=== PATIENT | male | born 1980 | race Two or more races ===

== ENCOUNTER → 2021-03-07 12:41 | Outpatient (BNVA) | payer MEDICAID, SELFPAY | PROVIDERS: PCP Internal Medicine; Referring Provider Internal Medicine; Visit Provider Nurse Practitioner Family | DX: I48.91 Unspecified atrial fibrillation (principal); E78.5 Hyperlipidemia, unspecified; R07.9 Chest pain, unspecified | CPT/HCPCS: 93005; 99212 ==

== ENCOUNTER → 2021-03-22 09:28 | Outpatient (REF) | payer MEDICAID, SELFPAY ==
--- NOTE | ~2021-03-22 | NM_ITS ---
Exercise Myocardial perfusion study Indication: Chest pain to evaluate for myocardial ischemia Technique: The patient was brought in for an exercise perfusion study on 03/22/2021. Patient performed exercise as per Raffy protocol and was injected 40 mCi of sestamibi was given intravenously one target HR was achieved. Images were obtained using the SPECT gamma camera interlaced with the gating device. Images were obtained in supine position. Resting perfusion study was performed on 03/23/2021. Patient was administered 40 mCi of sestamibi intravenously at rest. Images were then obtained in supine position. Images obtained with and without CT attenuation. Total DLP 148 mGy-cm. Images were processed with the software and compared side to side in short axis, horizontal long axis and vertical long axis views. Findings: The stress perfusion study showed non attenuated images show mildly reduced uptake in the basal inferior wall of the LV myocardium. Remainder of the LV myocardium normally is. Attenuated corrected images show mildly reduced uptake in the distal septum and the apex of the LV myocardium.. The gated study shows normal LV systolic function with calculated LVEF of 60%. LV cavity is normal in size. The gated study shows normal systolic wall thickening and contraction of all segments. There is no transient ischemic dilation. Resting study shows no change in perfusion pattern compared to stress perfusion study. Gating at rest reveals normal systolic wall motion with ejection fraction at 58%. The findings are consistent with no reversible defect suggestive of ischemia. Minimal to mild intensity fixed defect with normal wall motion normal myocardial perfusion. NM/NM cardiolite stress test Impression: 1. Normal myocardial perfusion 2. Gated LVEF is 60% 3. Transient ischemic dilatation not present Stress EKG is equivocal for ischemia
--- NOTE | 2021-03-22 09:30 | CA_ITS ---
Acquisition Time: 2021-03-22 09:42:23 Total Exercise Time: 00:07:32 Test Indications: CP Medications: SEE CHART Protocol: FEMI Max HR: 142 BPM 79% of Pred: 179 BPM Max BP: 136/070 mmHG Max Work Load: 9.3 METS Exercise stress test using Femi protocol, total of 7 min 32 sec. METS 9.30 and TAPHR up to 79 %. Pt c/o SOB no CP, EKG with no arrhythmias, No ischemic changes seen during exercise or in recovery. Nuclear images to follow. Normotensive response to exercise. Test reviewed with Dr. Darden. Referred By: Vira Jackson Overread By: Marilyn Rodarte NP
== END ==
LOC: HO.SL 09:28
PROVIDERS: PCP Internal Medicine; Visit Provider Nurse Practitioner Family
DX: R07.9 Chest pain, unspecified (principal); G47.33 Obstructive sleep apnea (adult) (pediatric); I48.0 Paroxysmal atrial fibrillation
CPT/HCPCS: 78452; 93016; 93017; 93018; 93225; 93226; 95806; A9500

== ENCOUNTER → 2021-03-26 10:10 | Outpatient (REF) | payer MEDICAID, SELFPAY ==
--- NOTE | 2021-03-26 10:15 | ECG_ITS ---
Hook-up date: 2021-03-26 10:19:00 Duration: 24:02:00 Test Indications: PAF Medications: [id number] QRS complexes 8 Ventricular ectopics which represent <1 % of total QRS comp. 76 Supraventricular ectopics which represent <1 % of total QRS comp. * Paced QRS complexs which represent % of total QRS comp. VENTRICULAR ECTOPY 8 Isolated 0 Bigeminal Cycles 0 Couplets 0 Runs 0 Beats in Runs * Beats LONGEST at * BPM at :: -- * Beats FASTEST at * BPM at :: -- SUPRAVENTRICULAR ECTOPY 73 Isolated 1 Couplets 1 Runs 3 Beats in Runs 3 Beats LONGEST at 104 BPM at 01:36:01 2021-03-27 3 Beats FASTEST at 104 BPM at 01:36:01 2021-03-27 HEART RATES 40 MIN at 04:48:25 2021-03-27 80 AVG 134 MAX at 07:34:50 2021-03-27 LONGEST RR 1.6320 secs at 04:48:22 2021-03-27 S-T LEVELS Channel 1 - 128 mm at 10:19:00 2021-03-26 - 128 mm at 10:19:00 2021-03-26 Channel 2 - 128 mm at 10:19:00 2021-03-26 - 128 mm at 10:19:00 2021-03-26 Channel 3 - 128 mm at 02:93:81 -- - 128 mm at 02:93:81 Underlying rhythm is sinus; Average rate 80/min; range 40-134/min; Most rates are 60-100/min; Rare PACs/PVCs; One strip with possible flutter but well controlled ventricular rate; No sustained arrhythmias; Patient did not report any symptoms in the diary Referred By: Vira Jackson Overread By: JANE HALL
== END ==
LOC: HO.CARD 10:10
PROVIDERS: Visit Provider Nurse Practitioner Family
DX: I48.0 Paroxysmal atrial fibrillation (principal)
CPT/HCPCS: 93225; 93226

== ENCOUNTER → 2021-04-05 09:14 | Outpatient (BNVA) | payer MEDICAID, SELFPAY | PROVIDERS: PCP Internal Medicine; Referring Provider Internal Medicine; Visit Provider Internal Medicine | DX: I48.0 Paroxysmal atrial fibrillation (principal); I49.3 Ventricular premature depolarization; G47.33 Obstructive sleep apnea (adult) (pediatric) | CPT/HCPCS: 99212 ==

== ENCOUNTER → 2021-04-10 19:23 | Outpatient (REF) | payer MEDICAID, SELFPAY | LOC: HO.SL 19:23 | PROVIDERS: Visit Provider Nurse Practitioner Family | DX: G47.33 Obstructive sleep apnea (adult) (pediatric) (principal) | CPT/HCPCS: 95811 ==

== ENCOUNTER → 2021-06-18 14:37 | Outpatient (BNVA) | payer MEDICAID, SELFPAY | PROVIDERS: PCP Internal Medicine; Visit Provider Surgery | DX: K64.8 Other hemorrhoids (principal); E66.01 Morbid (severe) obesity due to excess calories | CPT/HCPCS: 99202 ==

== ENCOUNTER 2021-06-29 07:58 | Day surgery (SDC) | payer MEDICAID, SELFPAY ==
[2021-06-22 09:24] VITALS: BMI 36.5
--- NOTE | 2021-06-28 09:49 | HO.ANESPROP2 ---
Documented by User: Monse Stephens NP 06/28/21 09:52 HPI - Anesthesia Eval Consult details Narrative: 41yo M for EUA & Hemorrhoidectomy, Poss Sphincterotomy Afib, no anticoag per cardiol Severe PANTERA - ? CPAP PMFSH Active Problems Active Problems: All Active Problems (Updated 06/22/21 @ 09:28 by Caprice Marshall, RN) Hypersomnia (Acute) History of colon resection (Acute) Obstructive sleep apnea (Acute) PAF (paroxysmal atrial fibrillation) (Acute) PVC (premature ventricular contraction) (Acute) Hemorrhoids with complication (Acute) Morbid obesity (Acute) HLD (hyperlipidemia) (Acute) Afib (Acute) Chest pain (Acute) Past Medical History Medical History (Updated 06/22/21 @ 09:28 by Caprice Marshall RN) Afib Chest pain COVID-19 COVID-19 vaccination not done Hemorrhoids with complication HLD (hyperlipidemia) Morbid obesity Family History Family History Brother No problems noted. Surgical History Surgical History (Updated 06/22/21 @ 09:22 by Caprice Marshall, LENO) History of back surgery History of bowel resection Social History Social History (Updated 06/22/21 @ 09:22 by Caprice Marshall RN) Patient Tobacco Use Status: Current everyday Tobacco user Tobacco use type: Cigarette Cigarettes Per Day: 10 Smoked in Last 30 Days: Yes Use of substances other than those prescribed or required for medical reasons: No Are you DNR?: No Advance Directives: No Advance Directives Information Provided: No Advance Directives on File: No Meds Allergies Allergy/AdvReac Type Severity Reaction Status Date / Time ampicillin [AMPICILLIN] Allergy Severe SWELLING/HI Verified 06/18/21 15:00 VES Cephalosporins Allergy Severe SWELLING/HI Verified 06/18/21 15:00 [CEPHALOSPORINS] VES Penicillins [PENICILLINS] Allergy Severe SWELLING/HI Verified 06/18/21 15:00 VES Home Medications Medication Instructions Recorded Confirmed Last Taken Type pantoprazole 40 mg tablet,delayed 40 mg PO DAILY 03/07/21 06/22/21 Unknown History release Exam Exam Date and Time: June 28, 2021 0949 Height,Weight and Vital Signs: Height 5 ft 11 in Weight 118.841 kg Narrative Narrative: echocardiogram at [facility] 02/2021 LVEF of 50-55% and mild LVH and mild diastolic dysfunction. EKG 03/2021 SR, no acute ST/ T wave abn, rate 88 Holter 03/2021 Underlying rhythm is sinus; Average rate 80/min; range 40-134/min; Most rates are 60-100/min; Rare PACs/PVCs; One strip with possible flutter? but well controlled ventricular rate; No sustained arrhythmias; Patient did not report any symptoms in the diary NM cardiolite stress test 03/2021 Impression: ? 1.? Normal myocardial perfusion 2.? Gated LVEF is 60% 3. Transient ischemic dilatation not present ? Stress EKG is equivocal for ischemia Assessment and Plan Assessment Anesthesia Assessment: Chart Reviewed Documented by User: Bruce Alas MD 06/29/21 10:02 [facility] Past Medical History Medical History (Updated 06/22/21 @ 09:28 by Caprice Marshall, LENO) Afib Chest pain COVID-19 COVID-19 vaccination not done Hemorrhoids with complication HLD (hyperlipidemia) Morbid obesity Family History Family History Brother No problems noted. Family history of problems with anesthesia: No Surgical History Surgical History (Updated 06/22/21 @ 09:22 by Caprice Marshall, RN) History of back surgery History of bowel resection History of Problems with Anesthesia: No Social History Social History (Updated 06/22/21 @ 09:22 by Caprice Marshall, LENO) Patient Tobacco Use Status: Current everyday Tobacco user Tobacco use type: Cigarette Cigarettes Per Day: 10 Smoked in Last 30 Days: Yes Use of substances other than those prescribed or required for medical reasons: No Are you DNR?: No Advance Directives: No Advance Directives Information Provided: No Advance Directives on File: No Meds Allergies Allergy/AdvReac Type Severity Reaction Status Date / Time ampicillin [AMPICILLIN] Allergy Severe SWELLING/HI Verified 06/18/21 15:00 VES Cephalosporins Allergy Severe SWELLING/HI Verified 06/18/21 15:00 [CEPHALOSPORINS] VES Penicillins [PENICILLINS] Allergy Severe SWELLING/HI Verified 06/18/21 15:00 VES Home Medications Medication Instructions Recorded Confirmed Last Taken Type pantoprazole 40 mg tablet,delayed 40 mg PO DAILY 03/07/21 06/22/21 Unknown History release Exam Airway Mallampati Class: I TM Dist: >3cm Neck ROM: Full Heart: ok Lungs: ok Assessment and Plan Assessment Anesthesia Assessment: Anesthesia Plan Discussed and Chart Reviewed Final Anesthetic Review Family History of Problems with Anesthesia: No History of Problems with Anesthesia: No NPO: Yes ASA Class: III Final Preanesthetic Review: No Changes in Pt Med Stat, Meds/Allgs Chart Reviewed, Consent Obtained/Reviewed and Anes Risks/Benef Reviewed Patient Risk: Intermediate Procedure Risk: Intermediate Anesthetic Plan Anesthetic Plan: GA and Agree w/ Assess. and Plan Disposition: Standard PACU
[2021-06-29 08:35] VITALS: BP 107/61; PULSE 72; RESP 16; TEMP 36.6; O2SAT 95
--- NOTE | 2021-06-29 08:41 | MHC.SHP ---
Pre-Procedural Eval Section A Date of Service: 06/29/21 Section B Chief Complaint: Hemorrhoids with complication Allergies: Allergies Allergy/AdvReac Type Severity Reaction Status Date / Time ampicillin [AMPICILLIN] Allergy Severe SWELLING/HI Verified 06/18/21 15:00 VES Cephalosporins Allergy Severe SWELLING/HI Verified 06/18/21 15:00 [CEPHALOSPORINS] VES Penicillins [PENICILLINS] Allergy Severe SWELLING/HI Verified 06/18/21 15:00 VES Plan I have reviewed the history and physical and performed a pertinent physical examination on my patient. No changes have occurred unless specified.
[2021-06-29] MEDS: Lactated Ringers 1,000 ML 100 ML IVCONT (08:46)
--- NOTE | 2021-06-29 10:54 | W.PM.OPN ---
Operative Note Operative Note Date of Service: 06/29/21 Narrative: Preop diagnosis: Internal and external hemorrhoids, with pain and bleeding Postop diagnosis: The same Procedure: Exam under anesthesia, hemorrhoidectomy x2 columns Surgeon: Jemal Araya MD Pit Slagman:BRENDA Perez student The patient is a 41-year-old male who has had chronic problems with pain and bleeding with hemorrhoids. He was seen in the office and was noted to have a bulky mixed internal and external hemorrhoidal column on the right side. He also had a smaller hemorrhoidal column the left. In view of symptoms, he wanted to proceed with hemorrhoidectomy. He understood the technique of the procedure as well as the risks, benefits, and alternatives. He was brought to the operating room and placed in prone luis manuel-knife position under general anesthesia via laryngeal mask airway. The buttocks were retracted with wide tape laterally. The perianal area was prepped and draped in the usual fashion. A surgical time-out was done. The patient received Cefotan 2 g IV preoperatively I infiltrated the perianal area with lidocaine 1%. Examination of the anal orifice revealed a bulky hemorrhoidal column on the right side and a smaller hemorrhoidal column on the left. I inserted abuse Garrett retractor and examined the anal canal circumferentially. Again this large hemorrhoidal column on the right was noted with a mix of internal external with note of what seems to be an internal component that bled easily. There was note of a smaller external hemorrhoidal column on the left. There were no other lesions seen. There is no anal fissure. There was no induration on examination I applied a Rashid grasper at the large hemorrhoidal column on the right side. I placed a aqplyk-tq-zlugr stitch at the pedicle proximal to the dentate line using chromic 3-0. I made an incision around this hemorrhoidal column to the perianal skin using blade 15. I then excised this hemorrhoidal column above the plane of sphincters using scissors. I closed this incision with a running chromic 3-0 stitch, with additional giqpfb-si-wqdso sutures being placed for hemostasis I duplicatedthe same procedure with the external hemorrhoid column on the left. I made the incision around this hemorrhoidal column with a blade 15. I excised this hemorrhoidal column above the plane of the sphincters using scissors. I closed this incision with a running chromic 3-0 stitch with additional hemostatic fswaau-nq-nbsks sutures being placed. I observed from a stasis. Once hemostasis was confirmed I proceeded to then position a rolled Gelfoam packing into the anal canal. I infiltrated the perianal area with Marcaine 0.5% for postop analgesia The procedure was then completed The patient tolerated the procedure well. There were no complication noted. Initial and final counts of sponges and instruments were correct. Estimated blood loss was about 50 cc. The patient was extubated without difficulty and transferred to recovery room with stable vital signs.
--- NOTE | 2021-06-29 10:59 | P.BOP_ITS ---
Brief Operative Note Date of Service: 06/29/21 Pre-op diagnosis: Internal and external hemorrhoids with pain and bleeding Post-op diagnosis: same Procedure: Examination under anesthesia, hemorrhoidectomy x2 Surgeon: Jemal Araya MD Anesthesia: GLMA Was an Financial Report Service Sales Agent used for this Procedure?: No Estimated blood loss (mL): 50 Pathology: other (Hemorrhoids) Condition: stable Disposition: PACU
[2021-06-29 11:05] VITALS: BP 142/79; PULSE 85; RESP 16; TEMP 36.5; O2SAT 94
[2021-06-29] MEDS: ondansetron HCL 4 MG/2 ML VIAL IVPUSH (11:09)
[2021-06-29] MEDS: oxyCODONE HCl Immed Release 5 MG TABLET 10 MG PO (11:09)
[2021-06-29] MEDS: Acetaminophen 325 MG TABLET 650 MG PO (11:09)
[2021-06-29 11:10] VITALS: BP 145/83; PULSE 77; RESP 16; O2SAT 94
[2021-06-29 11:15] VITALS: BP 139/79; PULSE 78; RESP 18; O2SAT 98
[2021-06-29 11:20] VITALS: BP 136/70; PULSE 69; RESP 18; O2SAT 99
== END 2021-06-29 12:05 | disposition home or self-care (01) ==
PROVIDERS: PCP Internal Medicine; Visit Provider Surgery
PROC: (CPT 46260; principal; 2021-06-29 09:40)
DX: K64.8 Other hemorrhoids (principal); K64.4 Residual hemorrhoidal skin tags; E66.01 Morbid (severe) obesity due to excess calories; Z68.36 Body mass index [BMI] 36.0-36.9, adult
CPT/HCPCS: 46260; 88304; J2405; J3010

== ENCOUNTER → 2021-07-12 11:25 | Outpatient (BNVA) | payer MEDICAID, SELFPAY | PROVIDERS: PCP Internal Medicine; Visit Provider Surgery | DX: K64.8 Other hemorrhoids (principal) | CPT/HCPCS: 99212 ==

== ENCOUNTER → 2021-10-03 08:43 | Outpatient (BNVA) | payer MEDICAID, SELFPAY | PROVIDERS: PCP Internal Medicine; Visit Provider Hospitalist | DX: G47.33 Obstructive sleep apnea (adult) (pediatric) (principal); G47.10 Hypersomnia, unspecified | CPT/HCPCS: 99202 ==

== ENCOUNTER 2021-10-25 07:48 | Outpatient (REF) | payer MEDICAID, SELFPAY ==
--- NOTE | 2021-10-25 07:51 | EMG_ITS ---
Bilateral median and ulnar motor and sensory studies were performed. Bilateral radial sensory studies were performed and paraspinal muscles were tested with a needle. IMPRESSION: This is an unremarkable study with no evidence of any significant abnormality to suggest entrapment neuropathy or radiculopathy. MD ANDRIY Morse/REID / [id number]
== END 2021-10-25 07:49 | disposition home or self-care (01) ==
LOC: HO.NEURO 07:48
PROVIDERS: Visit Provider Internal Medicine
DX: G56.03 Carpal tunnel syndrome, bilateral upper limbs (principal)
CPT/HCPCS: 95886; 95911

== ENCOUNTER → 2022-01-03 08:55 | Outpatient (BNVA) | payer MEDICAID, SELFPAY | PROVIDERS: PCP Internal Medicine; Visit Provider Hospitalist | DX: G47.33 Obstructive sleep apnea (adult) (pediatric) (principal); G47.10 Hypersomnia, unspecified; I48.0 Paroxysmal atrial fibrillation | CPT/HCPCS: 99212 ==

== ENCOUNTER → 2022-04-02 08:32 | Outpatient (BNVA) | payer MEDICAID, SELFPAY | PROVIDERS: PCP Internal Medicine; Visit Provider Hospitalist | DX: G47.33 Obstructive sleep apnea (adult) (pediatric) (principal); G47.10 Hypersomnia, unspecified; I48.0 Paroxysmal atrial fibrillation | CPT/HCPCS: 99212 ==

== ENCOUNTER → 2022-06-18 13:19 | Outpatient (REF) | payer MEDICAID, SELFPAY | LOC: HO.CARD 13:19 | PROVIDERS: Visit Provider Internal Medicine | DX: I48.0 Paroxysmal atrial fibrillation (principal); I49.3 Ventricular premature depolarization; G47.33 Obstructive sleep apnea (adult) (pediatric); E66.01 Morbid (severe) obesity due to excess calories; F17.210 Nicotine dependence, cigarettes, uncomplicated; Z79.899 Other long term (current) drug therapy | CPT/HCPCS: 93005; 99212 ==

== ENCOUNTER → 2022-08-20 09:08 | Outpatient (REF) | payer MEDICARE, MEDICAID, SELFPAY ==
--- NOTE | 2022-08-20 09:12 | CA_ITS ---
Transthoracic Echocardiogram Patient (Last, First, Middle): Gennaro Quinn, Gender: Male Date of : 1980 Age: 42 Procedure Date: 08/20/2022 Procedure Type: Transthoracic Echocardiogram Location: OP Height: 180.34 cm Weight: 122.47 kg BSA: 2.40 m2 Heart Rate: 74 bpm BP: 122 / 82 mmHg Track Man: SB Referring MD: Ant Macedo MD Symptoms: I48.0 - Paroxysmal atrial fibrillation Study Quality: Adequate w contrast ECG Rhythm: Sinus Conclusions: - The left ventricular systolic function is low normal. The visually estimated ejection fraction is between 50-55%. - No obvious valvular pathology seen on this study. Findings Procedure Information Contrast agent, definity, is being given per protocol without apparent complications. Left Ventricle Normal left ventricular cavity size. There is normal left ventricular wall thickness. The left ventricular systolic function is low normal. The visually estimated ejection fraction is between 50-55%. There is no evidence of regional wall motion abnormalities. Diastolic function is normal for age. Right Ventricle Normal right ventricular cavity size and systolic function. Atria Both atria are normal in size. Aortic Valve There is a normal trileaflet aortic valve. There is no aortic valve stenosis. There is no aortic valve regurgitation. Mitral Valve The mitral valve appears normal. There is no mitral valve regurgitation. There is no mitral valve stenosis. Pulmonic Valve The pulmonic valve is likely normal. Tricuspid Valve Normal tricuspid valve structure. There is trace tricuspid valve regurgitation. There is no evidence of pulmonary hypertension. Great Vessels The aortic annulus, sinuses of valsalva, and asc aorta are normal in size. Venous The inferior vena cava is normal in size and collapses greater than 50% with inspiration. Pericardium/Pleural There is no evidence of pericardial effusion. Prior Study Comparison Changes noted compared to prior study dated: 05/12/2019. LVEF slightly lower. Recommendations, Care & Conclusions No obvious valvular pathology seen on this study. Measurements 2D Linear Measurements IVSd: 0.80 0.6-0.9/0.6-1.0 cm LVIDd: 5.28 3.9-5.3/4.2-5.9 cm LVIDd Index: 2.20 2.4-3.2/2.2-3.1 cm/m2 LVIDs: 3.92 2.0-3.6 cm LVPWd: 0.76 0.7-1.1 cm LA Diam: 3.70 2.7-3.8/3.0-4.0 cm LAIDs Index: 1.54 1.5-2.3 cm/m2 LV Mass: 179.87 67-162/88-224 g LV Mass Index: 74.95 43-95/49-115 g/m2 LVOT Diam: 2.50 3.0+(-)1.3 cm 2D Systolic Function EF 4C: 50.30 >55% EF 2C: 64.90 >55% EF BiP: 57.70 >55% Mitral Valve MV Pk E: 0.72 MV PK A: 0.66 MV Decel Time: 147.00 E/A: 1.10 E'Lateral: 9.90 E'Medial: 5.77 E/E' Med: 12.50 E/E' Lat: 7.30 PHT: 43.00 MVA PHT: 5.12 Decel [place]: 4.89 Aortic Valve AoV Pk Gallo: 1.12 AoV Pk Grad: 5.00 SONA: 4.18 LVOT LVOT Pk Gallo: 0.95 LVOT Mn Gallo: 0.70 LVOT VTI: 0.19 LVOT Pk Grad: 4.00 LVOT Mn Grad: 2.00 LVOT Diam: 2.50 LVOT Area: 4.91 Diastolic Function MV Pk E: 0.72 MV Pk A: 0.66 E/A: 1.10 E'Medial: 5.77 E/E' Med: 12.50 E' Laterial: 9.90 E/E' Lat: 7.30 Right Ventricle TAPSE (mm): 20.30 TVS' Gallo: 12.10 Tricuspid Valve TR Pk Gallo: 2.07 TR Pk Grad: 17.00 RA Press: 3.00 RVSP: 20.00 Great Vessels Aorta Sinus of Valsalva: 3.10 2.0-3.5 cm Ao Asc: 3.20 2.1-3.4 cm Pulmonary Veins Pulm Vein S/D 0.80 Pulmonary Valve PV Pk Gallo: 1.18 Peak PV Grad: 6.00 Updated in Other Vendor System with Status of Final Ant Macedo MD electronically signed on 08/20/2022 4:00:02 PM with status of Final
== END ==
LOC: HO.CARD 09:08
PROVIDERS: Visit Provider Internal Medicine
DX: I48.0 Paroxysmal atrial fibrillation (principal)
CPT/HCPCS: 93306; Q9957

== ENCOUNTER → 2022-11-29 12:35 | Outpatient (REF) | payer MEDICARE, MEDICAID, SELFPAY ==
--- NOTE | 2022-11-29 12:32 | HM_ITS ---
* Total monitoring time approximately 2 days. * Underlying rhythm is sinus. * Average ventricular rate 92/Min. Range 38 to 163/Min. * About 18% of the time, rate > 100/Min. * Very rare PVCs/PACs. Minimal burden. * No significant pauses or AV blocks. * No patient marker or diary events. MTDD
== END ==
LOC: HO.CARD 12:35
PROVIDERS: PCP Internal Medicine; Visit Provider Internal Medicine
DX: I48.0 Paroxysmal atrial fibrillation (principal)
CPT/HCPCS: 93225

== ENCOUNTER → 2023-02-06 12:14 | Outpatient (BNVA) | payer MEDICARE, MEDICAID, SELFPAY | PROVIDERS: PCP Internal Medicine; Referring Provider Internal Medicine; Visit Provider Internal Medicine | DX: I48.0 Paroxysmal atrial fibrillation (principal); I49.3 Ventricular premature depolarization; G47.33 Obstructive sleep apnea (adult) (pediatric); E66.01 Morbid (severe) obesity due to excess calories; Z68.38 Body mass index [BMI] 38.0-38.9, adult | CPT/HCPCS: 93005; 99212 ==

== ENCOUNTER 2023-06-24 11:26 | Outpatient (REF) | payer MEDICARE, MEDICAID, SELFPAY ==
[2023-06-24 15:10] LABS: Alanine Aminotransferase 26 U/L (0-40); Albumin Level 4.1 g/dL (3.5-5.0); Alkaline Phosphatase 79 U/L (39-117); Anion Gap 14 (12-20); Aspartate Amino Transferase 17 U/L (5-37); Bilirubin Total 0.6 mg/dL (0.0-1.0); Blood Urea Nitrogen 11 mg/dL (9-16); Calcium 9.7 mg/dL (8.4-10.2); Carbon Dioxide 24 mmol/L (22-29); Chloride 104 mmol/L (96-108); Cholesterol 246 mg/dL (<200); Estimated Glomerular Filt Rate > 60; Glucose Random 85 mg/dL (60-115); HDL Cholesterol 42 mg/dL (>40); Sodium 138 mmol/L (135-145)
[2023-06-24 15:41] LABS: LDL Cholesterol Calculated 175 mg/dL (<100); Triglycerides 148 mg/dL (<150)
== END 2023-06-24 11:27 | disposition home or self-care (01) ==
LOC: HO.CHCLDS 11:26
PROVIDERS: Visit Provider Internal Medicine
DX: E78.2 Mixed hyperlipidemia (principal)
CPT/HCPCS: 36415; 80053; 80061

== ENCOUNTER 2023-10-15 10:42 | Outpatient (REF) | payer MEDICARE, MEDICAID, SELFPAY ==
[2023-10-15 14:35] LABS: Alanine Aminotransferase 27 U/L (0-40); Alkaline Phosphatase 85 U/L (39-117); Anion Gap 13 (12-20); Aspartate Amino Transferase 27 U/L (5-37); Bilirubin Total 0.6 mg/dL (0.0-1.0); Blood Urea Nitrogen 7 mg/dL (9-16); Calcium 9.5 mg/dL (8.4-10.2); Carbon Dioxide 26 mmol/L (22-29); Chloride 103 mmol/L (96-108); Cholesterol 185 mg/dL (<200); Estimated Glomerular Filt Rate > 60; Glucose Random 88 mg/dL (60-115); HDL Cholesterol 42 mg/dL (>40); LDL Cholesterol Calculated 118 mg/dL (<100); Potassium 3.9 mmol/L (3.3-5.1); Sodium 138 mmol/L (135-145); Total Protein 7.8 g/dL (6.5-8.0); Triglycerides 128 mg/dL (<150)
== END 2023-10-15 10:43 | disposition home or self-care (01) ==
LOC: HO.CHCLDS 10:42
PROVIDERS: Visit Provider Internal Medicine
DX: E78.2 Mixed hyperlipidemia (principal)
CPT/HCPCS: 36415; 80053; 80061

== ENCOUNTER 2024-03-23 10:30 | Outpatient (AMB) | payer MEDICARE, MEDICAID, SELFPAY ==
[2024-03-23 10:42] VITALS: BP 120/68; PULSE 87; BMI 39.5
--- NOTE | 2024-03-23 10:42 | MHC.OFFVIS ---
Vital Signs 03/23/24 10:42 Height 5 ft 11 in Weight 283 lb 1.176 oz BMI 39.5 BP 120/68 Blood Pressure Location Lt brachial Position Sitting Pulse 87 Intake Visit Reasons: 1 yr f/up Outbound Telemarketer Required: No Accompanied by: Self / Same As Patient Allergies ampicillin [AMPICILLIN] Allergy (Severe, Verified 02/06/23 12:33) SWELLING/HIVES Cephalosporins [CEPHALOSPORINS] Allergy (Severe, Verified 02/06/23 12:33) SWELLING/HIVES Penicillins [PENICILLINS] Allergy (Severe, Verified 02/06/23 12:33) SWELLING/HIVES Medication List - Last Reconciled 03/23/24 by Ant Macedo MD atorvastatin 40 mg PO DAILY cholecalciferol (vitamin D3) 25 mcg PO DAILY diltiazem HCl ER (Tiadylt ER) 120 mg PO DAILY pantoprazole 40 mg PO DAILY HPI Comments Details: Gennaro returns for follow-up. In 2018, he was having palpitations and thought to have PVCs. Then hospitalized in [facility] in 2020 for atrial fibrillation. Resolved with IV diltiazem. He has been on oral diltiazem since that time. Has obesity, obstructive sleep apnea but not on CPAP. Overall, feels just about the same as before. No cardiac symptoms whatsoever. [facility] Medical History COVID-19 vaccination not done Hemorrhoids with complication Morbid obesity COVID-19 HLD (hyperlipidemia) Afib Chest pain Surgical History History of carpal tunnel surgery of right wrist History of bowel resection History of back surgery Family History Brother No problems noted. Social History Alcohol intake: never Patient Tobacco Use Status: Current everyday Tobacco user Tobacco use type: Cigarette Cigarettes Per Day: 10 Years Smoked: 30 +/- Review of Systems Const Denies chills, Denies fatigue, Denies fever(s), Denies frequent falls, Denies weakness, Denies weight gain and Denies weight loss ENT Denies dizziness Card Denies chest pain, Denies leg edema, Denies lightheadedness, Denies palpitations, Denies dyspnea and Denies dyspnea on exertion Resp Denies cough, Denies dyspnea and Denies dyspnea on exertion GI Denies hematochezia Musc Denies abnormal gait, Denies muscle weakness, Denies numbness, Denies radiating pain into limb and Denies tingling Neuro Denies abnormal gait, Denies dizziness, Denies frequent falls, Denies numbness, Denies tingling and Denies weakness Endo Denies fatigue and Denies palpitations Physical Exam Vital Signs: Last Vital Signs Pulse 87 03/23/24 10:42 BP 120/68 03/23/24 10:42 BMI result Body Mass Index 39.5 Const General: comfortable and no acute distress Orientation/consciousness: patient oriented x3 HEENT Other: Unremarkable Head: Yes normal to inspection Neck Neck: Yes normal visual inspection Chest Chest palpation & inspection: normal inspection of the chest Resp Auscultation: clear to auscultation bilaterally Cardio Palpation: normal PMI Heart sounds: S1 normal heart sound present, S2 normal heart sound present, no gallops, no murmurs and no rubs GI Palpation (GI): Soft to palpation Back/Spine/Pelvis Other: unremarkable Skin General skin exam: no rashes or lesions noted Neuro General: patient oriented x3 Extrem General: Yes normal to inspection Psych Mental Status: mental status grossly normal Office Procedures EKG Details: EKG with sinus rhythm at 87/Min; rightward axis; no significant ST-T changes and otherwise unremarkable[place] [id number], Complete Assessment & Plan Assessment & Plan (1) PAF (paroxysmal atrial fibrillation): Code(s): I48.0 - Paroxysmal atrial fibrillation Category: Medical Plan: Continue diltiazem. Due to low thromboembolic risk not on anticoagulation. Holter shows underlying sinus rhythm but no evidence of atrial fibrillation. A prior echocardiogram from [facility]-LVEF 50-55%; mild LVH; mild diastolic dysfunction. Repeat study also shows LVEF of 50-55%. (2) PVC (premature ventricular contraction): Code(s): I49.3 - Ventricular premature depolarization Category: Medical Plan: In the Holter from 2019, he had a significant PVC burden of almost 12%. In the last Holter, nothing significant. (3) Obstructive sleep apnea: Comment: severe on sleep study 03/22/21 Code(s): G47.33 - Obstructive sleep apnea (adult) (pediatric) Category: Medical Plan: He has not using CPAP. Discussed about this issue and cardiac arrhythmias and in general effects on held. Advised him to contact Pulmonary. (4) Morbid obesity: Code(s): E66.01 - Morbid (severe) obesity due to excess calories Category: Medical Plan: He is morbidly obese and his weight is actually going up. Again discussed about weight loss and importance. Coding Level of Care Code Est Pt Level 4 (96752) Diagnoses PAF (paroxysmal atrial fibrillation) I48.0 PVC (premature ventricular contraction) I49.3 Obstructive sleep apnea G47.33 Morbid obesity E66.01 CPT Codes EKG - CPT: 70212-[id number], Complete ([id number])
== END 2024-03-23 10:56 | disposition home or self-care (01) ==
PROVIDERS: PCP Internal Medicine; Visit Provider Internal Medicine
DX: I48.0 Paroxysmal atrial fibrillation (principal); I49.3 Ventricular premature depolarization; G47.33 Obstructive sleep apnea (adult) (pediatric); E66.01 Morbid (severe) obesity due to excess calories
CPT/HCPCS: 93010; 99214

== ENCOUNTER → 2024-03-23 10:30 | Outpatient (BNVA) | payer MEDICARE, MEDICAID, SELFPAY | PROVIDERS: PCP Internal Medicine; Visit Provider Internal Medicine | DX: I48.0 Paroxysmal atrial fibrillation (principal); I49.3 Ventricular premature depolarization; G47.33 Obstructive sleep apnea (adult) (pediatric); E66.01 Morbid (severe) obesity due to excess calories; Z68.39 Body mass index [BMI] 39.0-39.9, adult | CPT/HCPCS: 93005; 99212 ==

== ENCOUNTER 2024-07-07 10:19 | Outpatient (AMB) | payer MEDICARE, MEDICAID, SELFPAY ==
[2024-07-07 10:27] VITALS: BP 128/70; PULSE 80; O2SAT 99; BMI 39.4
--- NOTE | 2024-07-07 10:27 | A.OFFVIS_ITS ---
Vital Signs 07/07/24 10:27 Height 5 ft 11 in Weight 282 lb 10.122 oz BMI 39.4 BP 128/70 Blood Pressure Location Lt brachial Position Sitting Pulse 80 Pulse Source Pulse Oximeter Pulse Oximetry (%) 99 Oxygen Delivery Method Room Air Intake Visit Reasons: oralia Weight Reducing Technician Required: No Allergies ampicillin [AMPICILLIN] Allergy (Severe, Verified 07/07/24 10:31) SWELLING/HIVES Cephalosporins [CEPHALOSPORINS] Allergy (Severe, Verified 07/07/24 10:31) SWELLING/HIVES Penicillins [PENICILLINS] Allergy (Severe, Verified 07/07/24 10:31) SWELLING/HIVES HPI Comments Details: The patient is a 44-year-old gentleman with a known history of atrial fibrillation who apparently has been complaining of worsening daytime drowsiness. His [place] score is elevated at over 24. the patient did undergo a home sleep study back in the summer of 2020. I personally reviewed demonstrating severe sleep apnea with an AHI of 36 events an hour. The patient also demonstrated significant hypoxia. Therefore, the patient was referred to a titration study. He did undergo sufficient study. He was placed on CPAP with a nasal mask but does not helpful. He was then switched to a fullface mask which she did better. It appeared that his obstructive sleep apnea was best controlled when his CPAP pressure was up to 15 cm. Therefore will start him on APAP in order for him to get used to a lower pressure and then titrated up as tolerated. Patient is otherwise without any other respiratory complaints. Due to his severe sleep apnea will request an urgent set up. 01/03/2022 the patient is here for a pulmonary follow-up visit. Overall the patient is been doing well though he still complaining of significant back pain apparently in the end of the month he will be undergoing surgery for his back. Unfortunately, he has not received his CPAP machine as of yet. I am concerned because he will need general anesthesia. He already has severe sleep apnea. I did call the [employer] company to see if they can facilitate a CPAP for him TANESHA. I did get in touch with them and they will let me know what they can do for him. In the meantime he denies any significant palpitations or tachycardia. He does have a history to fibrillation. 04/02/2022 the patient is here for a pulmonary follow-up visit. He did finally get his CPAP. He has been using it well. The therapy has been affecting beneficial. Initially tried a nasal mask but he could not do well with that because he would open his mouth. Therefore he was switched over to a fullface mask, F20. Then he try it in half 20 foam mask but broke. He is back to using a medium F20. I do believe that based on his size he will do better with a large F20. I will make sure to provide him 1. in addition to that I did provide with a chinstrap so he can try the nasal mask with a chinstrap if he does decide. Upon downloaded the data he is using more than 4 hours a night. His average pressure is 13 cm in his current machine is set up APAP 8-16. Therefore will leave it like that we will not Changes settings at this time. If the patient has any issues he is to call the office otherwise will follow-up with him in a year's time. 07/07/2024 the patient is here for a pulmonary follow-up visit. The patient has been struggling with his CPAP. He can not tolerate the high pressure. He has also tried multiple masks without any significant benefit. The patient did follow-up with cardiology. He has ongoing cardiac issues and therefore he needs to be able to tolerate his PAP therapy. I do believe that is difficult for him to tolerate the CPAP because of the 15 cm of pressure is very high for him. I believe that his failed CPAP because of the high pressure settings and will benefit from a BiPAP. Therefore, I will request for his machine to be switched over from CPAP to BiPAP at this time. In the meantime the patient needs fullface mask. I did have an F30 I medium mask available and did provide him the mask for him to try. was a good fit he did feel comfortable with it. He will try the CPAP for now. Her respiratory status he continues to do well. [facility] Medical History COVID-19 vaccination not done Hemorrhoids with complication Morbid obesity COVID-19 HLD (hyperlipidemia) Afib Chest pain Surgical History History of carpal tunnel surgery of right wrist History of bowel resection History of back surgery Family History Brother No problems noted. Social History Alcohol intake: never Patient Tobacco Use Status: Current everyday Tobacco user Tobacco use type: Cigarette Cigarettes Per Day: 10 Years Smoked: 30 +/- Review of Systems Const Reports daytime sleepiness and Denies snoring Eyes Denies change in vision ENT Reports dry mouth Card Reports palpitations Resp Denies snoring GI Reports no additional complaints Musc Reports back pain Endo Reports palpitations Physical Exam Vital Signs: Last Vital Signs Pulse 80 07/07/24 10:27 BP 128/70 07/07/24 10:27 Pulse Ox 99 07/07/24 10:27 Oxygen Delivery Method Room Air 07/07/24 10:27 BMI result Body Mass Index 39.4 Const General: alert Neck Neck: Yes normal visual inspection, Yes full ROM and Yes no lymphadenopathy Chest Chest palpation & inspection: normal inspection of the chest Resp Auscultation: clear to auscultation bilaterally Cardio Rate: regular rate Rhythm: regular rhythm Heart sounds: S1 normal heart sound present and S2 normal heart sound present GI Palpation (GI): Soft to palpation and nontender Auscultation: normal bowel sounds Skin General skin exam: rashes and/or lesions noted Assessment & Plan Assessment & Plan (1) Obstructive sleep apnea: Comment: severe on sleep study 03/22/21 Code(s): G47.33 - Obstructive sleep apnea (adult) (pediatric) Category: Medical (2) Hypersomnia: Code(s): G47.10 - Hypersomnia, unspecified Category: Medical (3) PAF (paroxysmal atrial fibrillation): Code(s): I48.0 - Paroxysmal atrial fibrillation Category: Medical Plan failed APAP 8-16, requesting BIPAP mask change: F30i medium rate control F/U 3-4 months Coding Level of Care Code Est Pt Level 4 (37683) Diagnoses Obstructive sleep apnea G47.33 Hypersomnia G47.10 PAF (paroxysmal atrial fibrillation) I48.0 Time Spent (min) 16
== END 2024-07-07 10:55 | disposition home or self-care (01) ==
PROVIDERS: PCP Internal Medicine; Visit Provider Hospitalist
DX: G47.33 Obstructive sleep apnea (adult) (pediatric) (principal); G47.10 Hypersomnia, unspecified; I48.0 Paroxysmal atrial fibrillation
CPT/HCPCS: 99214

== ENCOUNTER → 2024-07-07 10:19 | Outpatient (BNVA) | payer MEDICARE, MEDICAID, SELFPAY | PROVIDERS: PCP Internal Medicine; Visit Provider Hospitalist | DX: G47.33 Obstructive sleep apnea (adult) (pediatric) (principal); G47.10 Hypersomnia, unspecified; I48.0 Paroxysmal atrial fibrillation; Z99.89 Dependence on other enabling machines and devices | CPT/HCPCS: 99212 ==

== ENCOUNTER 2024-11-25 09:43 | Outpatient (AMB) | payer MEDICARE, MEDICAID, SELFPAY ==
[2024-11-25 09:49] VITALS: BP 120/74; PULSE 87; O2SAT 97; BMI 39.4
--- NOTE | 2024-11-25 09:49 | MHC.OFFVIS ---
Vital Signs 11/25/24 09:49 Height 5 ft 11 in Weight 282 lb 3.067 oz BMI 39.4 BP 120/74 Blood Pressure Location Rt brachial Position Sitting Pulse 87 Pulse Source Pulse Oximeter Pulse Oximetry (%) 97 Oxygen Delivery Method Room Air Intake Visit Reasons: Obstructive sleep apnea Allergies ampicillin [AMPICILLIN] Allergy (Severe, Verified 11/25/24 09:53) SWELLING/HIVES Cephalosporins [CEPHALOSPORINS] Allergy (Severe, Verified 11/25/24 09:53) SWELLING/HIVES Penicillins [PENICILLINS] Allergy (Severe, Verified 11/25/24 09:53) SWELLING/HIVES HPI Comments Details: The patient is a 44-year-old gentleman with a known history of atrial fibrillation who apparently has been complaining of worsening daytime drowsiness. His [place] score is elevated at over 24. the patient did undergo a home sleep study back in the summer of 2020. I personally reviewed demonstrating severe sleep apnea with an AHI of 36 events an hour. The patient also demonstrated significant hypoxia. Therefore, the patient was referred to a titration study. He did undergo sufficient study. He was placed on CPAP with a nasal mask but does not helpful. He was then switched to a fullface mask which she did better. It appeared that his obstructive sleep apnea was best controlled when his CPAP pressure was up to 15 cm. Therefore will start him on APAP in order for him to get used to a lower pressure and then titrated up as tolerated. Patient is otherwise without any other respiratory complaints. Due to his severe sleep apnea will request an urgent set up. 01/03/2022 the patient is here for a pulmonary follow-up visit. Overall the patient is been doing well though he still complaining of significant back pain apparently in the end of the month he will be undergoing surgery for his back. Unfortunately, he has not received his CPAP machine as of yet. I am concerned because he will need general anesthesia. He already has severe sleep apnea. I did call the [employer] company to see if they can facilitate a CPAP for him TANESHA. I did get in touch with them and they will let me know what they can do for him. In the meantime he denies any significant palpitations or tachycardia. He does have a history to fibrillation. 04/02/2022 the patient is here for a pulmonary follow-up visit. He did finally get his CPAP. He has been using it well. The therapy has been affecting beneficial. Initially tried a nasal mask but he could not do well with that because he would open his mouth. Therefore he was switched over to a fullface mask, F20. Then he try it in half 20 foam mask but broke. He is back to using a medium F20. I do believe that based on his size he will do better with a large F20. I will make sure to provide him 1. in addition to that I did provide with a chinstrap so he can try the nasal mask with a chinstrap if he does decide. Upon downloaded the data he is using more than 4 hours a night. His average pressure is 13 cm in his current machine is set up APAP 8-16. Therefore will leave it like that we will not Changes settings at this time. If the patient has any issues he is to call the office otherwise will follow-up with him in a year's time. 07/07/2024 the patient is here for a pulmonary follow-up visit. The patient has been struggling with his CPAP. He can not tolerate the high pressure. He has also tried multiple masks without any significant benefit. The patient did follow-up with cardiology. He has ongoing cardiac issues and therefore he needs to be able to tolerate his PAP therapy. I do believe that is difficult for him to tolerate the CPAP because of the 15 cm of pressure is very high for him. I believe that his failed CPAP because of the high pressure settings and will benefit from a BiPAP. Therefore, I will request for his machine to be switched over from CPAP to BiPAP at this time. In the meantime the patient needs fullface mask. I did have an F30 I medium mask available and did provide him the mask for him to try. was a good fit he did feel comfortable with it. He will try the CPAP for now. Her respiratory status he continues to do well. 11/25/2024 the patient is here for a pulmonary follow-up visit. Overall he is doing very well on the BiPAP. The BiPAP therapy has been affecting beneficial. He is AHI is down to 2. He does have issues with his mask. He feels like he gets too tight around his nasal bridge and is irritating him. I did have an F 40 medium mask for him to try. He felt that it was comfortable. He is going to try. The other option is an AirTouch foam fullface mask. If this is a F 40 does not work can always call and I can request that 1. He also has issues with water on the chamber. I did ask him to use the climate tubing and adjusted temperature in the humidity. From a rate control status the patient is doing good from the atrial fibrillation standpoint. He is going to continue the current therapy will follow-up in a year's time. She has any issues prior to this he will call for an earlier appointment. [facility] Medical History COVID-19 vaccination not done Hemorrhoids with complication Morbid obesity COVID-19 HLD (hyperlipidemia) Afib Chest pain Surgical History History of carpal tunnel surgery of right wrist History of bowel resection History of back surgery Family History Brother No problems noted. Social History Alcohol intake: never Patient Tobacco Use Status: Current everyday Tobacco user Tobacco use type: Cigarette Cigarettes Per Day: 10 Years Smoked: 30 +/- Review of Systems Const Denies daytime sleepiness and Denies snoring Eyes Denies change in vision ENT Reports dry mouth Card Reports palpitations Resp Denies snoring GI Reports no additional complaints Musc Reports back pain Endo Reports palpitations Physical Exam Vital Signs: Last Vital Signs Pulse 87 11/25/24 09:49 BP 120/74 11/25/24 09:49 Pulse Ox 97 11/25/24 09:49 Oxygen Delivery Method Room Air 11/25/24 09:49 BMI result Body Mass Index 39.4 Const General: alert Neck Neck: Yes normal visual inspection, Yes full ROM and Yes no lymphadenopathy Chest Chest palpation & inspection: normal inspection of the chest Resp Auscultation: clear to auscultation bilaterally Cardio Rate: regular rate Rhythm: regular rhythm Heart sounds: S1 normal heart sound present and S2 normal heart sound present GI Palpation (GI): Soft to palpation and nontender Auscultation: normal bowel sounds Skin General skin exam: rashes and/or lesions noted Assessment & Plan Assessment & Plan (1) Obstructive sleep apnea: Comment: severe on sleep study 03/22/21 Code(s): G47.33 - Obstructive sleep apnea (adult) (pediatric) Category: Medical (2) Hypersomnia: Code(s): G47.10 - Hypersomnia, unspecified Category: Medical (3) PAF (paroxysmal atrial fibrillation): Code(s): I48.0 - Paroxysmal atrial fibrillation Category: Medical Plan continue BIPAP mask change: F30i medium rate control F/U 10-12 months Coding Level of Care Code Est Pt Level 4 (06975) Diagnoses Obstructive sleep apnea G47.33 Hypersomnia G47.10 PAF (paroxysmal atrial fibrillation) I48.0 Time Spent (min) 16
== END 2024-11-25 10:16 | disposition home or self-care (01) ==
PROVIDERS: PCP Internal Medicine; Visit Provider Hospitalist
DX: G47.33 Obstructive sleep apnea (adult) (pediatric) (principal); G47.10 Hypersomnia, unspecified; I48.0 Paroxysmal atrial fibrillation
CPT/HCPCS: 99214

== ENCOUNTER → 2024-11-25 09:43 | Outpatient (BNVA) | payer MEDICARE, MEDICAID, SELFPAY | PROVIDERS: PCP Internal Medicine; Visit Provider Hospitalist | DX: I48.0 Paroxysmal atrial fibrillation (principal); G47.33 Obstructive sleep apnea (adult) (pediatric); G47.10 Hypersomnia, unspecified; Z99.89 Dependence on other enabling machines and devices | CPT/HCPCS: 99212 ==

== ENCOUNTER 2025-04-11 10:33 | Outpatient (REF) | payer MEDICARE, MEDICAID, SELFPAY ==
--- OUTSIDE RECORDS SUMMARY | 2025-04-11 11:50 | XMS_ITS | Clinical Summary ---
Author Organization [employer] Address [address] [place] [address] 7 [place] [address] Care Team Providers Care Medical Records Analyst Name Role Phone Daniel Zhang MD Primary Care Provider Allergies Active Allergy Reactions Criticality Noted Date Comments Ampicillin Rash Low 04/22/2012 Cephalosporins Rash Low 04/22/2012 Penicillin G Rash Low 04/08/2012 Medications acetaminophen-cod eine (Tylenol w/ Codeine #3) 300-30 MG tablet TAKE 1 TABLET BY MOUTH 3 TIMES A DAY NEEDED FOR PAIN (DO NOT DRIVE WHILE TAKING) 022 Active losartan (Cozaar) 50 MG tabletIndications :Primary hypertension Take 1 tablet (50 mg) by mouth Once per day. 90 tablet 3 024 2024 Active dilTIAZem ER (Tiazac) 120 MG 24 hr capsuleIndication s:Primary hypertension Take 1 capsule (120 mg) by mouth Once per day. 90 capsule 3 024 Active pantoprazole (ProtoNix) 40 MG EC tabletIndications :Gastroesophageal reflux disease without esophagitis Take 1 tablet (40 mg) by mouth before breakfast. 90 tablet 3 024 2024 Active varenicline (Chantix) 1 MG tabletIndications :Smoker TAKE 1 TABLET BY MOUTH 2 TIMES DAILY. TAKE WITH FULL GLASS OF WATER. 168 tablet 1 024 Active cholecalciferol (Vitamin D3) 25 MCG (1000 UT) tabletIndications :Vitamin D deficiency TAKE ONE TABLET (25 MCG) BY MOUTH ONCE DAILY AT 9 AM 90 tablet 1 02/05/2 025 Active atorvastatin (Lipitor) 40 MG tabletIndications :Mixed hyperlipidemia TAKE ONE TABLET (40 MG) BY MOUTH DAILY AT 9 AM IN THE MORNING 90 tablet 1 Active meloxicam (Mobic) 15 MG tabletIndications :Acute pain of right knee Take 1 tablet (15 mg) by mouth Once per day. 30 tablet 11 025 2025 Active tadalafil (Cialis) 5 MG tabletIndications :Other male erectile dysfunction Take 1 tablet (5 mg) by mouth Once per day. 10 tablet 025 2024 Active atorvastatin (Lipitor) 40 MG tabletIndications :Mixed hyperlipidemia Take 1 tablet (40 mg) by mouth in the morning. 90 tablet 1 024 2024 Discontinued naproxen (Naprosyn) 500 MG tabletIndications :Chronic bilateral low back pain with left-sided sciatica Take 1 tablet (500 mg) by mouth with breakfast and with evening meal. 60 tablet 11 2024 Discontinued(T herapy completed) trimethoprim-poly myxin b (Polytrim) ophthalmic solution Administer 1 drop into the left eye every 4 (four) hours for 10 days. 10 mL 2024 sulfamethoxazole- trimethoprim (Bactrim DS) 800-160 MG tablet Take 1 tablet by mouth 2 times daily for 10 days. 20 tablet 2024 valACYclovir (Valtrex) 1 g tablet Take 1 tablet (1,000 mg) by mouth 3 times daily for 7 days. 21 tablet 2024 Active Problems Problem Noted Date Diagnosed Date Herpes zoster without complication 03/08/2025 Obesity, morbid 03/01/2024 Primary hypertension 12/05/2023 Assessment & Plan (03/01/2024 10:29 AM EDT): Patient not monitoring his blood pressure, told to keep a bp log for next visit, keep low sodium diet and exercise as tolerated Assessment & Plan (12/16/2023 10:57 PM EST): Patient not monitoring his blood pressure, told to keep a bp log and will follow up in 1-2 months, reinforced low sodium diet and exercise as toleraed, new labs will be ordered Assessment & Plan (12/05/2023 1:57 PM EST): Patient has been having more than 20% of his reading above target 140/90, will start on losartan, folllow up in 1 month. Mixed hyperlipidemia 12/01/2022 Assessment & Plan (12/05/2023 1:56 PM EST): Improved, continue diet and exercise as recommended, Assessment & Plan (05/29/2023 12:06 PM EDT): Patient refers takign medication daily, reinforced diet and exercise, will order new labs for guidance of therapy Assessment & Plan (02/25/2023 12:01 PM EDT): Patient on atorvastatin 40mg, will order new labs for guidance of therapy, no reported side effects Assessment & Plan (12/01/2022 7:56 PM EST): Ascvd score 6.1%, will start atorvastatin 40mg daily, reinforced smoking cessation, will follow up in 3 months Back pain 10/29/2022 Assessment & Plan (03/01/2024 10:30 AM EDT): Chronic low back pain, followed by ortho, continue with daily stretching, applying ice/heat pads, and tylenol/nsaid as needed. Assessment & Plan (02/06/2023 8:03 PM EDT): Patient followed by ortho, not improved after surgery, no new neurologic deficit, no perianal numbness/loss of spinchter, refers gabapentin has not been effective, will change and start on pregabalin, told to follow up with specialist Diverticulitis 10/29/2022 Class 1 obesity 10/29/2022 Permanent atrial fibrillation 10/10/2022 Assessment & Plan (03/01/2024 10:28 AM EDT): Chadvasc score 1 point, on asa followed by cardiology Assessment & Plan (12/16/2023 10:56 PM EST): Followed by cardiology, no recent er visit Assessment & Plan (05/29/2023 12:08 PM EDT): Followed by cardiology, low chadvasc score risk, on diltiazem Assessment & Plan (10/10/2022 10:52 AM EST): On diltiazem and asa, he is followed by cardiology, next appointment in 1 month. Blood pressure for today was elevated, he refers he just took it after going to the second floor in his house, which could explain the number, previous days as he refer has maintained <140/90, told to continue monitoring daily and in case bp being >140/90 call back for evaluation Chronic pain 10/08/2022 Gastroesophageal reflux disease without esophagi tis 10/08/2022 Assessment & Plan (10/10/2022 10:52 AM EST): On omeprazole, no changes will be made Smoker 10/08/2022 Assessment & Plan (10/10/2022 10:53 AM EST): Patient wants to stop smoking, he has tried nicotine patches without any changes, will start on chantix Vitamin D deficiency 10/08/2022 Assessment & Plan (10/10/2022 10:52 AM EST): Will order new labs for guidance of therapy Open wound of lower limb 01/25/2019 S/P left hemicolectomy 01/25/2019 Encounters Date Type Department Care Team Description 04/11/2025 9:30 AM EDT Office Visit [facility] [address] [place] [address] Daniel Zhang MD Mixed hyperlipidemia (Primary Dx); Primary hypertension; Dietary counseling; Exercise counseling; Class 2 severe obesity due to excess calories with serious comorbidity and body mass index (BMI) of 36.0 to 36.9 in adult (CMS/HCC); Acute pain of right knee; Other male erectile dysfunction; Other depression; Acanthosis nigricans 04/11/2025 Travel 04/11/2025 Refill [facility] [address] [place] [address] Daniel Zhang MD Smoker 04/10/2025 Travel 04/04/2025 Refill [facility] [address] [place] [address] Daniel Zhang MD Mixed hyperlipidemia 03/10/2025 Refill [facility] [address] [place] [address] Daniel Zhang MD Mixed hyperlipidemia 03/08/2025 10:40 AM EDT Office Visit [facility] [address] [place] [address] Sophie Pulido MD Primary hypertension (Primary Dx); Chronic bilateral low back pain with left-sided sciatica; Herpes zoster without complication; Acute bacterial conjunctivitis of left eye 03/08/2025 Travel from Last 3 Months Immunizations Immunization Administration Dates Next Due Hep B, adult 01/26/2016,04/27/2015,02/21/2015 Influenza injectable quadriv alent IIV4 with preservative 09/26/2015 Influenza injectable quadriv alent preservative free 07/27/2021,09/06/2020 Influenza, IIV3, injectable 07/17/2016, 4 Influenza, Split (incl. amee fied surface antigen) 11/18/2012 TD (adult), 2 Lf tetanus tox oid, preservative free, adsorbed 03/09/2019 Tdap 04/25/2008 Family History Medical History Relation Name Comments Diabetes Brother Coronary artery disease Father Hypertension Father Diabetes Maternal Grandmother Coronary artery disease Mother Diabetes Mother Hypertension Mother Breast cancer Mother's Sister Relation Name Status Comments Brother Father Maternal Grandmother Mother Mother's Sister Social History Tobacco Use Types Packs/Day Years Used Date Smoking Tobacco: Every Day Cigarettes 0.5 20 Passive Smoke Exposure: Current Smokeless Tobacco: Never Tobacco Cessation:Ready to Q uit: No; Counseling Given: Yes Comments:Smokes 10 cig a day Alcohol Use Standard Drinks/Week Comments Never 0 (1 standard drink = 0.6 oz pur e alcohol) Alcohol Answer Date Recorded How often do you have a drink containing alcohol ? 1 04/11/2025 How many drinks containing a lcohol do you have on a typical day when you are drinking? 1 04/11/2025 How often do you have six or more drinks on one occasion? 0 04/11/2025 Depression Answer Date Recorded Patient Health Questionnaire-9 Score 12 04/11/2025 Patient Health Questionnaire-9 Score 12 04/11/2025 Last PHQ-9: Questionnaire Data Not on file 0 04/11/2025 Housing Stability Answer Date Recorded What is your housing situation today? I have regan crews 04/11/[address] you li ve. Do you have problems with any of the following? None of the above 04/11/2025 Food Insecurity Answer Date Recorded Within the past 12 months, y ou worried that your food would run out before you got money to buy more: Sometimes True 2024 Within the past 12 months,th e food you bought just didn't last and you didn't have enough money to get more: Sometimes True 12/30/2024 Transportation Answer Date Recorded In the past 12 months, has l ack of transportation kept you from medical appts, meetings, work or from getting things needed for daily living? No 05/12/2024 Utilities Answer Date Recorded In the past 12 months, has t he electric, gas, oil or water company threatened to shut off services in your home? No 05/12/2024 Depression Answer Date Recorded Patient Health Questionnaire-2 Score 2 04/11/2025 Internet Access Answer Date Recorded Internet Access Q1 Yes 07/05/2024 Internet Access Q2 Not on file 07/05/2024 Sex and Gender Information Value Date Recorded Sex Assigned at Male 09/02/2022 10:17 AM EDT Legal Sex Male 10:17 AM EDT Gender Identity Male 09/02/2022 10:17 AM EDT Sexual Orientation Straight 09/02/2022 10 :17 AM EDT Last Filed Vital Signs Vital Sign Reading Time Taken Comments Blood Pressure 122/73 04/11/2025 9:22 AM EDT Pulse 80 04/11/2025 9:22 AM EDT Temperature 36.6 ??C (97.9 ??F) 04/11/2025 9:22 AM ED T Respiratory Rate 20 04/11/2025 9:22 AM EDT Oxygen Saturation 97% 04/11/2025 9:22 AM EDT Inhaled Oxygen Concentration - - Weight 121 kg (266 lb) 04/11/2025 9:22 AM EDT Height 182.9 cm (6') 04/11/2025 9:22 AM EDT Body Mass Index 36.08 04/11/2025 9:22 AM EDT Plan of Treatment Health Maintenance Due Date Last Done Comments CT Colonography 1980 Colonoscopy 1980 Colorectal Cancer Screening 1980 FIT DNA/Cologuard 1980 FIT 1980 FOBT 1980 Sigmoidoscopy 1980 Family Planning (PISQ) 01/15/1995 Pneumococcal Vaccine: Pediatrics (0 to 5 Years) and At-Risk Patients (6 to 49) Years) (1 of 2 - PCV) 01/15/1999 COVID-19 Vaccine ( season) 2024 10/11/2022, 03/08/2022, 02/08/2022 Influenza Vaccine (Season Ended) 2025 07/27/2021, 09/06/2020, 07/17/2016, Additional history exists Depression Monitoring 10/11/2025 04/11/2025, 025 Disability Screening 04/10/2026 04/10/2025 Alcohol/Substance Use Screening 04/11/2026 04/11/2025 SDOH Screening 04/11/2026 04/11/2025 Tobacco Screening 04/11/2026 04/11/2025 Lipid Panel 10/15/2028 10/15/2023, 06/04, 03/14/2023, Additional history exists DTaP/Tdap/Td Vaccines (3 - Td or Tdap) 03/09/2029 03/09/2019, 04/25/2008 Zoster Vaccines (1 of 2) 01/15/2030 RSV Patients and Patients Aged 60 years or older (1 - 1-dose 75+ series) 01/15/2055 Hepatitis B Vaccines Completed 01/26/2016, 04/27/2015, 02/21/2015 HIV Screening Completed 04/17/2023 Hepatitis C Screening Completed 04/17/2023 HIB Vaccines Aged Out No longer eligi ble based on patient's age to complete this topic HPV Vaccines Aged Out No longer eligi ble based on patient's age to complete this topic Hepatitis A Vaccines Aged Out No long er eligible based on patient's age to complete this topic IPV Vaccines Aged Out No longer eligi ble based on patient's age to complete this topic Meningococcal B Vaccine Aged Out No l onger eligible based on patient's age to complete this topic Meningococcal Vaccine Aged Out No aislinn jerman eligible based on patient's age to complete this topic RSV under 20 months Aged Out No longe r eligible based on patient's age to complete this topic Rotavirus Vaccines Aged Out No longer eligible based on patient's age to complete this topic Procedures Procedure Name Priority Date/Time Associated Diagnosis Comments LIPID PANEL, STANDARD Routine 10/15/2023 10:43 AM EST Mixed hyperlipidemia HEPATITIS PANEL, GENERAL Routine 04/17/2023 10:04 AM EDT Skin lesion HIV 1 RNA, QN PCR W/RFL NICK (RTI,PI,INTEGRASE) Routine 04/17/2023 10:04 AM EDT Skin lesion from Last 3 Months or Most Recently Relevant to Health Maintenance Results * (ABNORMAL) Lipid Panel, Standard (10/15/2023 10:43 AM EST) Triglycerides 128 <150 mg/dL [facility] Comment:Desirable Triglyceri de: less than 150 mg/dLBorderline High Triglyceride 150-199 mg/dLHigh Triglyceride: 200-499 mg/dLVery High Triglyceride: greater than or equal to 5OO mg/dL Cholesterol 185 <200 mg/dL [facility] Comment:Desirable Cholestero l: less than 200 mg/dLBorderline High Cholesterol: 200-239 mg/dLHigh Cholesterol: greater than 239 mg/dL LDL Cholesterol Calculated 118(H) <100 mg/dL [facility] Comment:Desirable LDL: less than 100 mg/dLNear Optimal/Above Optimal LDL: 110- 129 mg/dLBorderline High LDL: 130-159 mg/dLHigh LDL: 160-189 mg/dLVery High LDL: greater than or equal to 190 mg/dL HDL Cholesterol 42 >40 mg/dL [facility] Comment:Desirable HDL: great er than 40 mg/dL Note: This HDL assay may give artificially low results in patients with liver disease. Blood Venous blood specimen / Unknown 10/15/2023 10:43 AM EST 10/15/2023 2:17 PM EST us Raudel Moreno MD LAB BLOOD ORDERABL ES Final Result [facility] [address] [place] [address] [phone] * HIV-1 RNA, Quantitative, Real-Time PCR with Reflex to Genotype (RTI, PI, Integrase) (04/17/2023 10:04 AM EDT) Pathologist [facility] HIV 1 RNA, QN PCR NOT DETECTED copies/mL [employer], HIV 1 RNA, QN PCR NOT DETECTED Log copies/mL [facility], Comment: REFERENCE RANGE: NOT DETECTED copies/mL ?NOT DETECTED ??Log copies/mL This test was performed using Real-Time Polymerase Chain Reaction. Reportable range is 20 to 10,000,000 copies/mL (1.30-7.00 Log copies/mL). 04/17/2023 10:0 4 AM EDT 04/17/2023 10:05 AM EDT us Sophie Pulido MD LAB BLOOD ORDERABLES Final Re sult [facility] [address] [facility], [place] [address] [employer], [address] [place] [address] * (ABNORMAL) Hepatitis Panel, General (04/17/2023 10:04 AM EDT) Pathologist [facility] Hepatitis A Antibody Total NON-REACT SHYLA NON-REACT SHYLA [employer] [facility] Comment: For additional information, please refer to http://Enpocket.Limecraft/faq/OKR139 (This link is being provided for informational/ educational purposes only.) Hepatitis B Surface Antibody QL REACTIVE( A) NON-REACT SHYLA [facility] [facility] Hepatitis B Surface Ag NON-REACT SHYLA NON-REACT SHYLA [employer] [facility] Hepatitis B Core Antibody Total NON-REACT SHYLA NON-REACT SHYLA [facility] C Antibody NON-REACT SHYLA NON-REACT SHYLA [facility] Index 0.08 <1.00 [facility] Comment: HCV antibody was non-reactive. There is no laboratory evidence of HCV infection. In most cases, no further action is required. However, if recent HCV exposure is suspected, a test for HCV RNA (test code 61104) is suggested. For additional information please refer to http://[employer]/faq/THG17u8 (This link is being provided for informational/ educational purposes only.) 04/17/2023 10:0 4 AM EDT 04/17/2023 10:05 AM EDT Sophie Pulido MD LAB BLOOD ORDERABLES Final Re sult [facility] [address], [place] [address] [employer] [facility] [address] [place] [address] from Last 3 Months or Most Recently Relevant to Health Maintenance Insurance STANDARD [employer] MEDICARE REPLACEMENT Care Teams Medical Records Analyst Relationship Specialty Start Date End Date Daniel Zhang MD [address] [place] [phone] PCP - General Internal Medicine 05/18/24
[2025-04-11 14:44] LABS: Estimated Average Glucose 120 mg/dL; Hemoglobin A1c % 5.8 % (<6.0)
[2025-04-11 15:10] LABS: Alanine Aminotransferase 27 U/L (0-40); Albumin Level 4.2 g/dL (3.5-5.0); Alkaline Phosphatase 77 U/L (39-117); Anion Gap 10 (12-20); Aspartate Amino Transferase 29 U/L (5-37); Bilirubin Total 0.5 mg/dL (0.0-1.0); Blood Urea Nitrogen 6 mg/dL (9-16); Calcium 9.1 mg/dL (8.4-10.2); Carbon Dioxide 29 mmol/L (22-29); Chloride 104 mmol/L (96-108); Cholesterol 230 mg/dL (<200); Estimated Glomerular Filt Rate > 60; Glucose Random 97 mg/dL (60-115); HDL Cholesterol 40 mg/dL (>40); LDL Cholesterol Calculated 154 mg/dL (<100); Potassium 3.9 mmol/L (3.3-5.1); Sodium 139 mmol/L (135-145); TSH reflex Free T4 2.62 uIU/mL (0.32-4.0); Total Protein 7.5 g/dL (6.5-8.0); Triglycerides 180 mg/dL (<150)
[2025-04-12 08:13] LABS: HIV AB/AG Nonreactive (Nonreactive); HIV Num 1 0.06 S/CO (0.00-0.99); ~HepC Num1 0.16 S/CO (0.00-0.79); ~Hepatitis C Antibody Nonreactive (Nonreactive)
[2025-04-15 19:53] LABS: Testosterone, Free 47.4 pg/mL (35.0-155.0); Testosterone, Total 341 ng/dL (250-1100)
== END 2025-04-11 10:34 | disposition home or self-care (01) ==
LOC: HO.CHCLDS 10:33
PROVIDERS: Visit Provider Internal Medicine
DX: E78.2 Mixed hyperlipidemia (principal); N52.8 Other male erectile dysfunction; I10 Essential (primary) hypertension; L83 Acanthosis nigricans
CPT/HCPCS: 36415; 80053; 80061; 83036; 84402; 84403; 84443; 86803; 87389

== ENCOUNTER 2025-05-16 13:24 | Outpatient (AMB) | payer MEDICARE, MEDICAID, SELFPAY ==
--- NOTE | 2025-05-16 13:58 | A.OFFVIS_ITS ---
Vital Signs 05/16/25 14:00 Height 5 ft 11 in Weight 264 lb 8.875 oz BMI 36.9 BP 128/70 Blood Pressure Location Lt brachial Position Sitting Pulse 79 Pulse Source Monitor Intake Visit Reasons: r/s 03/22/25 1 yr followup with ekg Allergies ampicillin (AMPICILLIN) Allergy (Severe, Verified 11/25/24 09:53) SWELLING/HIVES Cephalosporins (CEPHALOSPORINS) Allergy (Severe, Verified 11/25/24 09:53) SWELLING/HIVES Penicillins (PENICILLINS) Allergy (Severe, Verified 11/25/24 09:53) SWELLING/HIVES Medication List - Last Reconciled 05/16/25 by Ant Macedo MD atorvastatin 40 mg PO DAILY cholecalciferol (vitamin D3) 25 mcg PO DAILY diltiazem HCl CD 120 mg PO DAILY losartan 50 mg PO QAM PRN pantoprazole 40 mg PO DAILY HPI Comments Details: Gennaro returns for follow-up. In 2018, he was having palpitations and thought to have PVCs. Then hospitalized in [facility] in 2020 for atrial fibrillation. Resolved with IV diltiazem. He has been on oral diltiazem since that time. Has obesity, obstructive sleep apnea but not on CPAP. He states that he feels fine. No cardiac symptoms whatsoever. No exertional angina or in fact anything along those lines. [facility] Medical History COVID-19 vaccination not done Hemorrhoids with complication Morbid obesity COVID-19 HLD (hyperlipidemia) Afib Chest pain Surgical History History of carpal tunnel surgery of right wrist History of bowel resection History of back surgery Family History Brother No problems noted. Social History Alcohol intake: never Patient Tobacco Use Status: Current everyday Tobacco user Tobacco use type: Cigarette Cigarettes Per Day: 10 Years Smoked: 30 +/- Review of Systems Const Denies weakness ENT Denies dizziness Card Denies chest pain, Denies chest pain with activity, Denies syncope, Denies rapid heart rate, Denies pedal edema, Denies edema, Denies leg edema, Denies lightheadedness, Denies palpitations, Denies dyspnea, Denies dyspnea on exertion and Denies orthopnea Resp Denies cough, Denies dyspnea and Denies dyspnea on exertion GI Denies hematochezia and Denies change in stool character Musc Denies abnormal gait, Denies muscle cramps, Denies muscle weakness, Denies numbness, Denies radiating pain into limb and Denies tingling Neuro Denies abnormal gait, Denies dizziness, Denies syncope, Denies numbness, Denies tingling and Denies weakness Endo Denies palpitations Physical Exam Vital Signs: Last Vital Signs Pulse 79 05/16/25 14:00 BP 128/70 05/16/25 14:00 BMI result Body Mass Index 36.9 Const General: comfortable and no acute distress Orientation/consciousness: patient oriented x3 HEENT Other: Unremarkable Head: Yes normal to inspection Neck Neck: Yes normal visual inspection Chest Chest palpation & inspection: normal inspection of the chest Resp Auscultation: clear to auscultation bilaterally Cardio Palpation: normal PMI Heart sounds: S1 normal heart sound present, S2 normal heart sound present, no gallops, no murmurs and no rubs GI Palpation (GI): Soft to palpation Back/Spine/Pelvis Other: unremarkable Skin General skin exam: no rashes or lesions noted Neuro General: patient oriented x3 Extrem General: Yes normal to inspection Psych Mental Status: mental status grossly normal Office Procedures EKG Details: EKG with underlying sinus rhythm at 79/Min; rightward axis; no ischemic changes; [place] [id number], Complete Assessment & Plan Assessment & Plan (1) PAF (paroxysmal atrial fibrillation): Code(s): I48.0 - Paroxysmal atrial fibrillation Category: Medical Plan: No recent issues. Continue diltiazem. Due to low thromboembolic risk not on anticoagulation. Holter shows underlying sinus rhythm but no evidence of atrial fibrillation. A prior echocardiogram from [facility]-LVEF 50-55%; mild LVH; mild diastolic dysfunction. Repeat study also shows LVEF of 50-55%. (2) PVC (premature ventricular contraction): Code(s): I49.3 - Ventricular premature depolarization Category: Medical Plan: In the Holter from 2019, he had a significant PVC burden of almost 12%. In the last Holter, nothing significant. (3) Obstructive sleep apnea: Comment: severe on sleep study 03/22/21 Code(s): G47.33 - Obstructive sleep apnea (adult) (pediatric) Category: Medical Plan: He follows up with pulmonary/sleep medicine but continues to have difficulty using CPAP. Advised to follow up with them on that. (4) Morbid obesity: Code(s): E66.01 - Morbid (severe) obesity due to excess calories Category: Medical Plan: A lot of his issues are related to weight and we discussed about this today. Ideally, should lose substantial amount of weight. That will address sleep apnea and cardiac arrhythmias. Plan Discussion Notes I discussed with the patient the importance of continuing CPAP therapy for sleep apnea despite the discomfort, emphasizing its role in managing his condition. We talked about weight loss as a potential solution to alleviate sleep apnea and improve cardiac health. I reassured the patient that no immediate intervention is needed for his cardiac rhythm issues, given the absence of acute symptoms. We reviewed his current medications for hypertension and hyperlipidemia, confirming the need to continue them. I encouraged the patient to persist in his efforts to quit smoking, highlighting the cardiovascular benefits. Patient was informed and verbally consented to the use of an ambient scribe for clinic note documentation during this visit. Patient Instructions: - Continue using the CPAP mask for sleep apnea management. - Aim for weight loss to help with sleep apnea and cardiac health. - Keep taking your blood pressure and cholesterol medications as prescribed. - Continue trying to quit smoking for better heart health. Coding Level of Care Code Est Pt Level 4 (44521) Complex EM visit Add On G2211 Diagnoses PAF (paroxysmal atrial fibrillation) I48.0 PVC (premature ventricular contraction) I49.3 Obstructive sleep apnea G47.33 Morbid obesity E66.01 CPT Codes EKG - CPT: 79462-[id number], Complete ([id number])
[2025-05-16 14:00] VITALS: BP 128/70; PULSE 79; BMI 36.9
--- OUTSIDE RECORDS SUMMARY | 2025-05-16 14:30 | XMS_ITS | Clinical Summary ---
Author Organization [employer] Address [address] [place] [address] [address] [place] [address] Care Team Providers Care Admissions Specialist Name Role Phone Daniel Zhang MD Primary [...] breakfast. 90 tablet 3 024 2024 Active cholecalciferol (Vitamin D3) 25 MCG (1000 UT) tabletIndications :Vitamin D deficiency TAKE ONE TABLET (25 MCG) BY MOUTH ONCE DAILY AT 9 AM 90 tablet 1 025 Active atorvastatin (Lipitor) 40 MG tabletIndications :Mixed hyperlipidemia TAKE ONE TABLET (40 MG) BY MOUTH DAILY AT 9 AM IN THE MORNING 90 tablet 1 025 Active varenicline (Chantix) 1 MG tabletIndications :Smoker TAKE ONE TABLET BY MOUTH TWICE DAILY @ 9AM & 5PM TAKE WITH FULL GLASS OF WATER 168 tablet 1 Active meloxicam (Mobic) 15 MG tabletIndications :Acute pain of right knee Take 1 tablet (15 mg) by mouth Once per day. 30 tablet 11 025 2025 Active tadalafil (Cialis) 5 MG tabletIndications :Other male erectile dysfunction Take 1 tablet (5 mg) by mouth Once per day. 10 tablet 025 2024 Active tadalafil (Cialis) 5 MG tabletIndications :Other male erectile dysfunction Take 1 tablet (5 mg) by mouth Once per day. 30 tablet 3 025 2024 Active tadalafil (Cialis) 5 MG tabletIndications :Other male erectile dysfunction Take 1 tablet (5 mg) by mouth Once per day. 10 tablet 025 2024 Discontinued(R eorder (will not trigger notification to Pharmacy)) neomycin-polymyxi n-hydrocortisone (Cortisporin) 3.5-20936-2 otic suspensionIndicat ions:Other infective acute otitis externa of right ear Administer 3-4 drops into affected ear(s) 4 times daily for 10 days. 10 mL 025 2024 mupirocin (Bactroban) 2 % ointmentIndicatio ns:Insect bite of other part of head, initial encounter Apply topically 3 times daily for 10 days. 22 g 2024 Active Problems Problem Noted Date Diagnosed [...] Encounters Date Type Department Care Team Description 05/16/2025 Telephone [facility] [address] [place] [address] Daniel Zhang MD Medication Question 05/12/2025 Travel 05/05/2025 Telephone [facility] [address] [place] [address] Daniel Zhang MD Prior Authorization 05/03/2025 1:45 PM EDT Office Visit [facility] [address] [place] [phone] Daniel Zhang MD Other infective acute otitis externa of right ear (Primary Dx); Other male erectile dysfunction; Insect bite of other part of head, initial encounter; Primary hypertension; Mixed hyperlipidemia 05/03/2025 Travel 04/22/2025 Telephone [facility] [address] [place] [phone] Daniel Zhang MD Call Back Request 04/12/2025 Results Follow-Up [facility] [address] [place] [phone] Monica Mo RN Comprehensive Metabolic Panel, HIV-1/2 Antigen and Antibodies, Fourth Generation, with Reflexes, Hepatitis C Antibody with Reflex to HCV, RNA, Quantitative, Real-Time PCR, Additional followed-up results: 4 04/12/2025 Orders Only [facility] [address] [place] [phone] Daniel Zhang MD Mixed hyperlipidemia (Primary Dx) 04/11/2025 9:30 AM EDT Office Visit [facility] [address] [place] [phone] Daniel Zhang MD Mixed hyperlipidemia (Primary Dx); Primary hypertension; Dietary counseling; Exercise counseling; Class 2 severe obesity due to excess calories with serious comorbidity and body mass index (BMI) of 36.0 to 36.9 in adult ([facility]/HCC); Acute pain of right knee; Other male erectile dysfunction; Other depression; Acanthosis nigricans 04/11/2025 Travel 04/11/2025 Refill [facility] [address] [place] [address] Daniel Zhang MD Smoker 04/10/2025 Travel 04/04/2025 Refill [facility] [address] [place] [address] Daniel Zhang MD Mixed hyperlipidemia 03/10/2025 Refill [facility] [address] [place] [address] Daniel Zhang MD Mixed hyperlipidemia 03/08/2025 10:40 AM EDT Office Visit [facility] [address] [place] [address] Sophie Pulido MD Primary hypertension (Primary Dx); [...] Sign Reading Time Taken Comments Blood Pressure 124/81 05/03/2025 1:39 PM EDT Pulse 91 05/03/2025 1:39 PM EDT Temperature 36.9 C (98.4 F) 05/03/2025 1:39 PM EDT Respiratory Rate 20 05/03/2025 1:39 PM EDT Oxygen Saturation 95% 05/03/2025 1:39 PM EDT Inhaled Oxygen Concentration - - Weight 118 kg (261 lb) 05/03/2025 1:39 PM EDT Height 182.9 cm (6') 05/03/2025 1:39 PM EDT Body Mass Index 35.4 05/03/2025 1:39 PM EDT Plan of Treatment Upcoming Encounters Date Type Department Care Team (Late st Contact Info) Description 06/24/2025 2:45 PM EDT Office Visit [facility] [address] [place] [address] Daniel Zhang MD [address] [place] [phone] Health Maintenance Due Date Last Done Comments CT Colonography 1980 Colonoscopy 1980 FIT 1980 FOBT 1980 Sigmoidoscopy 1980 Family Planning (PISQ) 01/15/1995 HPV Vaccines (1 - Male 3-dose series) 01/15/1995 Pneumococcal Vaccine: Pediatrics (0 to 5 Years) and At-Risk Patients (6 to 49) Years (1 of 2 - PCV) 01/15/1999 COVID-19 Vaccine ( season) 2024 10/11/2022, 03/08/2022, 02/08/2022 Influenza Vaccine (#1) 2025 , 09/06/2020, 07/17/2016, Additional history exists Depression Monitoring 10/11/2025 04/11/2025, 025 Disability Screening 04/10/2026 04/10/2025 Alcohol/Substance Use Screening 04/11/2026 04/11/2025 Diabetes: Hemoglobin A1C 04/11/2026 025, 10/16/2022, 09/19/2021 SDOH Screening 04/11/2026 04/11/2025 Tobacco Screening 05/03/2026 05/03/2025 Colorectal Cancer Screening 05/03/2028 FIT DNA/Cologuard 05/03/2028 05/03/2025 DTaP/Tdap/Td Vaccines (3 - Td or Tdap) 03/09/2029 03/09/2019, 04/25/2008 Zoster Vaccines (1 of 2) 01/15/2030 Lipid Panel 04/11/2030 04/11/2025, 10/03, 06/24/2023, Additional history exists RSV Patients and Patients Aged 60 years or older (1 - 1-dose 75+ series) 01/15/2055 Hepatitis B Vaccines Completed 01/26/2016, 04/27/2015, 02/21/2015 HIV Screening Completed 04/11/2025, 04/17/2023 Hepatitis C Screening Completed 04/11/2025, 023 HIB Vaccines Aged Out No longer eligi [...] Procedure Name Priority Date/Time Associated Diagnosis Comments LAB COLOGUARD COLON CANCER SCREEN Routine 05/03/2025 6:50 AM EDT Other depression HEMOGLOBIN A1C Routine 04/11/2025 10:40 AM EDT Primary hypertension Acanthosis nigricans TESTOSTERONE, FREE (DIALYSIS) AND TOTAL,MS Routine 04/11/2025 10:40 AM EDT Other male erectile dysfunction TSH W/REFLEX TO FT4 Routine 04/11/2025 1 0:40 AM EDT Mixed hyperlipidemia LIPID PANEL, STANDARD Routine 04/11/2025 10:40 AM EDT Mixed hyperlipidemia HEPATITIS C AB W/REFL TO HCV RNA, QN, PCR Routine 04/11/2025 10:40 AM EDT Mixed hyperlipidemia HIV 1/2 ANTIGEN/ANTIBODY, FOURTH GENERATION W/RFL Routine 04/11/2025 10:40 AM EDT Mixed hyperlipidemia COMPREHENSIVE METABOLIC PANEL Routine 04/11/2025 10:40 AM EDT Mixed hyperlipidemia XR KNEE 3 VIEWS RIGHT Routine 04/11/2025 Acute pain of right knee from Last 3 Months Results * Cologuard?? colon cancer screening (05/03/2025 6:50 AM EDT) Cologuard Result Negative Negative 05/09/20 5:49 AM EDT [facility] (CLIA #:[id number]) Comment: The Cologuard (TM) test was performed on this specimen. NEGATIVE TEST RESULT. A negative Cologuard result indicates a low likelihood that a colorectal cancer (CRC) or advanced adenoma (adenomatous polyps with more advanced pre-malignant features) is present. The chance that a person with a negative Cologuard test has a colorectal cancer is less than 1 in 1500 (negative predictive value >99.9%) or has an advanced adenoma is less than 5.3% (negative predictive value 94.7%). These data are based on a prospective cross-sectional study of 10,000 individuals at average risk for colorectal cancer who were screened with both Cologuard and colonoscopy. (Fahad Rivera al, N Engl J Med 2014;370(14):1286- 1297) The normal value (reference range) for this assay is negative. COLOGUARD RE-SCREENING RECOMMENDATION: Periodic colorectal cancer screening is an important part of preventive healthcare for asymptomatic individuals at average risk for colorectal cancer. Following a negative Cologuard result, the [place] [employer] and U.S. Multi-Society Task Force screening guidelines recommend a Cologuard re-screening interval of 3 years. References: [place] [employer] Guideline for Colorectal Cancer Screening: https://www.cancer.org/cancer/sevnm-lhqfyh-okxmaz/uducerzjq-yfgepkbmf-ueoyfww/ac s-rec ommendations.html.; Gene DK, Gordo CR, Catrachita FelicianoK, Colorectal Cancer Screening: Recommendations for Physicians and Patients from the U.S. Multi-Society Task Force on Colorectal Cancer Screening , Am J Gastroenterology 2017; 112:5200-8855. TEST DESCRIPTION: Composite algorithmic analysis of stool DNA-biomarkers with hemoglobin immunoassay. Quantitative values of individual biomarkers are not reportable and are not associated with individual biomarker result reference ranges. Cologuard is intended for colorectal cancer screening of adults of either sex, 45 years or older, who are at average-risk for colorectal cancer (CRC). Cologuard has been approved for use by the U.S. FDA. The performance of Cologuard was established in a cross sectional study of average-risk adults aged 50-84. Cologuard performance in patients ages 45 to 49 years was estimated by sub-group analysis of near-age groups. Colonoscopies performed for a positive result may find as the most clinically significant lesion: colorectal cancer [4.0%], advanced adenoma (including sessile serrated polyps greater than or equal to 1cm diameter) [20%] or non- advanced adenoma [31%]; or no colorectal neoplasia [45%]. These estimates are derived from a prospective cross-sectional screening study of 10,000 individuals at average risk for colorectal cancer who were screened with both Cologuard and colonoscopy. (Fahad Lutz et al, N Engl J Med 2014;370(14):8824-2552.) Cologuard may produce a false negative or false positive result (no colorectal cancer or precancerous polyp present at colonoscopy follow up). A negative Cologuard test result does not guarantee the absence of CRC or advanced adenoma (pre-cancer). The current Cologuard screening interval is every 3 years. ([place] [employer] and U.S. Multi-Society Task Force). Cologuard performance data in a 10,000 patient pivotal study using colonoscopy as the reference method can be accessed at the following location: www.[employer].Top Rops/results. Additional description of the Cologuard test process, warnings and precautions can be found at www.[employer].Top Rops. Stool specimen (specimen) 05/03/2025 6:50 AM EDT 05/04/2025 1:43 PM EDT Daniel Zhang MD LAB MOLECULAR DIAGNOSTICS O RDERABLES Final Result [facility] (CLIA #:[id number]) [address] [place] [address], * TSH W/Reflex to FT4 (04/11/2025 10:40 AM EDT) TSH reflex Free T4 2.62 0.32 - 4.0 uIU/mL [facility] Blood Venous blood specimen / Unknown 04/11/2025 10:40 AM EDT 04/11/2025 2:17 PM EDT Daniel Zhang MD LAB BLOOD ORDERABLES Final Result Performing Organization Address [facility] Co de Phone Number [facility] [address] [place] [phone] * Hepatitis C Antibody with Reflex to HCV, RNA, Quantitative, Real-Time PCR (04/11/2025 10:40 AM EDT) Pathologist [facility] Hepatitis C Antibody Nonreactive Nonreactive [facility] Comment:Antibodies to HCV no t detected; does not exclude early acuteHCV infection. Blood Venous blood specimen / Unknown 04/11/2025 10:40 AM EDT 04/11/2025 2:17 PM EDT Daniel Zhang MD LAB BLOOD ORDERABLES Final Result Performing Organization Address [facility] de Phone Number [facility] [address] [place] [phone] * HIV-1/2 Antigen and Antibodies, Fourth Generation, with Reflexes (04/11/2025 10:40 AM EDT) [facility] HIV AB/AG Nonreactive Nonreactive [facility] Comment:HIV-1 p24 Ag and/or HIV-1/HIV-2 Ab not detected.A test result that is nonreactive does not exclude thepossibility of exposure to or infection with HIV-1 and/orHIV-2. Nonreactive results in this assay for individualswith prior exposure to HIV-1 and/or HIV-2 may be due toantigen and antibody levels that are below the limit ofdetection of this assay.The [employer] HIV Ag/Ab Combo assay result andsupplemental assay results should be interpreted inconjunction with the patient's clinical presentation,history and other laboratory results. If the results areinconsistent with clinical evidence, additional testing issuggested to confirm the result. Blood Venous blood specimen / Unknown 04/11/2025 10:40 AM EDT 04/11/2025 2:17 PM EDT us Daniel Zhang MD LAB BLOOD ORDERABLES Final Result [facility] [address] [place] [phone] * Testosterone, Free (Dialysis) And Total, MS (04/11/2025 10:40 AM EDT) Testosterone, Total 341 250 - 1100 ng/dL [facility] Comment:For additional infor matseveriano, please refer tohttp://education.[employer]/faq/PfcwbVuhabsnmolnjQLTKYHBWM630(This link is being provided for informational/educational purposes only.)This test was developed and its analytical performancecharacteristics have been determined by [employer] [place], [place]. It hasnot been cleared or approved by the U.S. Food and DrugAdministration. This assay has been validated pursuantto the CLIA regulations and is used for clinicalpurposes. Testosterone, Free 47.4 35.0 - 155.0 pg/mL [facility] Comment:This test was develo ped and its analytical performancecharacteristics have been determined by [employer] [place], [place]. It hasnot been cleared or approved by the U.S. Food and DrugAdministration. This assay has been validated pursuantto the CLIA regulations and is used for clinicalpurposes.THIS TEST WAS PERFORMED AT:[place]/[id number] [place] [id number] WOLFF MD,PHD Blood Venous blood specimen / Unknown 04/11/2025 10:40 AM EDT 04/11/2025 2:17 PM EDT us Daniel Zhang MD LAB BLOOD ORDERABLES Final Result Performing Organization Address City/[facility]/ZIP Co de Phone Number [facility] [address] [place] [phone] * Hemoglobin A1c (04/11/2025 10:40 AM EDT) Hemoglobin A1c 5.8 <6.0 % [facility] Comment:Hemoglobin A1C Refer ence Range Adults: 4.8 - 6.0 % Non diabetic: < 6.0 % Goal: < 7.0 %Additional Action Suggested: > 8.0 %Note: Hemoglobin A1c results are invalid for patients with abnormal amounts of HbF. Blood transfusions may impact the HbA1c concentration in the patient sample. Estimated Average Glucose 120 mg/dL [facility] Comment:eAG = Estimated ave rage glucose which is %A1C expressed asaverage glucose, using the formula of the I6N-WcsgpgwJxhpuuo Glucose study (ADAG), Diabetes Care, Vol.31,#8,Jun. 2007 Blood Venous blood specimen / Unknown 04/11/2025 10:40 AM EDT 04/11/2025 2:17 PM EDT us Daniel Zhang MD LAB BLOOD ORDERABLES Final Result [facility] [address] [place] [phone] * (ABNORMAL) Lipid Panel, Standard (04/11/2025 10:40 AM EDT) Triglycerides 180(H) <150 mg/dL [facility] Comment:Slight Lipemia.Apolinar able Triglyceride: less than 150 mg/dLBorderline High Triglyceride 150-199 mg/dLHigh Triglyceride: 200-499 mg/dLVery High Triglyceride: greater than or equal to 5OO mg/dL Cholesterol 230(H) <200 mg/dL [facility] Comment:Desirable Cholestero l: less than 200 mg/dLBorderline High Cholesterol: 200-239 mg/dLHigh Cholesterol: greater than 239 mg/dL LDL Cholesterol Calculated 154(H) <100 mg/dL [facility] Comment:Desirable LDL: less than 100 mg/dLNear Optimal/Above Optimal LDL: 110- 129 mg/dLBorderline High LDL: 130-159 mg/dLHigh LDL: 160-189 mg/dLVery High LDL: greater than or equal to 190 mg/dL HDL Cholesterol 40(L) >40 mg/dL [facility] Comment:Desirable HDL: great er than 40 mg/dL Note: This HDL assay may give artificially low results in patients with liver disease. Blood Venous blood specimen / Unknown 04/11/2025 10:40 AM EDT 04/11/2025 2:17 PM EDT us Daniel Zhang MD LAB BLOOD ORDERABLES Final Result [facility] [address] [place] [phone] * (ABNORMAL) Comprehensive Metabolic Panel (04/11/2025 10:40 AM EDT) Sodium 139 135 - 145 mmol/L [facility] Potassium 3.9 3.3 - 5.1 mmol/L [facility] Comment:Slight Hemolysis.Int erpret result with caution. Chloride 104 96 - 108 mmol/L [facility] Carbon Dioxide 29 22 - 29 mmol/L [facility] Anion Gap 10(L) 12 - 20 [facility] Urea Nitrogen (BUN) 6(L) 9 - 16 mg/dL [facility] Creatinine, Serum 0.75 0.5 - 1.4 mg/dL [facility] Estimated Glomerular Filt Rate >60 [facility] Comment:Chronic Kidney Disea se: Estimated GFR < 60 mL/min/1.21p2Gucsbr Kidney Disease: Estimated GFR < 15 mL/min/1.73m2 Glucose 97 60 - 115 mg/dL [facility] Calcium 9.1 8.4 - 10.2 mg/dL [facility] Bilirubin, Total 0.5 0.0 - 1.0 mg/dL [facility] Aspartate Amino Transferase 29 5 - 37 U/L [facility] Comment:Slight Hemolysis.Int erpret result with caution. Alanine Aminotransferase 27 0 - 40 U/L [facility] Total Protein 7.5 6.5 - 8.0 g/dL [facility] Albumin Level 4.2 3.5 - 5.0 g/dL [facility] Alkaline Phosphatase 77 39 - 117 U/L [facility] Blood Venous blood specimen / Unknown 04/11/2025 10:40 AM EDT 04/11/2025 2:17 PM EDT us Daniel Zhang MD LAB BLOOD ORDERABLES Final Result [facility] [address] [place] [phone] * XR Knee 3 Views Right (04/11/2025) Anatomical Region Laterality Modality Lower Extremities, Knee Right Radiogra phic Imaging us Daniel Zhang MD IMG XR PROCEDURES Final Res ult from Last [address] [place] [address] [place] [address] STANDARD [employer] MED[employer]ARE REPLACEMENT Care Teams Admissions Specialist Relationship Specialty Start Date End Date Daniel Zhang MD [address] [place] [phone] PCP - General Internal Medicine 05/18/24
== END 2025-05-16 15:20 | disposition home or self-care (01) ==
LOC: HO.HCS 13:25
PROVIDERS: PCP Internal Medicine; Visit Provider Internal Medicine
DX: I48.0 Paroxysmal atrial fibrillation (principal); I49.3 Ventricular premature depolarization; G47.33 Obstructive sleep apnea (adult) (pediatric); E66.01 Morbid (severe) obesity due to excess calories
CPT/HCPCS: 93010; 99214; G2211

== ENCOUNTER → 2025-05-16 13:24 | Outpatient (BNVA) | payer MEDICARE, MEDICAID, SELFPAY | PROVIDERS: PCP Internal Medicine; Visit Provider Internal Medicine | DX: I48.0 Paroxysmal atrial fibrillation (principal); I49.3 Ventricular premature depolarization; G47.33 Obstructive sleep apnea (adult) (pediatric); E66.01 Morbid (severe) obesity due to excess calories | CPT/HCPCS: 93005; 99212 ==

== ENCOUNTER 2025-07-20 10:29 | Outpatient (REF) | payer MEDICARE, MEDICAID, SELFPAY ==
--- OUTSIDE RECORDS SUMMARY | 2025-07-20 09:15 | XMS_ITS | Encounter Summary ---
Author Organization [employer] Address [address] [place] [address] Care Team Providers Care Blueprint Cutter Name Role Phone Daniel Zhang MD Primary Care Provider [phone] Reason for Referral * Consultation (Routine) - Pending Review Specialty Diagnoses / Procedures Referred By Chapo barrios Referred To Contact Gastroenterology Diagnoses Partial small bowel obstruction (CMS/HCC) Daniel Zhang MD [address] [place] [address] Phone: tel: fax: Referral ID Status Reason Start Date Expiration Date Visits Requested Visits Authorized [id number] Pending Review Specialty Services Required 07/20/2025 07/20/2026 1 1 Reason for Visit * Reason Comments Hospital discharge follow-up Encounter Details Date Type Department Care Team ([facility] st Contact Info) Description 07/20/2025 9:15 AM EDT Office Visit [facility] CHC MED & PEDS [address] [place] [address] Daniel Zhang MD [address] [place] [address] Partial small bowel obstruction (CMS/HCC) (Primary Dx) Social History Tobacco Use Types Packs/Day Years Used Date Smoking Tobacco: Every Day Cigarettes 0.5 20 Passive Smoke Exposure: Current Smokeless Tobacco: Never Comments:Smokes 10 cig a day Alcohol Use [...] Orientation Straight 09/02/2022 10 :17 AM EDT documented as of this encounter Last Filed Vital Signs Vital Sign Reading Time Taken Comments Blood Pressure 132/70 07/20/2025 9:14 AM EDT Pulse 78 07/20/2025 9:14 AM EDT Temperature 37.1 C (98.7 F) 07/20/2025 9:14 AM EDT Respiratory Rate 20 07/20/2025 9:14 AM EDT Oxygen Saturation 98% 07/20/2025 9:14 AM EDT Inhaled Oxygen Concentration - - Weight 118 kg (260 lb 6.4 oz) 07/20/2025 9:14 AM EDT Height 179 cm (5' 10.47 ) 07/20/2025 9:14 AM EDT Body Mass Index 36.86 07/20/2025 9:14 AM EDT documented in this encounter Progress Notes * Daniel Zhang MD - 07/20/2025 9:15 AM EDT POP Quinn is a 45 y.o. male who presents for Hospital discharge follow-up. HPI History of paroxysmal atrial fibrillation not on anticoagulation, hypertension, hyperlipidemia, gastroesophageal reflux disease, diverticulitis with partial colectomy, presented himself to the emergency department with 1 week of cough congestion and diarrhea of 1 day duration associated with nauseaand vomiting. He reports that the pain started suddenly after a meal and he drove himself to the emergency department. His workup was significant for an abdominal CT which demonstrated mildly dilatedloops of small bowel in the left abdomen which is concerning for partial small bowel obstruction. No evidence of diverticulitis. Started on IV fluids, an NG tube was placed, IV antiemetic and IV morphine was given. The surgical team was consulted and conservative management was recommended. Patient improved after 24 hours, NG tube was stopped and diet advanced. He tolerated clear diet and nausea and vomiting resolved. Patient was passing flatus and stools. Discharged home. Since discharge he has been doing well. Denies anyabdominal pain/nausea/vomiting. Problem List[1] Allergies[2] Medications Ordered Prior to Encounter[3] Review of Systems Constitutional: Negative for activity change, appetite change, chills and diaphoresis. HENT: Negative for dental problem, drooling and ear discharge. Eyes: Negative for pain and itching. Respiratory: Negative for cough, choking and chest tightness. Cardiovascular: Negative for palpitations and leg swelling. Gastrointestinal: Negative for abdominal pain, anal bleeding and blood in stool. Endocrine: Negative for cold intolerance and heat intolerance. Genitourinary: Negative for flank pain, frequency and genital sores. Musculoskeletal: Negative for back pain. Neurological: Negative for light-headedness, numbness and headaches. Psychiatric/Behavioral: Negative for agitation, confusion and decreased concentration. OBJECTIVE Vitals: 07/20/25 0914 BP: 132/70 Pulse: 78 Resp: 20 Temp: 98.7 ??F (37.1 ??C) TempSrc: Oral SpO2: 98% Weight: 260 lb 6.4 oz (118 kg) Height: 5' 10.47 (1.79 m) Physical Exam Constitutional: General: He is not in acute distress. Appearance: Normal appearance. He is obese. He is not ill-appearing, toxic- appearing or diaphoretic. Cardiovascular: Rate and Rhythm: Normal rate. Heart sounds: No murmur heard. No friction rub. Pulmonary: Effort: Pulmonary effort is normal. Neurological: General: No focal deficit present. Mental Status: He is alert. Assessment/Plan Assessment/Plan Diagnoses and all orders for this visit: Partial small bowel obstruction (CMS/HCC) - Referral to Gastroenterology; Future - CBC auto differential; Future - Basic Metabolic Panel; Future Patient will be contacted with the results of the blood work He is instructed to contact the office in case of recurrence of his symptoms. [1] Patient Active Problem List Diagnosis Chronic pain Gastroesophageal reflux disease without esophagitis Open wound of lower limb S/P left hemicolectomy Smoker Vitamin D deficiency Permanent atrial fibrillation (CMS/HCC) Back pain Diverticulitis Class 1 obesity Mixed hyperlipidemia Primary hypertension Obesity, morbid (CMS/HCC) Herpes zoster without complication Moderate major depression (CMS/HCC) KATHY (generalized anxiety disorder) [2] Allergies Allergen Reactions Ampicillin Rash Cephalosporins Rash Penicillin G Rash [3] Current Outpatient Medications on File Prior to Visit Medication Sig Dispense Refill atorvastatin (Lipitor) 40 MG tablet TAKE ONE TABLET (40 MG) BY MOUTH DAILY AT 9 AM IN THE MORNING 90 tablet 1 cholecalciferol (Vitamin D3) 25 MCG (1000 UT) tablet TAKE ONE TABLET (25 MCG) BY MOUTH DAILY AT 9 AM 90 tablet 1 dilTIAZem CD (Cardizem CD) 120 MG 24 hr capsule Take 1 capsule by mouth Once per day. At 9 am ibuprofen 800 MG tablet Take 1 tablet (800 mg) by mouth 3 times daily. 90 tablet 0 losartan (Cozaar) 50 MG tablet TAKE ONE TABLET (50 MG) BY MOUTH ONCE DAILY AT 9 AM 90 tablet 3 pantoprazole (ProtoNix) 40 MG EC tablet TAKE ONE TABLET (40 MG) BY MOUTH DAILY AT 9 AM BEFORE BREAKFAST 90 tablet 3 tadalafil (Cialis) 10 MG tablet Take 1 tablet (10 mg) by mouth if needed each day for erectile dysfunction. 20 tablet 2 tiZANidine (Zanaflex) 2 MG tablet Take 1 tablet (2 mg) by mouth every 6 (six) hours if needed for muscle spasms for up to 10 days. 30 tablet 2 varenicline (Chantix) 1 MG tablet TAKE ONE TABLET BY MOUTH TWICE DAILY @ 9AM & 5PM TAKE WITH FULL GLASS OF WATER (Patient not taking: Reported on 07/19/2025) 168 tablet 1 [DISCONTINUED] acetaminophen-codeine (Tylenol w/ Codeine #3) 300-30 MG tablet TAKE 1 TABLET BY MOUTH 3 TIMES A DAY NEEDED FOR PAIN (DO NOT DRIVE WHILE TAKING) [DISCONTINUED] dilTIAZem ER (Tiazac) 120 MG 24 hr capsule Take 1 capsule (120 mg) by mouth Once perday. 90 capsule 3 [DISCONTINUED] tadalafil (Cialis) 5 MG tablet Take 1 tablet (5 mg) by mouth Once per day. 30 tablet3 [DISCONTINUED] tadalafil (Cialis) 5 MG tablet Take 1 tablet (5 mg) by mouth Once per day. 10 tablet0 No current facility-administered medications on file prior to visit. documented in this encounter Plan of Treatment Upcoming Encounters Date Type Department Care Team (Late st Contact Info) Description 07/21/2025 9:30 AM EDT Medication Management [facility] MED & PEDS [address] [place] [address] Alvina Chacko, PharmD [address] [place] [address] 09/20/2025 9:00 AM EST Office Visit [facility] MED & PEDS [address] [place] [address] Daniel Zhang MD [address] [place] [address] Scheduled Orders Name Type Priority Associated Diagnoses Orde r Schedule CBC auto differential Lab Routine Partial small bowel obstruction (CMS/HCC) Expected: 07/20/2025 (Approximate), Expires: 07/20/2026 Basic Metabolic Panel Lab Routine Partial small bowel obstruction (CMS/HCC) Expected: 07/20/2025 (Approximate), Expires: 07/20/2026 Scheduled Referrals Name Type Priority Associated Diagnoses Order Schedule Referral to Gastroenterology Outpatient Referral Routine Partial small bowel obstruction (CMS/HCC) Expected: 07/20/2025 (Approximate), Expires: 07/20/2026 documented as of this encounter Visit Diagnoses Diagnosis Partial small bowel obstruction (CMS/HCC)- Primary Unspecified intestinal obstruction documented in this encounter Additional Health Concerns Assessment Noted Time PHQ-9 Depression Total Score: 12 025 9:40 AM EDT documented as of this encounter Care Teams Blueprint Cutter Relationship Specialty Start Date End Date Daniel Zhang MD [address] [place] [address] PCP - General Internal Medicine 05/18/24 documented as of this encounter
--- OUTSIDE RECORDS SUMMARY | 2025-07-20 12:53 | XMS_ITS | Encounter Summary ---
Author Organization [employer] Address [address] [place] [address] Care Team Providers Care Terrazzo Polisher Name Role Phone Daniel Zhang MD Primary Care Provider [phone] Encounter Details Date Type Department Care Team ([facility] st Contact Info) Description 06/20/2024 Orders Only [facility] CHC MED & PEDS [address] [place], [place] [id number] YeagerRaudel Garcia MD [address] [place] [address] Social History Tobacco Use Types Packs/Day Years Used Date Smoking Tobacco: Every Day Cigarettes 0.5 20 Passive Smoke Exposure: Current Smokeless Tobacco: Never Alcohol Use Standard Drinks/Week Comments Never 0 (1 standard drink = 0.6 oz pur e alcohol) Depression Answer Date Recorded Patient Health Questionnaire-9 Score 0 01/28/2023 Housing Stability Answer Date Recorded What is your housing situation today? I have regan crews 05/12/[address] you li ve. Do you have problems with any of the following? None of the above 05/12/2024 Food Insecurity Answer Date Recorded Within the past 12 months, y ou worried that your food would run out before you got money to buy more: Never True 05/12/2024 Within the past 12 months,th e food you bought just didn't last and you didn't have enough money to get more: Never True 08/2024 Transportation Answer Date Recorded In the past [...] Answer Date Recorded Patient Health Questionnaire-2 Score 0 01/28/2023 Sex and Gender Information Value Date Recorded Sex Assigned at Male 09/02/2022 10:17 AM EDT Legal Sex Male 10:17 AM EDT Gender Identity Male 09/02/2022 10:17 AM EDT Sexual Orientation Straight 09/02/2022 10 :17 AM EDT documented as of this encounter Plan of Treatment Upcoming Encounters Date Type Department Care Team (Late st Contact Info) Description 07/21/2025 9:30 AM EDT Medication Management [facility] MED & PEDS [address] [place] [address] Alvina Chacko, PharmD [address] [place], [place] [id number] 09/20/2025 9:00 AM EST Office Visit [facility] MED & PEDS [address] [place] [address] Daniel Zhang MD [address] [place] [address] documented as of this encounter Visit Diagnoses Not on filedocumented in this encounter Additional Health Concerns Assessment Noted Time PHQ-9 Depression Total Score: 0 01/29/20 23 8:49 AM EDT documented as of this encounter Care Teams Terrazzo Polisher Relationship Specialty Start Date End Date Daniel Zhang MD [address] [place] [address] PCP - General Internal Medicine 05/18/24 documented as of this encounter
--- OUTSIDE RECORDS SUMMARY | 2025-07-20 12:53 | XMS_ITS | Encounter Summary ---
Author Organization [employer] Address [address] [place] [address] Care Team Providers Care Blade Changer Name Role Phone Raudel Armstrong MD Primary Care Prov ider Daniel Zhang MD Primary Care Provider [phone] Encounter Details Date Type Department Care Team (Late st Contact Info) Description 04/15/2023 Telephone [facility] MEDICINE [address] [place] [address] Raudel Armstrong MD [address] [place] [address] Social History Tobacco Use Types Packs/Day Years Used Date Smoking Tobacco: Every Day Cigarettes 0.5 20 Smokeless Tobacco: Never Alcohol Use Standard Drinks/Week Comments Never 0 (1 standard drink = 0.6 oz pur e alcohol) Depression Answer Date Recorded Patient Health Questionnaire-9 Score 0 01/28/2023 Depression Answer Date Recorded Patient Health Questionnaire-2 Score 0 01/28/2023 Sex and Gender Information Value Date Recorded Sex Assigned at Male 09/02/2022 10:17 AM EDT Legal Sex Male 10:17 AM EDT Gender Identity Male 09/02/2022 10:17 AM EDT Sexual Orientation Straight 09/02/2022 10 :17 AM EDT COVID-19 Exposure Response Date Recorded In the last 10 days, have yo u been in contact with someone who was confirmed or suspected to have Coronavirus/COVID-19? No / Unsure 04/16/2023 3:18 PM EDT documented as of this encounter Plan of Treatment Upcoming Encounters Date Type Department Care Team (Late st Contact Info) Description 07/21/2025 9:30 AM EDT Medication Management [facility] MED & PEDS [address] [place] [address] Alvina Chacko, PharmD [address] [place] [address] 09/20/2025 9:00 AM EST Office Visit [facility] MED & PEDS [address] [place] [address] Daniel Zhang MD [address] [place] [address] documented as of this encounter Visit Diagnoses Not on filedocumented in this encounter Additional Health Concerns Assessment Noted Time PHQ-9 Depression Total Score: 0 01/29/20 23 8:49 AM EDT documented as of this encounter Care Teams Blade Changer Relationship Specialty Start Date End Date Raudel Armstrong MD [address] [place] [address] PCP - General Internal Medicine 03/08/20 05/17/24 Daniel Zhang MD [address] [place] [address] PCP - General Internal Medicine 05/18/24 documented as of this encounter
--- OUTSIDE RECORDS SUMMARY | 2025-07-20 12:53 | XMS_ITS | Encounter Summary ---
Author Organization [employer] Address [address] [place] [address] Care Team Providers Care Patternmaker Pressure Cast Name Role Phone Raudel Armstrong MD Primary Care Prov ider Daniel Zhang MD Primary Care Provider Encounter Details Date Type Department Care Team ([facility] st Contact Info) Description 02/19/2023 Orders Only [facility] CHC MED & PEDS [address] [place] [address] Raudel Armstrong MD [address] [place] [address] Social History Tobacco Use Types Packs/Day Years [...] suspected to have Coronavirus/COVID-19? No / Unsure 01/28/2023 7:10 AM EDT documented as of this encounter Plan of Treatment Upcoming Encounters Date Type Department Care Team (Late st Contact Info) Description 07/21/2025 9:30 AM EDT Medication Management [facility] MED & PEDS [address] [place] [address] Alvina Chacko, PharmD [address] [place] [address] 09/20/2025 9:00 AM EST Office Visit [facility] MED & PEDS [address] [place] [address] Daniel Zhang MD [address] [place] [address] documented as of this encounter Visit Diagnoses Not on filedocumented in this encounter Additional Health Concerns Assessment Noted Time PHQ-9 Depression Total Score: 0 01/29/20 23 8:49 AM EDT documented as of this encounter Care Teams Patternmaker Pressure Cast Relationship Specialty Start Date End Date YeagerRaudel Garcia MD [address] [place] [address] PCP - General Internal Medicine 03/08/20 05/17/24 Daniel Zhang MD [address] [place] [address] PCP - General Internal Medicine 05/18/24 documented as of this encounter
--- OUTSIDE RECORDS SUMMARY | 2025-07-20 12:53 | XMS_ITS | Encounter Summary ---
Author Organization [employer] Address [address] [place] [address] 7 [place] [address] Care Team Providers Care Lieutenant Firefighter Name Role Phone Daniel Zhang MD Primary Care Provider [phone] Encounter Details Date Type Department Care Team (Latest Contact Info) Description 07/20/2025 Travel Social History Tobacco Use Types Packs/Day Years [...] Description 07/21/2025 9:30 AM EDT Medication Management [facility] MED & PEDS [address] [place] [address] Alvina Chacko, PharmD [address] [place] [address] 09/20/2025 9:00 AM EST Office Visit [facility] MED & PEDS [address] [place] [address] Daniel Zhang MD [address] [place] [address] documented as of this encounter Visit Diagnoses Not on filedocumented in this encounter Additional Health Concerns Assessment Noted Time PHQ-9 Depression Total Score: 12 025 9:40 AM EDT documented as of this encounter Care Teams Lieutenant Firefighter Relationship Specialty Start Date End Date Daniel Zhang MD [address] [place] [address] PCP - General Internal Medicine 05/18/24 documented as of this encounter
--- OUTSIDE RECORDS SUMMARY | 2025-07-20 12:53 | XMS_ITS | Encounter Summary ---
Author Organization [employer] Address [address] [place] [address] Care Team Providers Care Contact Lens Technician Name Role Phone Raudel Armstrong MD Primary Care Prov ider Daniel Zhang MD Primary Care Provider [phone] Reason for Visit * Reason Onset Date Comments Med Refill 11/16/2023 Encounter Details Date Type Department Care Team ([facility] st Contact Info) Description 11/16/2023 Refill [facility] MED & PEDS [address] [place] [address] Raudel Armstrong MD [address] [place] [address] Social History Tobacco Use Types Packs/Day Years Used Date Smoking Tobacco: Every Day Cigarettes 0.5 20 Passive Smoke Exposure: Current Smokeless Tobacco: Never Alcohol Use Standard Drinks/Week Comments Never 0 (1 standard drink = 0.6 oz pur e alcohol) Depression Answer Date Recorded Patient Health Questionnaire-9 Score 0 01/28/2023 Housing Stability Answer Date Recorded What is your housing situation today? I have reganjennifer crews 09/05/[address] you li ve. Do you have problems with any of the following? None of the above 09/05/2023 Food Insecurity Answer Date Recorded Within the past 12 months, y ou worried that your food would run out before you got money to buy more: Never True 09/05/2023 Within the past 12 months,th e food you bought just didn't last and you didn't have enough money to get more: Never True 01/2023 Transportation Answer Date Recorded In the past 12 months, has l ack of transportation kept you from medical appts, meetings, work or from getting things needed for daily living? No 09/05/2023 Utilities Answer Date Recorded In the past 12 months, has t he electric, gas, oil or water company threatened to shut off services in your home? No 09/05/2023 Depression Answer Date Recorded Patient Health Questionnaire-2 [...] Description 07/21/2025 9:30 AM EDT Medication Management [facility] MED & PEDS [address] [place] [address] Alvina Chacko, PharmD [address] [place] [address] 09/20/2025 9:00 AM EST Office Visit [facility] MED & PEDS [address] [place] [address] Daniel Zhang MD [address] [place] [address] documented as of this encounter Visit Diagnoses Not on filedocumented in this encounter Additional Health Concerns Assessment Noted Time PHQ-9 Depression Total Score: 0 01/29/20 23 8:49 AM EDT documented as of this encounter Care Teams Contact Lens Technician Relationship Specialty Start Date End Date Raudel Armstrong MD [address] [place] [address] PCP - General Internal Medicine 03/08/20 05/17/24 Daniel Zhnag MD [address] [place] [address] PCP - General Internal Medicine 05/18/24 documented as of this encounter
--- OUTSIDE RECORDS SUMMARY | 2025-07-20 12:53 | XMS_ITS | Encounter Summary ---
Author Organization [employer] Address [address] [place] [address] Care Team Providers Care Associate Theatre Professor Name Role Phone Daniel Zhang MD Primary Care Provider [phone] Encounter Details Date Type Department Care Team ([facility] st Contact Info) Description 06/28/2024 Orders Only [facility] CHC MED & PEDS [address] [place], [place] [phone] Daniel Zhang MD [address] [place] [address] Vitamin D deficiency (Primary Dx); Mixed hyperlipidemia; Smoker; Primary hypertension; Chronic bilateral low back pain with left-sided sciatica; Gastroesophageal reflux disease without esophagitis Social History Tobacco Use Types Packs/Day Years Used Date Smoking Tobacco: Every Day Cigarettes 0.5 20 Passive Smoke Exposure: Current Smokeless Tobacco: Never Alcohol Use Standard Drinks/Week Comments Never 0 (1 standard drink = 0.6 oz pur e alcohol) Depression Answer Date Recorded Patient Health Questionnaire-9 Score 0 01/28/2023 Housing Stability Answer Date Recorded What is your housing situation today? I have regan sing 05/12/[address] you li [...] Description 07/21/2025 9:30 AM EDT Medication Management [facility] MED & PEDS [address] [place] [address] Alvina Chacko, PharmD [address] [place] [address] 09/20/2025 9:00 AM EST Office Visit [facility] MED & PEDS [address] [place] [address] Daniel Zhang MD [address] [place] [address] documented as of this encounter Visit Diagnoses Diagnosis Vitamin D deficiency- Primary Mixed hyperlipidemia Smoker Tobacco use disorder Primary hypertension Unspecified essential hypertension Chronic bilateral low back pain with left-sided sciatica Gastroesophageal reflux disease without esophagitis Esophageal reflux documented in this encounter Additional Health Concerns Assessment Noted Time PHQ-9 Depression Total Score: 0 01/29/20 23 8:49 AM EDT documented as of this encounter Care Teams Associate Theatre Professor Relationship Specialty Start Date End Date Daniel Zhang MD [address] [place] [address] PCP - General Internal Medicine 05/18/24 documented as of this encounter
--- OUTSIDE RECORDS SUMMARY | 2025-07-20 12:53 | XMS_ITS | Encounter Summary ---
Author Organization [employer] Address [address] [facility] 7 [place] [address] Care Team Providers Care Bleach Mixer Name Role Phone Raudel Armstrong MD Primary Care Prov ider Daniel Zhang MD Primary Care Provider [phone] Reason for Visit * Reason Onset Date Comments Medication Question 05/10/2024 Encounter Details Date Type Department Care Team (Late st Contact Info) Description 05/10/2024 Telephone [facility] MEDICINE [address] [place] [address] Raudel Armstrong MD [address] [place] [address] Medication Question Social History Tobacco Use Types Packs/Day Years [...] housing situation today? I have reganjennifer crews 05/12/[address] you [...] AM EDT documented as of this encounter Miscellaneous Notes * Telephone Encounter - Olivia Patel RN - 05/10/2024 12:08 PM EDT Tc from pt requesting a Script to Nicotine Gum to stop smoking. Please contact pt @ [phone] Medication qued to PCP * Telephone Encounter - Mando Upton - 05/10/2024 8:56 AM EDT Tc from pt requesting a Script to Nicotine Gum to stop smoking. Please contact pt @ [phone] documented in this encounter Plan of Treatment Upcoming Encounters Date Type Department Care Team (Late st Contact Info) Description 07/21/2025 9:30 AM EDT Medication Management [facility] MED & PEDS [address] [place] [address] Alvina Chacko, Trina [address] [place] [address] 09/20/2025 9:00 AM EST Office Visit [facility] MED & PEDS [address] [place] [address] Daniel Zhang MD [address] [place] [address] documented as of this encounter Visit Diagnoses Not on filedocumented in this encounter Additional Health Concerns Assessment Noted Time PHQ-9 Depression Total Score: 0 01/29/20 23 8:49 AM EDT documented as of this encounter Care Teams Bleach Mixer Relationship Specialty Start Date End Date Raudel Armstrong MD [address] [place] [address] PCP - General Internal Medicine 03/08/20 05/17/24 Daniel Zhang MD [address] [place] [address] PCP - General Internal Medicine 05/18/24 documented as of this encounter
--- OUTSIDE RECORDS SUMMARY | 2025-07-20 12:53 | XMS_ITS | Encounter Summary ---
Author Organization [employer] Address [address] [place] [address] Care Team Providers Care Forest Law And Policy Professor Name Role Phone Daniel Zhang MD Primary Care Provider [phone] Encounter Details Date Type Department Care Team ([facility] st Contact Info) Description 06/09/2025 Orders Only [facility] [address] [place], [place] [phone] Daniel Zhang MD [address] [place] [address] Other male erectile dysfunction (Primary Dx) Social History Tobacco Use Types [...] Description 07/21/2025 9:30 AM EDT Medication Management [facility] [address] [place] [address] Alvina Chacko, PharmD [address] [place] [address] 09/20/2025 9:00 AM EST Office Visit [facility] [address] [place] [address] Daniel Zhang MD [address] [place] [address] documented as of this encounter Visit Diagnoses Diagnosis Other male erectile dysfunction- Primary documented in this encounter Additional Health Concerns Assessment Noted Time PHQ-9 Depression Total Score: 12 025 9:40 AM EDT documented as of this encounter Care Teams Forest Law And Policy Professor Relationship Specialty Start Date End Date Daniel Zhang MD [address] [place] [address] PCP - General Internal Medicine 05/18/24 documented as of this encounter
--- OUTSIDE RECORDS SUMMARY | 2025-07-20 12:53 | XMS_ITS | Encounter Summary ---
Author Organization [employer] Address [address] [place] [address] Care Team Providers Care Sales Rep Name Role Phone Daniel Zhang MD Primary Care Provider [phone] Reason for Visit * Reason Onset Date Comments Med Refill 06/07/2025 Encounter Details Date Type Department Care Team ([facility] st Contact Info) Description 06/07/2025 Refill [facility] PEDS [address] [place] [address] Daniel Zhang MD [address] [place] [address] Other male erectile dysfunction Social History Tobacco Use Types Packs/Day Years [...] Description 07/21/2025 9:30 AM EDT Medication Management [facility] MED & PED[facility] [address] [place] [address] Alvina Chacko, PharmD [address] [place] [address] 09/20/2025 9:00 AM EST Office Visit [facility] [address] [place] [address] Daniel Zhang MD [address] [place] [address] documented as of this encounter Visit Diagnoses Diagnosis Other male erectile dysfunction documented in this encounter Additional Health Concerns Assessment Noted Time PHQ-9 Depression Total Score: 12 025 9:40 AM EDT documented as of this encounter Care Teams Sales Rep Relationship Specialty Start Date End Date Daniel Zhang MD [address] [place] [address] PCP - General Internal Medicine 05/18/24 documented as of this encounter
--- OUTSIDE RECORDS SUMMARY | 2025-07-20 12:53 | XMS_ITS | Encounter Summary ---
Author Organization [employer] Address [address] [place] [address] Care Team Providers Care Marine Tower Operator Name Role Phone Raudel Armstrong MD Primary Care Prov ider Daniel Zhang MD Primary Care Provider Encounter Details Date Type Department Care Team (Latest Contact Info) Description 10/31/2021 Abstract [facility] CONVERSIONS Dental, Provider, DDS Social History Tobacco Use Types Packs/Day Years Used Date Smoking Tobacco: Never Assessed Sex and Gender Information Value Date Recorded [...] 9:30 AM EDT Medication Management [facility] & PEDS [address] [place] [address] Alvina Chacko, PharmD [address] [place] [address] 09/20/2025 9:00 AM EST Office Visit [facility] MED & PEDS [address] [place] [address] Daniel Zhang MD [address] [place] [address] documented as of this encounter Visit Diagnoses Not on filedocumented in this encounter Care Teams Marine Tower Operator Relationship Specialty Start Date End Date Raudel Armstrong MD [address] [place] [address] PCP - General Internal Medicine 03/08/20 05/17/24 Daniel Zahng MD [address] [place] [address] PCP - General Internal Medicine 05/18/24 documented as of this encounter
--- OUTSIDE RECORDS SUMMARY | 2025-07-20 12:53 | XMS_ITS | Encounter Summary ---
Author Organization [employer] Address [address] [place] [address] Care Team Providers Care Bread Icer Name Role Phone Daniel Zhang MD Primary Care Provider [phone] Encounter Details Date Type Department Care Team ([facility] st Contact Info) Description 04/12/2025 Orders Only [facility] MED & PEDS [address] [place], [place] [phone] Daniel Zhang MD [address] [place] [address] Mixed hyperlipidemia (Primary Dx) Social History Tobacco Use Types [...] 07/21/2025 9:30 AM EDT Medication Management [facility] [address] [place] [address] Alvina Chacko, PharmD [address] [place] [address] 09/20/2025 9:00 AM EST Office Visit [facility] [address] [place] [address] Daniel Zhang MD [address] [place] [address] Scheduled Orders Name Type Priority Associated Diagnoses Orde r Schedule Lipid Panel, Standard Lab Routine Mixed hyperlipidemia Expected: 04/18/2025 (Approximate), Expires: 04/18/2026 documented as of this encounter Visit Diagnoses Diagnosis Mixed hyperlipidemia- Primary documented in this encounter Additional Health Concerns Assessment Noted Time PHQ-9 Depression Total Score: 12 025 9:40 AM EDT documented as of this encounter Care Teams Bread Icer Relationship Specialty Start Date End Date Daniel Zhang MD [address] [place] [address] PCP - General Internal Medicine 05/18/24 documented as of this encounter
--- OUTSIDE RECORDS SUMMARY | 2025-07-20 12:53 | XMS_ITS | Encounter Summary ---
Author Organization [employer] Address [address] [place] [address] Care Team Providers Care Linoleum Tile Floor Layer Name Role Phone Raudel Armstrong MD Primary Care Prov ider Daniel Zhang MD Primary Care Provider [phone] Encounter Details Date Type Department Care Team (Late Contact Info) Description 05/20/2023 Telephone [facility] MED [facility] PEDS [address] [place] [address] Raudel Armstrong MD [address] [place] [address] Social History Tobacco Use Types Packs/Day Years [...] Upcoming Encounters Date Type Department Care Team ([facility] Contact Info) Description 07/21/2025 9:30 AM EDT Medication Management [facility] P[facility] [address] [place] [address] Alvina Chacko, PharmD [address] [place], [place] [phone] 09/20/2025 9:00 AM EST Office Visit [facility] MED & PEDS [address] [place] [address] Daniel Zhang MD [address] [place] [address] documented as of this encounter Visit Diagnoses Not on filedocumented in this encounter Additional Health Concerns Assessment Noted Time PHQ-9 Depression Total Score: 0 01/29/20 23 8:49 AM EDT documented as of this encounter Care Teams Linoleum Tile Floor Layer Relationship Specialty Start Date End Date Raudel Armstrong MD [address] [place] [address] PCP - General Internal Medicine 03/08/20 05/17/24 Daniel Zhang MD [address] [place] [address] PCP - General Internal Medicine 05/18/24 documented as of this encounter
--- OUTSIDE RECORDS SUMMARY | 2025-07-20 12:53 | XMS_ITS | Encounter Summary ---
Author Organization [employer] Address [address] [place] [address] Care Team Providers Care Combat Systems Engineer Name Role Phone Daniel Zhang MD Primary Care Provider [phone] Reason for Visit * Reason Comments Med Refill Encounter Details Date Type Department Care Team ([facility] Contact Info) Description 03/10/2025 Refill [facility] MED & PEDS [address] [place], [place] [phone] Daniel Zhang MD [address] [place] [address] Mixed hyperlipidemia Social History Tobacco Use Types Packs/Day Years Used Date Smoking Tobacco: Every Day Cigarettes 0.5 20 Passive Smoke Exposure: Current Smokeless Tobacco: Never Alcohol Use Standard Drinks/Week Comments Never 0 (1 standard drink = 0.6 oz pur e alcohol) Depression Answer Date Recorded Patient Health Questionnaire-9 Score 0 01/28/2023 Housing Stability Answer Date Recorded What is your housing situation today? I do not have housing (Staying with others, in a hotel, in a fdc, living outside on the street, on a beach, in a car, or in a park 12/30/[address] you li ve. Do you have problems with any of the following? None of the above 12/30/2024 Food Insecurity Answer Date Recorded Within the [...] Recorded Patient Health Questionnaire-2 Score 0 01/28/2023 Internet Access Answer Date Recorded Internet Access [...] 9:30 AM EDT Medication Management [facility] P[facility] [address] [place] [address] Alvina Chacko, PharmD [address] [place] [address] 09/20/2025 9:00 AM EST Office Visit [facility] [address] [place] [address] Daniel Zhang MD [address] [place] [address] documented as of this encounter Visit Diagnoses Diagnosis Mixed hyperlipidemia documented in this encounter Additional Health Concerns Assessment Noted Time PHQ-9 Depression Total Score: 0 01/29/20 23 8:49 AM EDT documented as of this encounter Care Teams Combat Systems Engineer Relationship Specialty Start Date End Date Daniel Zhang MD [address] [place] [address] PCP - General Internal Medicine 05/18/24 documented as of this encounter
--- OUTSIDE RECORDS SUMMARY | 2025-07-20 12:53 | XMS_ITS | Clinical Summary ---
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 5 Active cholecalciferol (VITAMIN D-3) 25 mcg (1,000 unit) tablet Take 1 tablet (1,000 Units total) by mouth 1 (one) time each day. 5 Active dilTIAZem CD (CARDIZEM CD) 120 mg 24 hr capsule Take 1 capsule (120 mg total) by mouth 1 (one) time each day. 5 Active losartan (COZAAR) 50 mg tablet Take 1 tablet (50 mg total) by mouth 1 (one) time each day. 5 Active pantoprazole (PROTONIX) 40 mg EC tablet Take 1 tablet (40 mg total) by mouth 1 (one) time each day before breakfast. 5 Active tadalafiL (CIALIS) 10 mg tablet Take 1 tablet (10 mg total) by mouth 1 (one) time each day if needed. Active varenicline tartrate (CHANTIX) 1 mg tablet Take 1 tablet (1 mg total) by mouth 2 (two) times daily after breakfast and dinner. 5 Active tiZANidine (ZANAFLEX) 2 mg capsule Take 1 capsule (2 mg total) by mouth every 6 (six) hours if needed for muscle spasms. Active ibuprofen (ADVIL,MOTRIN) 800 mg tablet Take 1 tablet (800 mg total) by mouth every 8 (eight) hours. Active nicotine (NICODERM CQ) 21 mg/[address] 1 patch on the skin 1 (one) time each day. 30 each 5 08/07/20 25 Active meloxicam (MOBIC) 15 mg tablet Take 1 tablet (15 mg total) by mouth 1 (one) time each day. 5 07/07/20 25 Discontinu ed(Entered in Error) naproxen (NAPROSYN) 500 mg tablet Take 1 tablet (500 mg total) by mouth 2 (two) times a day with meals. 5 07/07/20 25 Discontinu ed(Entered in Error) Active Problems Problem Noted Date Diagnosed Date Primary hypertension 07/07/2025 GERD (gastroesophageal reflux disease) Hyperlipidemia 07/07/2025 Chronic lower back pain 07/07/2025 Resolved Problems Problem Noted Date Diagnosed Date Resolved Date Partial small bowel obstruct ion (CMS/HCC V24, CMS/HCC V28) 07/07/2025 07/07/2025 Encounters Date Type Department Care Team Description 07/06/2025 8:58 PM EDT - 07/07/2025 5:50 PM EDT Hospital Encounter [facility] [address] [place] [id number] Ariadna Malcolm MD Jones, Christopher, MD Japaridze, Anna, MD Partial small bowel obstruction (CMS/HCC V24, CMS/HCC V28) (Primary Dx); LLQ pain Discharge Disposition: Home or Self Care from Last 3 Months Surgical History Surgery Date Site/Laterality Comments CARPAL TUNNEL RELEASE 04/11/2022 Right PROCEDURE: [place] NEUROPLASTY &/TRANSPOS MEDIAN NRV CARPAL TUNNE; COMMENT: w/ganglion excision, Dr Walker BACK SURGERY PROCEDURE: HISTORICAL BACK SURGERY; COMMENT: Lumbar x2 OTHER SURGICAL HISTORY PROCEDURE: [place] COLECTOMY PARTIAL W/ANASTOMOSIS Medical History Medical History Date Comments Anxiety state DX:Anxiety state Esophageal reflux DX:Esophageal reflux Diverticulitis Paroxysmal atrial fibrillation ([facility] V24, [facility] V28) Hypercholesteremia Hypertension Family History Medical History Relation Name Comments Coronary artery disease Father Heart attack Father of heart a ttack at young age Other: Other Father Diabetes Maternal Grandmother Other: Other Maternal Grandmother Hypertension Mother Other: Heart Disease Mother Relation Name Status Comments Father Maternal Grandmother Mother Social History Tobacco Use Types Packs/Day Years Used Date Smoking Tobacco: Heavy Smoker Smokeless Tobacco: Never Alcohol Use Standard Drinks/Week Comments No 0 (1 standard drink = 0.6 oz pur e alcohol) Housing Instability Answer Date Recorde d Are you worried that in the next 2 months you may not have stable housing? No 07/07/2025 Food Access & Nutrition Answer Date Rec orded Do you have access to a vari ety of food including fruits and vegetables? Yes 07/07/2025 Access to Healthcare Answer Date Record ed Within the last 3 months, ho w many times did you visit the emergency department for your medical care? 0 07/07/2025 Health Literacy Answer Date Recorded How often do you need to hav e someone help you when you read instructions, pamphlets, or other written material from your doctor or pharmacy? Rarely 07/07/2025 Caregiver: How often do you need to have someone help you when you read instructions, pamphlets, or other written material from your doctor or pharmacy? Not on file 07/07/2025 Financial Risk Answer Date Recorded How hard is it for you to pa y for the very basics like food, housing, medical care, and air conditioning / heating? Not very hard 07/07/2025 Transportation Answer Date Recorded Has the lack of transportati on kept you from meetings, work, or from getting things needed for daily living? No Has the lack of transportati on kept you from medical appointments or from getting medications? No 07/07/2025 Social Isolation Answer Date Recorded How often do you feel lonely or isolated from th ose around you? Rarely 07/07/2025 Food Risk Answer Date Recorded Within the past 12 months we worried whether our food would run out before we got money to buy more. Never true 07/07/2025 Within the past 12 months th e food we bought just didn't last and we didn't have money to get more. Never true 07/07/2025 Dependent Care Answer Date Recorded Do you need help finding or paying for care for your loved ones. For example, vocational childcare teacher or elderly care for an older adult? Patient declined 07/07/2025 Education Answer Date Recorded Do you think completing more education or training, like finishing a GED, going to college, or learning a trade, would be helpful for you? No 07/07/2025 Employment and Income Answer Date Recor ded During the last four weeks, have you been actively looking for work? Patient declined 07/07/2025 Living Situation Answer Date Recorded What is your living situation? 0 07/07/2025 Interpersonal Safety Answer Date Record ed Physical Abuse 07/07/2025 Verbal Abuse 07/07/2025 Sex and Gender Information Value Date Recorded Sex Assigned at Not on file Legal Sex Male 9:25 AM EST Gender Identity Not on file Sexual Orientation Not on file Obstetrics History Last Filed Vital Signs Vital Sign Reading Time Taken Comments Blood Pressure 113/67 07/07/2025 3:37 PM EDT Pulse 84 07/07/2025 3:37 PM EDT Temperature 36.8 C (98.2 F) 07/07/2025 3:37 PM EDT Respiratory Rate 15 07/07/2025 3:37 PM EDT Oxygen Saturation 94% 07/07/2025 3:37 PM EDT Inhaled Oxygen Concentration - - Weight 119 kg (262 lb 6.4 oz) 07/07/2025 3:54 AM EDT Height 182.9 cm (6') 07/06/2025 7:42 PM EDT Body Mass Index 35.59 07/06/2025 7:42 PM EDT Plan of Treatment Health Maintenance Due Date Last Done Comments Pneumococcal Vaccine: Pediatrics (0 to 5 Years) and At-Risk Patients (6 to 49 Years) (1 of 2 - PCV) 01/15/1999 Medicare Annual Wellness Visit 10/12/2022 Depression Screening 11/03/2024 COVID-19 Vaccine ( season) 2025 10/11/2022, 03/08/2022, 02/08/2022 Influenza Vaccine (#1) 2025 , 09/06/2020, 07/17/2016, Additional history exists Hypertension/CHF/CAD Annual BMP Blood Test 07/07/2026 07/07/2025, 07/06/2025, 04/11/2025 Social Influencers of Health Screening 07/07/2026 07/07/2025 Colorectal Cancer Screening: FIT-DNA (Cologuard) 05/03/2028 05/03/2025 DTaP,Tdap,and Td Vaccines (3 - Td or Tdap) 03/09/2029 03/09/2019, 04/25/2008 Cholesterol Screening (Lipid Panel) 04/11/2030 04/11/2025 Hepatitis B Vaccines Completed 01/26/2016, 04/27/2015, 02/21/2015 HIV Screening Completed 04/11/2025 Hepatitis C Screening Completed 04/11/2025 HIB Vaccines Aged Out No longer eligi [...] on patient's age to complete this topic MMR Vaccines Aged Out No longer eligi ble based on patient's age to complete this topic Meningococcal ACWY Vaccine Aged Out N o longer eligible based on patient's age to complete this topic Meningococcal B Vaccine Aged Out No l onger eligible based on patient's age to complete this topic RSV Immunization Patients Under 20 months Aged Out No longer eligible based on patient's age to complete this topic Varicella Vaccines Aged Out No longer eligible based on patient's age to complete this topic Procedures Procedure Name Priority Date/Time Associated Diagnosis Comments GASTROINTESTINAL PATHOGENS BY PCR STAT 07/07/2025 9:23 AM EDT CBC WITH AUTO DIFFERENTIAL Routine 07/07/2025 6:13 AM EDT CBC AND DIFFERENTIAL Routine 07/07/2025 6:13 AM EDT BASIC METABOLIC PANEL Routine 07/07/2025 6:13 AM EDT [id number], RSV, FLU A AND B QUALITATIVE RT-PCR, INTERNAL LAB STAT 07/07/2025 4:24 AM EDT XR ABDOMEN 1 VIEW Routine 07/07/2025 2:[address] ABDOMEN PELVIS W CONTRAST STAT 07/06/2025 10:56 PM EDT MANUEL URINE CULTURE TUBE STAT 07/06/20 9:51 PM EDT URINALYSIS WITH REFLEX MICROSCOPIC AND CULTURE STAT 07/06/2025 9:51 PM EDT URINALYSIS WITH REFLEX MICROSCOPIC AND CULTURE STAT 07/06/2025 9:51 PM EDT CBC WITH AUTO DIFFERENTIAL STAT 07/06/2025 8:26 PM EDT LIPASE STAT 07/06/2025 8:26 PM EDT COMPREHENSIVE METABOLIC PANEL STAT 07/06/2025 8:26 PM EDT CBC AND DIFFERENTIAL STAT 07/06/2025 8:26 PM EDT from Last 3 Months Results * Gastrointestinal pathogens molecular study (07/07/2025 9:23 AM EDT) Campylobacter Detection by PCR Not Detected Not Detected LAB MICROBIOLOGY METHOD 5 11:14 AM EDT [facility] Plesiomonas shigelloides Detection by PCR Not Detected Not Detected LAB MICROBIOLOGY METHOD 5 11:14 AM EDT [facility] Salmonella Detection by PCR Not Detected Not Detected LAB MICROBIOLOGY METHOD 5 11:14 AM EDT [facility] Vibrio Detection by PCR Not Detected Not Detected LAB MICROBIOLOGY METHOD 5 11:14 AM EDT [facility] Vibrio cholerae Detection by PCR Not Detected Not Detected LAB MICROBIOLOGY METHOD 5 11:14 AM EDT [facility] Yersinia enterocolitica Detection by PCR Not Detected Not Detected LAB MICROBIOLOGY METHOD 5 11:14 AM EDT [facility] Enteroaggregative E coli EAEC Detection by PCR Not Detected Not Detected [facility] 11[facility] Enteropathogenic E coli EPEC Detection Not Detected Not Detected LAB MICROBIOLOGY METHOD 5 11:14 AM EDT [facility] Enterotoxigenic E coli ETEC LTST Detection Not Detected Not Detected LAB [facility]BIOLOGY [facility] 5 11:[facility] Shiga-like toxin producing E coli STEC STX1 STX2 Det Not Detected Not Detected LAB MICROBIOLOGY METHOD 5 11:14 AM [facility] Shigella Enteroinvasive E coli EIEC Detection Not Detected Not Detected LAB MICROBIOLOGY METHOD 5 11:14 AM [facility] Cryptosporidium Detection by PCR Not Detected Not Detected LAB MICROBIOLOGY METHOD 5 11:14 AM [facility] Cyclospora cayetanensis Detection by PCR Not Detected Not Detected LAB MICROBIOLOGY METHOD 5 11:14 AM [facility] Entamoeba histolytica Detection by PCR Not Detected Not Detected LAB MICROBIOLOGY METHOD 5 11:14 AM [facility] Giardia lamblia Detection by PCR Not Detected Not Detected LAB MICROBIOLOGY METHOD 5 11:14 AM [facility] Adenovirus F 40 41 Detection by PCR Not Detected Not Detected LAB MICROBIOLOGY METHOD 5 11:14 AM [facility] Astrovirus Detection by PCR Not Detected Not Detected LAB MICROBIOLOGY METHOD 5 11:14 AM [facility] Norovirus GI GII Detection by PCR Not Detected LAB [facility]CROBIOLOGY [facility] 5 11:[facility] Sapovirus Detection by PCR Not Detected Not Detected LAB MICROBIOLOGY METHOD 11:14 AM EDT [facility] Rotavirus A Detection by PCR Not Detected Not Detected LAB MICROBIOLOGY METHOD 11:14 AM EDT [facility] Stool Rectum structure / Unknown Non-blood Collection / Unknown 07/07/2025 9:23 AM EDT 07/07/2025 9:44 AM EDT [facility] - 07/07/2025 11:14 AM EDT PCR testing is much more sensitive than traditional techniques and allows for the detection of low numbers of stool pathogens. The clinical correlation of PCR results with the need for treatment and clinical outcomes has not been established. Therefore the results of PCR testing for stool pathogens must be taken into clinical context when making treatment decisions. This is a diagnostic test only, repeat testing for cure is not advised. You may consider infectious disease consult for additional guidance. Testing Performed by [employer] us Ariadna Malcolm MD LAB MICROBIOLOGY - GENERAL ORD ERABLES Final Result [facility] [address] [place] [address], * (ABNORMAL) CBC auto differential (07/07/2025 6:13 AM EDT) Only the most recent of2 resultswithin the time period is included. WBC 9.1 4.8 - 10.8 K/mcL LAB HEMETOLOGY METHOD 07/07/2025 6:55 AM EDT [facility] RBC 5.40 4.50 - 5.50 M/mcL LAB HEMETOLOGY METHOD 07/07/2025 6:55 AM EDT [facility] Hemoglobin 15.0 13.5 - 17.5 g/dL LAB HEMETOLOGY METHOD 07/07/2025 6:55 AM EDT [facility] Hematocrit 47.4 42.0 - 54.0 % LAB HEMETOLOGY METHOD 07/07/2025 6:[facility] MCV 88.4 79.0 - 98.0 FL LAB HEMETOLOGY METHOD 07/07/2025 6:55 AM [facility] MCH 28.0 27.0 - 32.0 pcg LAB HEMETOLOGY METHOD 07/07/2025 6:55 AM [facility] MCHC 31.6(L) 32.0 - 37.0 g/dL LAB HEMETOLOGY METHOD 07/07/2025 6:55 AM [facility] RDW 14.1 11.0 - 15.0 % LAB HEMETOLOGY METHOD 07/07/2025 6:55 AM [facility] Platelets 246 130 - 400 K/mcL LAB HEMETOLOGY METHOD 07/07/2025 6:55 AM [facility] MPV 10.9 7.0 - 11.0 FL LAB HEMETOLOGY METHOD 07/07/2025 6:55 AM [facility] NRBC 0.0 <1.0 % LAB HEMETOLOGY METHOD 07/07/2025 6:55 AM [facility] NRBC Absolute 0.00 <0.10 K/mcL LAB HEMETOLOGY METHOD 07/07/2025 6:55 AM [facility] Neutrophils Relative 84.2 % LAB HEMETOLOGY METHOD 07/07/2025 6:55 AM [facility] Lymphocytes Relative 10.8 % LAB HEMETOLOGY METHOD 07/07/2025 6:55 AM [facility] Monocytes Relative 4.2 % LAB HEMETOLOGY METHOD 07/07/2025 6:55 AM [facility] Eosinophils Relative 0.2 % LAB HEMETOLOGY METHOD 07/07/2025 6:55 AM [facility] Basophils Relative 0.4 % LAB HEMETOLOGY METHOD 07/07/2025 6:55 AM EDT [facility] Immature Granulocytes Relative 0.2 % LAB HEMETOLOGY METHOD 07/07/2025 6:55 AM EDT [facility] Neutrophils Absolute 7.66(H) 1.50 - 7.00 K/mcL LAB HEMETOLOGY METHOD 07/07/2025 6:55 AM EDT [facility] Lymphocytes Absolute 0.98(L) 1.00 - 5.00 K/mcL LAB HEMETOLOGY METHOD 07/07/2025 6:55 AM EDT [facility] Monocytes Absolute 0.38 0.20 - 1.00 K/mcL LAB HEMETOLOGY METHOD 07/07/2025 6:55 AM EDT [facility] Eosinophils Absolute 0.02 0.00 - 0.50 K/mcL LAB HEMETOLOGY METHOD 07/07/2025 6:[facility] Basophils Absolute 0.04 0.00 - 0.20 K/mcL LAB HEMETOLOGY METHOD 07/07/2025 6:55 AM EDT [facility] Immature Granulocytes Absolute 0.02 0.00 - 0.03 K/mcL LAB HEMETOLOGY METHOD 07/07/2025 6:55 AM [facility] Blood Venous blood specimen / Unknown Venipuncture / Unknown 07/07/2025 6:13 AM EDT 07/07/2025 6:47 AM EDT us Amarjit German MD LAB BLOOD ORDERABLES Final Result [facility] [address] [place] [address], * (ABNORMAL) Basic metabolic panel (07/07/2025 6:13 AM EDT) Sodium 137 133 - 145 mmol/L LAB CHEMISTRY METHOD 07/07/2025 7:45 AM [facility] Potassium 4.7 3.5 - 5.5 mmol/L LAB CHEMISTRY METHOD 07/07/2025 7:45 AM [facility] Comment:Hemolysis present Chloride 105 96 - 110 mmol/L LAB CHEMISTRY METHOD 07/07/2025 7:45 AM [facility] CO2 26 21 - 32 mmol/L LAB CHEMISTRY METHOD 07/07/2025 7:45 AM [facility] Anion Gap 6 3 - 11 LAB CHEMISTRY METHOD 07/07/2025 7:45 AM [facility] Glucose 114(H) 70 - 100 mg/dL LAB CHEMISTRY METHOD 07/07/2025 7:45 AM [facility] BUN 8 5 - 25 mg/dL LAB CHEMISTRY METHOD 07/07/2025 7:45 AM [facility] Creatinine 0.68(L) 0.70 - 1.30 mg/dL LAB CHEMISTRY METHOD 07/07/2025 7:45 AM [facility] eGFR 117 >=60 mL/min/1. 73m2 LAB CHEMISTRY METHOD 07/07/2025 7:45 AM [facility] Comment:Calculation based on the Chronic Kidney Disease Epidemiology Collaboration (CKD-EPI) equation refit without adjustment for race. BUN/Creatinine Ratio 11.8 LAB CHEMISTRY METHOD 07/07/2025 7:45 AM [facility] Calcium 9.2 8.5 - 10.5 mg/dL LAB CHEMISTRY METHOD 07/07/2025 7:45 AM [facility] Blood Venous blood specimen / Unknown Venipuncture / Unknown 07/07/2025 6:13 AM EDT 07/07/2025 6:47 AM EDT us Amarjit German MD LAB BLOOD ORDERABLES Final Result [facility] [address] [place] [address], * [id number], RSV, Influenza A and B qualitative RT-PCR (07/07/2025 4:24 AM EDT) Influenza A PCR Not Detected Not Detected LAB MICROBIOLOGY METHOD 07/07/2025 5:30 AM EDT [facility] Influenza B PCR Not Detected Not Detected LAB MICROBIOLOGY METHOD 07/07/2025 5:30 AM EDT [facility] RSV PCR Not Detected Not Detected LAB MICROBIOLOGY METHOD 07/07/2025 5:30 AM EDT [facility] SARS COV-2 Not Detected Not Detected LAB MICROBIOLOGY METHOD 07/07/2025 5:30 AM EDT [facility] Swab Nasopharyngeal structure / Unknown Non-blood Collection / Unknown 07/07/2025 4:24 AM EDT 07/07/2025 4:50 AM EDT [facility] - 07/07/2025 5:30 AM EDT Disclaimer: Testing was performed using the [employer] GeneXpert Xpress SARS-CoV-2 _Flu_RSV PLUS PCR assay. The manner in which this information is used to guide patient care is the responsibility of the healthcare provider. Results should be correlated with the clinical history, epidemiological data, and other data available to the clinician evaluating the patient. Negative results do not preclude infection. This test has been authorized by the FDA under an Emergency Use Authorization (EUA). This test is only authorized for the duration of time the declaration that circumstances exist justifying the authorization of the emergency use of in vitro diagnostic tests for detection of SARS-CoV-2 virus and/or diagnosis of COVID-19 infection under section 564 (b) (1) of the Act, 21 U.S.C 360bbb-3 (b) (1), unless the authorization is terminated or revoked sooner. Reference Range: Not Detected Fact sheet for Healthcare providers can be found at https://www.fda.gov/media/127264/download. Fact sheet for Healthcare patients can be found at https://www.[employer].gov/media/950054/download. us Amarjit German MD LAB MICROBIOLOGY - GENERAL ORDERABLES Final Result [facility] [address] [place] [address], [place] [phone] * XR Abdomen 1 View (07/07/2025 2:43 AM EDT) Anatomical Region Laterality Modality Body Radiographic Alesha ging 07/07/2025 9:05 AM EDT Impressions 07/07/2025 9:07 AM EDT A nasogastric tube is present with the lower portion in the abdominal left upper quadrant. However, the tip position cannot be assessed as it is below the lower level of this radiograph. Code 22389 -------- FINAL REPORT -------- Dictated By: Romulo Fagan Dictated Date: 07/07/2025 09:05 ET Assigned Physician: Romulo Fagan Reviewed and Electronically Signed By: Romulo Fagan Signed Date: 07/07/2025 09:07 ET Workstation ID: [id number] Transcribed By: Self Edit Transcribed Date: 07/07/2025 09:05 ET Narrative 07/07/2025 9:07 AM EDT HISTORY: The patient is a 45-year-old male who was undergone placement of a nasogastric tube. FINDINGS: Supine radiograph of the upper abdomen is performed. The study is limited due to the patient's body habitus. A nasogastric tube is present with the lower portion in the abdominal left upper quadrant; however, the tip is below the level of this radiograph. This study is inadequate for assessing the bowel gas pattern. The included portions of the lungs appear grossly clear. Procedure Note Romulo Fagan MD - 07/07/2025 HISTORY: The patient is a 45-year-old male who was undergone placement ofa nasogastric tube. FINDINGS: Supine radiograph of the upper abdomen is performed. The studyis limited due to the patient's body habitus. A nasogastric tube ispresent with the lower portion in the abdominal left upper quadrant;however, the tip is below the level of this radiograph. This study isinadequate for assessing the bowel gas pattern. The included portions ofthe lungs appear grossly clear. IMPRESSION: A nasogastric tube is present with the lower portion in the abdominal leftupper quadrant. However, the tip position cannot be assessed as it isbelow the lower level of this radiograph. Code 41646 -------- FINAL REPORT -------- Dictated By: Romulo Fagan Dictated Date: 07/07/2025 09:05 ET Assigned Physician: Romulo Fagan Reviewed and Electronically Signed By: Romulo Fagan Signed Date: 07/07/2025 09:07 ET Workstation ID: [id number] Transcribed By: Self Edit Transcribed Date: 07/07/2025 09:05 ET us Yola GUTIERREZ IMG XR PROCEDURES Final Result * CT Abdomen Pelvis w Contrast (07/06/2025 10:56 PM EDT) Anatomical Region Laterality Modality Body Computed Tomogra phy 07/06/2025 11:3 3 PM EDT Addenda Addendum by Jeff Hubbard MD on 07/06/2025 11:38 PM EDT ADDENDUM: This report was discussed with ARIADNA MALCOLM on Jul 06, 2025 23:37:00 EDT. This document has been electronically signed by: Anamaria Pace on 07/06/2025 23:38:33 Impressions 07/06/2025 11:33 PM EDT Mildly dilated loops of small bowel in the left abdomen with gradual change in caliber in the left lower abdomen, concerning for partial obstruction. No evidence of diverticulitis. This document has been electronically signed by: Jeff Hubbard MD on 07/06/2025 23:33:41 Narrative 07/06/2025 11:33 PM EDT INDICATION: Diverticulitis suspected CT abdomen and pelvis with contrast Comparison: None provided Findings: Mild dependent atelectasis. Contracted gallbladder. No biliary duct dilatation. Mild pancreatic atrophy. Liver, spleen, and adrenal glands are within normal limits. No hydronephrosis. Symmetric contrast enhancement of the kidneys. Mildly dilated loops of small bowel in the left abdomen with gradual change in caliber in the left lower abdomen (coronal image 36/112). No pneumatosis or pneumoperitoneum. Prior distal colonic resection. No evidence of diverticulitis. Normal appendix. Calcifications in the prostate gland. Urinary bladder is within normal limits. Posterior fusion at L5-S1. Grade 1 anterolisthesis of L5 on S1. No acute fracture. Procedure Note Jeff Hubbard MD - 07/06/2025 INDICATION: Diverticulitis suspected CT abdomen and pelvis with contrast Comparison: None provided Findings: Mild dependent atelectasis. Contracted gallbladder. No biliary duct dilatation. Mild pancreatic atrophy. Liver, spleen, and adrenal glands are within normal limits. No hydronephrosis. Symmetric contrast enhancement of the kidneys. Mildly dilated loops of small bowel in the left abdomen with gradual change in caliber in the left lower abdomen (coronal image 36/112). No pneumatosis or pneumoperitoneum. Prior distal colonic resection. No evidence of diverticulitis. Normal appendix. Calcifications in the prostate gland. Urinary bladder is within normal limits. Posterior fusion at L5-S1. Grade 1 anterolisthesis of L5 on S1. No acute fracture. IMPRESSION: Mildly dilated loops of small bowel in the left abdomen with gradual change in caliber in the left lower abdomen, concerning for partial obstruction. No evidence of diverticulitis. This document has been electronically signed by: Jeff Hubbard MD on 07/06/2025 23:33:41 Ariadna Malcolm MD [facility] [place] PROCEDURES Edited Resul t - Final * Urinalysis with reflex microscopic and culture (07/06/2025 9:51 PM EDT) Specific [place] Urine 1.014 1.003 - 1.030 LAB URINALYSIS - AUTOMATED METHOD 07/06/2025 10:04 PM EDT [facility] pH, Urine 6.0 5.0 - 8.0 pH LAB URINALYSIS - AUTOMATED METHOD 07/06/2025 10:04 PM [facility] Leukocytes, Urine Negative Negative LAB URINALYSIS - AUTOMATED METHOD 07/06/2025 10:04 PM EDT [facility] [facility] Nitrite, Urine Negative Negative LAB URINALYSIS - AUTOMATED METHOD 07/06/2025 10:04 PM EDT [facility] Protein, Urine Negative <=Trace mg/dL LAB URINALYSIS - AUTOMATED METHOD 07/06/2025 10:04 PM EDT [facility] Glucose, Urine Negative Negative mg/dL LAB URINALYSIS - AUTOMATED METHOD 07/06/2025 10:04 PM EDT [facility] Ketones, Urine Negative Negative mg/dL LAB URINALYSIS - AUTOMATED METHOD 07/06/2025 10:04 PM EDT [facility] Urobilinogen, Urine 1.0 0.2 - 1.0 mg/dL LAB URINALYSIS - AUTOMATED METHOD 07/06/2025 10:04 PM EDT [facility] Bilirubin, Urine Negative Negative LAB URINALYSIS - AUTOMATED METHOD 07/06/2025 10:04 PM EDT [facility] Blood, Urine Negative Negative LAB URINALYSIS - AUTOMATED METHOD 07/06/2025 10:04 PM EDT [facility] Urine Urine specimen obtained by clean catch procedure / Unknown Non-blood Collection / Unknown 07/06/2025 9:51 PM EDT 07/06/2025 9:55 PM EDT us Ariadna Malcolm MD LAB URINE ORDERABLES Final Res ult [facility] [address] [place] [address], * Manuel urine culture tube (07/06/2025 9:51 PM EDT) Extra Tube Hold for add-ons. 07/06/2025 11:01 PM EDT [facility] Comment:Auto resulted. Urine Urine specimen obtained by clean catch procedure / Unknown Non-blood Collection / Unknown 07/06/2025 9:51 PM EDT 07/06/2025 9:55 PM EDT Ariadna Malcolm MD LAB URINE ORDERABLES Final Res ult Performing Organization Address City/[facility]/ZIP Co de Phone Number [facility] [address] [place] [address], [place] [phone] * Lipase (07/06/2025 8:26 PM EDT) Pathologist [facility] Lipase 22 13 - 75 unit/L LAB CHEMISTRY METHOD 07/06/2025 9:06 PM EDT [facility] Blood Venous blood specimen / Unknown Venipuncture / Unknown 07/06/2025 8:26 PM EDT 07/06/2025 8:39 PM EDT Gal Ruiz MD LAB BLOOD ORDERABLES Final Result Performing Organization Address [facility]/ZIP Co de Phone Number [facility] [address] [place] [address], [place] [phone] * (ABNORMAL) Comprehensive metabolic panel (07/06/2025 8:26 PM EDT) [facility] Sodium 138 133 - 145 mmol/L LAB CHEMISTRY METHOD 07/06/2025 9:06 PM EDT [facility] Potassium 3.5 3.5 - 5.5 mmol/L LAB CHEMISTRY METHOD 07/06/2025 9:06 PM EDT [facility] Chloride 105 96 - 110 mmol/L LAB CHEMISTRY METHOD 07/06/2025 9:06 PM EDT [facility] CO2 26 21 - 32 mmol/L LAB CHEMISTRY METHOD 07/06/2025 9:06 PM EDT [facility] Anion Gap 7 3 - 11 LAB CHEMISTRY METHOD [facility] Glucose 109(H) 70 - 100 mg/dL LAB CHEMISTRY METHOD 07/06/2025 9:06 PM EDT [facility] BUN 8 5 - 25 mg/dL LAB CHEMISTRY METHOD 07/06/2025 9:06 PM [facility] Creatinine 0.77 0.70 - 1.30 mg/dL LAB CHEMISTRY METHOD 07/06/2025 9:06 PM [facility] eGFR 113 >=60 mL/min/1. 73m2 LAB CHEMISTRY METHOD 07/06/2025 9:06 PM [facility] Comment:Calculation based on the Chronic Kidney Disease Epidemiology Collaboration (CKD-EPI) equation refit without adjustment for race. BUN/Creatinine Ratio 10.4 LAB CHEMISTRY METHOD 07/06/2025 9:06 PM [facility] Calcium 9.2 8.5 - 10.5 mg/dL LAB CHEMISTRY METHOD 07/06/2025 9:06 PM [facility] AST (SGOT) 18 10 - 42 unit/L LAB CHEMISTRY METHOD 07/06/2025 9:06 PM [facility] ALT (SGPT) 26 10 - 60 unit/L LAB CHEMISTRY METHOD 07/06/2025 9:06 PM [facility] Alkaline Phosphatase 84 42 - 121 unit/L LAB CHEMISTRY METHOD 07/06/2025 9:06 PM [facility] Total Protein 7.1 6.0 - 8.0 g/dL LAB CHEMISTRY METHOD 07/06/2025 9:06 PM [facility] Albumin 3.9 3.2 - 5.0 g/dL LAB CHEMISTRY METHOD 07/06/2025 9:06 PM [facility] Total Bilirubin 0.4 0.0 - 1.4 mg/dL LAB CHEMISTRY METHOD 07/06/2025 9:06 PM [facility] Blood Venous blood specimen / Unknown Venipuncture / Unknown 07/06/2025 8:26 PM EDT 07/06/2025 8:39 PM EDT us Gal Ruiz MD LAB BLOOD ORDERABLES Final Result 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 Health Care Decision (hx) 05/25/2017 AD CORRALES DIRECTIVE Health Care Decision (hx) 05/25/2017 AD CORRALES DIRECTIVE Health Care Decision (hx) 05/25/2017 AD CORRALES DIRECTIVE Health Care Decision (hx) 05/25/2017 AD CORRALES DIRECTIVE Health Care Decision (hx) 05/25/2017 AD CORRALES DIRECTIVE Health Care Decision (hx) 05/25/2017 AD CORRALES DIRECTIVE Health Care Decision (hx) 05/25/2017 AD CORRALES DIRECTIVE Health Care Decision (hx) 05/25/2017 AD CORRLAES DIRECTIVE Health Care Decision (hx) 05/25/2017 GOYO CORRALES DIRECTIVE * Full Code - Default (Latest Code Status on File) Date Activated Date Inactivated Comments 07/07/2025 4:07 AM 07/07/2025 8:39 PM This is order is used when code status has not been discussed with the patient, or code status is otherwise unknown/unconfirmed To update the patient's code status, place a code status order. Do not modify or discontinue any currently active code status orders. Care Teams Strip Deburrer Relationship Specialty Start Date End Date Raudel Armstrong NPEdilia: [phone] [address] [place] [address] PCP - General Internal Medicine 11/16/21
--- OUTSIDE RECORDS SUMMARY | 2025-07-20 12:53 | XMS_ITS | Clinical Summary ---
Author Organization [employer] Address [address] [place] [address] 7 [place] [address] Care Team Providers Care Mine Supervisor Name Role Phone Daniel Zhang MD Primary Care Provider Allergies Active Allergy Reactions Criticality Noted Date Comments Ampicillin Rash Low 04/22/2012 Cephalosporins Rash Low 04/22/2012 Penicillin G Rash Low 04/08/2012 Medications * This document contains information received from the source organization and may not represent a complete record from that organization. atorvastatin (Lipitor) 40 MG tabletIndications :Mixed hyperlipidemia TAKE ONE TABLET (40 MG) BY MOUTH DAILY AT 9 AM IN THE MORNING 90 tablet 1 025 Active varenicline (Chantix) 1 MG tabletIndications :Smoker TAKE ONE TABLET BY MOUTH TWICE DAILY @ 9AM & 5PM TAKE WITH FULL GLASS OF WATER 168 tablet 1 025 Active Additional Information Patient not taking.Reason: Not effective, Reported on 07/19/2025 cholecalciferol (Vitamin D3) 25 MCG (1000 UT) tabletIndications :Vitamin D deficiency TAKE ONE TABLET (25 MCG) BY MOUTH DAILY AT 9 AM 90 tablet 1 025 Active tadalafil (Cialis) 10 MG tabletIndications :Other male erectile dysfunction Take 1 tablet (10 mg) by mouth if needed each day for erectile dysfunction. 20 tablet 2 025 Active ibuprofen 800 MG tabletIndications :Chronic pain of right knee,Chronic left shoulder pain Take 1 tablet (800 mg) by mouth 3 times daily. 90 tablet 025 2024 Active tiZANidine (Zanaflex) 2 MG tabletIndications :Chronic left shoulder pain Take 1 tablet (2 mg) by mouth every 6 (six) hours if needed for muscle spasms for up to 10 days. 30 tablet 2 Active losartan (Cozaar) 50 MG tabletIndications :Primary hypertension TAKE ONE TABLET (50 MG) BY MOUTH ONCE DAILY AT 9 AM 90 tablet 3 Active pantoprazole (ProtoNix) 40 MG EC tabletIndications :Gastroesophageal reflux disease without esophagitis TAKE ONE TABLET (40 MG) BY MOUTH DAILY AT 9 AM BEFORE BREAKFAST 90 tablet 3 Active dilTIAZem CD (Cardizem CD) 120 MG 24 hr capsule Take 1 capsule by mouth Once per day. At 9 am Active acetaminophen-cod eine (Tylenol w/ Codeine #3) 300-30 MG tablet TAKE 1 TABLET BY MOUTH 3 TIMES A DAY NEEDED FOR PAIN (DO NOT DRIVE WHILE TAKING) 022 2024 Discontinued(M ed list cleanup (will not trigger notification to Pharmacy)) losartan (Cozaar) 50 MG tabletIndications :Primary hypertension Take 1 tablet (50 mg) by mouth Once per day. 90 tablet 3 024 2024 Discontinued dilTIAZem ER (Tiazac) 120 MG 24 hr capsuleIndication s:Primary hypertension Take 1 capsule (120 mg) by mouth Once per day. 90 capsule 3 024 2024 Discontinued(M ed list cleanup (will not trigger notification to Pharmacy)) pantoprazole (ProtoNix) 40 MG EC tabletIndications :Gastroesophageal reflux disease without esophagitis Take 1 tablet (40 mg) by mouth before breakfast. 90 tablet 3 024 2024 Discontinued meloxicam (Mobic) 15 MG tabletIndications :Acute pain of right knee Take 1 tablet (15 mg) by mouth Once per day. 30 tablet 11 025 2024 Discontinued(I neffective) tadalafil (Cialis) 5 MG tabletIndications :Other male erectile dysfunction Take 1 tablet (5 mg) by mouth Once per day. 30 tablet 3 025 2024 Discontinued(M ed list cleanup (will not trigger notification to Pharmacy)) tadalafil (Cialis) 5 MG tabletIndications :Other male erectile dysfunction Take 1 tablet (5 mg) by mouth Once per day. 10 tablet 025 2024 Discontinued(M ed list cleanup (will not trigger notification to Pharmacy)) Active Problems Problem Noted Date Diagnosed Date Moderate major depression 05/20/2025 KATHY (generalized anxiety disorder) 05/20/2025 Herpes zoster without complication 03/08/2025 Obesity, morbid [...] limb 01/25/2019 S/P left hemicolectomy 01/25/2019 Encounters * This document contains information received from the source organization and may not represent a complete record from that organization. Date Type Department Care Team Description 07/20/2025 9:15 AM EDT Office Visit [facility] [address] [place] [address] Daniel Zhang MD Partial small bowel obstruction (CMS/HCC) (Primary Dx) 07/20/2025 Travel 07/14/2025 Travel 07/13/[address] [facility] [address] [place] [address] Daniel Zhang MD Medication Question 07/12/[address] [facility] [address] [place] [address] Daniel Zhang MD Hospital Follow-up 07/07/2025 Orders [address] [facility] [address] [place] [address] Kimberly Guerrier MD 06/29/[address] [facility] [address] [place] [address] Daniel Zhang MD Primary hypertension; Gastroesophageal reflux disease without esophagitis 06/24/2025 2:45 PM EDT Office Visit [facility] [address] [place] [address] Daniel Zhang MD Chronic pain of right knee (Primary Dx); Chronic left shoulder pain; Primary hypertension; Smoking 1/2 pack a day or less 06/24/2025 Travel 06/23/[address] [facility] [address] [place] [address] Daniel Zhang MD Chart Prep 06/17/2025 Travel 06/09/2025 Orders Only [facility] [address] [place] [address] Daniel Zhang MD Other male erectile dysfunction (Primary Dx) 06/09/2025 Telephone [facility] [address] [place] [address] Daniel Zhang MD Medication Question 06/07/[address] [facility] [address] [place] [address] Daniel Zhang MD Other male erectile dysfunction 06/07/[address] [facility] [address] [place] [address] Lucy Leung MD Other male erectile dysfunction 06/06/[address] [facility] [address] [place] [address] Daniel Zhang MD Vitamin D deficiency 05/16/[address] [facility] [address] [place] [address] Daniel Zhang MD Other male erectile dysfunction 05/16/[address] [facility] [address] [place] [address] Daniel Zhang MD Medication Question 05/12/2025 Travel 05/05/[address] [facility] [address] [place] [address] Daniel Zhang MD Prior Authorization; Change PCP 05/03/2025 1:45 PM EDT Office Visit [facility] [address] [place] [address] Daniel Zhang MD Other infective acute otitis externa of right ear (Primary Dx); Other male erectile dysfunction; Insect bite of other part of head, initial encounter; Primary hypertension; Mixed hyperlipidemia 05/03/2025 Travel 04/22/[address] [facility] [address] [place] [address] Daniel Zhang MD Call Back Request from Last 3 Months Immunizations Immunization Administration [...] Mass Index 36.86 07/20/2025 9:14 AM EDT Plan of Treatment Upcoming Encounters Date Type Department Care Team (Late st Contact Info) Description 07/21/2025 9:30 AM EDT Medication Management [facility] [address] [place] [address] Alvina Chacko, PharmD [address] [place] [address] 09/20/2025 9:00 AM EST Office Visit [facility] [address] [place] [address] Daniel Zhang MD [address] [place] [address] Health Maintenance Due Date Last Done Comments CT Colonography 1980 Colonoscopy 1980 FIT 1980 Sigmoidoscopy 1980 Family Planning (PISQ) 01/15/1995 HPV Vaccines (1 - Male 3-dose series) 01/15/1995 Pneumococcal Vaccine: Pediatrics (0 to 5 Years) and At-Risk Patients (6 to 49) Years (1 of 2 - PCV) 01/15/1999 COVID-19 Vaccine (4 - season) 2025 10/11/2022, 03/08/2022, 02/08/2022 Influenza Vaccine (#1) 2025 , 09/06/2020, 07/17/2016, Additional history exists Depression Monitoring 10/11/2025 04/11/2025, 025 Disability Screening 04/10/2026 04/10/2025 Alcohol/Substance Use Screening 04/11/2026 04/11/2025 Diabetes: Hemoglobin A1C 04/11/2026 025, 10/16/2022, 09/19/2021 SDOH Screening 04/11/2026 04/11/2025 FOBT 05/03/2026 05/03/2025 Tobacco Screening 06/24/2026 06/24/2025 Colorectal Cancer Screening 05/03/2028 FIT DNA/Cologuard 05/03/2028 [...] Procedure Name Priority Date/Time Associated Diagnosis Comments CT ABDOMEN PELVIS W CONTRAST Routine 07/06/2025 9:[address] ABDOMEN PELVIS W CONTRAST Routine 07/06/2025 9:44 AM EDT LAB COLOGUARD COLON CANCER SCREEN Routine 05/03/2025 6:50 AM EDT Other depression HEPATITIS C AB W/REFL TO HCV RNA, QN, PCR Routine 04/11/2025 10:40 AM EDT Mixed hyperlipidemia HIV 1/2 ANTIGEN/ANTIBODY, FOURTH GENERATION W/RFL Routine 04/11/2025 10:40 AM EDT Mixed hyperlipidemia HEMOGLOBIN A1C Routine 04/11/2025 10:40 AM EDT Primary hypertension Acanthosis nigricans LIPID PANEL, STANDARD Routine 04/11/2025 10:40 AM EDT Mixed hyperlipidemia from Last 3 Months or Most Recently Relevant to Health Maintenance Results * CT Abdomen Pelvis w/ Contrast (07/06/2025 9:48 AM EDT) Only the most recent of2 resultswithin the time period is included. Anatomical Region Laterality Modality Body, Pelvis, Abdomen Computed T omography us Historical Provider MD FOLEY CT PROCEDURES Final R esult * Cologuard?? colon cancer screening (05/03/2025 6:50 AM EDT) Cologuard Result Negative Negative 05/09/20 25 5:49 AM EDT [facility] (CLIA #:[id number]) Comment: The Cologuard (TM) test was performed [...] Lutz et al, N Engl J Med 2014;370(14):1286- 1297) The normal value (reference range) for this assay is negative. COLOGUARD RE-SCREENING RECOMMENDATION: Periodic colorectal cancer screening is an important part of preventive healthcare for asymptomatic individuals at average risk for colorectal cancer. Following a negative Cologuard result, the [place] [employer] Society and U.S. Multi-Society Task Force screening guidelines recommend a Cologuard re-screening interval of 3 years. References: [place] [employer] Guideline for Colorectal Cancer Screening: https://www.cancer.org/cancer/nvrgi-ilygxk-vpnztz/cuydzvbyy-aicnakcji-ogbkaik/ac s-rec ommendations.html.; Gene DK, Gordo CR, Catrachita FelicianoK, Colorectal Cancer Screening: Recommendations for Physicians and Patients from the U.S. Multi-Society Task Force on Colorectal Cancer Screening , Am J Gastroenterology 2017; 112:6878-7620. TEST DESCRIPTION: Composite algorithmic analysis of stool [...] (Fahad Rivera al, N Engl J Med 2014;370(14):0676-5645.) Cologuard may produce a false negative or false positive result (no colorectal cancer or precancerous polyp present at colonoscopy follow up). A negative Cologuard test result does not guarantee the absence of CRC or advanced adenoma (pre-cancer). The current Cologuard screening interval is every 3 years. ([place] [employer] Society and U.S. Multi-Society Task Force). Cologuard performance data in a 10,000 patient pivotal study using colonoscopy as the reference method can be accessed at the following location: www.Furnésh/results. Additional description of the Cologuard test process, warnings and precautions can be found at www.[employer].Jingshi Wanwei. Stool specimen (specimen) 05/03/2025 6:50 AM EDT 05/04/2025 1:43 PM EDT Daniel Zhang MD LAB MOLECULAR DIAGNOSTICS O RDERABLES Final Result [facility] (CLIA #:[id number]) [address] [place] [address], * Hepatitis C Antibody with Reflex to HCV, RNA, Quantitative, Real-Time PCR (04/11/2025 10:40 AM EDT) Hepatitis C Antibody Nonreactive Nonreactive [facility] Comment:Antibodies to HCV no t detected; does not exclude early acuteHCV infection. Blood Venous blood specimen / Unknown 04/11/2025 10:40 AM EDT 04/11/2025 2:17 PM EDT us Daniel Zhang MD LAB BLOOD ORDERABLES Final Result Performing Organization Address City/[facility] Co de Phone Number [facility] [address] [place] [phone] [phone] * HIV-1/2 Antigen and Antibodies, Fourth Generation, with Reflexes (04/11/2025 10:40 AM EDT) HIV AB/AG Nonreactive Nonreactive [facility] Comment:HIV-1 p24 Ag and/or HIV-1/HIV-2 Ab not detected.A test result that is nonreactive does not exclude thepossibility of exposure to or infection with HIV-1 and/orHIV-2. Nonreactive results in this assay for individualswith prior exposure to HIV-1 and/or HIV-2 may be due toantigen and antibody levels that are below the limit ofdetection of this assay.The IQ [employer] HIV Ag/Ab Combo assay result andsupplemental assay results should be interpreted inconjunction with the patient's clinical presentation,history and other laboratory results. If the results areinconsistent with clinical evidence, additional testing issuggested to confirm the result. Blood Venous blood specimen / Unknown 04/11/2025 10:40 AM EDT 04/11/2025 2:17 PM EDT us Daniel Zhang MD LAB BLOOD ORDERABLES Final Result Performing Organization Address City/[facility]/ZIP Co de Phone Number [facility] [address] [place] [phone] [phone] * Hemoglobin A1c (04/11/2025 10:40 AM EDT) Hemoglobin A1c 5.8 <6.0 % [facility] Comment:Hemoglobin A1C Refer ence Range Adults: 4.8 - 6.0 % Non diabetic: < 6.0 % Goal: < 7.0 %Additional Action Suggested: > 8.0 %Note: Hemoglobin A1c results are invalid for patients with abnormal amounts of HbF. Blood transfusions may impact the HbA1c concentration in the patient sample. Estimated Average Glucose 120 mg/dL [facility] Comment:eAG = Estimated ave rage glucose which is %A1C expressed asaverage glucose, using the formula of the P6D-SzdqmeqYforfag Glucose study (ADAG), Diabetes Care, Vol.31,#8,Jun. 2007 Blood Venous blood specimen / Unknown 04/11/2025 10:40 AM EDT 04/11/2025 2:17 PM EDT us Daniel Zhang MD LAB BLOOD ORDERABLES Final Result [facility] [address] [place] [phone] * (ABNORMAL) Lipid Panel, Standard (04/11/2025 10:40 AM EDT) Triglycerides 180(H) <150 mg/dL [facility] Comment:Slight Lipemia.Apolinar able Triglyceride: less than 150 mg/dLBorderline High Triglyceride 150-199 mg/dLHigh Triglyceride: 200-499 mg/dLVery High Triglyceride: greater than or equal to 5OO mg/dL Cholesterol 230(H) <200 mg/dL [facility] Comment:Desirable Cholestero l: less than 200 mg/dLBorderline High Cholesterol: 200-239 mg/dLHigh Cholesterol: greater than 239 mg/dL LDL Cholesterol Calculated 154(H) <100 mg/dL [facility] Comment:Desirable LDL: less than 100 mg/dLNear Optimal/Above Optimal LDL: 110- 129 mg/dLBorderline High LDL: 130-159 mg/dLHigh LDL: 160-189 mg/dLVery High LDL: greater than or equal to 190 mg/dL HDL Cholesterol 40(L) >40 mg/dL [facility] Comment:Desirable HDL: great er than 40 mg/dL Note: This HDL assay may give artificially low results in patients with liver disease. Blood Venous blood specimen / Unknown 04/11/2025 10:40 AM EDT 04/11/2025 2:17 PM EDT Daniel Zhang MD LAB BLOOD ORDERABLES Final Result [facility] [address] [place] [phone] [phone] from Last 3 Months or Most Recently Relevant to Health Maintenance [place] [address] [address] STANDARD AET MEDICARE REPLACEMENT Care Teams Mine Supervisor Relationship Specialty Start Date End Date Daniel Zhang MD [address] [place] [phone] PCP - General Internal Medicine 05/18/24
--- OUTSIDE RECORDS SUMMARY | 2025-07-20 12:53 | XMS_ITS | Encounter Summary ---
Author Organization [employer] Address [address] [facility] [address] [place] [address] Care Team Providers Care Locomotive Inspector Name Role Phone Daniel Zhang MD Primary Care Provider [phone] Encounter Details Date Type Department Care Team (Late st Contact Info) Description 07/07/2025 Orders Only [facility] [address] [place], [place] [phone] ProviderKimberly MD Social History Tobacco Use Types Packs/Day Years [...] [facility] [address] [place] [address] Alvina Chacko, PharmD [address] [place] [address] 09/20/2025 9:00 AM EST Office Visit [facility] [address] [place] [address] Daniel Zhang MD [address] [place] [address] documented as of this encounter Procedures Procedure Name Priority Date/Time Associated Diagnosis Comments CT ABDOMEN PELVIS W CONTRAST Routine 07/06/2025 9:[address] ABDOMEN PELVIS W CONTRAST Routine 07/06/2025 9:44 AM EDT documented in this encounter Results * CT Abdomen Pelvis w/ Contrast (07/06/2025 9:48 AM EDT) Anatomical Region Laterality Modality Body, Pelvis, Abdomen Computed T omography us Historical Provider MD FOLEY CT PROCEDURES Final R esult * CT Abdomen Pelvis w/ Contrast (07/06/2025 9:44 AM EDT) Anatomical Region Laterality Modality Body, Pelvis, Abdomen Computed T omography Historical Provider MD FOLEY CT PROCEDURES Final R esult documented in this encounter Visit Diagnoses Not on filedocumented in this encounter Additional Health Concerns Assessment Noted Time PHQ-9 Depression Total Score: 12 025 9:40 AM EDT documented as of this encounter Care Teams Locomotive Inspector Relationship Specialty Start Date End Date Daniel Zhang MD [address] [place] [phone] PCP - General Internal Medicine 05/18/24 documented as of this encounter
[2025-07-20 14:18] LABS: MANUAL DIFF FLAG NO
[2025-07-20 14:32] LABS: Hematocrit 47.7 % (42.0-52.0); Hemoglobin 15.5 g/dl (14.0-18.0); Imm Gran Abs Auto 0.02 X10*3/uL (0.00-0.03); Imm Gran Pct Auto 0.3 % (0.0-0.4); Lymphocytes Absolute Auto 2.8 X10*3/uL (1.2-4.9); Mean Corpuscular HGB Conc 32.5 g/dl (31.0-36.0); Mean Corpuscular Hemoglobin 28.8 pg (27.0-33.0); Mean Corpuscular Volume 88.7 fL (80.0-98.0); NRBC Abs Auto 0.000 X10*3/uL (0.0-0.012); NRBC Pct Auto 0.0 /100WBC (0.0-0.2); Platelet Count 276 X10*3/uL (160-400); Red Blood Count 5.38 X10*6/uL (4.60-5.80); White Blood Count 7.6 X10*3/uL (4.8-10.8)
[2025-07-20 14:51] LABS: Anion Gap 11 (12-20); Blood Urea Nitrogen 8 mg/dL (9-16); Calcium 9.0 mg/dL (8.4-10.2); Carbon Dioxide 27 mmol/L (22-29); Chloride 106 mmol/L (96-108); Cholesterol 229 mg/dL (<200); Estimated Glomerular Filt Rate > 60; HDL Cholesterol 42 mg/dL (>40); Potassium 4.1 mmol/L (3.3-5.1); Sodium 140 mmol/L (135-145); Triglycerides 177 mg/dL (<150)
== END 2025-07-20 10:30 | disposition home or self-care (01) ==
LOC: HO.CHCLDS 10:29
PROVIDERS: Visit Provider Internal Medicine
DX: K56.600 Partial intestinal obstruction, unspecified as to cause (principal); E78.2 Mixed hyperlipidemia
CPT/HCPCS: 36415; 80048; 80061; 85025

== ENCOUNTER 2025-08-25 08:13 | Outpatient (REF) | payer MEDICARE, MEDICAID, SELFPAY ==
--- NOTE | ~2025-08-25 | XR_ITS ---
EXAMINATION: XR SHOULDER, LEFT CLINICAL INFORMATION: M25.512 - Pain in left shoulder COMPARISON: None available. TECHNIQUE: Two views of the left shoulder. FINDINGS: No evidence of acute fracture, dislocation or suspicious bony lesion. Acromioclavicular alignment is anatomic with normal joint space. Normal articulation of the glenohumeral joint, limiting evaluation of the joint space on the provided views. No abnormal soft tissue calcifications. XR/XR shoulder LT min 2V IMPRESSION: No acute osseous findings. Electronically signed by: Toney Holbrook MD 08/25/2025 09:10 AM EDT
--- OUTSIDE RECORDS SUMMARY | 2025-08-26 08:29 | XMS_ITS | Clinical Summary ---
Author Organization [employer] Address [address] [place] [address] 7 [place] [address] Care Team Providers Care Foundry Molder Name Role Phone Daniel Zhang MD Primary Care Provider Alvina Chacko PharmD Unavailable [phone] Allergies Active Allergy Reactions Criticality Noted Date [...] Encounters Date Type Department Care Team Description 08/26/2025 Refill [facility] [address] [place] [address] Daniel Zhang MD Chronic pain of right knee; Chronic left shoulder pain 08/16/2025 Telephone [facility] [address] [place] [address] Alvina Chacko PharmD 08/03/2025 9:00 AM EDT Telemedicine [facility] [address] [place] [address] Alvina Chacko, PharmD Smoking 1/2 pack a day or less (Primary Dx) 08/03/2025 Travel 07/28/2025 Refill [facility] [address] [place] [address] Daniel Zhang MD Other male erectile dysfunction 07/22/2025 Refill [facility] [address] [place] [address] Daniel Zhang MD Other male erectile dysfunction 07/21/2025 Telephone [facility] [address] [place] [address] Daniel Zhang MD Patient Education 07/21/2025 Results Follow-Up [facility] [address] [place] [address] Hilda Hung RN Lipid Panel, Standard 07/21/2025 Refill [facility] [address] [place] [address] Daniel Zhang MD Chronic pain of right knee; Chronic left shoulder pain 07/20/2025 9:15 AM EDT Office Visit [facility] [address] [place] [address] Daniel Zhang MD Partial small bowel obstruction (CMS/HCC) (Primary Dx) 07/20/2025 Orders Only [facility] [address] [place] [address] Daniel Zhang MD 07/20/2025 Results Follow-Up [facility] [address] [place] [address] Daniel Zhang MD CBC auto differential, Basic Metabolic Panel 07/20/2025 Travel 07/14/2025 Travel 07/13/2025 Telephone [facility] [address] [place] [address] Daniel Zhang MD Medication Question 07/12/2025 Telephone [facility] [address] [place] [address] Daniel Zhang MD Hospital Follow-up 07/07/2025 Orders Only [facility] [address] [place] [address] Kimberly Guerrier MD 06/29/2025 Refill [facility] [address] [place] [address] Daniel Zhang MD Primary hypertension; Gastroesophageal reflux disease without esophagitis 06/24/2025 2:45 PM EDT Office Visit [facility] [address] [place] [address] Daniel Zhang MD Chronic pain of right knee (Primary Dx); Chronic left shoulder pain; Primary hypertension; Smoking 1/2 pack a day or less 06/24/2025 Travel 06/23/2025 Telephone [facility] [address] [place] [address] Daniel Zhang MD Chart Prep 06/17/2025 Travel 06/09/2025 Orders Only [facility] [address] [place] [address] Daniel Zhang MD Other male erectile dysfunction (Primary Dx) 06/09/2025 Telephone [facility] [address] [place] [address] Daniel Zhang MD Medication Question 06/07/2025 Refill [facility] [address] [place] [address] Daniel Zhang MD Other male erectile dysfunction 06/07/2025 Refill [facility] [address] [place] [address] Lucy Leung MD Other male erectile dysfunction 06/06/2025 Refill [facility] [address] [place] [address] Daniel Zhang MD Vitamin D deficiency from [...] Info) Description 08/31/2025 9:00 AM EDT Telemedicine [facility] [address] [place] [address] Alvina Chacko, PharmD [address] [place] [address] 09/20/2025 9:00 AM EST Office Visit [facility] [address] [place] [address] Daniel Zhang MD [address] [place] [address] Health Maintenance Due Date Last Done Comments [...] Blood Count 7.6 4.8 - 10.8 X10*3/uL [facility] Red Blood Count 5.38 4.60 - 5.80 X10*6/uL [facility] Hemoglobin 15.5 14.0 - 18.0 g/dl [facility] Hematocrit 47.7 42.0 - 52.0 % [facility] Mean Corpuscular Volume 88.7 80.0 - 98.0 fL [facility] Mean Corpuscular Hemoglobin 28.8 27.0 - 33.0 pg [facility] Mean Corpuscular HGB Conc 32.5 31.0 - 36.0 g/dl [facility] Red Cell Distribution Width 13.9 11.0 - 16.0 % [facility] Platelet Count 276 160 - 400 X10*3/uL [facility] Mean Platelet Volume 11.1 9.4 - 12.4 fL [facility] Neutrophils Percent Auto 54.5 45 - 73 % [facility] Imm Gran Pct Auto 0.3 0.0 - 0.4 % [facility] Lymphocytes Percent Auto 37.1 20 - 40 % [facility] Monocytes Percent Auto 6.1 2 - 11 % [facility] Eosinophils Percent Auto 1.2 0 - 4 % [facility] Basophils Percent Auto 0.8 0 - 2 % [facility] NRBC Pct Auto 0.0 0.0 - 0.2 /100WBC [facility] Neutrophils Absolute Auto 4.1 2.0 - 8.3 x10*3/uL [facility] Imm Gran Abs Auto 0.02 0.00 - 0.03 X10*3/uL [facility] Lymphocytes Absolute Auto 2.8 1.2 - 4.9 X10*3/uL [facility] Monocytes Absolute Auto 0.5 0.1 - 1.2 X10*3/uL [facility] Eosinophils Absolute Auto 0.1 0.0 - 0.4 X10*3/uL [facility] Basophils Absolute Auto 0.1 0.0 - 0.2 X10*3/uL [facility] NRBC Abs Auto 0.000 0.0 - 0.012 X10*3/uL [facility] Blood Venous blood specimen / Unknown 07/20/2025 10:30 AM EDT 07/20/2025 2:00 PM EDT us Daniel Zhang MD LAB BLOOD ORDERABLES Final Result Performing Organization Address [facility]/ZIP Co de Phone Number [facility] [address] [place] [address] [phone] * (ABNORMAL) Lipid Panel, Standard (07/20/2025 10:30 AM EDT) Triglycerides 177(H) <150 mg/dL [facility] Comment:Desirable Triglyceri de: less than 150 mg/dLBorderline High Triglyceride 150-199 mg/dLHigh Triglyceride: 200-499 mg/dLVery High Triglyceride: greater than or equal to 5OO mg/dL Cholesterol 229(H) <200 mg/dL [facility] Comment:Desirable Cholestero l: less than 200 mg/dLBorderline High Cholesterol: 200-239 mg/dLHigh Cholesterol: greater than 239 mg/dL LDL Cholesterol Calculated 152(H) <100 mg/dL [facility] Comment:Desirable LDL: less than 100 mg/dLNear Optimal/Above Optimal LDL: 110- 129 mg/dLBorderline High LDL: 130-159 mg/dLHigh LDL: 160-189 mg/dLVery High LDL: greater than or equal to 190 mg/dL HDL Cholesterol 42 >40 mg/dL [facility] Comment:Desirable HDL: great er than 40 mg/dL Note: This HDL assay may give artificially low results in patients with liver disease. Blood Venous blood specimen / Unknown 07/20/2025 10:30 AM EDT 07/20/2025 2:20 PM EDT us Daniel Zhang MD LAB BLOOD ORDERABLES Final Result Performing Organization Address City/[facility]/ZIP Co de Phone Number [facility] [address] [place] [address] [phone] * (ABNORMAL) Basic Metabolic Panel (07/20/2025 10:30 AM EDT) Sodium 140 135 - 145 mmol/L [facility] Potassium 4.1 3.3 - 5.1 mmol/L [facility] Chloride 106 96 - 108 mmol/L [facility] Carbon Dioxide 27 22 - 29 mmol/L [facility] Anion Gap 11(L) 12 - 20 [facility] Urea Nitrogen (BUN) 8(L) 9 - 16 mg/dL [facility] Creatinine, Serum 0.66 0.5 - 1.4 mg/dL [facility] Estimated Glomerular Filt Rate >60 [facility] Comment:Chronic Kidney Disea se: Estimated GFR < 60 mL/min/1.84i1Ydondw Kidney Disease: Estimated GFR < 15 mL/min/1.73m2 Glucose 79 60 - 115 mg/dL [facility] Calcium 9.0 8.4 - 10.2 mg/dL [facility] Blood Venous blood specimen / Unknown 07/20/2025 10:30 AM EDT 07/20/2025 2:20 PM EDT Daniel Zhang MD LAB BLOOD ORDERABLES Final Result [facility] [address] [place] [phone] * CT Abdomen Pelvis w/ Contrast (07/06/2025 9:48 AM EDT) Only the most recent of2 resultswithin the time period is included. Anatomical Region Laterality Modality Body, Pelvis, Abdomen Computed T omography Historical Provider IMG CT PROCEDURES Final R esult * Cologuard?? colon cancer screening (05/03/2025 6:50 AM EDT) Cologuard Result Negative Negative 05/09/20 5:49 AM EDT [facility] (CLIA #:[id number]) Comment: The Cologuard (TM) test was performed [...] cancer. Following a negative Cologuard result, the [place] [employer] Society and U.S. Multi-Society Task Force screening guidelines recommend a Cologuard re-screening interval of 3 years. References: [place] [employer] Guideline for Colorectal Cancer Screening: https://www.cancer.org/cancer/ufbdb-zwfexh-zydoqd/iufrilfjj-wgsnjjzxd-bkfazah/ac s-rec ommendations.html.; Gene DK, Gordo SAENZ, Catrachita FelicianoK, Colorectal Cancer Screening: Recommendations for Physicians and Patients from the U.S. Multi-Society Task Force on Colorectal Cancer Screening , Am J Gastroenterology 2017; 112:1416-5193. TEST DESCRIPTION: Composite algorithmic analysis of stool [...] (Fahad Rivera al, N Engl J Med 2014;370(14):1574-4024.) Cologuard may produce a false negative or false positive result (no colorectal cancer or precancerous polyp present at colonoscopy follow up). A negative Cologuard test result does not guarantee the absence of CRC or advanced adenoma (pre-cancer). The current Cologuard screening interval is every 3 years. ([place] [employer] Society and U.S. Multi-Society Task Force). Cologuard performance data in a 10,000 patient pivotal study using colonoscopy as the reference method can be accessed at the following location: www.[employer]/results. Additional description of the Cologuard test process, warnings and precautions can be found at www.[employer]kar[employer]. Stool specimen (specimen) 05/03/2025 6:50 AM EDT 05/04/2025 1:43 PM EDT Daniel Zhang MD LAB MOLECULAR DIAGNOSTICS O RDERABLES Final Result Performing Organization Address City/[facility] Co de Phone Number [facility] (CLIA #:[id number]) [address] [place] [address], * Hepatitis C Antibody with Reflex to HCV, RNA, Quantitative, Real-Time PCR (04/11/2025 10:40 AM EDT) Hepatitis C Antibody Nonreactive Nonreactive [facility] Comment:Antibodies to HCV no t detected; does not exclude early acuteHCV infection. Blood Venous blood specimen / Unknown 04/11/2025 10:40 AM EDT 04/11/2025 2:17 PM EDT Daniel Zhang MD LAB BLOOD ORDERABLES Final Result Performing Organization Address [facility]/ZIP Co de Phone Number [facility] [address] [place] [phone] * HIV-1/2 Antigen and Antibodies, Fourth Generation, with Reflexes (04/11/2025 10:40 AM EDT) HIV AB/AG Nonreactive Nonreactive [facility] Comment:HIV-1 p24 Ag and/or HIV-1/HIV-2 Ab not detected.A test result that is nonreactive does not exclude thepossibility of exposure to or infection with HIV-1 and/orHIV-2. Nonreactive results in this assay for individualswith prior exposure to HIV-1 and/or HIV-2 may be due toantigen and antibody levels that are below the limit ofdetection of this assay.The [employer] HIV Ag/Ab Combo assay result andsupplemental assay results should be interpreted inconjunction with the patient's clinical presentation,history and other laboratory results. If the results areinconsistent with clinical evidence, additional testing issuggested to confirm the result. Blood Venous blood specimen / Unknown 04/11/2025 10:40 AM EDT 04/11/2025 2:17 PM EDT us Daniel Zhang MD LAB BLOOD ORDERABLES Final Result Performing Organization Address [facility] Co de Phone Number [facility] [address] [place] [phone] [phone] * Hemoglobin A1c (04/11/2025 10:40 AM EDT) Hemoglobin A1c 5.8 <6.0 % [facility] Comment:Hemoglobin A1C Refer ence Range Adults: 4.8 - 6.0 % Non diabetic: < 6.0 % Goal: < 7.0 %Additional Action Suggested: > 8.0 %Note: Hemoglobin A1c results are invalid for patients with abnormal amounts of HbF. Blood transfusions may impact the HbA1c concentration in the patient sample. Estimated Average Glucose 120 mg/dL [facility] Comment:eAG = Estimated ave rage glucose which is %A1C expressed asaverage glucose, using the formula of the Z5C-NzwariaHpdsexr Glucose study (ADAG), Diabetes Care, Vol.31,#8,2007 Blood Venous blood specimen / Unknown 04/11/2025 10:40 AM EDT 04/11/2025 2:17 PM EDT us Daniel Zhang MD LAB BLOOD ORDERABLES Final Result [facility] [address] [place] [phone] from Last 3 Months or Most Recently Relevant to Health Maintenance Insurance [address] [address] STANDARD [employer] MEDICARE REPLACEMENT Care Teams Foundry Molder Relationship Specialty Start Date End Date Daniel Zhang MD [address] [place] [phone] PCP - General Internal Medicine 05/18/24 Alvina Chacko PharmD [address] [place] [address] Pharmacist Pharmacy 08/03/25
--- OUTSIDE RECORDS SUMMARY | 2025-08-26 08:29 | XMS_ITS | Encounter Summary ---
Author Organization [employer] Address [address] [place] [address] Care Team Providers Care Young Adult Librarian Name Role Phone Raudel Armstrong MD Primary Care Prov ider Daniel Zhang MD Primary Care Provider Alvina Chacko PharmD Unavailable [phone] Reason for Visit * Reason Onset Date Comments Med Refill 11/16/2023 Encounter Details Date Type Department Care Team (Late st Contact Info) Description 11/16/2023 Refill [facility] [address] [place], [place] [phone] Raudel Armstrong MD [address] [place], [place] [phone] Social History Tobacco Use Types Packs/Day Years [...] Info) Description 08/31/2025 9:00 AM EDT Telemedicine [facility] [address] [place] [address] Alvina Chacko PharmD [address] [place] [address] 09/20/2025 9:00 AM EST Office Visit [facility] [address] [place] [address] Daniel Zhang MD [address] [place] [address] documented as of this encounter Visit Diagnoses Not on filedocumented in this encounter Additional Health Concerns Assessment Noted Time PHQ-9 Depression Total Score: 0 01/29/20 23 8:49 AM EDT documented as of this encounter Care Teams Young Adult Librarian Relationship Specialty Start Date End Date Raudel Armstrong MD [address] [place] [address] PCP - General Internal Medicine 03/08/20 05/17/24 Daniel Zhang MD [address] [place] [phone] PCP - General Internal Medicine 05/18/24 Alvina Chacko, ChetnaD [address] [place] [phone] Pharmacist Pharmacy 08/03/25 documented as of this encounter
--- OUTSIDE RECORDS SUMMARY | 2025-08-26 08:30 | XMS_ITS | Encounter Summary ---
Author Organization [employer] Address [address] [place] [address] Care Team Providers Care Brake Drum Lathe Operator Name Role Phone Daniel Zhang MD Primary Care Provider Alvina Chacko PharmD Unavailable [phone] Encounter Details Date Type Department Care Team ([facility] st Contact Info) Description 06/28/2024 Orders Only [facility] [address] [place] [address] Daniel Zhang MD [address] [place] [address] Vitamin D deficiency (Primary Dx); Mixed hyperlipidemia; [...] Description 08/31/2025 9:00 AM EDT Telemedicine [facility] [address] [place] [address] Alvina Chacko, PharmD [address] [place] [address] 09/20/2025 9:00 AM EST Office Visit [facility] [address] [place] [address] Daniel Zhang MD [address] [place] [address] documented as of this encounter Visit Diagnoses [...] as of this encounter Care Teams Brake Drum Lathe Operator Relationship Specialty Start Date End Date Daniel Zhang MD [address] [place] [address] PCP - General Internal Medicine 05/18/24 Alvina Chacko, PharmD [address] [place] [address] Pharmacist Pharmacy 08/03/25 documented as of this encounter
--- OUTSIDE RECORDS SUMMARY | 2025-08-26 08:30 | XMS_ITS | Clinical Summary ---
Author Organization [facility] Address [address] [place] [address] Phone Care Team Providers Care Bed Bug Exterminator Name Role Phone Raudel Armstrong Primary Care [...] - 07/07/2025 5:50 PM EDT Hospital Encounter [facility] [address] [place] [phone] Loi Malcolm MD Jones, Christopher, MD Japaridze, Anna, MD Partial small bowel obstruction (CMS/HCC V24, CMS/[facility] V28) (Primary Dx); LLQ pain Discharge Disposition: [...] care for your loved ones. For example, child daycare worker or elderly care for an older adult? [...] METABOLIC PANEL Routine 07/07/2025 6:13 AM EDT [id number], RSV, FLU A AND B QUALITATIVE RT-PCR, [...] LAB MICROBIOLOGY METHOD 5 11:14 AM EDT [facility] Plesiomonas shigelloides Detection by PCR Not Detected Not Detected LAB MICROBIOLOGY METHOD 5 11:14 AM EDT [facility] Salmonella Detection by PCR Not Detected Not Detected LAB MICROBIOLOGY METHOD 5 11:14 AM EDT [facility] Vibrio Detection by PCR Not Detected Not Detected LAB MICROBIOLOGY METHOD 5 11:14 AM EDT [facility] Vibrio cholerae Detection by PCR Not Detected Not Detected LAB MICROBIOLOGY METHOD 5 11:14 AM EDT [facility] Yersinia enterocolitica Detection by PCR Not Detected Not Detected LAB MICROBIOLOGY METHOD 5 11:14 AM EDT [facility] Enteroaggregative E coli EAEC Detection by PCR Not Detected Not Detected LAB MICROBIOLOGY METHOD 5 11:14 AM EDT [facility] Enteropathogenic E coli EPEC Detection Not Detected Not Detected LAB MICROBIOLOGY METHOD 5 11:14 AM [facility] Enterotoxigenic E coli ETEC LTST Detection Not Detected Not Detected LAB MICROBIOLOGY METHOD 5 11:14 AM [facility] Shiga-like toxin producing E coli STEC STX1 STX2 Det Not Detected Not Detected LAB MICROBIOLOGY METHOD 5 11:14 AM [facility] Shigella Enteroinvasive E coli EIEC Detection Not Detected Not Detected LAB MICROBIOLOGY METHOD 5 11:14 AM [facility] Cryptosporidium Detection by PCR Not Detected Not Detected LAB MICROBIOLOGY METHOD 5 11:14 AM [facility] Cyclospora cayetanensis Detection by PCR Not Detected Not Detected LAB MICROBIOLOGY METHOD 5 11:14 AM [facility] Entamoeba histolytica Detection by PCR Not Detected Not Detected LAB MICROBIOLOGY METHOD 5 11:14 AM [facility] Giardia lamblia Detection by PCR Not Detected Not Detected LAB MICROBIOLOGY METHOD 5 11:14 AM [facility] Adenovirus F 40 41 Detection by PCR Not Detected Not Detected LAB MICROBIOLOGY METHOD 5 11:14 AM [facility] Astrovirus Detection by PCR Not Detected Not Detected LAB MICROBIOLOGY METHOD 5 11:14 AM [facility] Norovirus GI GII Detection by PCR Not Detected LAB MICROBIOLOGY METHOD 5 11:14 AM [facility] Sapovirus Detection by PCR Not Detected Not Detected LAB MICROBIOLOGY METHOD 5 11:14 AM [facility] Rotavirus A Detection by PCR Not Detected Not Detected LAB MICROBIOLOGY METHOD 5 11:14 AM [facility] Stool Rectum structure / Unknown Non-blood Collection / Unknown 07/07/2025 9:23 AM EDT 07/07/2025 9:44 AM EDT Narrative [facility] - 07/07/2025 11:14 AM EDT PCR [...] MICROBIOLOGY - GENERAL ORD ERABLES Final Result [facility] [address] [place] [address], [place] [phone] * (ABNORMAL) CBC auto differential (07/07/2025 6:13 AM EDT) Only the most recent of2 resultswithin the time period is included. WBC 9.1 4.8 - 10.8 K/mcL LAB HEMETOLOGY METHOD 07/07/2025 6:55 AM EDT [facility] RBC 5.40 4.50 - 5.50 M/mcL LAB HEMETOLOGY METHOD 07/07/2025 6:55 AM EDT [facility] Hemoglobin 15.0 13.5 - 17.5 g/dL LAB HEMETOLOGY METHOD 07/07/2025 6:55 AM EDT [facility] Hematocrit 47.4 42.0 - 54.0 % LAB HEMETOLOGY METHOD 07/07/2025 6:55 AM EDT [facility] MCV 88.4 79.0 - 98.0 FL LAB HEMETOLOGY METHOD 07/07/2025 6:55 AM EDT [facility] MCH 28.0 27.0 - 32.0 pcg LAB HEMETOLOGY METHOD 07/07/2025 6:55 AM [facility] MCHC 31.6(L) 32.0 - 37.0 g/dL LAB HEMETOLOGY METHOD 07/07/2025 6:55 AM [facility] RDW 14.1 11.0 - 15.0 % LAB HEMETOLOGY METHOD 07/07/2025 6:55 AM [facility] Platelets 246 130 - 400 K/mcL LAB HEMETOLOGY METHOD 07/07/2025 6:55 AM [facility] MPV 10.9 7.0 - 11.0 FL LAB HEMETOLOGY METHOD 07/07/2025 6:55 AM [facility] NRBC 0.0 <1.0 % LAB HEMETOLOGY METHOD 07/07/2025 6:55 AM [facility] NRBC Absolute 0.00 <0.10 K/mcL LAB HEMETOLOGY METHOD 07/07/2025 6:55 AM [facility] Neutrophils Relative 84.2 % LAB HEMETOLOGY METHOD 07/07/2025 6:55 AM [facility] Lymphocytes Relative 10.8 % LAB HEMETOLOGY METHOD 07/07/2025 6:55 AM [facility] Monocytes Relative 4.2 % LAB HEMETOLOGY METHOD 07/07/2025 6:55 AM [facility] Eosinophils Relative 0.2 % LAB HEMETOLOGY METHOD 07/07/2025 6:55 AM [facility] Basophils Relative 0.4 % LAB HEMETOLOGY METHOD 07/07/2025 6:55 AM [facility] Immature Granulocytes Relative 0.2 % LAB HEMETOLOGY METHOD 07/07/2025 6:55 AM [facility] Neutrophils Absolute 7.66(H) 1.50 - 7.00 K/mcL LAB HEMETOLOGY METHOD 07/07/2025 6:55 AM EDT [facility] Lymphocytes Absolute 0.98(L) 1.00 - 5.00 K/[facility] LAB HEMETOLOGY METHOD 07/07/2025 6:55 AM EDT [facility] Monocytes Absolute 0.38 0.20 - 1.00 K/[facility] LAB HEMETOLOGY METHOD 07/07/2025 6:55 AM EDT [facility] Eosinophils Absolute 0.02 0.00 - 0.50 K/[facility] LAB HEMETOLOGY METHOD 07/07/2025 6:55 AM EDT [facility] Basophils Absolute 0.04 0.00 - 0.20 K/[facility] LAB HEMETOLOGY [facility] Immature Granulocytes Absolute 0.02 0.00 - 0.03 K/[facility] LAB HEMETOLOGY METHOD 07/07/2025 6:55 AM T [facility] Blood Venous blood specimen / Unknown Venipuncture / Unknown 07/07/2025 6:13 AM EDT 07/07/2025 6:47 AM EDT us Amarjit German MD LAB BLOOD ORDERABLES Final Result [facility] [address] [place] [address], * (ABNORMAL) Basic metabolic panel (07/07/2025 6:13 AM EDT) Sodium 137 133 - 145 mmol/L LAB CHEMISTRY METHOD 07/07/2025 7:45 AM EDT [facility] Potassium 4.7 3.5 - 5.5 mmol/L LAB CHEMISTRY METHOD 07/07/2025 7:45 AM EDT [facility] Comment:Hemolysis present Chloride 105 96 - 110 mmol/L LAB CHEMISTRY METHOD 07/07/2025 7:45 AM EDT [facility] CO2 26 21 - 32 mmol/L LAB CHEMISTRY METHOD 07/07/2025 7:45 AM [facility] Anion Gap 6 3 - 11 LAB CHEMISTRY METHOD 07/07/2025 7:45 AM [facility] Glucose 114(H) 70 - 100 mg/dL LAB CHEMISTRY METHOD 07/07/2025 7:45 AM [facility] BUN 8 5 - 25 mg/dL LAB CHEMISTRY METHOD 07/07/2025 7:45 AM [facility] Creatinine 0.68(L) 0.70 - 1.30 mg/dL LAB CHEMISTRY METHOD 07/07/2025 7:45 AM [facility] eGFR 117 >=60 mL/min/1. 73m2 LAB CHEMISTRY METHOD 07/07/2025 7:45 AM [facility] Comment:Calculation based on the Chronic Kidney Disease Epidemiology Collaboration (CKD-EPI) equation refit without adjustment for race. BUN/Creatinine Ratio 11.8 LAB CHEMISTRY METHOD 07/07/2025 7:45 AM [facility] Calcium 9.2 8.5 - 10.5 mg/dL LAB CHEMISTRY METHOD 07/07/2025 7:45 AM [facility] Blood Venous blood specimen / Unknown Venipuncture / Unknown 07/07/2025 6:13 AM EDT 07/07/2025 6:47 AM EDT us Amarjit German MD LAB BLOOD ORDERABLES Final Result [facility] [address] [place] [address], * [id number], RSV, Influenza A and B qualitative RT-PCR (07/07/2025 4:24 AM EDT) Influenza A PCR Not Detected Not Detected LAB MICROBIOLOGY METHOD 07/07/2025 5:30 AM EDT [facility] Influenza B PCR Not Detected Not Detected LAB MICROBIOLOGY METHOD 07/07/2025 5:30 AM EDT [facility] RSV PCR Not Detected Not Detected LAB MICROBIOLOGY METHOD 07/07/2025 5:30 AM EDT [facility] SARS COV-2 Not Detected Not Detected LAB MICROBIOLOGY METHOD 07/07/2025 5:30 AM EDT [facility] Swab Nasopharyngeal structure / Unknown Non-blood Collection / Unknown 07/07/2025 4:24 AM EDT 07/07/2025 4:50 AM EDT Narrative [facility] - 07/07/2025 5:30 AM EDT Disclaimer: Testing was performed using the [employer] GeneXpert Xpress SARS-CoV-2 _Flu_RSV PLUS PCR assay. [...] for Healthcare providers can be found at https://www.fda.gov/media/266829/download. Fact sheet for Healthcare patients can be found at https://www.fda.gov/media/836419/download. us Amarjit German MD LAB MICROBIOLOGY - GENERAL ORDERABLES Final Result [facility] [address] [place] [address], [place] [phone] * XR Abdomen 1 View (07/07/2025 2:43 AM EDT) Anatomical Region Laterality Modality Body Radiographic Alesha ging 07/07/2025 9:05 AM EDT Impressions 07/07/2025 9:07 AM EDT A nasogastric tube is present with the lower portion in the abdominal left upper quadrant. However, the tip position cannot be assessed as it is below the lower level of this radiograph. Code 14072 -------- FINAL REPORT -------- Dictated By: Romulo Fagan Dictated Date: 07/07/2025 09:05 ET Assigned Physician: Romulo Fagan Reviewed and Electronically Signed By: Romulo Fagan Signed Date: 07/07/2025 09:07 ET Workstation ID: [id number] Transcribed By: Self Edit Transcribed Date: 07/07/2025 [...] the lower level of this radiograph. Code 31717 -------- FINAL REPORT -------- Dictated By: Romulo Fagan Dictated Date: 07/07/2025 09:05 ET Assigned Physician: Romulo Fagan Reviewed and Electronically Signed By: Romulo Fagan Signed Date: 07/07/2025 09:07 ET Workstation ID: [id number] Transcribed By: Self Edit Transcribed Date: 07/07/2025 [...] and culture (07/06/2025 9:51 PM EDT) Specific [place] Urine 1.014 1.003 - 1.030 LAB URINALYSIS - AUTOMATED METHOD 07/06/2025 10:04 PM [facility] pH, Urine 6.0 5.0 - 8.0 pH LAB URINALYSIS - AUTOMATED METHOD 07/06/2025 10:04 PM [facility] Leukocytes, Urine Negative Negative LAB URINALYSIS - AUTOMATED METHOD 07/06/2025 10:04 PM [facility] Nitrite, Urine Negative Negative LAB URINALYSIS - AUTOMATED METHOD 07/06/2025 10:04 PM [facility] Protein, Urine Negative <=Trace mg/dL LAB URINALYSIS - AUTOMATED METHOD 07/06/2025 10:04 PM [facility] Glucose, Urine Negative Negative mg/dL LAB URINALYSIS - AUTOMATED METHOD 07/06/2025 10:04 PM EDT [facility] Ketones, Urine Negative Negative mg/dL LAB URINALYSIS - AUTOMATED METHOD 07/06/2025 10:04 PM EDT [facility] Urobilinogen, Urine 1.0 0.2 - 1.0 mg/dL LAB URINALYSIS - AUTOMATED METHOD 07/06/2025 10:04 PM EDT [facility] Bilirubin, Urine Negative Negative LAB URINALYSIS - AUTOMATED METHOD 07/06/2025 10:04 PM EDT [facility] Blood, Urine Negative Negative LAB URINALYSIS - AUTOMATED METHOD 07/06/2025 10:04 PM EDT [facility] Urine Urine specimen obtained by clean catch procedure / Unknown Non-blood Collection / Unknown 07/06/2025 9:51 PM EDT 07/06/2025 9:55 PM EDT us Loi Malcolm MD LAB URINE ORDERABLES Final Res ult Performing Organization Address City/[facility]/ZIP Co de Phone Number [facility] [address] [place] [address], [place] [phone] * Manuel urine culture tube (07/06/2025 9:51 PM EDT) Extra Tube Hold for add-ons. 07/06/2025 11:01 PM EDT [facility] Comment:Auto resulted. Urine Urine specimen obtained by clean catch procedure / Unknown Non-blood Collection / Unknown 07/06/2025 9:51 PM EDT 07/06/2025 9:55 PM EDT us Loi Malcolm MD LAB URINE ORDERABLES Final Res ult Performing Organization Address [facility]/State/ZIP Co de Phone Number [facility] [address] [place] [address], [place] [phone] * Lipase (07/06/2025 8:26 PM EDT) Lipase 22 13 - 75 unit/L LAB CHEMISTRY METHOD 07/06/2025 9:06 PM [facility] Blood Venous blood specimen / Unknown Venipuncture / Unknown 07/06/2025 8:26 PM EDT 07/06/2025 8:39 PM EDT us Gal Ruiz MD LAB BLOOD ORDERABLES Final Result [facility] [address] [place] [address], * (ABNORMAL) Comprehensive metabolic panel (07/06/2025 8:26 PM EDT) Pathologist [facility] Sodium 138 133 - 145 mmol/L LAB CHEMISTRY METHOD 07/06/2025 9:06 PM [facility] Potassium 3.5 3.5 - 5.5 mmol/L LAB CHEMISTRY METHOD 07/06/2025 9:06 PM [facility] Chloride 105 96 - 110 mmol/L LAB CHEMISTRY METHOD 07/06/2025 9:06 PM [facility] CO2 26 21 - 32 mmol/L LAB CHEMISTRY METHOD 07/06/2025 9:06 PM [facility] Anion Gap 7 3 - 11 LAB CHEMISTRY METHOD 07/06/2025 9:06 PM [facility] Glucose 109(H) 70 - 100 mg/dL LAB CHEMISTRY METHOD 07/06/2025 9:06 PM [facility] BUN 8 5 - 25 mg/dL LAB CHEMISTRY METHOD 07/06/2025 9:06 PM [facility] Creatinine 0.77 0.70 - 1.30 mg/dL LAB CHEMISTRY METHOD 07/06/2025 9:06 PM [facility] eGFR 113 >=60 mL/min/1. 73m2 LAB CHEMISTRY METHOD 07/06/2025 9:06 PM [facility] Comment:Calculation based on the Chronic Kidney Disease Epidemiology Collaboration (CKD-EPI) equation refit without adjustment for race. BUN/Creatinine Ratio 10.4 LAB CHEMISTRY METHOD 07/06/2025 9:06 PM [facility] Calcium 9.2 8.5 - 10.5 mg/dL LAB CHEMISTRY METHOD 07/06/2025 9:06 PM [facility] AST (SGOT) 18 10 - 42 unit/L LAB CHEMISTRY METHOD 07/06/2025 9:06 PM [facility] ALT (SGPT) 26 10 - 60 unit/L LAB CHEMISTRY METHOD 07/06/2025 9:06 PM [facility] Alkaline Phosphatase 84 42 - 121 unit/L LAB CHEMISTRY METHOD 07/06/2025 9:06 PM [facility] Total Protein 7.1 6.0 - 8.0 g/dL LAB CHEMISTRY METHOD 07/06/2025 9:06 PM [facility] Albumin 3.9 3.2 - 5.0 g/dL LAB CHEMISTRY METHOD 07/06/2025 9:06 PM [facility] Total Bilirubin 0.4 0.0 - 1.4 mg/dL LAB CHEMISTRY METHOD 07/06/2025 9:06 PM [facility] Blood Venous blood specimen / Unknown Venipuncture / Unknown 07/06/2025 8:26 PM EDT 07/06/2025 8:39 PM EDT us Gal Ruiz MD LAB BLOOD ORDERABLES Final Result [facility] [address] [place] [address], [place] [phone] from Last 3 Months Insurance MEDICAID - [place] [employer] MEDICARE ADVANTAGE Advance Directives Documents on File Type Date Recorded Patient Pumper Helper Expl 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 Care Teams Bed Bug Exterminator Relationship Specialty Start Date End Date Raudel Armstrong [address] [place] [address] PCP - General Internal Medicine 11/16/21
--- OUTSIDE RECORDS SUMMARY | 2025-08-26 08:30 | XMS_ITS | Encounter Summary ---
Author Organization [employer] Address [address] [place] [address] Care Team Providers Care Timber Poisoner Name Role Phone Daniel Zhang MD Primary Care Provider Alvina Chacko PharmD Unavailable [phone] Reason for Visit * Reason Onset Date Comments Med Refill 06/07/2025 Encounter Details Date Type Department Care Team ([facility] st Contact Info) Description 06/07/2025 Refill [facility] [address] [place] [address] Daniel Zhang MD [address] [place] [address] Other male erectile dysfunction Social History Tobacco [...] Upcoming Encounters Date Type Department Care Team ([facility] st Contact Info) Description 08/31/2025 9:00 AM EDT Telemedicine [facility] [address] [place] [address] Alvina Chacko, PharmD [address] [place] [address] 09/20/2025 9:00 AM EST Office Visit [facility] [address] [place], [place] [phone] Daniel Zhang MD [address] [place] [address] documented as of this encounter Visit Diagnoses Diagnosis Other male erectile dysfunction documented in this encounter Additional Health Concerns Assessment Noted Time PHQ-9 Depression Total Score: 12 025 9:40 AM EDT documented as of this encounter Care Teams Timber Poisoner Relationship Specialty Start Date End Date Daniel Zhang MD [address] [place] [address] PCP - General Internal Medicine 05/18/24 Alvina Chacko, ChetnaD [address] [place] [phone] Pharmacist Pharmacy 08/03/25 documented as of this encounter
--- OUTSIDE RECORDS SUMMARY | 2025-08-26 08:30 | XMS_ITS | Encounter Summary ---
Author Organization [employer] Address [address] [facility] 7 [place] [address] Care Team Providers Care Rn Visiting Name Role Phone Daniel Zhang MD Primary Care Provider [phone] Alvina Chacko PharmD Unavailable [phone] Encounter Details Date Type Department Care Team ([facility] st Contact Info) Description 07/07/2025 Orders Only [facility] [address] [place] [address] ProviderKimberly MD Social History Tobacco Use Types [...] the past 12 months, has t he [employer], gas, oil or water [employer] threatened to shut off services in your [...] Info) Description 08/31/2025 9:00 AM EDT Telemedicine [facility] MED [facility] PED[facility] [address] [place] [address] Alvina Chacko, PharmD [address] [place] [address] 09/20/2025 9:00 AM EST Office Visit [facility] [address] [place] [address] Daniel Zhang MD [address] [place] [address] documented as of this encounter Procedures Procedure [...] documented as of this encounter Care Teams Rn Visiting Relationship Specialty Start Date End Date Daniel Zhang MD [address] [place] [address] PCP - General Internal Medicine 05/18/24 Alvina Chacko, ChetnaD [address] [place] [address] Pharmacist Pharmacy 08/03/25 documented as of this encounter
--- OUTSIDE RECORDS SUMMARY | 2025-08-26 08:30 | XMS_ITS | Encounter Summary ---
Author Organization [employer] Address [address] [place] [address] Care Team Providers Care Legal Director Name Role Phone Daniel Zhang MD Primary Care Provider [phone] Alvina Chacko PharmD Unavailable [phone] Reason for Visit * Reason Comments Med Refill Encounter Details Date Type Department Care Team ([facility] st Contact Info) Description 08/26/2025 Refill [facility] P[facility] [address] [place] [address] Daniel Zhang MD [address] [place] [address] Chronic pain of right knee; Chronic left shoulder pain Social History Tobacco Use Types Packs/Day Years Used Date Smoking Tobacco: Every Day Cigarettes 0.8 36 Passive Smoke Exposure: Current Smokeless Tobacco: Never Comments:Previously 1 ppd, d ecreased to 0.5 ppd, exact durations unknown Alcohol [...] [facility] [address] [place] [address] Alvina Chacko, PharmD [address] [place] [address] 09/20/2025 9:00 AM EST Office Visit [facility] [address] [place] [address] Daniel Zhang MD [address] [place] [address] documented as of this encounter Visit Diagnoses Diagnosis Chronic pain of right knee Chronic left shoulder pain Pain in joint, shoulder region documented in this encounter Additional Health Concerns Assessment Noted Time PHQ-9 Depression Total Score: 12 025 9:40 AM EDT documented as of this encounter Care Teams Legal Director Relationship Specialty Start Date End Date Daniel Zhang MD [address] [place] [address] PCP - General Internal Medicine 05/18/24 Alvina Chacko, Trina [address] [place] [address] Pharmacist Pharmacy 08/03/25 documented as of this encounter
--- OUTSIDE RECORDS SUMMARY | 2025-08-26 08:30 | XMS_ITS | Encounter Summary ---
Author Organization [employer] Address [address] [place] [address] Care Team Providers Care Blender Laborer Name Role Phone Daniel Zhang MD Primary Care Provider [phone] Alvina Chacko PharmD Unavailable [phone] Reason for Visit * Reason Comments Med Refill Encounter Details Date Type Department Care Team ([facility] st Contact Info) Description 03/10/2025 Refill [facility] PEDS [address] [place] [address] Daniel Zhang MD [address] [place] [address] Mixed hyperlipidemia Social History Tobacco Use Types [...] with others, in a hotel, in a skilled nursing, living outside on the street, on a [...] Info) Description 08/31/2025 9:00 AM EDT Telemedicine [facility] MED [facility] P[facility] [address] [place] [address] Alvina Chacko, PharmD [address] [place] [address] 09/20/2025 9:00 AM EST Office Visit [facility] [address] [place] [address] Daniel Zhang MD [address] [place] [address] documented as of this encounter Visit Diagnoses Diagnosis Mixed hyperlipidemia documented in this encounter Additional Health Concerns Assessment Noted Time PHQ-9 Depression Total Score: 0 01/29/20 23 8:49 AM EDT documented as of this encounter Care Teams Blender Laborer Relationship Specialty Start Date End Date Daniel Zhang MD [address] [place] [address] PCP - General Internal Medicine 05/18/24 Alvina Chacko, PharmD [address] [place] [address] Pharmacist Pharmacy 08/03/25 documented as of this encounter
--- OUTSIDE RECORDS SUMMARY | 2025-08-26 08:31 | XMS_ITS | Encounter Summary ---
Author Organization [employer] Address [address] [facility] 7t [place] [address] Care Team Providers Care Manager Of Application Development Name Role Phone Raudel Armstrong MD Primary Care Prov ider Daniel Zhang MD Primary Care Provider Alvina Chacko PharmD Unavailable [phone] Encounter Details Date Type Department Care Team (Late st Contact Info) Description 04/15/2023 Telephone [facility] [address] [place] [address] Raudel Armstrong MD [address] [place], [place] [phone] Social History Tobacco Use Types Packs/Day Years [...] Description 08/31/2025 9:00 AM EDT Telemedicine [facility] MED & PEDS [address] [place] [address] Alvina Chacko PharmD [address] [place], [place] [phone] 09/20/2025 9:00 AM EST Office Visit [facility] MED [facility] P[facility] [address] [place] [address] Daniel Zhang MD [address] [place] [address] documented as of this encounter Visit Diagnoses Not on filedocumented in this encounter Additional Health Concerns Assessment Noted Time PHQ-9 Depression Total Score: 0 01/29/20 23 8:49 AM EDT documented as of this encounter Care Teams Manager Of Application Development Relationship Specialty Start Date End Date Raudel Armstrong MD [address] [place] [address] PCP - General Internal Medicine 03/08/20 05/17/24 Daniel Zhang MD [address] [place] [address] PCP - General Internal Medicine 05/18/24 Alvina Chacko PharmD [address] [place] [address] Pharmacist Pharmacy 08/03/25 documented as of this encounter
--- OUTSIDE RECORDS SUMMARY | 2025-08-26 08:31 | XMS_ITS | Encounter Summary ---
Author Organization [employer] Address [address] [place] [address] [place] [address] Care Team Providers Care Provider Enrollment Specialist Name Role Phone Daniel Zhang MD Primary Care Provider Alvina Chacko PharmD Unavailable [phone] Encounter Details Date Type Department Care Team ([facility] st Contact Info) Description 06/20/2024 Orders Only [facility] CHC MED & PEDS [address] [place] [address] YeagerRaudel Garcia MD 505 [place] [address] Social History Tobacco Use Types Packs/Day Years [...] 08/31/2025 9:00 AM EDT Telemedicine [facility] MED & PEDS [address] [place] [address] Alvina Chacko PharmD 230 [place] [address] 09/20/2025 9:00 AM EST Office Visit [facility] [address] [place] [address] Daniel Zhang MD 505 [place] [address] documented as of this encounter Visit Diagnoses Not on filedocumented in this encounter Additional Health Concerns Assessment Noted Time PHQ-9 Depression Total Score: 0 01/29/20 23 8:49 AM EDT documented as of this encounter Care Teams Provider Enrollment Specialist Relationship Specialty Start Date End Date Daniel Zhang MD 505 [place] [address] PCP - General Internal Medicine 05/18/24 Alvina Chacko PharmD 230 [place] [address] Pharmacist Pharmacy 08/03/25 documented as of this encounter
--- OUTSIDE RECORDS SUMMARY | 2025-08-26 08:31 | XMS_ITS | Encounter Summary ---
Author Organization [employer] Address [address] [place] [address] Care Team Providers Care Family Program Specialist Name Role Phone Raudel Armstrong MD Primary Care Prov ider Daniel Zhang MD Primary Care Provider Alvina Chacko PharmD Unavailable [phone] Encounter Details Date Type Department Care Team ([facility] st Contact Info) Description 02/19/2023 Orders Only [facility] CHC MED & PEDS [address] [place], [place] [phone] Raudel Armstrong MD 505 [place] [address] Social History Tobacco Use Types Packs/Day Years [...] Description 08/31/2025 9:00 AM EDT Telemedicine [facility] MED & PEDS 505 [place] [address] Alvina Chacko PharmD 230 [place] [address] 09/20/2025 9:00 AM EST Office Visit [facility] MED & PEDS 505 [place] [address] Daniel Zhang MD 505 [place] [address] documented as of this encounter Visit Diagnoses Not on filedocumented in this encounter Additional Health Concerns Assessment Noted Time PHQ-9 Depression Total Score: 0 01/29/20 23 8:49 AM EDT documented as of this encounter Care Teams Family Program Specialist Relationship Specialty Start Date End Date Raudel Armstrong MD [address] [place] [address] PCP - General Internal Medicine 03/08/20 05/17/24 Daniel Zhang MD [address] [place] [address] PCP - General Internal Medicine 05/18/24 Alvina Chacko PharmD 230 [place] [address] Pharmacist Pharmacy 08/03/25 documented as of this encounter
--- OUTSIDE RECORDS SUMMARY | 2025-08-26 08:31 | XMS_ITS | Encounter Summary ---
Author Organization [employer] Address [address] [facility] [address], [place] [address] Care Team Providers Care Software Support Specialist Name Role Phone Raudel Armstrong MD Primary Care Prov ider Daniel Zhang MD Primary Care Provider Alvina Chacko PharmD Unavailable [phone] Reason for Visit * Reason Onset Date Comments Medication Question 05/10/2024 Encounter Details Date Type Department Care Team (Late st Contact Info) Description 05/10/2024 Telephone [facility] MEDICINE [address] [place] [address] Raudel Armstrong MD [address] [place], [place] [id number] Medication Question Social History Tobacco Use Types [...] to stop smoking. Please contact pt @ [phone] Medication qued to PCP * Telephone Encounter - Mando Upton - 05/10/2024 8:56 AM EDT Tc from pt requesting a Script to Nicotine Gum to stop smoking. Please contact pt @ [phone] documented in this encounter Plan of Treatment Upcoming Encounters Date Type Department Care Team (Late st Contact Info) Description 08/31/2025 9:00 AM EDT Telemedicine [facility] MED & PEDS 505 [place] [address] Alvina Chacko, PharmD 230 [place] [address] 09/20/2025 9:00 AM EST Office Visit [facility] MED & PEDS 505 [place] [address] Daniel Zhang MD 505 [place] [address] documented as of this encounter Visit Diagnoses Not on filedocumented in this encounter Additional Health Concerns Assessment Noted Time PHQ-9 Depression Total Score: 0 01/29/20 23 8:49 AM EDT documented as of this encounter Care Teams Software Support Specialist Relationship Specialty Start Date End Date Raudel Armstrong MD 505 [place] [address] PCP - General Internal Medicine 03/08/20 05/17/24 Daniel Zhang MD 505 [place] [address] PCP - General Internal Medicine 05/18/24 Alvina Chacko, ChetnaD [address] [place] [address] Pharmacist Pharmacy 08/03/25 documented as of this encounter
--- OUTSIDE RECORDS SUMMARY | 2025-08-26 08:31 | XMS_ITS | Encounter Summary ---
Author Organization [employer] Address [address] [place] [address] Care Team Providers Care Wood Mechanist Name Role Phone Daniel Zhang MD Primary Care Provider Alvina Chacko PharmD Unavailable [phone] Encounter Details Date Type Department Care Team ([facility] st Contact Info) Description 06/09/2025 Orders Only [facility] CHC MED & PEDS [address] [place] [address] Daniel Zhang MD [address] [place] [address] Other male erectile dysfunction (Primary Dx) Social [...] Info) Description 08/31/2025 9:00 AM EDT Telemedicine [facility] MED & PEDS [address] [place] [address] Alvina Chacko, PharmD 230 [place] [address] 09/20/2025 9:00 AM EST Office Visit [facility] MED & PEDS [address] [place], [place] [phone] Daniel Zhang MD 505 [place] [address] documented as of this encounter Visit Diagnoses Diagnosis Other male erectile dysfunction- Primary documented in this encounter Additional Health Concerns Assessment Noted Time PHQ-9 Depression Total Score: 12 025 9:40 AM EDT documented as of this encounter Care Teams Wood Mechanist Relationship Specialty Start Date End Date Daniel Zhang MD 505 [place] [address] PCP - General Internal Medicine 05/18/24 Alvina Chacko PharmD 230 [place] [address] Pharmacist Pharmacy 08/03/25 documented as of this encounter
--- OUTSIDE RECORDS SUMMARY | 2025-08-26 08:32 | XMS_ITS | Encounter Summary ---
Author Organization [employer] Address [address] [place] [address] Care Team Providers Care Bullion Weigher Name Role Phone Daniel Zhang MD Primary Care Provider Alvina Chacko PharmD Unavailable [phone] Reason for Visit * Reason Onset Date Comments Med Refill 07/22/2025 Encounter Details Date Type Department Care Team ([facility] st Contact Info) Description 07/22/2025 Refill [facility] CHC MED & PEDS [address] [place] [address] Daniel Zhang MD [address] [place] [address] Other male erectile dysfunction Social History Tobacco [...] Upcoming Encounters Date Type Department Care Team ([facility] st Contact Info) Description 08/31/2025 9:00 AM EDT Telemedicine [facility] MED & PEDS 505 [place] [address] Alvina Chacko, PharmD 230 [place] [address] 09/20/2025 9:00 AM EST Office Visit [facility] MED & PEDS [address] [place], [place] [phone] Daniel hZang MD 505 [place] [address] documented as of this encounter Visit Diagnoses Diagnosis Other male erectile dysfunction documented in this encounter Additional Health Concerns Assessment Noted Time PHQ-9 Depression Total Score: 12 025 9:40 AM EDT documented as of this encounter Care Teams Bullion Weigher Relationship Specialty Start Date End Date Daniel Zhang MD 505 [place] [address] PCP - General Internal Medicine 05/18/24 Alvina Chacko, ChetnaD [address] [place] [address] Pharmacist Pharmacy 08/03/25 documented as of this encounter
--- OUTSIDE RECORDS SUMMARY | 2025-08-26 08:32 | XMS_ITS | Encounter Summary ---
Author Organization [employer] Address [address] [facility] 7 [place] [address] Care Team Providers Care Retail Manager In Training Name Role Phone Daniel Zhang MD Primary Care Provider [phone] Alvina Chacko PharmD Unavailable [phone] Encounter Details Date Type Department Care Team ([facility] Contact Info) Description 07/21/2025 Results Follow-Up [facility] CHC MED & PEDS [address] [place] [address] Hilda Hung RN Lipid Panel, Standard Social [...] Info) Description 08/31/2025 9:00 AM EDT Telemedicine [facility] MED & PEDS [address] [place] [address] Alvina Chacko, PharmD 230 [place] [address] 09/20/2025 9:00 AM EST Office Visit [facility] MED & PEDS [address] [place] [address] Daniel Zhang MD 505 [place] [address] documented as of this encounter Visit Diagnoses Not on filedocumented in this encounter Additional Health Concerns Assessment Noted Time PHQ-9 Depression Total Score: 12 025 9:40 AM EDT documented as of this encounter Care Teams Retail Manager In Training Relationship Specialty Start Date End Date Daniel Zhang MD [address] [place] [address] PCP - General Internal Medicine 05/18/24 Alvina Chacko PharmD [address] [place] [address] Pharmacist Pharmacy 08/03/25 documented as of this encounter
--- OUTSIDE RECORDS SUMMARY | 2025-08-26 08:32 | XMS_ITS | Encounter Summary ---
Author Organization [employer] Address [address] [place] [address] Care Team Providers Care National Van Owner Operator Name Role Phone Daniel Zhang MD Primary Care Provider [phone] Alvina Chacko PharmD Unavailable [phone] Encounter Details Date Type Department Care Team ([facility] st Contact Info) Description 04/12/2025 Orders Only [facility] CHC MED & PEDS [address] [place] [address] Daniel Zhang MD [address] [place] [address] Mixed hyperlipidemia (Primary Dx) Social History Tobacco [...] 08/31/2025 9:00 AM EDT Telemedicine [facility] MED & PEDS [address] [place] [address] Alvina Chacko, PharmD [address] [place] [address] 09/20/2025 9:00 AM EST Office Visit [facility] MED & PEDS [address] [place] [address] Daniel Zhang MD [address] [place] [address] documented as of this encounter Procedures Procedure Name Priority Date/Time Associated Diagnosis Comments LIPID PANEL, STANDARD Routine 07/20/2025 10:30 AM EDT Mixed hyperlipidemia documented in this encounter Results * (ABNORMAL) Lipid Panel, Standard (07/20/2025 10:30 AM EDT) Triglycerides 177(H) <150 mg/dL [facility] Comment:Desirable Triglyceri de: less than 150 mg/dLBorderline High Triglyceride 150-199 mg/dLHigh Triglyceride: 200-499 mg/dLVery High Triglyceride: greater than or equal to 5OO mg/dL Cholesterol 229(H) <200 mg/dL [facility] Comment:Desirable Cholestero l: less than 200 mg/dLBorderline High Cholesterol: 200-239 mg/dLHigh Cholesterol: greater than 239 mg/dL LDL Cholesterol Calculated 152(H) <100 mg/dL [facility] Comment:Desirable LDL: less than 100 mg/dLNear Optimal/Above Optimal LDL: 110- 129 mg/dLBorderline High LDL: 130-159 mg/dLHigh LDL: 160-189 mg/dLVery High LDL: greater than or equal to 190 mg/dL HDL Cholesterol 42 >40 mg/dL [facility] Comment:Desirable HDL: great er than 40 mg/dL Note: This HDL assay may give artificially low results in patients with liver disease. Blood Venous blood specimen / Unknown 07/20/2025 10:30 AM EDT 07/20/2025 2:20 PM EDT Daniel Zhang MD LAB BLOOD ORDERABLES Final Result [facility] [address] [place] [address] [phone] documented in this encounter Visit Diagnoses Diagnosis Mixed hyperlipidemia- Primary documented in this encounter Additional Health Concerns Assessment Noted Time PHQ-9 Depression Total Score: 12 025 9:40 AM EDT documented as of this encounter Care Teams National Van Owner Operator Relationship Specialty Start Date End Date Daniel Zhang MD [address] [place] [address] PCP - General Internal Medicine 05/18/24 Alvina Chacko, PharmD [address] [place] [address] Pharmacist Pharmacy 08/03/25 documented as of this encounter
--- OUTSIDE RECORDS SUMMARY | 2025-08-26 08:32 | XMS_ITS | Encounter Summary ---
Author Organization [employer] Address [address] [place] [address] Care Team Providers Care Soap Press Feeder Name Role Phone Daniel Zhang MD Primary Care Provider [phone] Alvina Chacko PharmD Unavailable [phone] Encounter Details Date Type Department Care Team ([facility] st Contact Info) Description 07/20/2025 Orders Only [facility] CHC MED & PEDS [address] [place] [address] Daniel Zhang MD [address] [place] [address] Social History Tobacco Use Types Packs/Day Years [...] Upcoming Encounters Date Type Department Care Team ([facility] st Contact Info) Description 08/31/2025 9:00 AM EDT Telemedicine [facility] MED & PEDS [address] [place] [address] Alvina Chacko, PharmD 230 [place] [address] 09/20/2025 9:00 AM EST Office Visit [facility] MED & PEDS [address] [place] [address] Daniel Zhang MD 505 [place] [address] documented as of this encounter Visit Diagnoses Not on filedocumented in this encounter Additional Health Concerns Assessment Noted Time PHQ-9 Depression Total Score: 12 025 9:40 AM EDT documented as of this encounter Care Teams Soap Press Feeder Relationship Specialty Start Date End Date Daniel Zhang MD 505 [place] [address] PCP - General Internal Medicine 05/18/24 Alvina Chacko PharmD [address] [place] [address] Pharmacist Pharmacy 08/03/25 documented as of this encounter
--- OUTSIDE RECORDS SUMMARY | 2025-08-26 08:32 | XMS_ITS | Encounter Summary ---
Author Organization [employer] Address [address] [place] [address] [place] [address] Care Team Providers Care Travel Director Name Role Phone Daniel Zhang MD Primary Care Provider Alvina Chacko PharmD Unavailable [phone] Encounter Details Date Type Department Care Team ([facility] st Contact Info) Description 07/20/2025 Results Follow-Up [facility] CHC MED & PEDS [address] [place] [address] Daniel Zhang MD 505 [place] [address] CBC auto differential, Basic Metabolic Panel Social [...] [facility] MED & PEDS [address] [place] [address] Alvina Chacko PharmD [address] [place] [address] 09/20/2025 9:00 AM EST Office Visit [facility] MED & PEDS [address] [place] [address] Daniel Zhang MD 505 [place] [address] documented as of this encounter Visit Diagnoses Not on filedocumented in this encounter Additional Health Concerns Assessment Noted Time PHQ-9 Depression Total Score: 12 025 9:40 AM EDT documented as of this encounter Care Teams Travel Director Relationship Specialty Start Date End Date Daniel Zhang MD 505 [place] [address] PCP - General Internal Medicine 05/18/24 Alvina Chacko PharmD [address] [place] [address] Pharmacist Pharmacy 08/03/25 documented as of this encounter
--- OUTSIDE RECORDS SUMMARY | 2025-08-26 08:32 | XMS_ITS | Encounter Summary ---
Author Organization [employer] Address [address] [place] [address] Care Team Providers Care City Clerk Name Role Phone Raudel Armstrong MD Primary Care Prov ider Daniel Zhang MD Primary Care Provider Alvina Chacko PharmD Unavailable [phone] Encounter Details Date Type Department Care Team (Latest Contact Info) Description 10/31/2021 Abstract [facility] CONVERSIONS Dental, Provider, DDS Social [...] Description 08/31/2025 9:00 AM EDT Telemedicine [facility] MED & PEDS [address] [place] [address] Alvina Chacko, PharmD [address] [place] [address] 09/20/2025 9:00 AM EST Office Visit [facility] PED[facility] [address] [place] [address] Daniel Zhang MD 505 [place] [address] documented as of this encounter Visit Diagnoses Not on filedocumented in this encounter Care Teams City Clerk Relationship Specialty Start Date End Date Raudel Armstrong MD [address] [place] [address] PCP - General Internal Medicine 03/08/20 05/17/24 Daniel Zhang MD [address] [place] [address] PCP - General Internal Medicine 05/18/24 Alvina Chacko PharmD [address] [place] [address] Pharmacist Pharmacy 08/03/25 documented as of this encounter
--- OUTSIDE RECORDS SUMMARY | 2025-08-26 08:32 | XMS_ITS | Encounter Summary ---
Author Organization [employer] Address [address] [place] [address] Care Team Providers Care Obstetrics Gyn Physician Name Role Phone Raudel Armstrong MD Primary Care Prov ider Daniel Zhang MD Primary Care Provider [phone] Alvina Chacko PharmD Unavailable [phone] Encounter Details Date Type Department Care Team ([facility] Contact Info) Description 05/20/2023 Telephone [facility] MED & PEDS [address] [place], [place] [phone] Raudel Armstrong MD [address] [place] [address] Social History Tobacco Use Types Packs/Day Years [...] Upcoming Encounters Date Type Department Care Team ([facility] Contact Info) Description 08/31/2025 9:00 AM EDT Telemedicine [facility] MED & PEDS [address] [place] [address] Alvina Chacko PharmD 230 [place] [address] 09/20/2025 9:00 AM EST Office Visit [facility] MED & PEDS [address] [place] [address] Daniel Zhang MD [address] [place] [address] documented as of this encounter Visit Diagnoses Not on filedocumented in this encounter Additional Health Concerns Assessment Noted Time PHQ-9 Depression Total Score: 0 01/29/20 23 8:49 AM EDT documented as of this encounter Care Teams Obstetrics Gyn Physician Relationship Specialty Start Date End Date YeagerRaudel Garcia MD [address] [place] [address] PCP - General Internal Medicine 03/08/20 05/17/24 Daniel Zhang MD [address] [place] [address] PCP - General Internal Medicine 05/18/24 Alvina Chacko PharmD [address] [place] [address] Pharmacist Pharmacy 08/03/25 documented as of this encounter
== END 2025-08-25 08:14 | disposition home or self-care (01) ==
LOC: HO.HOSX 08:13
PROVIDERS: Visit Provider Orthopaedic Surgery
DX: M25.812 Other specified joint disorders, left shoulder (principal); Z79.899 Other long term (current) drug therapy
CPT/HCPCS: 73030; 99202

== ENCOUNTER 2025-08-25 08:52 | Outpatient (AMB) | payer MEDICARE, MEDICAID, SELFPAY ==
--- NOTE | 2025-08-25 08:58 | MHC.OFFVIS ---
Vital Signs 08/25/25 09:07 Height 5 ft 11 in Weight 250 lb BMI 34.9 Handedness Right Intake Visit Reasons: Left shoulder pain and weakness Intake Note: Gennaro is a 45 year old male who presents with complaints of progressively worsening left shoulder pain and weakness. The patient describes his pain as sharp and severe in nature. His pain and weakness have gotten worse over the last year in spite of continued non operative treatments. He has had cortisone injections in the past which gave him minimal relief. He has failed the last 6 weeks of conservative treatment which has included Tylenol, anti-inflammatory medicines, a home exercise program and physical therapy exercises. The patient reports difficulty lifting his left hand above shoulder height. Allergies ampicillin (AMPICILLIN) Allergy (Severe, Verified 08/25/25 09:07) SWELLING/HIVES Cephalosporins (CEPHALOSPORINS) Allergy (Severe, Verified 08/25/25 09:07) SWELLING/HIVES Penicillins (PENICILLINS) Allergy (Severe, Verified 08/25/25 09:07) SWELLING/HIVES Medication List - Last Reviewed 08/25/25 by FIFI Easley acetaminophen 1,000 mg PO Q6H PRN atorvastatin 40 mg PO DAILY cholecalciferol (vitamin D3) 25 mcg PO DAILY diltiazem HCl CD 120 mg PO DAILY ibuprofen 400 mg PO Q8H PRN losartan 50 mg PO QAM PRN pantoprazole 40 mg PO DAILY PFSH Medical History COVID-19 vaccination not done Hemorrhoids with complication Morbid obesity COVID-19 HLD (hyperlipidemia) Afib Chest pain Surgical History History of carpal tunnel surgery of right wrist History of bowel resection History of back surgery Family History Brother No problems noted. Social History Alcohol intake: never Patient Tobacco Use Status: Current everyday Tobacco user Tobacco use type: Cigarette Cigarettes Per Day: 10 Years Smoked: 30 +/- Current occupational status: unemployed Physical Exam Const Other: Well-nourished well-developed very friendly male awake alert and oriented x3 in no acute distress Extrem Other: Left shoulder examination shows decreased range of motion when compared to his right shoulder, 4+ out of 5 strength with supraspinatus testing, positive impingement signs, no instability Results Reviewed Results Reviewed: X-rays of the patient's left shoulder taken today show severe acromioclavicular joint narrowing, a type 2 acromion, no acute bony abnormalities Assessment & Plan Assessment & Plan (1) Rotator cuff insufficiency of left shoulder: Code(s): M25.312 - Other instability, left shoulder Category: Medical Plan Mr. Quinn presents with progressively worsening left shoulder pain and weakness due to impingement syndrome and possible rotator cuff tearing. Thus, I will send the patient for an MRI of his left shoulder for further evaluation. I will see him back once the MRI is completed to discuss the findings and treatment options. Feel free to call me at any time should questions regarding his orthopedic management arise. Thank you very much for asking me to see this very friendly gentleman. I spent 22 minutes in reviewing the patient's records and imaging studies, seeing the patient and documenting in the medical record. Orders: Orders XR shoulder LT min 2V Today M25.512 - Pain in left shoulder MR shoulder LT wo con 08/26/25 M25.312 - Other instability, left shoulder Coding Level of Care Code New Pt Level 3 (48196) Complex EM visit Add On G2211 Diagnoses Rotator cuff insufficiency of left shoulder M25.312
[2025-08-25 09:07] VITALS: BMI 34.9
--- OUTSIDE RECORDS SUMMARY | 2025-08-25 09:34 | XMS_ITS | Clinical Summary ---
Author Organization [employer] Address [address] [place] [address] 7 [place] [address] Care Team Providers Care President And Ceo Name Role Phone Danile Zhang MD Primary Care Provider Alvina Chacko PharmD Unavailable Allergies Active Allergy Reactions Criticality Noted Date [...] AM IN THE MORNING 90 tablet 1 04/05/20 25 Active cholecalciferol (Vitamin D3) 25 MCG (1000 UT) tabletIndications :Vitamin D deficiency TAKE ONE TABLET (25 MCG) BY MOUTH DAILY AT 9 AM 90 tablet 1 06/07/20 25 Active tiZANidine (Zanaflex) 2 MG tabletIndications :Chronic left shoulder pain Take 1 tablet (2 mg) by mouth every 6 (six) hours if needed for muscle spasms for up to 10 days. 30 tablet 2 06/24/20 25 Active losartan (Cozaar) 50 MG tabletIndications :Primary hypertension TAKE ONE TABLET (50 MG) BY MOUTH ONCE DAILY AT 9 AM 90 tablet 3 06/29/20 25 Active pantoprazole (ProtoNix) 40 MG EC tabletIndications :Gastroesophageal reflux disease without esophagitis TAKE ONE TABLET (40 MG) BY MOUTH DAILY AT 9 AM BEFORE BREAKFAST 90 tablet 3 06/29/20 25 Active dilTIAZem CD (Cardizem CD) 120 MG 24 hr capsule Take 1 capsule by mouth Once per day. At 9 am 07/01/20 Active ibuprofen 800 MG tabletIndications :Chronic pain of right knee,Chronic left shoulder pain TAKE 1 TABLET BY MOUTH 3 TIMES DAILY. 90 tablet 07/21/20 25 Active tadalafil (Cialis) 10 MG tabletIndications :Other male erectile dysfunction Take 1 tablet (10 mg) by mouth if needed each day for erectile dysfunction. 20 tablet 2 07/28/20 25 2024 Active nicotine (Nicoderm CQ) 21 MG/24HR patchIndications: Smoking 1/2 pack a day or less Place 1 patch on the skin 1 (one) time each day at the same time. 42 patch 1 08/03/20 25 Active nicotine polacrilex (Commit) 4 MG lozengeIndication s:Smoking 1/2 pack a day or less Dissolve 1 lozenge (4 mg) in the mouth every 2 (two) hours if needed for smoking cessation. Max 20 lozenges per day. 72 lozenge 11 08/03/20 25 Active varenicline (Chantix) 1 MG tabletIndications :Smoker TAKE ONE TABLET BY MOUTH TWICE DAILY @ 9AM & 5PM TAKE WITH FULL GLASS OF WATER 168 tablet 1 04/12/20 25 2024 Discontinued(I neffective) tadalafil (Cialis) 10 MG tabletIndications :Other male erectile dysfunction Take 1 tablet (10 mg) by mouth if needed each day for erectile dysfunction. 20 tablet 2 06/09/20 25 2024 Discontinued(R eorder (will not trigger notification to Pharmacy)) Active Problems Problem Noted Date Diagnosed Date Moderate major depression (CMS/HCC) 05/20/2025 KATHY (generalized anxiety disorder) 05/20/2025 Herpes [...] Class 1 obesity 10/29/2022 Permanent atrial fibrillation (CMS/HCC) 10/10/20 Assessment & Plan (03/01/2024 10:28 AM EDT): [...] Encounters Date Type Department Care Team Description 08/16/2025 Telephone [facility] [address] [place] [address] Alvina Chacko, ChetnaD 08/03/2025 9:00 AM EDT Telemedicine [facility] [address] [place] [address] Alvina Chacko, PharmD Smoking 1/2 pack a day or less (Primary Dx) 08/03/2025 Travel 07/28/2025 Refill [facility] [address] [place] [address] Daniel Zhang MD Other male erectile dysfunction 07/22/2025 Refill [facility] [address] [place] [address] Daniel Zhang MD Other male erectile dysfunction 07/21/2025 Telephone [facility] [address] [place] [address] Daniel Zhang MD Patient Education 07/21/2025 Results Follow-Up [facility] [address] [place] [address] Hilda Hung RN Lipid Panel, Standard 07/21/2025 Refill [facility] [address] [place] [address] Daniel Zhang MD Chronic pain of right knee; Chronic left shoulder pain 07/20/2025 9:15 AM EDT Office Visit [facility] [address] [place] [address] Daniel Zhang MD Partial small bowel obstruction (CMS/HCC) (Primary Dx) 07/20/2025 Orders Only [facility] [address] [place] [address] Daniel Zhang MD 07/20/2025 Results Follow-Up [facility] [address] [place] [address] Daniel Zhang MD CBC auto differential, Basic Metabolic Panel 07/20/2025 Travel 07/14/2025 Travel 07/13/2025 Telephone [facility] [address] [place] [address] Daniel Zhang MD Medication Question 07/12/2025 Telephone [facility] [address] [place] [address] Daniel Zhang MD Hospital Follow-up 07/07/2025 Orders Only [facility] [address] [place] [address] Kimberly Guerrier MD 06/29/2025 Refill [facility] [address] [place] [address] Daniel Zhang MD Primary hypertension; Gastroesophageal reflux disease without esophagitis 06/24/2025 2:45 PM EDT Office Visit [facility] [address] [place] [address] Daniel Zhang MD Chronic pain of right knee (Primary Dx); Chronic left shoulder pain; Primary hypertension; Smoking 1/2 pack a day or less 06/24/2025 Travel 06/23/2025 Telephone [facility] [address] [place] [address] Daniel Zhang MD Chart Prep 06/17/2025 Travel 06/09/2025 Orders Only [facility] [address] [place] [address] Daniel Zhang MD Other male erectile dysfunction (Primary Dx) 06/09/2025 Telephone [facility] [address] [place] [address] Daniel Zhang MD Medication Question 06/07/2025 Refill [facility] [address] [place] [address] Daniel Zhang MD Other male erectile dysfunction 06/07/2025 Refill [facility] [address] [place] [address] Lucy Leung MD Other male erectile dysfunction 06/06/2025 Refill [facility] [address] [place] [address] Daniel Zhang MD Vitamin D deficiency from Last 3 Months Immunizations Immunization Administration [...] Used Date Smoking Tobacco: Every Day Cigarettes 0.8 36 Passive Smoke Exposure: Current Smokeless Tobacco: Never Tobacco Cessation:Ready to Q uit: Yes; Counseling Given: Yes Comments:Previously 1 ppd, decreased to 0.5 ppd, exact durations unknown Alcohol Use Standard Drinks/Week Comments Never 0 [...] housing situation today? I have reganjennifer crews 04/11/[address] you [...] the past 12 months, has t he [facility], gas, oil or water company threatened to [...] Care Team (Late st Contact Info) Description 08/31/2025 9:00 AM EDT Telemedicine [facility] [address] [place] [address] Alvina Chacko, PharmD [address] [place] [address] 09/20/2025 9:00 AM EST Office Visit [facility] [address] [place] [address] Daniel Zhang MD [address] [place] [address] Health Maintenance Due Date Last Done Comments [...] 04/11/2026 04/11/2025 FOBT 05/03/2026 05/03/2025 Tobacco Screening 08/03/2026 08/03/2025 Colorectal Cancer Screening 05/03/2028 FIT DNA/Cologuard 05/03/2028 05/03/2025 DTaP/Tdap/Td Vaccines (3 - Td or Tdap) 03/09/2029 03/09/2019, 04/25/2008 Zoster Vaccines (1 of 2) 01/15/2030 Lipid Panel 07/20/2030 07/20/2025, 06/0 07/2025, 10/15/2023, Additional history exists RSV Patients and Patients [...] Procedure Name Priority Date/Time Associated Diagnosis Comments BASIC METABOLIC PANEL Routine 07/20/2025 10:30 AM EDT Partial small bowel obstruction (CMS/HCC) CBC WITH AUTO DIFFERENTIAL Routine 07/20/2025 10:30 AM EDT Partial small bowel obstruction (CMS/HCC) LIPID PANEL, STANDARD Routine 07/20/2025 10:30 AM EDT Mixed hyperlipidemia CT ABDOMEN PELVIS W CONTRAST Routine 07/06/2025 [...] 10:40 AM EDT Primary hypertension Acanthosis nigricans from Last 3 Months or Most Recently Relevant to Health Maintenance Results * CBC auto differential (07/20/2025 10:30 AM EDT) White Blood Count 7.6 4.8 - 10.8 X10*3/uL [facility] Red Blood Count 5.38 4.60 - 5.80 X10*6/uL [facility] Hemoglobin 15.5 14.0 - 18.0 g/dl [facility] Hematocrit 47.7 42.0 - 52.0 % [facility] Mean Corpuscular Volume 88.7 80.0 - 98.0 fL [facility] Mean Corpuscular Hemoglobin 28.8 27.0 - 33.0 pg [facility] Mean Corpuscular HGB Conc 32.5 31.0 - 36.0 g/dl [facility] Red Cell Distribution Width 13.9 11.0 - 16.0 % [facility] Platelet Count 276 160 - 400 X10*3/uL [facility] Mean Platelet Volume 11.1 9.4 - 12.4 fL [facility] Neutrophils Percent Auto 54.5 45 - 73 % [facility] Imm Gran Pct Auto 0.3 0.0 - 0.4 % [facility] Lymphocytes Percent Auto 37.1 20 - 40 % [facility] Monocytes Percent Auto 6.1 2 - 11 % [facility] Eosinophils Percent Auto 1.2 0 - 4 % [facility] Basophils Percent Auto 0.8 0 - 2 % [facility] NRBC Pct Auto 0.0 0.0 - 0.2 /100WBC [facility] Neutrophils Absolute Auto 4.1 2.0 - 8.3 x10*3/uL [facility] Imm Gran Abs Auto 0.02 0.00 - 0.03 X10*3/uL [facility] Lymphocytes Absolute Auto 2.8 1.2 - 4.9 X10*3/uL [facility] Monocytes Absolute Auto 0.5 0.1 - 1.2 X10*3/uL [facility] Eosinophils Absolute Auto 0.1 0.0 - 0.4 X10*3/uL [facility] Basophils Absolute Auto 0.1 0.0 - 0.2 X10*3/uL [facility] NRBC Abs Auto 0.000 0.0 - 0.012 X10*3/uL [facility] Blood Venous blood specimen / Unknown 07/20/2025 10:30 AM EDT 07/20/2025 2:00 PM EDT us Daniel Zhang MD LAB BLOOD ORDERABLES Final Result [facility] [address] [place] [phone] [phone] * (ABNORMAL) Lipid Panel, Standard (07/20/2025 10:30 AM EDT) Triglycerides 177(H) <150 mg/dL [facility] Comment:Desirable Triglyceri de: less than 150 mg/dLBorderline High Triglyceride 150-199 mg/dLHigh Triglyceride: 200-499 mg/dLVery High Triglyceride: greater than or equal to 5OO mg/dL Cholesterol 229(H) <200 mg/dL [facility] Comment:Desirable Cholestero l: less than 200 mg/dLBorderline High Cholesterol: 200-239 mg/dLHigh Cholesterol: greater than 239 mg/dL LDL Cholesterol Calculated 152(H) <100 mg/dL [facility] Comment:Desirable LDL: less than 100 mg/dLNear Optimal/Above Optimal LDL: 110- 129 mg/dLBorderline High LDL: 130-159 mg/dLHigh LDL: 160-189 mg/dLVery High LDL: greater than or equal to 190 mg/dL HDL Cholesterol 42 >40 mg/dL [facility] Comment:Desirable HDL: great er than 40 mg/dL Note: This HDL assay may give artificially low results in patients with liver disease. Blood Venous blood specimen / Unknown 07/20/2025 10:30 AM EDT 07/20/2025 2:20 PM EDT Daniel Zhang MD LAB BLOOD ORDERABLES Final Result [facility] [address] [place] [address] [phone] * (ABNORMAL) Basic Metabolic Panel (07/20/2025 10:30 AM EDT) Sodium 140 135 - 145 mmol/L [facility] Potassium 4.1 3.3 - 5.1 mmol/L [facility] Chloride 106 96 - 108 mmol/L [facility] Carbon Dioxide 27 22 - 29 mmol/L [facility] Anion Gap 11(L) 12 - 20 [facility] Urea Nitrogen (BUN) 8(L) 9 - 16 mg/dL [facility] Creatinine, Serum 0.66 0.5 - 1.4 mg/dL [facility] Estimated Glomerular Filt Rate >60 [facility] Comment:Chronic Kidney Disea se: Estimated GFR < 60 mL/min/[id number] Kidney Disease: Estimated GFR < 15 mL/min/1.73m2 Glucose 79 60 - 115 mg/dL [facility] Calcium 9.0 8.4 - 10.2 mg/dL [facility] Blood Venous blood specimen / Unknown 07/20/2025 10:30 AM EDT 07/20/2025 2:20 PM EDT Daniel Zhang MD LAB BLOOD ORDERABLES Final Result [facility] [address] [place] [phone] * CT Abdomen Pelvis w/ Contrast (07/06/2025 9:48 AM EDT) Only the most recent of2 resultswithin the time period is included. Anatomical Region Laterality Modality Body, Pelvis, Abdomen Computed T omography Historical Provider IMG CT PROCEDURES Final R esult * Cologuard?? colon cancer screening (05/03/2025 6:50 AM EDT) Cologuard Result Negative Negative 05/09/20 5:49 AM EDT [facility] (CLIA #:[id number]) Comment: The Cologuard (TM) test was performed [...] cancer. Following a negative Cologuard result, the [place] [employer] and U.S. Multi-Society Task Force screening guidelines recommend a Cologuard re-screening interval of 3 years. References: [place] [employer] Guideline for Colorectal Cancer Screening: https://www.cancer.org/cancer/atbzr-aufybc-srjccx/vpgjkesza-znsvnzdbm-hqhzbcv/ac s-rec ommendations.html.; Gene DK, Gordo SAENZ, Catrachita FelicianoK, Colorectal Cancer Screening: Recommendations for Physicians and Patients from the U.S. Multi-Society Task Force on Colorectal Cancer Screening , Am J Gastroenterology 2017; 112:3997-0900. TEST DESCRIPTION: Composite algorithmic analysis of stool [...] (Fahad Rivera al, N Engl J Med 2014;370(14):3053-8722.) Cologuard may produce a false negative or false positive result (no colorectal cancer or precancerous polyp present at colonoscopy follow up). A negative Cologuard test result does not guarantee the absence of CRC or advanced adenoma (pre-cancer). The current Cologuard screening interval is every 3 years. ([place] [employer] and U.S. Multi-Society Task Force). Cologuard performance data in a 10,000 patient pivotal study using colonoscopy as the reference method can be accessed at the following location: www.[employer].SCL/results. Additional description of the Cologuard test process, warnings and precautions can be found at www.cologuard.com. Stool specimen (specimen) 05/03/2025 6:50 AM EDT 05/04/2025 1:43 PM EDT Daniel Zhang MD LAB MOLECULAR DIAGNOSTICS O RDERABLES Final Result Performing Organization Address [facility] Co de Phone Number [facility] (CLIA #:[id number]) [address] [place] [address], * Hepatitis C Antibody with Reflex to HCV, RNA, Quantitative, Real-Time PCR (04/11/2025 10:40 AM EDT) Hepatitis C Antibody Nonreactive Nonreactive [facility] Comment:Antibodies to HCV no t detected; does not exclude early acuteHCV infection. Blood Venous blood specimen / Unknown 04/11/2025 10:40 AM EDT 04/11/2025 2:17 PM EDT Daniel Zhang MD LAB BLOOD ORDERABLES Final Result Performing Organization Address [facility] Co de Phone Number [facility] [address] [place] [phone] [phone] * HIV-1/2 Antigen and Antibodies, Fourth Generation, with Reflexes (04/11/2025 10:40 AM EDT) HIV AB/AG Nonreactive Nonreactive [facility] Comment:HIV-1 p24 Ag and/or HIV-1/HIV-2 Ab not detected.A test result that is nonreactive does not exclude thepossibility of exposure to or infection with HIV-1 and/orHIV-2. Nonreactive results in this assay for individualswith prior exposure to HIV-1 and/or HIV-2 may be due toantigen and antibody levels that are below the limit ofdetection of this assay.The [employer] HIV Ag/Ab Combo assay result andsupplemental assay results should be interpreted inconjunction with the patient's clinical presentation,history and other laboratory results. If the results areinconsistent with clinical evidence, additional testing issuggested to confirm the result. Blood Venous blood specimen / Unknown 04/11/2025 10:40 AM EDT 04/11/2025 2:17 PM EDT us Daniel Zhang MD LAB BLOOD ORDERABLES Final Result [facility] [address] [place] [address] [phone] * Hemoglobin A1c (04/11/2025 10:40 AM EDT) Hemoglobin A1c 5.8 <6.0 % [facility] Comment:Hemoglobin A1C Refer ence Range Adults: 4.8 - 6.0 % Non diabetic: < 6.0 % Goal: < 7.0 %Additional Action Suggested: > 8.0 %Note: Hemoglobin A1c results are invalid for patients with abnormal amounts of HbF. Blood transfusions may impact the HbA1c concentration in the patient sample. Estimated Average Glucose 120 mg/dL [facility] Comment:eAG = Estimated ave rage glucose which is %A1C expressed asaverage glucose, using the formula of the K0J-WdoxcwtUppnffp Glucose study (ADAG), Diabetes Care, Vol.31,#8,Jun. 2007 Blood Venous blood specimen / Unknown 04/11/2025 10:40 AM EDT 04/11/2025 2:17 PM EDT Daniel Zhang MD LAB BLOOD ORDERABLES Final Result [facility] [address] [place] [address] [phone] from Last 3 Months or Most Recently Relevant to Health Maintenance [place] [address] [place] [address] STANDARD [employer] MEDICARE REPLACEMENT Care Teams President And Ceo Relationship Specialty Start Date End Date Daniel Zhang MD [address] [place] [address] PCP - General Internal Medicine 05/18/24 Alvina Chacko, Trina [address] [place] [address] Pharmacist Pharmacy 08/03/25
--- OUTSIDE RECORDS SUMMARY | 2025-08-25 09:35 | XMS_ITS | Encounter Summary ---
Author Organization [employer] Address [address] [facility] 7 [place] [address] Care Team Providers Care Brand Attendant Name Role Phone Daniel Zhang MD Primary Care Provider [phone] Alvina Chacko PharmD Unavailable [phone] Encounter Details Date Type Department Care Team ([facility] st Contact Info) Description 07/07/2025 Orders Only [facility] [address] [place] [address] ProviderKimberly MD Social History Tobacco Use Types [...] the past 12 months, has t he [employer], gas, oil or water [employer] threatened to shut off services in your [...] Info) Description 08/31/2025 9:00 AM EDT Telemedicine [facility] [address] [place] [address] Alvina Chacko, PharmD [address] [place] [address] 09/20/2025 9:00 AM EST Office Visit [facility] [address] [place] [address] Daniel Zhang MD [address] [place] [address] documented as of this encounter Procedures Procedure [...] documented as of this encounter Care Teams Brand Attendant Relationship Specialty Start Date End Date Daniel Zhang MD [address] [place] [phone] PCP - General Internal Medicine 05/18/24 Alvina Chacko, ChetnaD [address] [place] [phone] Pharmacist Pharmacy 08/03/25 documented as of this encounter
--- OUTSIDE RECORDS SUMMARY | 2025-08-25 09:35 | XMS_ITS | Encounter Summary ---
Author Organization [employer] Address [address] [place] [id number] Care Team Providers Care Brake Linings Coater Name Role Phone Daniel Zhang MD Primary Care Provider Alvina Chacko PharmD Unavailable [phone] Encounter Details Date Type Department Care Team ([facility] st Contact Info) Description 04/12/2025 Orders Only [facility] [address] [place] [address] Daniel Zhang MD [address] [place] [address] Mixed hyperlipidemia (Primary Dx) Social History Tobacco [...] Info) Description 08/31/2025 9:00 AM EDT Telemedicine [facility] MED & PEDS [address] [place] [address] Alvina Chacko, PharmD [address] [place] [address] 09/20/2025 9:00 AM EST Office Visit [facility] P[facility] [address] [place] [address] Daniel Zhang MD [address] [place] [address] documented as of this encounter Procedures Procedure Name Priority Date/Time Associated Diagnosis Comments LIPID PANEL, STANDARD Routine 07/20/2025 10:30 AM EDT Mixed hyperlipidemia documented in this encounter Results * (ABNORMAL) Lipid Panel, Standard (07/20/2025 10:30 AM EDT) Triglycerides 177(H) <150 mg/dL [facility] Comment:Desirable Triglyceri de: less than 150 mg/dLBorderline High Triglyceride 150-199 mg/dLHigh Triglyceride: 200-499 mg/dLVery High Triglyceride: greater than or equal to 5OO mg/dL Cholesterol 229(H) <200 mg/dL [facility] Comment:Desirable Cholestero l: less than 200 mg/dLBorderline High Cholesterol: 200-239 mg/dLHigh Cholesterol: greater than 239 mg/dL LDL Cholesterol Calculated 152(H) <100 mg/dL [facility] Comment:Desirable LDL: less than 100 mg/dLNear Optimal/Above Optimal LDL: 110- 129 mg/dLBorderline High LDL: 130-159 mg/dLHigh LDL: 160-189 mg/dLVery High LDL: greater than or equal to 190 mg/dL HDL Cholesterol 42 >40 mg/dL [facility] Comment:Desirable HDL: great er than 40 mg/dL Note: This HDL assay may give artificially low results in patients with liver disease. Blood Venous blood specimen / Unknown 07/20/2025 10:30 AM EDT 07/20/2025 2:20 PM EDT Daniel Zhang MD LAB BLOOD ORDERABLES Final Result [facility] [address] [place] [address] [phone] documented in this encounter Visit Diagnoses Diagnosis Mixed hyperlipidemia- Primary documented in this encounter Additional Health Concerns Assessment Noted Time PHQ-9 Depression Total Score: 12 025 9:40 AM EDT documented as of this encounter Care Teams Brake Linings Coater Relationship Specialty Start Date End Date Daniel Zhang MD [address] [place] [address] PCP - General Internal Medicine 05/18/24 Alvina Chacko, PharmD [address] [place] [address] Pharmacist Pharmacy 08/03/25 documented as of this encounter
--- OUTSIDE RECORDS SUMMARY | 2025-08-25 09:35 | XMS_ITS | Encounter Summary ---
Author Organization [employer] Address [address] [place] [address] Care Team Providers Care Record Center Specialist Name Role Phone Daniel Zhang MD Primary Care Provider Alvina Chacko PharmD Unavailable [phone] Encounter Details Date Type Department Care Team ([facility] st Contact Info) Description 06/09/2025 Orders Only [facility]EDS [address] [place] [address] Daniel Zhang MD [address] [place] [address] Other male erectile dysfunction (Primary Dx) Social [...] Info) Description 08/31/2025 9:00 AM EDT Telemedicine [facility] MED & PEDS [address] [place] [address] Alvina Chacko, PharmD [address] [place] [address] 09/20/2025 9:00 AM EST Office Visit [facility] MED & PEDS [address] [place], [place] [phone] Daniel Zhang MD [address] [place] [address] documented as of this encounter Visit Diagnoses Diagnosis Other male erectile dysfunction- Primary documented in this encounter Additional Health Concerns Assessment Noted Time PHQ-9 Depression Total Score: 12 025 9:40 AM EDT documented as of this encounter Care Teams Record Center Specialist Relationship Specialty Start Date End Date Daniel Zhang MD [address] [place] [address] PCP - General Internal Medicine 05/18/24 Alvina Chacko PharmD [address] [place] [address] Pharmacist Pharmacy 08/03/25 documented as of this encounter
--- OUTSIDE RECORDS SUMMARY | 2025-08-25 09:35 | XMS_ITS | Encounter Summary ---
Author Organization [employer] Address [address] [place] [address] Care Team Providers Care Perioperative Nurse Name Role Phone Raudel Armstrong MD Primary Care Prov ider Daniel Zhang MD Primary Care Provider [phone] Alvina Chacko PharmD Unavailable [phone] Encounter Details Date Type Department Care Team ([facility] st Contact Info) Description 02/19/2023 Orders Only [facility] MED & PEDS [address] [place], [place] [phone] Raudel Armstrong MD [address] [place] [address] Social History Tobacco Use Types Packs/Day Years [...] 08/31/2025 9:00 AM EDT Telemedicine [facility] MED & PEDS [address] [place] [address] Alvina Chacko PharmD [address] [place] [address] 09/20/2025 9:00 AM EST Office Visit [facility] & PEDS [address] [place] [address] Daniel Zhang MD [address] [place] [address] documented as of this encounter Visit Diagnoses Not on filedocumented in this encounter Additional Health Concerns Assessment Noted Time PHQ-9 Depression Total Score: 0 01/29/20 23 8:49 AM EDT documented as of this encounter Care Teams Perioperative Nurse Relationship Specialty Start Date End Date Raudel Armstrong MD [address] [place] [address] PCP - General Internal Medicine 03/08/20 05/17/24 Daniel Zhang MD [address] [place] [address] PCP - General Internal Medicine 05/18/24 Alvina Chacko PharmD [address] [place] [address] Pharmacist Pharmacy 08/03/25 documented as of this encounter
--- OUTSIDE RECORDS SUMMARY | 2025-08-25 09:35 | XMS_ITS | Encounter Summary ---
Author Organization [employer] Address [address] [address] [place] [address] Care Team Providers Care Senior Support Engineer Name Role Phone Raudel Armstrong MD Primary Care Prov ider Daniel Zhang MD Primary Care Provider Alvina Chacko PharmD Unavailable [phone] Encounter Details Date Type Department Care Team (Late st Contact Info) Description 04/15/2023 Telephone [facility] [address] [place] [address] Raudel Armstrong MD [address] [place], [place] [phone] Social History Tobacco Use Types Packs/Day Years [...] Info) Description 08/31/2025 9:00 AM EDT Telemedicine [facility] MED & PEDS [address] [place] [address] Alvina Chacko PharmD [address] [place], [place] [phone] 09/20/2025 9:00 AM EST Office Visit [facility] MED [facility] PED[facility] [address] [place] [address] Daniel Zhang MD [address] [place] [address] documented as of this encounter Visit Diagnoses Not on filedocumented in this encounter Additional Health Concerns Assessment Noted Time PHQ-9 Depression Total Score: 0 01/29/20 23 8:49 AM EDT documented as of this encounter Care Teams Senior Support Engineer Relationship Specialty Start Date End Date Raudel Armstrong MD [address] [place] [address] PCP - General Internal Medicine 03/08/20 05/17/24 Daniel Zhang MD [address] [place] [address] PCP - General Internal Medicine 05/18/24 Alvina Chacko PharmD [address] [place] [address] Pharmacist Pharmacy 08/03/25 documented as of this encounter
--- OUTSIDE RECORDS SUMMARY | 2025-08-25 09:35 | XMS_ITS | Encounter Summary ---
Author Organization [employer] Address [address], [place] [address] Care Team Providers Care Hydrogenation Operator Name Role Phone Raudel Armstrong MD Primary Care Prov ider Daniel Zhang MD Primary Care Provider Alvina Chacko PharmD Unavailable [phone] Reason for Visit * Reason Onset Date Comments Medication Question 05/10/2024 Encounter Details Date Type Department Care Team (Late st Contact Info) Description 05/10/2024 Telephone [facility] [address] [place] [address] Raudel Armstrong MD [address] [place], [place] [phone] Medication Question Social History Tobacco Use Types [...] to stop smoking. Please contact pt @ [phone] Medication qued to PCP * Telephone Encounter - Mando Upton - 05/10/2024 8:56 AM EDT Tc from pt requesting a Script to Nicotine Gum to stop smoking. Please contact pt @ [phone] documented in this encounter Plan of Treatment Upcoming Encounters Date Type Department Care Team (Late st Contact Info) Description 08/31/2025 9:00 AM EDT Telemedicine [facility] MED & PEDS [address] [place] [address] Alvina Chacko, PharmD [address] [place] [address] 09/20/2025 9:00 AM EST Office Visit [facility] PED[facility] [address] [place] [address] Daniel Zhang MD [address] [place] [address] documented as of this encounter Visit Diagnoses Not on filedocumented in this encounter Additional Health Concerns Assessment Noted Time PHQ-9 Depression Total Score: 0 01/29/20 23 8:49 AM EDT documented as of this encounter Care Teams Hydrogenation Operator Relationship Specialty Start Date End Date Raudel Armstrong MD [address] [place] [address] PCP - General Internal Medicine 03/08/20 05/17/24 Daniel Zhang MD [address] [place] [address] PCP - General Internal Medicine 05/18/24 Alvina Chacko, ChetnaD [address] [place] [address] Pharmacist Pharmacy 08/03/25 documented as of this encounter
--- OUTSIDE RECORDS SUMMARY | 2025-08-25 09:35 | XMS_ITS | Clinical Summary ---
Author Organization [facility] Address [address] [place] [address] Phone Care Team Providers Care Service Developer Name Role Phone Raudel Armstrong Primary Care [...] (one) time each day. 30 each 5 Active Active Problems Problem Noted Date Diagnosed Date Primary hypertension 07/07/2025 GERD (gastroesophageal reflux disease) Hyperlipidemia 07/07/2025 Chronic lower back pain 07/07/2025 Resolved Problems Problem Noted Date Diagnosed Date Resolved Date Partial small bowel obstruct ion (CMS/HCC V24, CMS/HCC V28) 07/07/2025 07/07/2025 Encounters Date Type Department Care Team Description 07/06/2025 8:58 PM EDT - 07/07/2025 5:50 PM EDT Hospital Encounter [facility] Medical Surgical Unit [address] [place] [phone] Loi Malcolm MD Jones, Christopher, MD Japaridze, Anna, MD Partial small bowel obstruction (CMS/HCC V24, CMS/[facility] V28) (Primary Dx); LLQ pain Discharge Disposition: Home or Self Care from Last 3 Months Surgical History Surgery Date Site/Laterality Comments CARPAL TUNNEL RELEASE 04/11/2022 Right PROCEDURE: [place] NEUROPLASTY &/TRANSPOS MEDIAN NRV CARPAL TUNNE; COMMENT: w/ganglion excision, Dr Walker BACK SURGERY PROCEDURE: HISTORICAL BACK SURGERY; COMMENT: Lumbar x2 OTHER SURGICAL HISTORY PROCEDURE: [place] COLECTOMY PARTIAL W/ANASTOMOSIS Medical History Medical History Date Comments Anxiety state DX:Anxiety state Esophageal reflux DX:Esophageal reflux Diverticulitis Paroxysmal atrial fibrillation (CMS/HCC V24, CMS /HCC V28) Hypercholesteremia Hypertension Family History Medical History [...] care for your loved ones. For example, children's ministry director or elderly care for an older adult? [...] Date Recorded What is your living situation? Unrecognized valu e 07/07/2025 Interpersonal Safety Answer Date Record ed Physical Abuse Unrecognized value 07/07/2025 Verbal Abuse Unrecognized value 07/07/2025 Sex and Gender Information Value Date [...] Years) (1 of 2 - PCV) 01/15/1999 HPV Vaccines (1 - 3-dose SCDM series) 01/15/2007 Medicare Annual Wellness Visit 10/12/2022 Depression Screening [...] 04/25/2008 Cholesterol Screening (Lipid Panel) 04/11/2030 04/11/2025 RSV Immunization Adult Patients (1 - 1-dose 75+ series) 01/15/2055 Hepatitis [...] METABOLIC PANEL Routine 07/07/2025 6:13 AM EDT [id number], RSV, FLU A AND B QUALITATIVE RT-PCR, [...] LAB MICROBIOLOGY METHOD 5 11:14 AM EDT [facility] Plesiomonas shigelloides Detection by PCR Not Detected Not Detected LAB MICROBIOLOGY METHOD 5 11:14 AM EDT [facility] Salmonella Detection by PCR Not Detected Not Detected LAB MICROBIOLOGY METHOD 5 11:14 AM EDT [facility] Vibrio Detection by PCR Not Detected Not Detected LAB MICROBIOLOGY METHOD 5 11:14 AM EDT [facility] Vibrio cholerae Detection by PCR Not Detected Not Detected LAB MICROBIOLOGY METHOD 5 11:14 AM EDT [facility] Yersinia enterocolitica Detection by PCR Not Detected Not Detected LAB MICROBIOLOGY METHOD 5 11:14 AM EDT [facility] Enteroaggregative E coli EAEC Detection by PCR Not Detected Not Detected LAB MICROBIOLOGY METHOD 5 11:14 AM EDT [facility] Enteropathogenic E coli EPEC Detection Not Detected Not Detected LAB MICROBIOLOGY METHOD 5 11:14 AM [facility] Enterotoxigenic E coli ETEC LTST Detection Not Detected Not Detected LAB MICROBIOLOGY METHOD 5 11:14 AM [facility] Shiga-like toxin producing E coli STEC STX1 STX2 Det Not Detected Not Detected LAB MICROBIOLOGY METHOD 5 11:14 AM [facility] Shigella Enteroinvasive E coli EIEC Detection Not Detected Not Detected LAB MICROBIOLOGY METHOD 5 11:14 AM [facility] Cryptosporidium Detection by PCR Not Detected Not Detected LAB MICROBIOLOGY METHOD 5 11:14 AM [facility] Cyclospora cayetanensis Detection by PCR Not Detected Not Detected LAB MICROBIOLOGY METHOD 5 11:14 AM [facility] Entamoeba histolytica Detection by PCR Not Detected Not Detected LAB MICROBIOLOGY METHOD 5 11:14 AM [facility] Giardia lamblia Detection by PCR Not Detected Not Detected LAB MICROBIOLOGY METHOD 5 11:14 AM [facility] Adenovirus F 40 41 Detection by PCR Not Detected Not Detected LAB MICROBIOLOGY METHOD 5 11:14 AM [facility] Astrovirus Detection by PCR Not Detected Not Detected LAB MICROBIOLOGY METHOD 5 11:14 AM [facility] Norovirus GI GII Detection by PCR Not Detected LAB MICROBIOLOGY METHOD 5 11:14 AM [facility] Sapovirus Detection by PCR Not Detected Not Detected LAB MICROBIOLOGY METHOD 5 11:14 AM [facility] Rotavirus A Detection by PCR Not Detected Not Detected LAB MICROBIOLOGY METHOD 5 11:14 AM [facility] Stool Rectum structure / Unknown Non-blood Collection / Unknown 07/07/2025 9:23 AM EDT 07/07/2025 9:44 AM EDT Narrative [facility] - 07/07/2025 11:14 AM EDT PCR [...] guidance. Testing Performed by MULTIPLEXED PCR us Loi Malcolm MD LAB MICROBIOLOGY - GENERAL ORD ERABLES Final Result [facility] [address] [place] [address], [place] [phone] * (ABNORMAL) CBC auto differential (07/07/2025 6:13 AM EDT) Only the most recent of2 resultswithin the time period is included. WBC 9.1 4.8 - 10.8 K/mcL LAB HEMETOLOGY METHOD 07/07/2025 6:55 AM EDT [facility] RBC 5.40 4.50 - 5.50 M/mcL LAB HEMETOLOGY METHOD 07/07/2025 6:55 AM EDT [facility] Hemoglobin 15.0 13.5 - 17.5 g/dL LAB HEMETOLOGY METHOD 07/07/2025 6:55 AM EDT [facility] Hematocrit 47.4 42.0 - 54.0 % LAB HEMETOLOGY METHOD 07/07/2025 6:55 AM EDT [facility] MCV 88.4 79.0 - 98.0 FL LAB HEMETOLOGY METHOD 07/07/2025 6:55 AM EDT [facility] MCH 28.0 27.0 - 32.0 pcg LAB HEMETOLOGY METHOD 07/07/2025 6:55 AM [facility] MCHC 31.6(L) 32.0 - 37.0 g/dL LAB HEMETOLOGY METHOD 07/07/2025 6:55 AM [facility] RDW 14.1 11.0 - 15.0 % LAB HEMETOLOGY METHOD 07/07/2025 6:55 AM [facility] Platelets 246 130 - 400 K/mcL LAB HEMETOLOGY METHOD 07/07/2025 6:55 AM [facility] MPV 10.9 7.0 - 11.0 FL LAB HEMETOLOGY METHOD 07/07/2025 6:55 AM [facility] NRBC 0.0 <1.0 % LAB HEMETOLOGY METHOD 07/07/2025 6:55 AM [facility] NRBC Absolute 0.00 <0.10 K/mcL LAB HEMETOLOGY METHOD 07/07/2025 6:55 AM [facility] Neutrophils Relative 84.2 % LAB HEMETOLOGY METHOD 07/07/2025 6:55 AM [facility] Lymphocytes Relative 10.8 % LAB HEMETOLOGY METHOD 07/07/2025 6:55 AM [facility] Monocytes Relative 4.2 % LAB HEMETOLOGY METHOD 07/07/2025 6:55 AM [facility] Eosinophils Relative 0.2 % LAB HEMETOLOGY METHOD 07/07/2025 6:55 AM [facility] Basophils Relative 0.4 % LAB HEMETOLOGY METHOD 07/07/2025 6:55 AM [facility] Immature Granulocytes Relative 0.2 % LAB HEMETOLOGY METHOD 07/07/2025 6:55 AM [facility] Neutrophils Absolute 7.66(H) 1.50 - 7.00 K/mcL LAB HEMETOLOGY METHOD 07/07/2025 6:55 AM EDT [facility] Lymphocytes Absolute 0.98(L) 1.00 - 5.00 K/[facility] LAB HEMETOLOGY METHOD 07/07/2025 6:55 AM EDT [facility] Monocytes Absolute 0.38 0.20 - 1.00 K/[facility] LAB HEMETOLOGY METHOD 07/07/2025 6:55 AM EDT [facility] Eosinophils Absolute 0.02 0.00 - 0.50 K/[facility] HEMETOLOGY METHOD 07/07/2025 6:55 AM EDT [facility] Basophils Absolute 0.04 0.00 - 0.20 K/[facility] HEMETOLOGY METHOD 07/07[facility]25 [facility] Immature Granulocytes Absolute 0.02 0.00 - 0.03 K/[facility] HEMETOLOGY METHOD 07/07/2025 6:55 AM T [facility] Blood Venous blood specimen / Unknown Venipuncture / Unknown 07/07/2025 6:13 AM EDT 07/07/2025 6:47 AM EDT us Amarjit German MD LAB BLOOD ORDERABLES Final Result [facility] [address] [place] [address], * (ABNORMAL) Basic metabolic panel (07/07/2025 6:13 AM EDT) Sodium 137 133 - 145 mmol/L LAB CHEMISTRY METHOD 07/07/2025 7:45 AM EDT [facility] Potassium 4.7 3.5 - 5.5 mmol/L LAB CHEMISTRY METHOD 07/07/2025 7:45 AM EDT [facility] Comment:Hemolysis present Chloride 105 96 - 110 mmol/L LAB CHEMISTRY METHOD 07/07/2025 7:45 AM EDT [facility] CO2 26 21 - 32 mmol/L LAB CHEMISTRY METHOD 07/07/2025 7:45 AM [facility] Anion Gap 6 3 - 11 LAB CHEMISTRY METHOD 07/07/2025 7:45 AM [facility] Glucose 114(H) 70 - 100 mg/dL LAB CHEMISTRY METHOD 07/07/2025 7:45 AM [facility] BUN 8 5 - 25 mg/dL LAB CHEMISTRY METHOD 07/07/2025 7:45 AM [facility] Creatinine 0.68(L) 0.70 - 1.30 mg/dL LAB CHEMISTRY METHOD 07/07/2025 7:45 AM [facility] eGFR 117 >=60 mL/min/1. 73m2 LAB CHEMISTRY METHOD 07/07/2025 7:45 AM [facility] Comment:Calculation based on the Chronic Kidney Disease Epidemiology Collaboration (CKD-EPI) equation refit without adjustment for race. BUN/Creatinine Ratio 11.8 LAB CHEMISTRY METHOD 07/07/2025 7:45 AM [facility] Calcium 9.2 8.5 - 10.5 mg/dL LAB CHEMISTRY METHOD 07/07/2025 7:45 AM [facility] Blood Venous blood specimen / Unknown Venipuncture / Unknown 07/07/2025 6:13 AM EDT 07/07/2025 6:47 AM EDT us Amarjit German MD LAB BLOOD ORDERABLES Final Result [facility] [address] [place] [address], * [id number], RSV, Influenza A and B qualitative RT-PCR (07/07/2025 4:24 AM EDT) Influenza A PCR Not Detected Not Detected LAB MICROBIOLOGY METHOD 07/07/2025 5:30 AM EDT [facility] Influenza B PCR Not Detected Not Detected LAB MICROBIOLOGY METHOD 07/07/2025 5:30 AM EDT [facility] RSV PCR Not Detected Not Detected LAB MICROBIOLOGY METHOD 07/07/2025 5:30 AM EDT [facility] SARS COV-2 Not Detected Not Detected LAB MICROBIOLOGY METHOD 07/07/2025 5:30 AM EDT [facility] Swab Nasopharyngeal structure / Unknown Non-blood Collection / Unknown 07/07/2025 4:24 AM EDT 07/07/2025 4:50 AM EDT Narrative [facility] - 07/07/2025 5:30 AM EDT Disclaimer: Testing was performed using the [employer] GeneXpert Xpress SARS-CoV-2 _Flu_RSV PLUS PCR assay. [...] for Healthcare providers can be found at https://www.fda.gov/media/561965/download. Fact sheet for Healthcare patients can be found at https://www.fda.gov/media/280123/download. us Amarjit German MD LAB MICROBIOLOGY - GENERAL ORDERABLES Final Result [facility] [address] [place] [address], [place] [phone] * XR Abdomen 1 View (07/07/2025 2:43 AM EDT) Anatomical Region Laterality Modality Body Radiographic Alesha ging 07/07/2025 9:05 AM EDT Impressions 07/07/2025 9:07 AM EDT A nasogastric tube is present with the lower portion in the abdominal left upper quadrant. However, the tip position cannot be assessed as it is below the lower level of this radiograph. Code 74214 -------- FINAL REPORT -------- Dictated By: Romulo Fagan Dictated Date: 07/07/2025 09:05 ET Assigned Physician: Romulo Fagan Reviewed and Electronically Signed By: Romulo Fagan Signed Date: 07/07/2025 09:07 ET Workstation ID: [id number] Transcribed By: Self Edit Transcribed Date: 07/07/2025 [...] the lower level of this radiograph. Code 35667 -------- FINAL REPORT -------- Dictated By: Romulo Fagan Dictated Date: 07/07/2025 09:05 ET Assigned Physician: Romulo Fagan Reviewed and Electronically Signed By: Romulo Fagan Signed Date: 07/07/2025 09:07 ET Workstation ID: [id number] Transcribed By: Self Edit Transcribed Date: 07/07/2025 09:05 ET Yola GUTIERREZ IMG XR PROCEDURES Final Result * CT Abdomen Pelvis w Contrast (07/06/2025 10:56 PM EDT) Anatomical Region Laterality Modality Body Computed Tomogra phy 07/06/2025 11:3 3 PM EDT Addenda Addendum by Jeff Hubbard MD on 07/06/2025 11:38 PM EDT ADDENDUM: This report was discussed with LOI MALCOLM on Jul 06, 2025 23:37:00 EDT. [...] by: Jeff Hubbard MD on 07/06/2025 23:33:41 Loi Malcolm MD IM CT PROCEDURES Edited Resul t - Final * Urinalysis with reflex microscopic and culture (07/06/2025 9:51 PM EDT) Specific [place] Urine 1.014 1.003 - 1.030 LAB URINALYSIS - AUTOMATED METHOD 07/06/2025 10:04 PM [facility] pH, Urine 6.0 5.0 - 8.0 pH LAB URINALYSIS - AUTOMATED METHOD 07/06/2025 10:04 PM [facility] Leukocytes, Urine Negative Negative LAB URINALYSIS - AUTOMATED METHOD 07/06/2025 10:04 PM [facility] Nitrite, Urine Negative Negative LAB URINALYSIS - AUTOMATED METHOD 07/06/2025 10:04 PM [facility] Protein, Urine Negative <=Trace mg/dL LAB URINALYSIS - AUTOMATED METHOD 07/06/2025 10:04 PM [facility] Glucose, Urine Negative Negative mg/dL LAB URINALYSIS - AUTOMATED METHOD 07/06/2025 10:04 PM EDT [facility] Ketones, Urine Negative Negative mg/dL LAB URINALYSIS - AUTOMATED METHOD 07/06/2025 10:04 PM EDT [facility] Urobilinogen, Urine 1.0 0.2 - 1.0 mg/dL LAB URINALYSIS - AUTOMATED METHOD 07/06/2025 10:04 PM EDT [facility] Bilirubin, Urine Negative Negative LAB URINALYSIS - AUTOMATED METHOD 07/06/2025 10:04 PM EDT [facility] Blood, Urine Negative Negative LAB URINALYSIS - AUTOMATED METHOD 07/06/2025 10:04 PM EDT [facility] Urine Urine specimen obtained by clean catch procedure / Unknown Non-blood Collection / Unknown 07/06/2025 9:51 PM EDT 07/06/2025 9:55 PM EDT us Loi Malcolm MD LAB URINE ORDERABLES Final Res ult Performing Organization Address City/[facility]/ZIP Co de Phone Number [facility] [address] [place] [address], [place] [phone] * Manuel urine culture tube (07/06/2025 9:51 PM EDT) Extra Tube Hold for add-ons. 07/06/2025 11:01 PM EDT [facility] Comment:Auto resulted. Urine Urine specimen obtained by clean catch procedure / Unknown Non-blood Collection / Unknown 07/06/2025 9:51 PM EDT 07/06/2025 9:55 PM EDT us Loi Malcolm MD LAB URINE ORDERABLES Final Res ult Performing Organization Address [facility]/State/ZIP Co de Phone Number [facility] [address] [place] [address], [place] [phone] * Lipase (07/06/2025 8:26 PM EDT) Lipase 22 13 - 75 unit/L LAB CHEMISTRY METHOD 07/06/2025 9:06 PM [facility] Blood Venous blood specimen / Unknown Venipuncture / Unknown 07/06/2025 8:26 PM EDT 07/06/2025 8:39 PM EDT us Gal Ruiz MD LAB BLOOD ORDERABLES Final Result [facility] [address] [place] [address], * (ABNORMAL) Comprehensive metabolic panel (07/06/2025 8:26 PM EDT) Pathologist [facility] Sodium 138 133 - 145 mmol/L LAB CHEMISTRY METHOD 07/06/2025 9:06 PM [facility] Potassium 3.5 3.5 - 5.5 mmol/L LAB CHEMISTRY METHOD 07/06/2025 9:06 PM [facility] Chloride 105 96 - 110 mmol/L LAB CHEMISTRY METHOD 07/06/2025 9:06 PM [facility] CO2 26 21 - 32 mmol/L LAB CHEMISTRY METHOD 07/06/2025 9:06 PM [facility] Anion Gap 7 3 - 11 LAB CHEMISTRY METHOD 07/06/2025 9:06 PM [facility] Glucose 109(H) 70 - 100 mg/dL LAB CHEMISTRY METHOD 07/06/2025 9:06 PM [facility] BUN 8 5 - 25 mg/dL LAB CHEMISTRY METHOD 07/06/2025 9:06 PM [facility] Creatinine 0.77 0.70 - 1.30 mg/dL LAB CHEMISTRY METHOD 07/06/2025 9:06 PM [facility] eGFR 113 >=60 mL/min/1. 73m2 LAB CHEMISTRY METHOD 07/06/2025 9:06 PM [facility] Comment:Calculation based on the Chronic Kidney Disease Epidemiology Collaboration (CKD-EPI) equation refit without adjustment for race. BUN/Creatinine Ratio 10.4 LAB CHEMISTRY METHOD 07/06/2025 9:06 PM [facility] Calcium 9.2 8.5 - 10.5 mg/dL LAB CHEMISTRY METHOD 07/06/2025 9:06 PM [facility] AST (SGOT) 18 10 - 42 unit/L LAB CHEMISTRY METHOD 07/06/2025 9:06 PM [facility] ALT (SGPT) 26 10 - 60 unit/L LAB CHEMISTRY METHOD 07/06/2025 9:06 PM [facility] Alkaline Phosphatase 84 42 - 121 unit/L LAB CHEMISTRY METHOD 07/06/2025 9:06 PM [facility] Total Protein 7.1 6.0 - 8.0 g/dL LAB CHEMISTRY METHOD 07/06/2025 9:06 PM [facility] Albumin 3.9 3.2 - 5.0 g/dL LAB CHEMISTRY METHOD 07/06/2025 9:06 PM [facility] Total Bilirubin 0.4 0.0 - 1.4 mg/dL LAB CHEMISTRY METHOD 07/06/2025 9:06 PM [facility] Blood Venous blood specimen / Unknown Venipuncture / Unknown 07/06/2025 8:26 PM EDT 07/06/2025 8:39 PM EDT us Gal Ruiz MD LAB BLOOD ORDERABLES Final Result [facility] [address] [place] [address], [place] [phone] from Last 3 Months Insurance MEDICA[place] - [place] [employer] MEDICARE ADVANTAGE Advance Directives Documents on File Type Date Recorded Patient Accounts Receivable Processor Expl anation Health Care Decision (hx) 05/25/2017 [...] Care Decision (hx) 05/25/2017 AD CORRALES DIRECTIVE * Full Code - Default [...] currently active code status orders. Care Teams Service Developer Relationship Specialty Start Date End Date Raudel Armstrong [address] [place] [address] PCP - General Internal Medicine 11/16/21
--- OUTSIDE RECORDS SUMMARY | 2025-08-25 09:35 | XMS_ITS | Encounter Summary ---
Author Organization [employer] Address [address] [place] [address] Care Team Providers Care Location Worker Name Role Phone Raudel Armstrong MD Primary Care Prov ider Daniel Zhang MD Primary Care Provider [phone] Alvina Chacko PharmD Unavailable [phone] Encounter Details Date Type Department Care Team ([facility] Contact Info) Description 05/20/2023 Telephone [facility] [address], [place] [phone] Raudel Armstrong MD [address] [place] [address] Social History Tobacco Use Types Packs/Day Years [...] Upcoming Encounters Date Type Department Care Team ([facility] Contact Info) Description 08/31/2025 9:00 AM EDT Telemedicine [facility] [address] [place] [address] Alvina Chacko PharmD [address] [place] [address] 09/20/2025 9:00 AM EST Office Visit [facility] [address] [place] [address] Daniel Zhang MD [address] [place] [address] documented as of this encounter Visit Diagnoses Not on filedocumented in this encounter Additional Health Concerns Assessment Noted Time PHQ-9 Depression Total Score: 0 01/29/20 23 8:49 AM EDT documented as of this encounter Care Teams Location Worker Relationship Specialty Start Date End Date YeagerRaudel Garcia MD [address] [place] [address] PCP - General Internal Medicine 03/08/20 05/17/24 Daniel Zhang MD [address] [place] [address] PCP - General Internal Medicine 05/18/24 Alvina Chacko PharmD [address] [place] [address] Pharmacist Pharmacy 08/03/25 documented as of this encounter
--- OUTSIDE RECORDS SUMMARY | 2025-08-25 09:35 | XMS_ITS | Encounter Summary ---
Author Organization [employer] Address [address] [place] [address] Care Team Providers Care Cash Accountant Name Role Phone Raudel Armstrong MD Primary Care Prov ider Daniel Zhang MD Primary Care Provider Alvina Chacko PharmD Unavailable [phone] Encounter Details Date Type Department Care Team (Latest Contact Info) Description 10/31/2021 Abstract [facility] CONVERSIONS Dental, Provider, DDS Social [...] 08/31/2025 9:00 AM EDT Telemedicine [facility] [address] [place] [address] Alvina Chacko, PharmD [address] [place] [address] 09/20/2025 9:00 AM EST Office Visit [facility] [address] [place] [address] Daniel Zhang MD [address] [place] [address] documented as of this encounter Visit Diagnoses Not on filedocumented in this encounter Care Teams Cash Accountant Relationship Specialty Start Date End Date Raudel Armstrong MD [address] [place] [address] PCP - General Internal Medicine 03/08/20 05/17/24 Daniel Zhang MD [address] [place] [address] PCP - General Internal Medicine 05/18/24 Alvina Chacko PharmD [address] [place] [address] Pharmacist Pharmacy 08/03/25 documented as of this encounter
--- OUTSIDE RECORDS SUMMARY | 2025-08-25 09:35 | XMS_ITS | Encounter Summary ---
Author Organization [employer] Address [address] [place] [address] Care Team Providers Care Forestry And Wildlife Manager Name Role Phone Daniel Zhang MD Primary Care Provider Alvina Chacko PharmD Unavailable [phone] Reason for Visit * Reason Onset Date Comments Med Refill 06/07/2025 Encounter Details Date Type Department Care Team ([facility] st Contact Info) Description 06/07/2025 Refill [facility] [address] [place] [address] Daniel Zhang MD [address] [place] [address] Other male erectile dysfunction Social History Tobacco [...] Upcoming Encounters Date Type Department Care Team ([facility] st Contact Info) Description 08/31/2025 9:00 AM EDT Telemedicine [facility] MED [facility] PEDS [address] [place] [address] Alvina Chacko, PharmD [address] [place] [address] 09/20/2025 9:00 AM EST Office Visit [facility] [address] [place], [place] [phone] Daniel Zhang MD [address] [place] [address] documented as of this encounter Visit Diagnoses Diagnosis Other male erectile dysfunction documented in this encounter Additional Health Concerns Assessment Noted Time PHQ-9 Depression Total Score: 12 025 9:40 AM EDT documented as of this encounter Care Teams Forestry And Wildlife Manager Relationship Specialty Start Date End Date Daniel Zhang MD [address] [place] [address] PCP - General Internal Medicine 05/18/24 Alvina Chacko, ChetnaD [address] [place] [address] Pharmacist Pharmacy 08/03/25 documented as of this encounter
--- OUTSIDE RECORDS SUMMARY | 2025-08-25 09:35 | XMS_ITS | Encounter Summary ---
Author Organization [employer] Address [address] [place] [address] [place] [address] Care Team Providers Care Sulphate Tester Name Role Phone Daniel Zhang MD Primary Care Provider Alvina Chacko PharmD Unavailable [phone] Encounter Details Date Type Department Care Team ([facility] st Contact Info) Description 06/20/2024 Orders Only [facility] [address] [place] [address] YeagerRaudel Garcia MD [address] [place] [address] Social History Tobacco Use Types Packs/Day Years [...] Telemedicine [facility] [address] [place] [address] Alvina Chacko PharmD [address] [place] [address] 09/20/2025 9:00 AM EST Office Visit [facility] [address] [place] [address] Daniel Zhang MD [address] [place] [address] documented as of this encounter Visit Diagnoses Not on filedocumented in this encounter Additional Health Concerns Assessment Noted Time PHQ-9 Depression Total Score: 0 01/29/20 23 8:49 AM EDT documented as of this encounter Care Teams Sulphate Tester Relationship Specialty Start Date End Date Daniel Zhang MD [address] [place] [address] PCP - General Internal Medicine 05/18/24 Alvina Chacko PharmD [address] [place] [address] Pharmacist Pharmacy 08/03/25 documented as of this encounter
--- OUTSIDE RECORDS SUMMARY | 2025-08-25 09:35 | XMS_ITS | Encounter Summary ---
Author Organization [employer] Address [address] [place] [address] Care Team Providers Care Technical Recruiter Name Role Phone Daniel Zhang MD Primary Care Provider Alvina Chacko PharmD Unavailable [phone] Encounter Details Date Type Department Care Team ([facility] st Contact Info) Description 06/28/2024 Orders Only [facility] MED & PEDS [address] [place] [address] Daniel Zhang MD [address] [place] [address] Vitamin D deficiency (Primary Dx); Mixed hyperlipidemia; [...] your housing situation today? I have regan mars 05/12/[address] you li [...] Info) Description 08/31/2025 9:00 AM EDT Telemedicine [facility] MED [facility] PED[facility] [address] [place] [address] Alvina Chacko, PharmD [address] [place] [address] 09/20/2025 9:00 AM EST Office Visit [facility] [address] [place] [address] Daniel Zhang MD [address] [place] [address] documented as of this encounter Visit Diagnoses [...] documented as of this encounter Care Teams Technical Recruiter Relationship Specialty Start Date End Date Danile Zhang MD [address] [place] [address] PCP - General Internal Medicine 05/18/24 Alvina Chacko, PharmD [address] [place] [address] Pharmacist Pharmacy 08/03/25 documented as of this encounter
--- OUTSIDE RECORDS SUMMARY | 2025-08-25 09:35 | XMS_ITS | Encounter Summary ---
Author Organization [employer] Address [address] [place] [address] Care Team Providers Care Seafood Service Team Member Name Role Phone Raudel Armstrong MD Primary Care Prov ider Daniel Zhang MD Primary Care Provider Alvina Chacko PharmD Unavailable [phone] Reason for Visit * Reason Onset Date Comments Med Refill 11/16/2023 Encounter Details Date Type Department Care Team (Late st Contact Info) Description 11/16/2023 Refill [facility] CH[facility] MED & PEDS [address] [place], [place] [phone] Raudel Armstrong MD [address] [place], [place] [phone] Social History Tobacco Use Types Packs/Day Years [...] housing situation today? I have regan crews 09/05/[address] you [...] 08/31/2025 9:00 AM EDT Telemedicine [facility] MED & PED[facility] [address] [place] [address] Alvina Chacko PharmD [address] [place] [address] 09/20/2025 9:00 AM EST Office Visit [facility] [address] [place] [address] Daniel Zhang MD [address] [place] [address] documented as of this encounter Visit Diagnoses Not on filedocumented in this encounter Additional Health Concerns Assessment Noted Time PHQ-9 Depression Total Score: 0 01/29/20 23 8:49 AM EDT documented as of this encounter Care Teams Seafood Service Team Member Relationship Specialty Start Date End Date Raudel Armstrong MD [address] [place] [address] PCP - General Internal Medicine 03/08/20 05/17/24 Daniel Zhang MD [address] [place] [address] PCP - General Internal Medicine 05/18/24 Alvina Chacko, ChetnaD [address] [place] [address] Pharmacist Pharmacy 08/03/25 documented as of this encounter
--- OUTSIDE RECORDS SUMMARY | 2025-08-25 09:35 | XMS_ITS | Encounter Summary ---
Author Organization [employer] Address [address] [place] [address] Care Team Providers Care Food Truck Caterer Name Role Phone Daniel Zhang MD Primary Care Provider Alvina Chacko PharmD Unavailable [phone] Reason for Visit * Reason Comments Med Refill Encounter Details Date Type Department Care Team ([facility] st Contact Info) Description 03/10/2025 Refill [facility] CHC MED & PEDS [address] [place] [address] Daniel Zhang MD [address] [place] [address] Mixed hyperlipidemia Social History Tobacco Use Types [...] with others, in a hotel, in a nursing home, living outside on the street, on a [...] Info) Description 08/31/2025 9:00 AM EDT Telemedicine [facility] MED & PEDS [address] [place] [address] Alvina Chacko, PharmD [address] [place] [address] 09/20/2025 9:00 AM EST Office Visit [facility] MED & PEDS [address] [place] [address] Daniel Zhang MD [address] [place] [address] documented as of this encounter Visit Diagnoses Diagnosis Mixed hyperlipidemia documented in this encounter Additional Health Concerns Assessment Noted Time PHQ-9 Depression Total Score: 0 01/29/20 23 8:49 AM EDT documented as of this encounter Care Teams Food Truck Caterer Relationship Specialty Start Date End Date Daniel Zhang MD [address] [place] [address] PCP - General Internal Medicine 05/18/24 Alvina hCacko, PharmD [address] [place] [address] Pharmacist Pharmacy 08/03/25 documented as of this encounter
--- OUTSIDE RECORDS SUMMARY | 2025-08-25 09:36 | XMS_ITS | Encounter Summary ---
Author Organization [employer] Address [address] [place] [address] [place] [address] Care Team Providers Care Tube Coater Name Role Phone Daniel Zhang MD Primary Care Provider Alvina Chacko PharmD Unavailable [phone] Encounter Details Date Type Department Care Team ([facility] st Contact Info) Description 07/20/2025 Results Follow-Up [facility] CHC MED & PEDS [address] [place] [address] Daniel Zhang MD [address] [place] [address] CBC auto differential, Basic Metabolic Panel Social History Tobacco Use Types Packs/Day Years [...] Info) Description 08/31/2025 9:00 AM EDT Telemedicine [facility] MED & PEDS [address] [place] [address] Alvina Chacko PharmD [address] [place] [address] 09/20/2025 9:00 AM EST Office Visit [facility] MED & PEDS [address] [place] [address] Daniel Zhang MD [address] [place] [address] documented as of this encounter Visit Diagnoses Not on filedocumented in this encounter Additional Health Concerns Assessment Noted Time PHQ-9 Depression Total Score: 12 025 9:40 AM EDT documented as of this encounter Care Teams Tube Coater Relationship Specialty Start Date End Date Daniel Zhang MD [address] [place] [address] PCP - General Internal Medicine 05/18/24 Alvina Chacko PharmD [address] [place] [address] Pharmacist Pharmacy 08/03/25 documented as of this encounter
--- OUTSIDE RECORDS SUMMARY | 2025-08-25 09:36 | XMS_ITS | Encounter Summary ---
Author Organization [employer] Address [address] [place] [address] Care Team Providers Care Fast Food Attendant Name Role Phone Daniel Zhang MD Primary Care Provider Alvina Chacko PharmD Unavailable [phone] Reason for Visit * Reason Onset Date Comments Med Refill 07/22/2025 Encounter Details Date Type Department Care Team ([facility] st Contact Info) Description 07/22/2025 Refill [facility] CHC MED & PEDS [address] [place] [address] Daniel Zhang MD [address] [place] [address] Other male erectile dysfunction Social History Tobacco [...] Upcoming Encounters Date Type Department Care Team ([facility] st Contact Info) Description 08/31/2025 9:00 AM EDT Telemedicine [facility] MED [facility] PED[facility] [address] [place] [address] Alvina Chacko, PharmD [address] [place] [address] 09/20/2025 9:00 AM EST Office Visit [facility] PED[facility] [address] [place], [place] [phone] Daniel Zhang MD [address] [place] [address] documented as of this encounter Visit Diagnoses Diagnosis Other male erectile dysfunction documented in this encounter Additional Health Concerns Assessment Noted Time PHQ-9 Depression Total Score: 12 025 9:40 AM EDT documented as of this encounter Care Teams Fast Food Attendant Relationship Specialty Start Date End Date Daniel Zhang MD [address] [place] [address] PCP - General Internal Medicine 05/18/24 Alvina Chacko, ChetnaD [address] [place] [address] Pharmacist Pharmacy 08/03/25 documented as of this encounter
--- OUTSIDE RECORDS SUMMARY | 2025-08-25 09:36 | XMS_ITS | Encounter Summary ---
Author Organization [employer] Address [address] [facility] 7 [place] [address] Care Team Providers Care Acute Care Nurse Practitioner Name Role Phone Daniel Zhang MD Primary Care Provider [phone] Alvina Chacko PharmD Unavailable [phone] Encounter Details Date Type Department Care Team ([facility] Contact Info) Description 07/21/2025 Results Follow-Up [facility] CHC MED & PEDS [address] [place] [address] Hilda Hung RN Lipid Panel, Standard Social History Tobacco Use Types Packs/Day Years [facility] [address] [place] [address] Alvina Chacko, PharmD [address] [place] [address] 09/20/2025 9:00 AM EST Office Visit [facility] MED & PEDS [address] [place] [address] Daniel Zhang MD [address] [place] [address] documented as of this encounter Visit Diagnoses Not on filedocumented in this encounter Additional Health Concerns Assessment Noted Time PHQ-9 Depression Total Score: 12 025 9:40 AM EDT documented as of this encounter Care Teams Acute Care Nurse Practitioner Relationship Specialty Start Date End Date Daniel Zhang MD [address] [place] [address] PCP - General Internal Medicine 05/18/24 Alvina Chacko PharmD [address] [place] [address] Pharmacist Pharmacy 08/03/25 documented as of this encounter
--- OUTSIDE RECORDS SUMMARY | 2025-08-25 09:36 | XMS_ITS | Encounter Summary ---
Author Organization [employer] Address [address] [place] [address] Care Team Providers Care Risk Prevention Engineer Name Role Phone Daniel Zhang MD Primary Care Provider Alvina Chacko PharmD Unavailable [phone] Encounter Details Date Type Department Care Team ([facility] st Contact Info) Description 07/20/2025 Orders Only [facility] CHC MED & PEDS [address] [place] [address] Daniel Zhang MD [address] [place] [address] Social History Tobacco Use Types Packs/Day Years [...] Upcoming Encounters Date Type Department Care Team ([facility] st Contact Info) Description 08/31/2025 9:00 AM EDT Telemedicine [facility] MED & PEDS [address] [place] [address] Alvina Chacko, PharmD [address] [place] [address] 09/20/2025 9:00 AM EST Office Visit [facility] MED & PEDS [address] [place] [address] Daniel Zhang MD [address] [place] [address] documented as of this encounter Visit Diagnoses Not on filedocumented in this encounter Additional Health Concerns Assessment Noted Time PHQ-9 Depression Total Score: 12 025 9:40 AM EDT documented as of this encounter Care Teams Risk Prevention Engineer Relationship Specialty Start Date End Date Daniel Zhang MD [address] [place] [address] PCP - General Internal Medicine 05/18/24 Alvina Chacko PharmD [address] [place] [address] Pharmacist Pharmacy 08/03/25 documented as of this encounter
== END 2025-08-25 09:14 | disposition home or self-care (01) ==
LOC: HO.HOS 08:52
PROVIDERS: PCP Internal Medicine; Visit Provider Orthopaedic Surgery
DX: M25.312 Other instability, left shoulder (principal)
CPT/HCPCS: 99203; G2211

== ENCOUNTER → 2025-08-25 08:57 | Outpatient (BNV) | payer MEDICARE, MEDICAID, SELFPAY | PROVIDERS: Visit Provider Radiology Diagnostic Ultrasound | DX: M25.512 Pain in left shoulder (principal) | CPT/HCPCS: 73030 ==

== ENCOUNTER 2025-08-30 08:56 | Outpatient (REF) | payer MEDICARE, MEDICAID, SELFPAY ==
--- OUTSIDE RECORDS SUMMARY | 2025-08-31 09:00 | XMS_ITS | Encounter Summary ---
Author Organization [employer] Address [address] [place] [address] Care Team Providers Care Director Broadcast Name Role Phone Daniel Zhang MD Primary Care Provider Alvina Chacko PharmD Unavailable [phone] Reason for Visit * Consultation (Routine) - Authorized Specialty Diagnoses / Procedures Referred By Conterika t Referred To Contact Pharmacy Diagnoses Smoking 1/2 pack a day or less Daniel Zhang MD [address] [place] [address] Phone: tel: fax: Referral ID Status Reason Start Date Expiration Date Visits Requested Visits Authorized [id number] Authorized Consult and Treat 06/24/2025 06/24/2026 6 6 Encounter Details Date Type Department Care Team ([facility] Contact Info) Description 08/31/2025 9:00 AM EDT Telemedicine [facility] CHC MED & PEDS [address] [place] [address] Alvina Chacko, PharmD [address] [place] [address] Smoking 1/2 pack a day or less (Primary Dx) Social History Tobacco Use Types [...] AM EDT documented as of this encounter Progress Notes * Alvina Chacko PharmD - 08/31/2025 9:00 AM EDT Pharmacy Consult Visit Type: CDTM Pharmacist: Alvina Chacko PharmD Gennaro Quinn is a 45 y.o. year old patient here for a follow-up visit completed over the phone. Subjective History: General / Intake (updated 08/03/25) Allergies: is allergic to ampicillin, cephalosporins, and penicillin g. Read/Write: Yes, in [place] Recent Hospitalizations: 1 month ago for abdominal pain Social History as reported by patient: Tobacco: Current, 1/2 ppd Alcohol: Denies Illicit drugs: Denies Smoking cessation States smoking cessation is going horribly . Endorses a lot of stress making it difficult to quit.However reports only smoking 5 cigarettes per day, a decrease from 1/2 ppd. Patient congratulated, counseled on risk reduction. Checked in with patient on 08/16, he had reported trouble sleeping and was advised to remove the patch at bedtime. Today patient reports doing so and the issue has resolved. Denies use of the lozenges yet , for unclear reason. Objective History: Treatment history/considerations: PMH: a.fib, hypertension, hyperlipidemia, obesity, GERD, s/p hemicolectomy, MDD, KATHY Notably negative for: seizure disorder, chest pain, eating disorder, suicidal ideation, neuropsychiatric disorder Medication: Varenicline not effective Nicotine gum not effective NRT products expensive at [facility] for unclear reason - fill at [facility] Smoking History Reports smoking 1/2-1 ppd for 36 years (since 9 years old) Endorses first cigarette within 30 minutes of waking (immediately) Endorses smoking in the home (bathroom) and car Endorses triggers such as stress Recent labs: Lab Results Component Value Date ALT 27 04/11/2025 AST 29 04/11/2025 LDLCHOLCAL 152 (H) 07/20/2025 TRIG 177 (H) 07/20/2025 K 4.1 07/20/2025 NA 140 07/20/2025 CREATININE 0.66 07/20/2025 EGFR >60 07/20/2025 HGBA1C 5.8 04/11/2025 HGBA1C 6.1 (H) 10/16/2022 HGBA1C 5.9 (H) 09/19/2021 The 10-year ASCVD risk score (Rvai SLATER, et al., 2019) is: 10.3% Values used to calculate the score: Age: 45 years Sex: Male Is Non- : No Diabetic: No Tobacco smoker: Yes Systolic Blood Pressure: 132 mmHg Is BP treated: Yes HDL Cholesterol: 42 mg/dL Total Cholesterol: 229 mg/dL Recent blood pressure readings: BP Readings from Last 4 Encounters: 07/20/25 132/70 06/24/25 128/80 05/03/25 124/81 04/11/25 122/73 Pulse Readings from Last 4 Encounters: 07/20/25 78 06/24/25 80 05/03/25 91 04/11/25 80 Immunizations Due: Flu, COVID, PCV20 - not discussed today, offer next in-person visit Preferred Pharmacy: [id number] - [place], [place] - [address] [place] [id number] Assessment/Plan: Smoking Cessation (Stage: Action) Pharmacotherapy: Nicotine 21mg patch applied daily Nicotine 4mg lozenge used every 1-2 hours PRN Goals of therapy per the [facility] Treating Tobacco Use and Dependence Clinical Practice Guideline: Achieve cessation via pharmacologic & non-pharmacologic intervention Plan: Patient has reduced cigarette use and will continue to focus on risk reduction rather than quittingat this time due to life stressors. Continue current therapy and monitoring. Patient to follow up in [facility] in about 2 months for ongoing support. Education: Use of nicotine patch (can remove prior to bed, rotate site, remove prior to MRI or other imaging). Use of nicotine lozenge (dissolve over 20-30 mins, avoid food/drink for 15 mins prior, max 20 per day). Counseling provided on risks of concomitant tobacco & NRT use, patient confirmed understanding. Total time spent on this encounter was 15 minutes, including time for history review, examination, counseling, care coordination, and documentation. documented in this encounter Plan of Treatment Upcoming Encounters Date Type Department Care Team (Late st Contact Info) Description 09/20/2025 9:00 AM EST Office Visit [facility] MED & PEDS [address] [place] [address] Daniel Zhang MD [address] [place] [address] 11/09/2025 9:00 AM EST Telemedicine [facility] MED & PEDS [address] [place] [address] Alvina Chacko PharmD [address] [place] [address] documented as of this encounter Visit Diagnoses Diagnosis Smoking 1/2 pack a day or less- Primary documented in this encounter Additional Health Concerns Assessment Noted Time PHQ-9 Depression Total Score: 12 025 9:40 AM EDT documented as of this encounter Care Teams Director Broadcast Relationship Specialty Start Date End Date Daniel Zhang MD [address] [place] [address] PCP - General Internal Medicine 05/18/24 Alvina Chacko PharmD [address] [place] [address] Pharmacist Pharmacy 08/03/25 documented as of this encounter
--- OUTSIDE RECORDS SUMMARY | 2025-08-31 09:55 | XMS_ITS | Clinical Summary ---
Author Organization [employer] Address [address] [place] [address] 7 [place] [address] Care Team Providers Care Equipment Washer Name Role Phone Daniel Zhang MD Primary Care Provider Alvina Chacko PharmD Unavailable [phone] Allergies Active Allergy Reactions Criticality Noted Date [...] per day. At 9 am 07/01/20 Active tadalafil (Cialis) 10 MG tabletIndications :Other male erectile dysfunction Take 1 tablet (10 mg) by mouth if needed each day for erectile dysfunction. 20 tablet 2 07/28/20 Active nicotine (Nicoderm CQ) 21 MG/24HR patchIndications: [...] day. 72 lozenge 11 08/03/20 25 Active ibuprofen 800 MG tabletIndications :Chronic pain of right knee,Chronic left shoulder pain TAKE 1 TABLET BY MOUTH 3 TIMES DAILY. 90 tablet 08/26/20 25 Active varenicline (Chantix) 1 MG tabletIndications :Smoker TAKE ONE TABLET BY MOUTH TWICE DAILY @ 9AM & 5PM TAKE WITH FULL GLASS OF WATER 168 tablet 1 04/12/20 25 2024 Discontinued(I neffective) ibuprofen 800 MG tabletIndications :Chronic pain of right knee,Chronic left shoulder pain TAKE 1 TABLET BY MOUTH 3 TIMES DAILY. 90 tablet 07/21/20 25 2024 Discontinued Active Problems Problem Noted Date Diagnosed Date [...] Encounters Date Type Department Care Team Description 08/31/2025 9:00 AM EDT Telemedicine [facility] [address] [place] [address] Alvina Chacko PharmD Smoking 1/2 pack a day or less (Primary Dx) 08/31/2025 Travel 08/26/2025 Refill [facility] [address] [place] [address] Daniel Zhang MD Chronic pain of right knee; Chronic left shoulder pain 08/16/2025 Telephone [facility] [address], [place] [phone] Alvina Chacko, PharmD 08/03/2025 9:00 AM EDT Telemedicine [facility] [address], [place] [phone] Alvina Chacko, PharmD Smoking 1/2 pack a day or less (Primary Dx) 08/03/2025 Travel 07/28/2025 Refill [facility] [address], [place] [phone] Daniel Zhang MD Other male erectile dysfunction 07/22/2025 Refill [facility] [address], [place] [phone] Daniel Zhang MD Other male erectile dysfunction 07/21/2025 Telephone [facility] [address], [place] [phone] Daniel Zhang MD Patient Education 07/21/2025 Results Follow-Up [facility] [address], [place] [phone] Hilda Hung RN Lipid Panel, Standard 07/21/2025 Refill [facility] [address], [place] [phone] Daniel Zhang MD Chronic pain of right knee; Chronic left shoulder pain 07/20/2025 9:15 AM EDT Office Visit [facility] [address] [place] [phone] Daniel Zhang MD Partial small bowel obstruction (CMS/HCC) (Primary Dx) 07/20/2025 Orders Only [facility] [address], [place] [phone] Daniel Zhang MD 07/20/2025 Results Follow-Up [facility] [address], [place] [phone] Daniel Zhang MD CBC auto differential, Basic Metabolic Panel 07/20/2025 Travel 07/14/2025 Travel 07/13/2025 Telephone [facility] [address] [place] [phone] Daniel Zhang MD Medication Question 07/12/2025 Telephone [facility] [address] [place] [address] Daniel Zhang MD Hospital Follow-up 07/07/2025 Orders Only [facility] [address] [place] [address] Kimberly Guerrier MD 06/29/2025 Refill [facility] [address] [place] [address] Daniel Zhang MD Primary hypertension; Gastroesophageal reflux disease without esophagitis 06/24/2025 2:45 PM EDT Office Visit [facility] [address] [place] [address] Daniel Zhang MD Chronic pain of right knee (Primary Dx); Chronic left shoulder pain; Primary hypertension; Smoking 1/2 pack a day or less 06/24/2025 Travel 06/23/2025 Telephone [facility] [address] [place] [address] Daniel Zhang MD Chart Prep 06/17/2025 Travel 06/09/2025 Orders Only [facility] [address] [place] [address] Daniel Zhang MD Other male erectile dysfunction (Primary Dx) 06/09/2025 Telephone [facility] [address] [place] [address] Daniel Zhang MD Medication Question 06/07/2025 Refill [facility] [address] [place] [phone] Daniel Zhang MD Other male erectile dysfunction 06/07/2025 Refill [facility] [address] [place] [address] Lucy Leung MD Other male erectile dysfunction 06/06/2025 Refill [facility] [address] [place] [address] Daniel Zhang MD Vitamin D deficiency from [...] Description 09/20/2025 9:00 AM EST Office Visit [facility] [address] [place] [address] Daniel Zhang MD [address] [place] [address] 11/09/2025 9:00 AM EST Telemedicine [facility] [address] [place] [address] Alvina Chacko, PharmD [address] [place] [address] Health Maintenance Due Date Last Done Comments CT Colonography 1980 Colonoscopy 1980 FIT 1980 Sigmoidoscopy 1980 Family Planning (PISQ) 01/15/1995 HPV Vaccines (1 - Male 3-dose series) 01/15/1995 Pneumococcal Vaccine: Pediatrics (0 to 5 Years) and At-Risk Patients (6 to 49) Years (1 of 2 - PCV) 01/15/1999 COVID-19 Vaccine ( season) 2025 10/11/2022, 03/08/2022, [...] of 2) 01/15/2030 Lipid Panel 07/20/2030 07/20/2025, 0607/2025, 10/15/2023, Additional history exists RSV Patients and [...] Blood Count 7.6 4.8 - 10.8 X10*3/uL [facility] Red Blood Count 5.38 4.60 - 5.80 X10*6/uL [facility] Hemoglobin 15.5 14.0 - 18.0 g/dl [facility] Hematocrit 47.7 42.0 - 52.0 % [facility] Mean Corpuscular Volume 88.7 80.0 - 98.0 fL [facility] Mean Corpuscular Hemoglobin 28.8 27.0 - 33.0 pg [facility] Mean Corpuscular HGB Conc 32.5 31.0 - 36.0 g/dl [facility] Red Cell Distribution Width 13.9 11.0 - 16.0 % [facility] Platelet Count 276 160 - 400 X10*3/uL [facility] Mean Platelet Volume 11.1 9.4 - 12.4 fL [facility] Neutrophils Percent Auto 54.5 45 - 73 % [facility] Imm Gran Pct Auto 0.3 0.0 - 0.4 % [facility] Lymphocytes Percent Auto 37.1 20 - 40 % [facility] Monocytes Percent Auto 6.1 2 - 11 % [facility] Eosinophils Percent Auto 1.2 0 - 4 % [facility] Basophils Percent Auto 0.8 0 - 2 % [facility] NRBC Pct Auto 0.0 0.0 - 0.2 /100WBC [facility] Neutrophils Absolute Auto 4.1 2.0 - 8.3 x10*3/uL [facility] Imm Gran Abs Auto 0.02 0.00 - 0.03 X10*3/uL [facility] Lymphocytes Absolute Auto 2.8 1.2 - 4.9 X10*3/uL [facility] Monocytes Absolute Auto 0.5 0.1 - 1.2 X10*3/uL [facility] Eosinophils Absolute Auto 0.1 0.0 - 0.4 X10*3/uL [facility] Basophils Absolute Auto 0.1 0.0 - 0.2 X10*3/uL [facility] NRBC Abs Auto 0.000 0.0 - 0.012 X10*3/uL [facility] Blood Venous blood specimen / Unknown 07/20/2025 10:30 AM EDT 07/20/2025 2:00 PM EDT us Daniel Zhang MD LAB BLOOD ORDERABLES Final Result Performing Organization Address [facility] Co de Phone Number [facility] [address] [place] [phone] * (ABNORMAL) Lipid Panel, Standard (07/20/2025 10:30 AM EDT) Triglycerides 177(H) <150 mg/dL [facility] Comment:Desirable Triglyceri de: less than 150 mg/dLBorderline High Triglyceride 150-199 mg/dLHigh Triglyceride: 200-499 mg/dLVery High Triglyceride: greater than or equal to 5OO mg/dL Cholesterol 229(H) <200 mg/dL [facility] Comment:Desirable Cholestero l: less than 200 mg/dLBorderline High Cholesterol: 200-239 mg/dLHigh Cholesterol: greater than 239 mg/dL LDL Cholesterol Calculated 152(H) <100 mg/dL [facility] Comment:Desirable LDL: less than 100 mg/dLNear Optimal/Above Optimal LDL: 110- 129 mg/dLBorderline High LDL: 130-159 mg/dLHigh LDL: 160-189 mg/dLVery High LDL: greater than or equal to 190 mg/dL HDL Cholesterol 42 >40 mg/dL [facility] Comment:Desirable HDL: great er than 40 mg/dL Note: This HDL assay may give artificially low results in patients with liver disease. Blood Venous blood specimen / Unknown 07/20/2025 10:30 AM EDT 07/20/2025 2:20 PM EDT us Daniel Zhang MD LAB BLOOD ORDERABLES Final Result Performing Organization Address [facility]/ZIP Co de Phone Number [facility] [address] [place] [phone] * (ABNORMAL) Basic Metabolic Panel (07/20/2025 10:30 AM EDT) Sodium 140 135 - 145 mmol/L [facility] Potassium 4.1 3.3 - 5.1 mmol/L [facility] Chloride 106 96 - 108 mmol/L [facility] Carbon Dioxide 27 22 - 29 mmol/L [facility] Anion Gap 11(L) 12 - 20 [facility] Urea Nitrogen (BUN) 8(L) 9 - 16 mg/dL [facility] Creatinine, Serum 0.66 0.5 - 1.4 mg/dL [facility] Estimated Glomerular Filt Rate >60 [facility] Comment:Chronic Kidney Disea se: Estimated GFR < 60 mL/min/1.58s7Ogjqgm Kidney Disease: Estimated GFR < 15 mL/min/1.73m2 Glucose 79 60 - 115 mg/dL [facility] Calcium 9.0 8.4 - 10.2 mg/dL [facility] Blood Venous blood specimen / Unknown 07/20/2025 10:30 AM EDT 07/20/2025 2:20 PM EDT Daniel Zhang MD LAB BLOOD ORDERABLES Final Result [facility] [address] [place] [phone] * CT Abdomen Pelvis w/ Contrast (07/06/2025 9:48 AM EDT) Only the most recent of2 resultswithin the time period is included. Anatomical Region Laterality Modality Body, Pelvis, Abdomen Computed T omography us Historical Provider IMG CT PROCEDURES Final R esult * Cologuard?? colon cancer screening (05/03/2025 6:50 AM EDT) Cologuard Result Negative Negative 05/09/20 5:49 AM EDT [facility] (CLIA #:[id number]) Comment: The Cologuard (TM) test was performed [...] screened with both Cologuard and colonoscopy. (Fahad Hernandez. et al, N Engl J Med 2014;370(14):1286- 1297) The normal value (reference range) for this assay is negative. COLOGUARD RE-SCREENING RECOMMENDATION: Periodic colorectal cancer screening is an important part of preventive healthcare for asymptomatic individuals at average risk for colorectal cancer. Following a negative Cologuard result, the [place] [employer] Society and U.S. Multi-Society Task Force screening guidelines recommend a Cologuard re-screening interval of 3 years. References: [place] [employer] Guideline for Colorectal Cancer Screening: https://www.cancer.org/cancer/qsymc-huasld-syfqxp/tpndvgevb-stkhldijp-tzgtegk/ac s-rec ommendations.html.; Gene SLATER, Gordo SAENZ, Catrachita FelicianoK, Colorectal Cancer Screening: Recommendations for Physicians and Patients from the U.S. Multi-Society Task Force on Colorectal Cancer Screening , Am J Gastroenterology 2017; 112:4079-2621. TEST DESCRIPTION: Composite algorithmic analysis of stool [...] screened with both Cologuard and colonoscopy. (Fahad Hernandez. et al, N Engl J Med 2014;370(14):3971-3076.) Cologuard may produce a false negative or false positive result (no colorectal cancer or precancerous polyp present at colonoscopy follow up). A negative Cologuard test result does not guarantee the absence of CRC or advanced adenoma (pre-cancer). The current Cologuard screening interval is every 3 years. ([place] [employer] and U.S. Multi-Society Task Force). Cologuard performance data in a 10,000 patient pivotal study using colonoscopy as the reference method can be accessed at the following location: www.[employer]/results. Additional description of the Cologuard test process, warnings and precautions can be found at www.[employer].Taboola. Stool specimen (specimen) 05/03/2025 6:50 AM EDT 05/04/2025 1:43 PM EDT Daniel Zhang MD LAB MOLECULAR DIAGNOSTICS O RDERABLES Final Result [facility] (CLIA #:[id number]) [address] [place] [address], * Hepatitis C Antibody with Reflex to HCV, RNA, Quantitative, Real-Time PCR (04/11/2025 10:40 AM EDT) Hepatitis C Antibody Nonreactive Nonreactive [facility] Comment:Antibodies to HCV no t detected; does not exclude early acuteHCV infection. Blood Venous blood specimen / Unknown 04/11/2025 10:40 AM EDT 04/11/2025 2:17 PM EDT us Daniel Zhang MD LAB BLOOD ORDERABLES Final Result Performing Organization Address [facility] Co de Phone Number [facility] [address] [place] [phone] * HIV-1/2 Antigen and Antibodies, Fourth Generation, with Reflexes (04/11/2025 10:40 AM EDT) HIV AB/AG Nonreactive Nonreactive [facility] Comment:HIV-1 p24 Ag and/or HIV-1/HIV-2 Ab not detected.A test result that is nonreactive does not exclude thepossibility of exposure to or infection with HIV-1 and/orHIV-2. Nonreactive results in this assay for individualswith prior exposure to HIV-1 and/or HIV-2 may be due toantigen and antibody levels that are below the limit ofdetection of this assay.The [employer] HIV Ag/Ab Combo assay result andsupplemental assay results should be interpreted inconjunction with the patient's clinical presentation,history and other laboratory results. If the results areinconsistent with clinical evidence, additional testing issuggested to confirm the result. Blood Venous blood specimen / Unknown 04/11/2025 10:40 AM EDT 04/11/2025 2:17 PM EDT us Daniel Zhang MD LAB BLOOD ORDERABLES Final Result Performing Organization Address [facility] Co de Phone Number [facility] [address] [place] [phone] * Hemoglobin A1c (04/11/2025 10:40 AM EDT) Hemoglobin A1c 5.8 <6.0 % [facility] Comment:Hemoglobin A1C Refer ence Range Adults: 4.8 - 6.0 % Non diabetic: < 6.0 % Goal: < 7.0 %Additional Action Suggested: > 8.0 %Note: Hemoglobin A1c results are invalid for patients with abnormal amounts of HbF. Blood transfusions may impact the HbA1c concentration in the patient sample. Estimated Average Glucose 120 mg/dL [facility] Comment:eAG = Estimated ave rage glucose which is %A1C expressed asaverage glucose, using the formula of the X4I-MdghyvqHiodqdv Glucose study (ADAG), Diabetes Care, Vol.31,#8,Jun. 2007 Blood Venous blood specimen / Unknown 04/11/2025 10:40 AM EDT 04/11/2025 2:17 PM EDT us Daniel Zhang MD LAB BLOOD ORDERABLES Final Result [facility] [address] [place] [phone] [phone] from Last 3 Months or Most Recently Relevant to Health Maintenance [place] [address] [place] [address] STANDARD [employer] MEDICARE REPLACEMENT Care Teams Equipment Washer Relationship Specialty Start Date End Date Daniel Zhang MD [address] [place] [phone] PCP - General Internal Medicine 05/18/24 Alvina Chacko, ChetnaD [address] [place] [phone] Pharmacist Pharmacy 08/03/25
--- OUTSIDE RECORDS SUMMARY | 2025-08-31 09:55 | XMS_ITS | Clinical Summary ---
Author Organization [facility] Address [address] [place] [address] Phone Care Team Providers Care Barbering Instructor Name Role Phone Raudel Armstrong Primary Care [...] - 07/07/2025 5:50 PM EDT Hospital Encounter [facility] [address] [place] [phone] Loi Malcolm MD Jones, Christopher, MD Japaridze, Anna, MD Partial small bowel obstruction (CMS/HCC V24, CMS/[facility] V28) (Primary Dx); LLQ pain Discharge Disposition: [...] care for your loved ones. For example, exceptional children teacher assistant or elderly care for an older adult? [...] METABOLIC PANEL Routine 07/07/2025 6:13 AM EDT [id number], RSV, FLU A AND B QUALITATIVE RT-PCR, [...] LAB MICROBIOLOGY METHOD 5 11:14 AM EDT [facility] Plesiomonas shigelloides Detection by PCR Not Detected Not Detected LAB MICROBIOLOGY METHOD 5 11:14 AM EDT [facility] Salmonella Detection by PCR Not Detected Not Detected LAB MICROBIOLOGY METHOD 5 11:14 AM EDT [facility] Vibrio Detection by PCR Not Detected Not Detected LAB MICROBIOLOGY METHOD 5 11:14 AM EDT [facility] Vibrio cholerae Detection by PCR Not Detected Not Detected LAB MICROBIOLOGY METHOD 5 11:14 AM EDT [facility] Yersinia enterocolitica Detection by PCR Not Detected Not Detected LAB MICROBIOLOGY METHOD 5 11:14 AM EDT [facility] Enteroaggregative E coli EAEC Detection by PCR Not Detected Not Detected LAB MICROBIOLOGY METHOD 5 11:14 AM EDT [facility] Enteropathogenic E coli EPEC Detection Not Detected Not Detected LAB MICROBIOLOGY METHOD 5 11:[address] [facility] Enterotoxigenic E coli ETEC LTST Detection Not Detected Not Detected LAB MICROBIOLOGY METHOD 5 11:[address] [facility] Shiga-like toxin producing E coli STEC STX1 STX2 Det Not Detected Not Detected LAB MICROBIOLOGY METHOD 5 11:[address] [facility] Shigella Enteroinvasive E coli EIEC Detection Not Detected Not Detected LAB MICROBIOLOGY METHOD 5 11:[address] [facility] Cryptosporidium Detection by PCR Not Detected Not Detected LAB MICROBIOLOGY METHOD 5 11:[address] [facility] Cyclospora cayetanensis Detection by PCR Not Detected Not Detected LAB MICROBIOLOGY METHOD 5 11:[address] [facility] Entamoeba histolytica Detection by PCR Not Detected Not Detected LAB MICROBIOLOGY METHOD 5 11:[address] [facility] Giardia lamblia Detection by PCR Not Detected Not Detected LAB MICROBIOLOGY METHOD 5 11:[address] [facility] Adenovirus F 40 41 Detection by PCR Not Detected Not Detected LAB MICROBIOLOGY METHOD 5 11:[address] [facility] Astrovirus Detection by PCR Not Detected Not Detected LAB MICROBIOLOGY METHOD 5 11:[address] [facility] Norovirus GI GII Detection by PCR Not Detected LAB MICROBIOLOGY METHOD 5 11:[address] [facility] Sapovirus Detection by PCR Not Detected Not Detected LAB MICROBIOLOGY METHOD 5 11:[address] [facility] Rotavirus A Detection by PCR Not Detected Not Detected LAB MICROBIOLOGY METHOD 5 11:[address] [facility] Stool Rectum structure / Unknown Non-blood Collection / Unknown 07/07/2025 9:23 AM EDT 07/07/2025 9:44 AM EDT Narrative [facility] - 07/07/2025 11:14 AM [...] MICROBIOLOGY - GENERAL ORD ERABLES Final Result [facility] [address] [place] [address], [place] [phone] * (ABNORMAL) CBC auto differential (07/07/2025 6:13 AM EDT) Only the most recent of2 resultswithin the time period is included. WBC 9.1 4.8 - 10.8 K/mcL LAB HEMETOLOGY METHOD 07/07/2025 6:55 AM EDT [facility] RBC 5.40 4.50 - 5.50 M/mcL LAB HEMETOLOGY METHOD 07/07/2025 6:55 AM EDT [facility] Hemoglobin 15.0 13.5 - 17.5 g/dL LAB HEMETOLOGY METHOD 07/07/2025 6:55 AM EDT [facility] Hematocrit 47.4 42.0 - 54.0 % LAB HEMETOLOGY METHOD 07/07/2025 6:55 AM EDT [facility] MCV 88.4 79.0 - 98.0 FL LAB HEMETOLOGY METHOD 07/07/2025 6:55 AM EDT [facility] MCH 28.0 27.0 - 32.0 pcg LAB HEMETOLOGY METHOD 07/07/2025 6:[address] [facility] MCHC 31.6(L) 32.0 - 37.0 g/dL LAB HEMETOLOGY METHOD 07/07/2025 6:[address] [facility] RDW 14.1 11.0 - 15.0 % LAB HEMETOLOGY METHOD 07/07/2025 6:[address] [facility] Platelets 246 130 - 400 K/mcL LAB HEMETOLOGY METHOD 07/07/2025 6:[address] [facility] MPV 10.9 7.0 - 11.0 FL LAB HEMETOLOGY METHOD 07/07/2025 6:[address] [facility] NRBC 0.0 <1.0 % LAB HEMETOLOGY METHOD 07/07/2025 6:[address] [facility] NRBC Absolute 0.00 <0.10 K/mcL LAB HEMETOLOGY METHOD 07/07/2025 6:[address] [facility] Neutrophils Relative 84.2 % LAB HEMETOLOGY METHOD 07/07/2025 6:[address] [facility] Lymphocytes Relative 10.8 % LAB HEMETOLOGY METHOD 07/07/2025 6:[address] [facility] Monocytes Relative 4.2 % LAB HEMETOLOGY METHOD 07/07/2025 6:[address] [facility] Eosinophils Relative 0.2 % LAB HEMETOLOGY METHOD 07/07/2025 6:[address] [facility] Basophils Relative 0.4 % LAB HEMETOLOGY METHOD 07/07/2025 6:[address] [facility] Immature Granulocytes Relative 0.2 % LAB HEMETOLOGY METHOD 07/07/2025 6:[address] [facility] Neutrophils Absolute 7.66(H) 1.50 - 7.00 K/mcL LAB HEMETOLOGY METHOD 07/07/2025 6:55 AM EDT [facility] Lymphocytes Absolute 0.98(L) 1.00 - 5.00 K/[facility] LAB HEMETOLOGY METHOD 07/07/2025 6:55 AM EDT [facility] Monocytes Absolute 0.38 0.20 - 1.00 K/[facility] LAB HEMETOLOGY METHOD 07/07/2025 6:55 AM EDT [facility] Eosinophils Absolute 0.02 0.00 - 0.50 K/[facility] LAB HEMETOLOGY METHOD 07/07/2025 6:55 AM EDT [facility] Basophils Absolute 0.04 0.00 - 0.20 K/[facility] LAB [facility]OLOGY [facility] Immature Granulocytes Absolute 0.02 0.00 - 0.03 K/[facility] LAB HEMETOLOGY METHOD 07/07/2025 6:55 AM T [facility] Blood Venous blood specimen / Unknown Venipuncture / Unknown 07/07/2025 6:13 AM EDT 07/07/2025 6:47 AM EDT us Amarjit German MD LAB BLOOD ORDERABLES Final Result [facility] [address] [place] [address], * (ABNORMAL) Basic metabolic panel (07/07/2025 6:13 AM EDT) Sodium 137 133 - 145 mmol/L LAB CHEMISTRY METHOD 07/07/2025 7:45 AM EDT [facility] Potassium 4.7 3.5 - 5.5 mmol/L LAB CHEMISTRY METHOD 07/07/2025 7:45 AM EDT [facility] Comment:Hemolysis present Chloride 105 96 - 110 mmol/L LAB CHEMISTRY METHOD 07/07/2025 7:45 AM EDT [facility] CO2 26 21 - 32 mmol/L LAB CHEMISTRY METHOD 07/07/2025 7:[address] [facility] Anion Gap 6 3 - 11 LAB CHEMISTRY METHOD 07/07/2025 7:[address] [facility] Glucose 114(H) 70 - 100 mg/dL LAB CHEMISTRY METHOD 07/07/2025 7:[address] [facility] BUN 8 5 - 25 mg/dL LAB CHEMISTRY METHOD 07/07/2025 7:[address] [facility] Creatinine 0.68(L) 0.70 - 1.30 mg/dL LAB CHEMISTRY METHOD 07/07/2025 7:[address] [facility] eGFR 117 >=60 mL/min/1. 73m2 LAB CHEMISTRY METHOD 07/07/2025 7:[address] [facility] Comment:Calculation based on the Chronic Kidney Disease Epidemiology Collaboration (CKD-EPI) equation refit without adjustment for race. BUN/Creatinine Ratio 11.8 LAB CHEMISTRY METHOD 07/07/2025 7:[address] [facility] Calcium 9.2 8.5 - 10.5 mg/dL LAB CHEMISTRY METHOD 07/07/2025 7:[address] [facility] Blood Venous blood specimen / Unknown Venipuncture / Unknown 07/07/2025 6:13 AM EDT 07/07/2025 6:47 AM EDT us Amarjit German MD LAB BLOOD ORDERABLES Final Result [facility] [address] [place] [address], * [id number], RSV, Influenza A and B qualitative RT-PCR (07/07/2025 4:24 AM EDT) Influenza A PCR Not Detected Not Detected LAB MICROBIOLOGY METHOD 07/07/2025 5:30 AM EDT [facility] Influenza B PCR Not Detected Not Detected LAB MICROBIOLOGY METHOD 07/07/2025 5:30 AM EDT [facility] RSV PCR Not Detected Not Detected LAB MICROBIOLOGY METHOD 07/07/2025 5:30 AM EDT [facility] SARS COV-2 Not Detected Not Detected LAB MICROBIOLOGY METHOD 07/07/2025 5:30 AM EDT [facility] Swab Nasopharyngeal structure / Unknown Non-blood Collection / Unknown 07/07/2025 4:24 AM EDT 07/07/2025 4:50 AM EDT Narrative [facility] - 07/07/2025 5:30 AM EDT Disclaimer: Testing was performed using the [employer] GeneXpert Xpress SARS-CoV-2 _Flu_RSV PLUS PCR assay. [...] for Healthcare providers can be found at https://www.fda.gov/media/869931/download. Fact sheet for Healthcare patients can be found at https://www.fda.gov/media/206759/download. us Amarjit German MD LAB MICROBIOLOGY - GENERAL ORDERABLES Final Result [facility] [address] [place] [address], [place] [phone] * XR Abdomen 1 View (07/07/2025 2:43 AM EDT) Anatomical Region Laterality Modality Body Radiographic Alesha ging 07/07/2025 9:05 AM EDT Impressions 07/07/2025 9:07 AM EDT A nasogastric tube is present with the lower portion in the abdominal left upper quadrant. However, the tip position cannot be assessed as it is below the lower level of this radiograph. Code 16081 -------- FINAL REPORT -------- Dictated By: Romulo Fagan Dictated Date: 07/07/2025 09:05 ET Assigned Physician: Romulo Fagan Reviewed and Electronically Signed By: Romulo Fagan Signed Date: 07/07/2025 09:07 ET Workstation ID: [id number] Transcribed By: Self Edit Transcribed Date: 07/07/2025 [...] the lower level of this radiograph. Code 05613 -------- FINAL REPORT -------- Dictated By: Romulo Fagan Dictated Date: 07/07/2025 09:05 ET Assigned Physician: Romulo Fagan Reviewed and Electronically Signed By: Romulo Fagan Signed Date: 07/07/2025 09:07 ET Workstation ID: [id number] Transcribed By: Self Edit Transcribed Date: 07/07/2025 [...] and culture (07/06/2025 9:51 PM EDT) Specific [place] Urine 1.014 1.003 - 1.030 LAB URINALYSIS - AUTOMATED METHOD 07/06/2025 10:[address] [facility] pH, Urine 6.0 5.0 - 8.0 pH LAB URINALYSIS - AUTOMATED METHOD 07/06/2025 10:[address] [facility] Leukocytes, Urine Negative Negative LAB URINALYSIS - AUTOMATED METHOD 07/06/2025 10:[address] [facility] Nitrite, Urine Negative Negative LAB URINALYSIS - AUTOMATED METHOD 07/06/2025 10:[address] [facility] Protein, Urine Negative <=Trace mg/dL LAB URINALYSIS - AUTOMATED METHOD 07/06/2025 10:[address] [facility] Glucose, Urine Negative Negative mg/dL LAB URINALYSIS - AUTOMATED METHOD 07/06/2025 10:04 PM EDT [facility] Ketones, Urine Negative Negative mg/dL LAB URINALYSIS - AUTOMATED METHOD 07/06/2025 10:04 PM EDT [facility] Urobilinogen, Urine 1.0 0.2 - 1.0 mg/dL LAB URINALYSIS - AUTOMATED METHOD 07/06/2025 10:04 PM EDT [facility] Bilirubin, Urine Negative Negative LAB URINALYSIS - AUTOMATED METHOD 07/06/2025 10:04 PM EDT [facility] Blood, Urine Negative Negative LAB URINALYSIS - AUTOMATED METHOD 07/06/2025 10:04 PM EDT [facility] Urine Urine specimen obtained by clean catch procedure / Unknown Non-blood Collection / Unknown 07/06/2025 9:51 PM EDT 07/06/2025 9:55 PM EDT us Loi Malcolm MD LAB URINE ORDERABLES Final Res ult Performing Organization Address City/[facility]/ZIP Co de Phone Number [facility] [address] [place] [address], [place] [phone] * Manuel urine culture tube (07/06/2025 9:51 PM EDT) Extra Tube Hold for add-ons. 07/06/2025 11:01 PM EDT [facility] Comment:Auto resulted. Urine Urine specimen obtained by clean catch procedure / Unknown Non-blood Collection / Unknown 07/06/2025 9:51 PM EDT 07/06/2025 9:55 PM EDT us Loi Malcolm MD LAB URINE ORDERABLES Final Res ult Performing Organization Address [facility]/State/ZIP Co de Phone Number [facility] [address] [place] [address], [place] [phone] * Lipase (07/06/2025 8:26 PM EDT) Lipase 22 13 - 75 unit/L LAB CHEMISTRY METHOD 07/06/2025 9:[address] [facility] Blood Venous blood specimen / Unknown Venipuncture / Unknown 07/06/2025 8:26 PM EDT 07/06/2025 8:39 PM EDT us Gal Ruiz MD LAB BLOOD ORDERABLES Final Result [facility] [address] [place] [address], * (ABNORMAL) Comprehensive metabolic panel (07/06/2025 8:26 PM EDT) Pathologist [facility] Sodium 138 133 - 145 mmol/L LAB CHEMISTRY METHOD 07/06/2025 9:[address] [facility] Potassium 3.5 3.5 - 5.5 mmol/L LAB CHEMISTRY METHOD 07/06/2025 9:[address] [facility] Chloride 105 96 - 110 mmol/L LAB CHEMISTRY METHOD 07/06/2025 9:[address] [facility] CO2 26 21 - 32 mmol/L LAB CHEMISTRY METHOD 07/06/2025 9:[address] [facility] Anion Gap 7 3 - 11 LAB CHEMISTRY METHOD 07/06/2025 9:[address] [facility] Glucose 109(H) 70 - 100 mg/dL LAB CHEMISTRY METHOD 07/06/2025 9:[address] [facility] BUN 8 5 - 25 mg/dL LAB CHEMISTRY METHOD 07/06/2025 9:[address] [facility] Creatinine 0.77 0.70 - 1.30 mg/dL LAB CHEMISTRY METHOD 07/06/2025 9:[address] [facility] eGFR 113 >=60 mL/min/1. 73m2 LAB CHEMISTRY METHOD 07/06/2025 9:[address] [facility] Comment:Calculation based on the Chronic Kidney Disease Epidemiology Collaboration (CKD-EPI) equation refit without adjustment for race. BUN/Creatinine Ratio 10.4 LAB CHEMISTRY METHOD 07/06/2025 9:[address] [facility] Calcium 9.2 8.5 - 10.5 mg/dL LAB CHEMISTRY METHOD 07/06/2025 9:[address] [facility] AST (SGOT) 18 10 - 42 unit/L LAB CHEMISTRY METHOD 07/06/2025 9:[address] [facility] ALT (SGPT) 26 10 - 60 unit/L LAB CHEMISTRY METHOD 07/06/2025 9:[address] [facility] Alkaline Phosphatase 84 42 - 121 unit/L LAB CHEMISTRY METHOD 07/06/2025 9:[address] [facility] Total Protein 7.1 6.0 - 8.0 g/dL LAB CHEMISTRY METHOD 07/06/2025 9:[address] [facility] Albumin 3.9 3.2 - 5.0 g/dL LAB CHEMISTRY METHOD 07/06/2025 9:[address] [facility] Total Bilirubin 0.4 0.0 - 1.4 mg/dL LAB CHEMISTRY METHOD 07/06/2025 9:[address] [facility] Blood Venous blood specimen / Unknown Venipuncture / Unknown 07/06/2025 8:26 PM EDT 07/06/2025 8:39 PM EDT us Gal Ruiz MD LAB BLOOD ORDERABLES Final Result [facility] [address] [place] [address], [place] [phone] from Last 3 Months Insurance MEDICAID - [place] [employer] MEDICARE ADVANTAGE Advance Directives Documents on File Type Date Recorded 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 Care Teams Barbering Instructor Relationship Specialty Start Date End Date Raudel Armstrong [address] [place] [address] PCP - General Internal Medicine 11/16/21
--- OUTSIDE RECORDS SUMMARY | 2025-08-31 09:55 | XMS_ITS | Encounter Summary ---
Author Organization [employer] Address [address] [facility] 7 [place] [address] Care Team Providers Care Outside Salesman Name Role Phone Daniel Zhang MD Primary Care Provider [phone] Alvina Chacko PharmD Unavailable [phone] Encounter Details Date Type Department Care Team ([facility] st Contact Info) Description 07/07/2025 Orders Only [facility] MED & PEDS [address] [place] [address] ProviderKimberly MD Social History Tobacco Use Types [...] the past 12 months, has t he [employer], gas, oil or water [employer]sCloud threatened to shut off services in your [...] Description 09/20/2025 9:00 AM EST Office Visit [facility] [address] [place] [address] Daniel Zhang MD [address] [place] [address] 11/09/2025 9:00 AM EST Telemedicine [facility] [address] [place] [address] Alvina Chacko, PharmD [address] [place] [address] documented as of this encounter Procedures Procedure [...] documented as of this encounter Care Teams Outside Salesman Relationship Specialty Start Date End Date Daniel Zhang MD [address] [place] [address] PCP - General Internal Medicine 05/18/24 Alvina Chacko, ChetnaD [address] [place] [phone] Pharmacist Pharmacy 08/03/25 documented as of this encounter
--- OUTSIDE RECORDS SUMMARY | 2025-08-31 09:55 | XMS_ITS | Encounter Summary ---
Author Organization [employer] Address [address] [place] [address] Care Team Providers Care Networks Software Consultant Name Role Phone Daniel Zhang MD Primary Care Provider Alvina Chacko PharmD Unavailable [phone] Encounter Details Date Type Department Care Team ([facility] st Contact Info) Description 06/28/2024 Orders Only [facility] MED & PEDS [address] [place] [address] Daniel Zhang MD [address] [place] [address] Vitamin D deficiency (Primary Dx); Mixed hyperlipidemia; [...] Description 09/20/2025 9:00 AM EST Office Visit [facility] MED [facility] PEDS [address] [place] [address] Daniel Zhang MD [address] [place] [address] 11/09/2025 9:00 AM EST Telemedicine [facility] [address] [place] [address] Alvina Chacko, PharmD [address] [place] [address] documented as of this encounter Visit Diagnoses [...] documented as of this encounter Care Teams Networks Software Consultant Relationship Specialty Start Date End Date Daniel Zhang MD [address] [place] [address] PCP - General Internal Medicine 05/18/24 Alvina Chacko, PharmD [address] [place] [address] Pharmacist Pharmacy 08/03/25 documented as of this encounter
--- OUTSIDE RECORDS SUMMARY | 2025-08-31 09:55 | XMS_ITS | Encounter Summary ---
Author Organization [employer] Address [address] [place] [address] Care Team Providers Care Business Development Engineer Name Role Phone Daniel Zhang MD Primary Care Provider Alvina Chacko PharmD Unavailable [phone] Reason for Visit * Reason Onset Date Comments Med Refill 06/07/2025 Encounter Details Date Type Department Care Team ([facility] st Contact Info) Description 06/07/2025 Refill [facility] MED & PEDS [address] [place] [address] Daniel Zhang MD [address] [place] [address] Other male erectile dysfunction Social History Tobacco [...] Upcoming Encounters Date Type Department Care Team ([facility] st Contact Info) Description 09/20/2025 9:00 AM EST Office Visit [facility] MED & PEDS [address] [place] [address] Daniel Zhang MD [address] [place] [address] 11/09/2025 9:00 AM EST Telemedicine [facility] MED & PEDS [address] [place], [place] [phone] Alvina Chacko, PharmD [address] [place] [address] documented as of this encounter Visit Diagnoses Diagnosis Other male erectile dysfunction documented in this encounter Additional Health Concerns Assessment Noted Time PHQ-9 Depression Total Score: 12 025 9:40 AM EDT documented as of this encounter Care Teams Business Development Engineer Relationship Specialty Start Date End Date Daniel Zhang MD [address] [place] [address] PCP - General Internal Medicine 05/18/24 Alvina Chacko PharmD [address] [place] [address] Pharmacist Pharmacy 08/03/25 documented as of this encounter
--- OUTSIDE RECORDS SUMMARY | 2025-08-31 09:55 | XMS_ITS | Encounter Summary ---
Author Organization [employer] Address [address] [place] [address] Care Team Providers Care Lead Cytogenetic Technologist Name Role Phone Daniel Zhang MD Primary Care Provider [phone] Alvina Chacko PharmD Unavailable [phone] Reason for Visit * Reason Comments Med Refill Encounter Details Date Type Department Care Team ([facility] st Contact Info) Description 08/26/2025 Refill [facility] CH[facility] MED & PEDS [address] [place] [address] Daniel Zhang MD [address] [place] [address] Chronic pain of right knee; Chronic left [...] Description 09/20/2025 9:00 AM EST Office Visit [facility] MED & PEDS [address] [place] [address] Daniel Zhang MD [address] [place] [address] 11/09/2025 9:00 AM EST Telemedicine [facility] MED & PEDS [address] [place] [address] Alvina Chacko, PharmD [address] [place] [address] documented as of this encounter Visit Diagnoses Diagnosis Chronic pain of right knee Chronic left shoulder pain Pain in joint, shoulder region documented in this encounter Additional Health Concerns Assessment Noted Time PHQ-9 Depression Total Score: 12 025 9:40 AM EDT documented as of this encounter Care Teams Lead Cytogenetic Technologist Relationship Specialty Start Date End Date Daniel Zhang MD [address] [place] [address] PCP - General Internal Medicine 05/18/24 Alvina Chacko PharmD [address] [place] [phone] Pharmacist Pharmacy 08/03/25 documented as of this encounter
--- OUTSIDE RECORDS SUMMARY | 2025-08-31 09:55 | XMS_ITS | Encounter Summary ---
Author Organization [employer] Address [address] [place] [address] 7 [place] [address] Care Team Providers Care Brake Rider Name Role Phone Daniel Zhang MD Primary Care Provider [phone] Alvina Chacko PharmD Unavailable [phone] Encounter Details Date Type Department Care Team (Latest Contact Info) Description 08/31/2025 Travel Social History Tobacco Use Types Packs/Day [...] Description 09/20/2025 9:00 AM EST Office Visit [facility] MED & PEDS [address] [place] [address] Daniel Zhang MD [address] [place] [address] 11/09/2025 9:00 AM EST Telemedicine [facility] MED & PEDS [address] [place] [address] Alvina Chacko, PharmD [address] [place] [address] documented as of this encounter Visit Diagnoses Not on filedocumented in this encounter Additional Health Concerns Assessment Noted Time PHQ-9 Depression Total Score: 12 025 9:40 AM EDT documented as of this encounter Care Teams Brake Rider Relationship Specialty Start Date End Date Daniel Zhang MD [address] [place] [address] PCP - General Internal Medicine 05/18/24 Alvina Chacko, PharmD [address] [place] [address] Pharmacist Pharmacy 08/03/25 documented as of this encounter
--- OUTSIDE RECORDS SUMMARY | 2025-08-31 09:55 | XMS_ITS | Encounter Summary ---
Author Organization [employer] Address [address] [place] [address] Care Team Providers Care Jet Wiper Name Role Phone Raudel Armstrong MD Primary Care Prov ider Daniel Zhang MD Primary Care Provider Alvina Chacko PharmD Unavailable [phone] Reason for Visit * Reason Onset Date Comments Med Refill 11/16/2023 Encounter Details Date Type Department Care Team (Late st Contact Info) Description 11/16/2023 Refill [facility] CH[facility] MED & PEDS [address] [place], [place] [phone] Raudel Armstrong MD [address] [place], [place] [phone] Social History Tobacco Use Types Packs/Day Years [...] Description 09/20/2025 9:00 AM EST Office Visit [facility] MED & PEDS [address] [place] [address] Daniel Zhang MD [address] [place] [address] 11/09/2025 9:00 AM EST Telemedicine [facility] P[facility] [address] [place] [address] Alvina Chacko, PharmD [address] [place], [place] [phone] documented as of this encounter Visit Diagnoses Not on filedocumented in this encounter Additional Health Concerns Assessment Noted Time PHQ-9 Depression Total Score: 0 01/29/20 23 8:49 AM EDT documented as of this encounter Care Teams Jet Wiper Relationship Specialty Start Date End Date Raudel Armstrong MD [address] [place] [address] PCP - General Internal Medicine 03/08/20 05/17/24 Daniel Zhang MD [address] [place] [address] PCP - General Internal Medicine 05/18/24 Alvina Chacko, ChetnaD [address] [place] [phone] Pharmacist Pharmacy 08/03/25 documented as of this encounter
--- OUTSIDE RECORDS SUMMARY | 2025-08-31 09:55 | XMS_ITS | Encounter Summary ---
Author Organization [employer] Address [address] [place] [address] Care Team Providers Care Document Review Attorney Name Role Phone Daniel Zhang MD Primary Care Provider [phone] Alvina Chacko PharmD Unavailable [phone] Reason for Visit * Reason Comments Med Refill Encounter Details Date Type Department Care Team ([facility] st Contact Info) Description 03/10/2025 Refill [facility] CHC MED & PEDS [address] [place] [address] Daniel Zhang MD [address] [place] [address] Mixed hyperlipidemia Social History Tobacco Use Types [...] with others, in a hotel, in a long-term, living outside on the street, on a [...] Description 09/20/2025 9:00 AM EST Office Visit [facility] MED & PEDS [address] [place] [address] Daniel Zhang MD [address] [place] [address] 11/09/2025 9:00 AM EST Telemedicine [facility] PED[facility] [address] [place] [address] Alvina Chacko, PharmD 230 [place] [address] documented as of this encounter Visit Diagnoses Diagnosis Mixed hyperlipidemia documented in this encounter Additional Health Concerns Assessment Noted Time PHQ-9 Depression Total Score: 0 01/29/20 23 8:49 AM EDT documented as of this encounter Care Teams Document Review Attorney Relationship Specialty Start Date End Date Daniel Zhang MD [address] [place] [address] PCP - General Internal Medicine 05/18/24 Alvina Chacko, PharmD 230 [place] [address] Pharmacist Pharmacy 08/03/25 documented as of this encounter
--- OUTSIDE RECORDS SUMMARY | 2025-08-31 09:56 | XMS_ITS | Encounter Summary ---
Author Organization [employer] Address [address] [place] [address] Care Team Providers Care Physical Therapy Instructor Name Role Phone Daniel Zhang MD Primary Care Provider Alvina Chacko PharmD Unavailable [phone] Encounter Details Date Type Department Care Team ([facility] st Contact Info) Description 04/12/2025 Orders Only [facility] CHC MED & PEDS [address] [place] [address] Daniel Zhang MD 505 [place] [address] Mixed hyperlipidemia (Primary Dx) Social History Tobacco [...] Description 09/20/2025 9:00 AM EST Office Visit [facility] MED & PEDS [address] [place] [address] Daniel Zhang MD 505 [place] [address] 11/09/2025 9:00 AM EST Telemedicine [facility] MED & PEDS [address] [place] [address] Alvina Chacko, ChetnaD 230 [place] [address] documented as of this encounter Procedures Procedure Name Priority Date/Time Associated Diagnosis Comments LIPID PANEL, STANDARD Routine 07/20/2025 10:30 AM EDT Mixed hyperlipidemia documented in this encounter Results * (ABNORMAL) Lipid Panel, Standard (07/20/2025 10:30 AM EDT) Triglycerides 177(H) <150 mg/dL [facility] Comment:Desirable Triglyceri de: less than 150 mg/dLBorderline High Triglyceride 150-199 mg/dLHigh Triglyceride: 200-499 mg/dLVery High Triglyceride: greater than or equal to 5OO mg/dL Cholesterol 229(H) <200 mg/dL [facility] Comment:Desirable Cholestero l: less than 200 mg/dLBorderline High Cholesterol: 200-239 mg/dLHigh Cholesterol: greater than 239 mg/dL LDL Cholesterol Calculated 152(H) <100 mg/dL [facility] Comment:Desirable LDL: less than 100 mg/dLNear Optimal/Above Optimal LDL: 110- 129 mg/dLBorderline High LDL: 130-159 mg/dLHigh LDL: 160-189 mg/dLVery High LDL: greater than or equal to 190 mg/dL HDL Cholesterol 42 >40 mg/dL [facility] Comment:Desirable HDL: great er than 40 mg/dL Note: This HDL assay may give artificially low results in patients with liver disease. Blood Venous blood specimen / Unknown 07/20/2025 10:30 AM EDT 07/20/2025 2:20 PM EDT us Daniel Zhang MD LAB BLOOD ORDERABLES Final Result [facility] [address] [place] [address] [phone] documented in this encounter Visit Diagnoses Diagnosis Mixed hyperlipidemia- Primary documented in this encounter Additional Health Concerns Assessment Noted Time PHQ-9 Depression Total Score: 12 025 9:40 AM EDT documented as of this encounter Care Teams Physical Therapy Instructor Relationship Specialty Start Date End Date Daniel Zhang MD [address] [place] [address] PCP - General Internal Medicine 05/18/24 Alvina Chacko, PharmD [address] [place] [address] Pharmacist Pharmacy 08/03/25 documented as of this encounter
--- OUTSIDE RECORDS SUMMARY | 2025-08-31 09:56 | XMS_ITS | Encounter Summary ---
Author Organization [employer] Address [address] [place] [address] Care Team Providers Care Desk Sergeant Name Role Phone Daniel Zhang MD Primary Care Provider Alvina Chacko PharmD Unavailable [phone] Encounter Details Date Type Department Care Team ([facility] st Contact Info) Description 07/20/2025 Orders Only [facility] CHC MED & PEDS [address] [place] [address] Daniel Zhang MD 505 [place] [address] Social History Tobacco Use Types Packs/Day Years [...] Description 09/20/2025 9:00 AM EST Office Visit [facility] MED & PEDS [address] [place] [address] Daniel Zhang MD 505 [place] [address] 11/09/2025 9:00 AM EST Telemedicine [facility] MED & PEDS [address] [place] [address] Alvina Chacko, PharmD 230 [place] [address] documented as of this encounter Visit Diagnoses Not on filedocumented in this encounter Additional Health Concerns Assessment Noted Time PHQ-9 Depression Total Score: 12 025 9:40 AM EDT documented as of this encounter Care Teams Desk Sergeant Relationship Specialty Start Date End Date Daniel Zhang MD 505 [place] [address] PCP - General Internal Medicine 05/18/24 Alvina Chacko PharmD [address] [place] [address] Pharmacist Pharmacy 08/03/25 documented as of this encounter
--- OUTSIDE RECORDS SUMMARY | 2025-08-31 09:56 | XMS_ITS | Encounter Summary ---
Author Organization [employer] Address [address] [place] [address] Care Team Providers Care Car Head Liner Installer Name Role Phone Daniel Zhang MD Primary Care Provider Alvina Chacko PharmD Unavailable [phone] Encounter Details Date Type Department Care Team ([facility] st Contact Info) Description 06/09/2025 Orders Only [facility] CHC MED & PEDS [address] [place] [address] Daniel Zhang MD 505 [place] [address] Other male erectile dysfunction (Primary Dx) Social [...] Description 09/20/2025 9:00 AM EST Office Visit [facility] MED & PEDS [address] [place] [address] Daniel Zhang MD [address] [place] [address] 11/09/2025 9:00 AM EST Telemedicine [facility] MED & PEDS [address] [place] [address] Alvina Chacko, PharmD 230 [place] [address] documented as of this encounter Visit Diagnoses Diagnosis Other male erectile dysfunction- Primary documented in this encounter Additional Health Concerns Assessment Noted Time PHQ-9 Depression Total Score: 12 025 9:40 AM EDT documented as of this encounter Care Teams Car Head Liner Installer Relationship Specialty Start Date End Date Daniel Zhang MD 505 [place] [address] PCP - General Internal Medicine 05/18/24 Alvina Chacko PharmD [address] [place] [address] Pharmacist Pharmacy 08/03/25 documented as of this encounter
--- OUTSIDE RECORDS SUMMARY | 2025-08-31 09:56 | XMS_ITS | Encounter Summary ---
Author Organization [employer] Address [address] [place] [address] Care Team Providers Care Internal Salesperson Name Role Phone Raudel Armstrong MD Primary Care Prov ider Daniel Zhang MD Primary Care Provider [phone] Alvina Chacko PharmD Unavailable [phone] Encounter Details Date Type Department Care Team ([facility] st Contact Info) Description 02/19/[address] [facility] CHC MED & PEDS [address] [place], [place] [phone] Raudel Armstrong MD [address] [place] [address] Social History Tobacco Use Types Packs/Day Years [...] Description 09/20/2025 9:00 AM EST Office Visit [facility] MED & PEDS [address] [place] [address] Daniel Zhang MD [address] [place] [address] 11/09/2025 9:00 AM EST Telemedicine [facility] MED & PEDS [address] [place] [address] Alvina Chacko PharmD [address] [place] [address] documented as of this encounter Visit Diagnoses Not on filedocumented in this encounter Additional Health Concerns Assessment Noted Time PHQ-9 Depression Total Score: 0 01/29/20 23 8:49 AM EDT documented as of this encounter Care Teams Internal Salesperson Relationship Specialty Start Date End Date Raudel Armstrong MD [address] [place] [address] PCP - General Internal Medicine 03/08/20 05/17/24 Daniel Zhang MD [address] [place] [address] PCP - General Internal Medicine 05/18/24 Alvina Chacko PharmD [address] [place] [address] Pharmacist Pharmacy 08/03/25 documented as of this encounter
--- OUTSIDE RECORDS SUMMARY | 2025-08-31 09:56 | XMS_ITS | Encounter Summary ---
Author Organization [employer] Address [address] [place] [address] [place] [address] Care Team Providers Care Services Delivery Driver Name Role Phone Daniel Zhang MD Primary Care Provider Alvina Chacko PharmD Unavailable [phone] Encounter Details Date Type Department Care Team ([facility] st Contact Info) Description 06/20/2024 Orders Only [facility] CHC MED & PEDS [address] [place] [address] YeagerRaudel Garcia MD [address] [place] [address] Social History Tobacco Use Types Packs/Day Years [...] 9:00 AM EST Office Visit [facility] MED & PEDS [address] [place] [address] Daniel Zhang MD [address] [place] [address] 11/09/2025 9:00 AM EST Telemedicine [facility] MED & PEDS [address] [place] [address] Alvina Chacko PharmD [address] [place] [address] documented as of this encounter Visit Diagnoses Not on filedocumented in this encounter Additional Health Concerns Assessment Noted Time PHQ-9 Depression Total Score: 0 01/29/20 23 8:49 AM EDT documented as of this encounter Care Teams Services Delivery Driver Relationship Specialty Start Date End Date Daniel Zhang MD [address] [place] [address] PCP - General Internal Medicine 05/18/24 Alvina Chacko PharmD [address] [place] [address] Pharmacist Pharmacy 08/03/25 documented as of this encounter
--- OUTSIDE RECORDS SUMMARY | 2025-08-31 09:56 | XMS_ITS | Encounter Summary ---
Author Organization [employer] Address [address] [facility] 7 [place] [address] Care Team Providers Care Tunnel Kiln Operator Name Role Phone Daniel Zhang MD Primary Care Provider [phone] Alvina Chacko PharmD Unavailable [phone] Encounter Details Date Type Department Care Team ([facility] Contact Info) Description 07/21/2025 Results Follow-Up [facility] CHC MED & PEDS [address] [place] [address] Hilda Hung RN Lipid Panel, Standard Social [...] Description 09/20/2025 9:00 AM EST Office Visit [facility] MED & PEDS [address] [place] [address] Daniel Zhang MD 505 [place] [address] 11/09/2025 9:00 AM EST Telemedicine [facility] MED & PEDS [address] [place] [address] Alvina Chacko, PharmD 230 [place] [address] documented as of this encounter Visit Diagnoses Not on filedocumented in this encounter Additional Health Concerns Assessment Noted Time PHQ-9 Depression Total Score: 12 025 9:40 AM EDT documented as of this encounter Care Teams Tunnel Kiln Operator Relationship Specialty Start Date End Date Daniel Zhang MD [address] [place] [address] PCP - General Internal Medicine 05/18/24 Alvina Chacko PharmD [address] [place] [address] Pharmacist Pharmacy 08/03/25 documented as of this encounter
--- OUTSIDE RECORDS SUMMARY | 2025-08-31 09:56 | XMS_ITS | Encounter Summary ---
Author Organization [employer] Address [address] [place] [address] Care Team Providers Care Music Box Mechanic Name Role Phone Raudel Armstrong MD Primary Care Prov ider Daniel Zhang MD Primary Care Provider Alvina Chacko PharmD Unavailable [phone] Encounter Details Date Type Department Care Team ([facility] Contact Info) Description 05/20/2023 Telephone [facility] MED & PEDS [address] [place], [place] [phone] Raudel Armstrong MD [address] [place] [address] Social History Tobacco Use Types Packs/Day Years [...] Upcoming Encounters Date Type Department Care Team ([facility] Contact Info) Description 09/20/2025 9:00 AM EST Office Visit [facility] MED & PEDS [address] [place] [address] Daniel Zhang MD [address] [place] [address] 11/09/2025 9:00 AM EST Telemedicine [facility] MED & PEDS [address] [place] [address] Alvina Chacko PharmD [address] [place] [address] documented as of this encounter Visit Diagnoses Not on filedocumented in this encounter Additional Health Concerns Assessment Noted Time PHQ-9 Depression Total Score: 0 01/29/20 23 8:49 AM EDT documented as of this encounter Care Teams Music Box Mechanic Relationship Specialty Start Date End Date Raudel Armstrong MD [address] [place] [address] PCP - General Internal Medicine 03/08/20 05/17/24 Daniel Zhang MD [address] [place] [address] PCP - General Internal Medicine 05/18/24 Alvina Chacko PharmD [address] [place] [address] Pharmacist Pharmacy 08/03/25 documented as of this encounter
--- OUTSIDE RECORDS SUMMARY | 2025-08-31 09:56 | XMS_ITS | Encounter Summary ---
Author Organization [employer] Address [address] [place] [address] Care Team Providers Care Non Acoustic Operator Name Role Phone Daniel Zhang MD Primary Care Provider Alvina Chacko PharmD Unavailable [phone] Reason for Visit * Reason Onset Date Comments Med Refill 07/22/2025 Encounter Details Date Type Department Care Team ([facility] st Contact Info) Description 07/22/2025 Refill [facility] CHC MED & PEDS [address] [place] [address] Daniel Zhang MD [address] [place] [address] Other male erectile dysfunction Social History Tobacco [...] Upcoming Encounters Date Type Department Care Team ([facility] st Contact Info) Description 09/20/2025 9:00 AM EST Office Visit [facility] MED & PEDS [address] [place] [address] Daniel Zhang MD [address] [place] [address] 11/09/2025 9:00 AM EST Telemedicine [facility] MED & PEDS [address] [place], [place] [phone] Alvina Chacko, PharmD 230 [place] [address] documented as of this encounter Visit Diagnoses Diagnosis Other male erectile dysfunction documented in this encounter Additional Health Concerns Assessment Noted Time PHQ-9 Depression Total Score: 12 025 9:40 AM EDT documented as of this encounter Care Teams Non Acoustic Operator Relationship Specialty Start Date End Date Daniel Zhang MD [address] [place] [address] PCP - General Internal Medicine 05/18/24 Alvina Chacko PharmD [address] [place] [address] Pharmacist Pharmacy 08/03/25 documented as of this encounter
--- OUTSIDE RECORDS SUMMARY | 2025-08-31 09:56 | XMS_ITS | Encounter Summary ---
Author Organization [employer] Address [address] [place] [address] [place] [address] Care Team Providers Care Mixing Machine Operator Name Role Phone Daniel Zhang MD Primary Care Provider [phone] Alvina Chacko PharmD Unavailable [phone] Encounter Details Date Type Department Care Team ([facility] st Contact Info) Description 07/20/2025 Results Follow-Up [facility] CHC MED & PEDS [address] [place] [address] Daniel Zhang MD [address] [place] [address] CBC auto differential, Basic Metabolic Panel Social [...] [facility] MED [facility]ED[facility] [address] [place] [address] Daniel Zhang MD [address] [place] [address] 11/09/2025 9:00 AM EST Telemedicine [facility] MED [facility] PED[facility] [address] [place] [address] Alvina Chacko, PharmD 230 [place] [address] documented as of this encounter Visit Diagnoses Not on filedocumented in this encounter Additional Health Concerns Assessment Noted Time PHQ-9 Depression Total Score: 12 025 9:40 AM EDT documented as of this encounter Care Teams Mixing Machine Operator Relationship Specialty Start Date End Date Daniel Zhang MD [address] [place] [address] PCP - General Internal Medicine 05/18/24 Alvina Chacko PharmD [address] [place] [address] Pharmacist Pharmacy 08/03/25 documented as of this encounter
--- OUTSIDE RECORDS SUMMARY | 2025-08-31 09:56 | XMS_ITS | Encounter Summary ---
Author Organization [employer] Address [address] [facility] 7t [place] [address] Care Team Providers Care Sweep Molder Name Role Phone Raudel Armstrong MD Primary Care Prov ider Daniel Zhang MD Primary Care Provider Alvina Chacko PharmD Unavailable [phone] Encounter Details Date Type Department Care Team (Late st Contact Info) Description 04/15/2023 Telephone [facility]ICINE [address] [place] [address] Raudel Armstrong MD [address] [place], [place] [phone] Social History Tobacco Use Types Packs/Day Years [...] [facility] [address] [place] [address] Daniel Zhang MD [address] [place] [address] 11/09/2025 9:00 AM EST Telemedicine [facility] MED & PEDS [address] [place] [address] Alvina Chacko PharmD [address] [place] [address] documented as of this encounter Visit Diagnoses Not on filedocumented in this encounter Additional Health Concerns Assessment Noted Time PHQ-9 Depression Total Score: 0 01/29/20 23 8:49 AM EDT documented as of this encounter Care Teams Sweep Molder Relationship Specialty Start Date End Date Raudel Armstrong MD [address] [place] [address] PCP - General Internal Medicine 03/08/20 05/17/24 Daniel Zhang MD [address] [place] [address] PCP - General Internal Medicine 05/18/24 Alvina Chacko PharmD [address] [place] [address] Pharmacist Pharmacy 08/03/25 documented as of this encounter
--- OUTSIDE RECORDS SUMMARY | 2025-08-31 09:56 | XMS_ITS | Encounter Summary ---
Author Organization [employer] Address [address] [facility] [address], [place] [address] Care Team Providers Care Latex Caster Name Role Phone Raudel Armstrong MD Primary Care Prov ider Daniel Zhang MD Primary Care Provider Alvina Chacko PharmD Unavailable [phone] Reason for Visit * Reason Onset Date Comments Medication Question 05/10/2024 Encounter Details Date Type Department Care Team (Late st Contact Info) Description 05/10/[address] [facility] [address] [place] [address] Raudel Armstrong MD [address] [place], [place] [phone] Medication Question Social History Tobacco Use Types [...] to stop smoking. Please contact pt @ [phone] Medication qued to PCP * Telephone Encounter - Mando Upton - 05/10/2024 8:56 AM EDT Tc from pt requesting a Script to Nicotine Gum to stop smoking. Please contact pt @ [phone] documented in this encounter Plan of Treatment Upcoming Encounters Date Type Department Care Team (Late st Contact Info) Description 09/20/2025 9:00 AM EST Office Visit [facility] MED & PEDS [address] [place] [address] Daniel Zhang MD [address] [place] [address] 11/09/2025 9:00 AM EST Telemedicine [facility] MED & PEDS [address] [place] [address] Alvina Chacko PharmD [address] [place] [address] documented as of this encounter Visit Diagnoses Not on filedocumented in this encounter Additional Health Concerns Assessment Noted Time PHQ-9 Depression Total Score: 0 01/29/20 23 8:49 AM EDT documented as of this encounter Care Teams Latex Caster Relationship Specialty Start Date End Date Raudel Armstrong MD [address] [place] [address] PCP - General Internal Medicine 03/08/20 05/17/24 Daniel Zhang MD [address] [place] [address] PCP - General Internal Medicine 05/18/24 Alvina Chacko, ChetnaD [address] [place] [address] Pharmacist Pharmacy 08/03/25 documented as of this encounter
--- OUTSIDE RECORDS SUMMARY | 2025-08-31 09:56 | XMS_ITS | Encounter Summary ---
Author Organization [employer] Address [address] [place] [address] Care Team Providers Care Supervisor Instrument Repair Name Role Phone Raudel Armstrong MD Primary Care Prov ider Daniel Zhang MD Primary Care Provider Alvina Chacko PharmD Unavailable [phone] Encounter Details Date Type Department Care Team (Latest Contact Info) Description 10/31/2021 Abstract [facility] CONVERSIONS Dental, Provider, DDS Social History Tobacco [...] [facility] [address] [place] [address] Daniel Zhang MD [address] [place] [address] 11/09/2025 9:00 AM EST Telemedicine [facility] MED & PEDS [address] [place] [address] Alvina Chacko, PharmD 230 [place] [address] documented as of this encounter Visit Diagnoses Not on filedocumented in this encounter Care Teams Supervisor Instrument Repair Relationship Specialty Start Date End Date Raudel Armstrong MD [address] [place] [address] PCP - General Internal Medicine 03/08/20 05/17/24 Daniel Zhang MD [address] [place] [address] PCP - General Internal Medicine 05/18/24 Alvina Chacko PharmD [address] [place] [address] Pharmacist Pharmacy 08/03/25 documented as of this encounter
== END 2025-08-30 08:57 | disposition home or self-care (01) ==
LOC: HO.HOSX 08:56
PROVIDERS: Visit Provider Orthopaedic Surgery
DX: Z13.89 Encounter for screening for other disorder (principal)

== ENCOUNTER → 2025-10-01 19:44 | Outpatient (BNV) | payer MEDICARE, MEDICAID, SELFPAY | PROVIDERS: PCP Internal Medicine; Visit Provider Radiology Diagnostic Radiology | DX: Z03.89 Encounter for observation for other suspected diseases and conditions ruled out (principal) | CPT/HCPCS: 70250; 73590 ==

== ENCOUNTER 2025-10-01 20:05 | Outpatient (REF) | payer MEDICARE, MEDICAID, SELFPAY ==
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
--- OUTSIDE RECORDS SUMMARY | 2025-10-01 20:08 | XMS_ITS | Encounter Summary ---
Author Organization [employer] Address [address] [facility] [address], [place] [address] Care Team Providers Care Credit Adjuster Name Role Phone Raudel Armstrong MD Primary Care Prov ider Daniel Zhang MD Primary Care Provider Alvina Chacko PharmD Unavailable [phone] Reason for Visit * Reason Onset Date Comments Medication Question 05/10/2024 Encounter Details Date Type Department Care Team (Late st Contact Info) Description 05/10/2024 Telephone [facility] MEDICINE [address] [place] [address] Raudel Armstrong MD [address] [place], [place] [phone] Medication Question Social History Tobacco Use Types [...] to stop smoking. Please contact pt @ [phone] Medication qued to PCP * Telephone Encounter - Mando Upton - 05/10/2024 8:56 AM EDT Tc from pt requesting a Script to Nicotine Gum to stop smoking. Please contact pt @ [phone] documented in this encounter Plan of Treatment Upcoming Encounters Date Type Department Care Team (Late st Contact Info) Description 11/09/2025 9:00 AM EST Telemedicine [facility] CHC MED & PEDS [address] [place], [place] [phone] Alvina Chacko, PharmD [address] [place] [address] documented as of this encounter Visit Diagnoses Not on filedocumented in this encounter Additional Health Concerns Assessment Noted Time PHQ-9 Depression Total Score: 0 01/29/20 23 8:49 AM EDT documented as of this encounter Care Teams Credit Adjuster Relationship Specialty Start Date End Date Raudel Armstrong MD [address] [place] [address] PCP - General Internal Medicine 03/08/20 05/17/24 Daniel Zhang MD [address] [place] [address] PCP - General Internal Medicine 05/18/24 Alvina Chacko PharmD [address] [place] [address] Pharmacist Pharmacy 08/03/25 documented as of this encounter
--- OUTSIDE RECORDS SUMMARY | 2025-10-01 20:08 | XMS_ITS | Encounter Summary ---
Author Organization [employer] Address [address] [place] [address] Care Team Providers Care Manager Delivery Name Role Phone Daniel Zhang MD Primary Care Provider Alvina Chacko PharmD Unavailable [phone] Encounter Details Date Type Department Care Team ([facility] st Contact Info) Description 06/09/2025 Orders Only [facility] MED [facility] PEDS [address] [place] [address] Daniel Zhang MD [address] [place] [address] Other male erectile dysfunction (Primary Dx) Social [...] Info) Description 11/09/2025 9:00 AM EST Telemedicine [facility] MED [facility] PEDS [address] [place], [place] [phone] Alvina Chacko, PharmD [address] [place] [address] documented as of this encounter Visit Diagnoses Diagnosis Other male erectile dysfunction- Primary documented in this encounter Additional Health Concerns Assessment Noted Time PHQ-9 Depression Total Score: 12 025 9:40 AM EDT documented as of this encounter Care Teams Manager Delivery Relationship Specialty Start Date End Date Daniel Zhang MD [address] [place] [address] PCP - General Internal Medicine 05/18/24 Alvina Chacko, PharmD [address] [place] [address] Pharmacist Pharmacy 08/03/25 documented as of this encounter
--- OUTSIDE RECORDS SUMMARY | 2025-10-01 20:08 | XMS_ITS | Clinical Summary ---
Author Organization [employer] Address [address] [place] [address] 7 [place] [address] Care Team Providers Care Pharmacy General Manager Name Role Phone Daniel Zhang MD Primary Care Provider Alvina Chacko PharmD Unavailable [phone] Allergies Active Allergy Reactions Criticality Noted Date Comments Ampicillin Rash Low 04/22/2012 Cephalosporins Rash Low 04/22/2012 Penicillin G Rash Low 04/08/2012 Medications * This document contains information received from the source organization and may not represent a complete record from that organization. cholecalciferol (Vitamin D3) 25 MCG (1000 UT) [...] Once per day. At 9 am 07/01/20 25 Active tadalafil (Cialis) 10 MG tabletIndications :Other male erectile dysfunction Take 1 tablet (10 mg) by mouth if needed each day for erectile dysfunction. 20 tablet 2 07/28/20 25 Active nicotine (Nicoderm CQ) 21 MG/24HR patchIndications: [...] day. 72 lozenge 11 08/03/20 25 Active atorvastatin (Lipitor) 40 MG tabletIndications :Mixed hyperlipidemia TAKE ONE TABLET (40 MG) BY MOUTH DAILY AT 9 AM IN THE MORNING 90 tablet 1 09/16/20 25 Active ibuprofen 800 MG tabletIndications :Chronic pain of right knee,Chronic left shoulder pain TAKE 1 TABLET BY MOUTH 3 TIMES DAILY. 90 tablet 09/26/20 25 Active atorvastatin (Lipitor) 40 MG tabletIndications :Mixed hyperlipidemia TAKE ONE TABLET (40 MG) BY MOUTH DAILY AT 9 AM IN THE MORNING 90 tablet 1 04/05/20 25 2024 Discontinued(R eorder (will not trigger notification to Pharmacy)) ibuprofen 800 MG tabletIndications :Chronic pain of right knee,Chronic left shoulder pain TAKE 1 TABLET BY MOUTH 3 TIMES DAILY. 90 tablet 08/26/20 25 2024 Discontinued Active Problems Problem Noted [...] Encounters Date Type Department Care Team Description 09/25/2025 Refill [facility] PEDS [address] [place] [address] Daniel Zhang MD Chronic pain of right knee; Chronic left shoulder pain 09/16/2025 Refill [facility] [address] [place] [address] Daniel Zhang MD Mixed hyperlipidemia 09/10/2025 Refill [facility] [address] [place], [place] [phone] Daniel Zhang MD Mixed hyperlipidemia 08/31/2025 9:00 AM EDT Telemedicine [facility] MED & PEDS [address] [place], [place] [phone] Alvina Chacko, PharmMarialuisa Smoking 1/2 pack a day or less (Primary Dx) 08/31/2025 Travel 08/26/2025 Refill [facility] MED [facility] PEDS [address] [place], [place] [phone] Daniel Zhang MD Chronic pain of right knee; Chronic left shoulder pain 08/16/2025 Telephone [facility] PED[facility] [address] [place], [place] [phone] Alvina Chacko PharmD 08/03/2025 9:00 AM EDT Telemedicine [facility] PED[facility] [address] [place], [place] [phone] Alvina Chacko PharmD Smoking 1/2 pack a day or less (Primary Dx) 08/03/2025 Travel 07/28/2025 Refill [facility] PED[facility] [address] [place], [place] [phone] Daniel Zhang MD Other male erectile dysfunction 07/22/2025 Refill [facility] [address] [place], [place] [phone] Daniel Zhang MD Other male erectile dysfunction 07/21/2025 Telephone [facility] [address] [place], [place] [phone] Daniel Zhang MD Patient Education 07/21/2025 Results Follow-Up [facility] [address] [place], [place] [phone] Hilda Hung RN Lipid Panel, Standard 07/21/2025 Refill [facility] PED[facility] [address] [place], [place] [phone] Daniel Zhang MD Chronic pain of right knee; Chronic left shoulder pain 07/20/2025 9:15 AM EDT Office Visit [facility] [address] [place], [place] [phone] Daniel Zhang MD Partial small bowel obstruction (CMS/HCC) (Primary Dx) 07/20/2025 Orders Only [facility] [address] [place] [address] Daniel Zhang MD 07/20/2025 Results Follow-Up [facility] [address] [place] [address] Daniel Zhang MD CBC auto differential, Basic Metabolic Panel 07/20/2025 Travel 07/14/2025 Travel 07/13/2025 Telephone [facility] [address] [place] [address] Daniel Zhang MD Medication Question 07/12/2025 Telephone [facility] [address] [place] [address] Daniel Zhang MD Hospital Follow-up 07/07/2025 Orders Only [facility] [address] [place] [address] ProviderKimberly MD from Last 3 Months Immunizations Immunization Administration [...] housing situation today? I have regan mars 04/11/[address] you li [...] Info) Description 11/09/2025 9:00 AM EST Telemedicine [facility] [address] [place], [place] [phone] Alvina Chacko, PharmD [address] [place] [address] Health Maintenance Due Date Last Done Comments CT Colonography 1980 Colonoscopy 1980 FIT 1980 Sigmoidoscopy 1980 Family Planning (PISQ) 01/15/1995 HPV Vaccines (1 - Male 3-dose series) 01/15/1995 Pneumococcal Vaccine: Pediatrics (0 to 5 Years) and At-Risk Patients (6 to 49) Years (1 of 2 - PCV) 01/15/1999 COVID-19 Vaccine ( - season) 2025 10/11/2022, 03/08/2022, 02/08/2022 Influenza [...] of 2) 01/15/2030 Lipid Panel 07/20/2030 07/20/2025, 06/07/2025, 10/15/2023, Additional history exists RSV Patients and [...] Blood Count 7.6 4.8 - 10.8 X10*3/uL [facility] Red Blood Count 5.38 4.60 - 5.80 X10*6/uL [facility] Hemoglobin 15.5 14.0 - 18.0 g/dl [facility] Hematocrit 47.7 42.0 - 52.0 % [facility] Mean Corpuscular Volume 88.7 80.0 - 98.0 fL [facility] Mean Corpuscular Hemoglobin 28.8 27.0 - 33.0 pg [facility] Mean Corpuscular HGB Conc 32.5 31.0 - 36.0 g/dl [facility] Red Cell Distribution Width 13.9 11.0 - 16.0 % [facility] Platelet Count 276 160 - 400 X10*3/uL [facility] Mean Platelet Volume 11.1 9.4 - 12.4 fL [facility] Neutrophils Percent Auto 54.5 45 - 73 % [facility] Imm Gran Pct Auto 0.3 0.0 - 0.4 % [facility] Lymphocytes Percent Auto 37.1 20 - 40 % [facility] Monocytes Percent Auto 6.1 2 - 11 % [facility] Eosinophils Percent Auto 1.2 0 - 4 % [facility] Basophils Percent Auto 0.8 0 - 2 % [facility] NRBC Pct Auto 0.0 0.0 - 0.2 /100WBC [facility] Neutrophils Absolute Auto 4.1 2.0 - 8.3 x10*3/uL [facility] Imm Gran Abs Auto 0.02 0.00 - 0.03 X10*3/uL [facility] Lymphocytes Absolute Auto 2.8 1.2 - 4.9 X10*3/uL [facility] Monocytes Absolute Auto 0.5 0.1 - 1.2 X10*3/uL [facility] Eosinophils Absolute Auto 0.1 0.0 - 0.4 X10*3/uL [facility] Basophils Absolute Auto 0.1 0.0 - 0.2 X10*3/uL [facility] NRBC Abs Auto 0.000 0.0 - 0.012 X10*3/uL [facility] Blood Venous blood specimen / Unknown 07/20/2025 10:30 AM EDT 07/20/2025 2:00 PM EDT us Daniel Zhang MD LAB BLOOD ORDERABLES Final Result [facility] [address] [place] [phone] * (ABNORMAL) Lipid Panel, Standard (07/20/2025 10:30 AM EDT) Triglycerides 177(H) <150 mg/dL [facility] Comment:Desirable Triglyceri de: less than 150 mg/dLBorderline High Triglyceride 150-199 mg/dLHigh Triglyceride: 200-499 mg/dLVery High Triglyceride: greater than or equal to 5OO mg/dL Cholesterol 229(H) <200 mg/dL [facility] Comment:Desirable Cholestero l: less than 200 mg/dLBorderline High Cholesterol: 200-239 mg/dLHigh Cholesterol: greater than 239 mg/dL LDL Cholesterol Calculated 152(H) <100 mg/dL [facility] Comment:Desirable LDL: less than 100 mg/dLNear Optimal/Above Optimal LDL: 110- 129 mg/dLBorderline High LDL: 130-159 mg/dLHigh LDL: 160-189 mg/dLVery High LDL: greater than or equal to 190 mg/dL HDL Cholesterol 42 >40 mg/dL [facility] Comment:Desirable HDL: great er than 40 mg/dL Note: This HDL assay may give artificially low results in patients with liver disease. Blood Venous blood specimen / Unknown 07/20/2025 10:30 AM EDT 07/20/2025 2:20 PM EDT us Daniel Zhang MD LAB BLOOD ORDERABLES Final Result Performing Organization Address [facility] Co de Phone Number [facility] [address] [place] [phone] * (ABNORMAL) Basic Metabolic Panel (07/20/2025 10:30 AM EDT) Sodium 140 135 - 145 mmol/L [facility] Potassium 4.1 3.3 - 5.1 mmol/L [facility] Chloride 106 96 - 108 mmol/L [facility] Carbon Dioxide 27 22 - 29 mmol/L [facility] Anion Gap 11(L) 12 - 20 [facility] Urea Nitrogen (BUN) 8(L) 9 - 16 mg/dL [facility] Creatinine, Serum 0.66 0.5 - 1.4 mg/dL [facility] Estimated Glomerular Filt Rate >60 [facility] Comment:Chronic Kidney Disea se: Estimated GFR < 60 mL/min/1.20a5Aamhkv Kidney Disease: Estimated GFR < 15 mL/min/1.73m2 Glucose 79 60 - 115 mg/dL [facility] Calcium 9.0 8.4 - 10.2 mg/dL [facility] Blood Venous blood specimen / Unknown 07/20/2025 10:30 AM EDT 07/20/2025 2:20 PM EDT us Daniel Zhang MD LAB BLOOD ORDERABLES Final Result Performing Organization Address [facility] Co de Phone Number [facility] [address] [place] [phone] * CT Abdomen Pelvis w/ Contrast (07/06/2025 9:48 AM EDT) Only the most recent of2 resultswithin the time period is included. Anatomical Region Laterality Modality Body, Pelvis, Abdomen Computed T omography us Historical Provider MD FOLEY CT PROCEDURES Final R esult * Cologuard?? colon cancer screening (05/03/2025 6:50 AM EDT) Cologuard Result Negative Negative 05/09/20 5:49 AM EDT [facility] (CLIA #:[id number]) Comment: The Cologuard (TM) test was performed [...] cancer. Following a negative Cologuard result, the [place] [employer] and U.S. Multi-Society Task Force screening guidelines recommend a Cologuard re-screening interval of 3 years. References: [place] [employer] Guideline for Colorectal Cancer Screening: https://www.cancer.org/cancer/khhxh-lawvyk-njulfv/lukcpceea-paurpeigk-uqzzujs/ac s-rec ommendations.html.; Gene DK, Gordo CR, Catrachita DIAZ, Colorectal Cancer Screening: Recommendations for Physicians and Patients from the U.S. Multi-Society Task Force on Colorectal Cancer Screening , Am J Gastroenterology 2017; 112:4190-8208. TEST DESCRIPTION: Composite algorithmic analysis of stool [...] Lutz et al, N Engl J Med 2014;370(14):3049-6326.) Cologuard may produce a false negative or false positive result (no colorectal cancer or precancerous polyp present at colonoscopy follow up). A negative Cologuard test result does not guarantee the absence of CRC or advanced adenoma (pre-cancer). The current Cologuard screening interval is every 3 years. ([place] [employer] and U.S. Multi-Society Task Force). Cologuard performance data in a 10,000 patient pivotal study using colonoscopy as the reference method can be accessed at the following location: www.[employer].com/results. Additional description of the Cologuard test process, warnings and precautions can be found at www.[employer].com. Stool specimen (specimen) 05/03/2025 6:50 AM EDT 05/04/2025 1:43 PM EDT Daniel Zhang MD LAB MOLECULAR DIAGNOSTICS O RDERABLES Final Result Performing Organization Address City/[facility]/ZIP Co de Phone Number [facility] (CLIA #:[id number]) [address] [place] [address], * Hepatitis C Antibody with Reflex to HCV, RNA, Quantitative, Real-Time PCR (04/11/2025 10:40 AM EDT) Hepatitis C Antibody Nonreactive Nonreactive [facility] Comment:Antibodies to HCV no t detected; does not exclude early acuteHCV infection. Blood Venous blood specimen / Unknown 04/11/2025 10:40 AM EDT 04/11/2025 2:17 PM EDT us Daniel Zhang MD LAB BLOOD ORDERABLES Final Result Performing Organization Address [facility] Co de Phone Number [facility] [address] [place] [phone] * HIV-1/2 Antigen and Antibodies, Fourth Generation, with Reflexes (04/11/2025 10:40 AM EDT) HIV AB/AG Nonreactive Nonreactive [facility] Comment:HIV-1 p24 Ag and/or HIV-1/HIV-2 Ab not detected.A test result that is nonreactive does not exclude thepossibility of exposure to or infection with HIV-1 and/orHIV-2. Nonreactive results in this assay for individualswith prior exposure to HIV-1 and/or HIV-2 may be due toantigen and antibody levels that are below the limit ofdetection of this assay.The [employer] HIV Ag/Ab Combo assay result andsupplemental assay results should be interpreted inconjunction with the patient's clinical presentation,history and other laboratory results. If the results areinconsistent with clinical evidence, additional testing issuggested to confirm the result. Blood Venous blood specimen / Unknown 04/11/2025 10:40 AM EDT 04/11/2025 2:17 PM EDT us Daniel Zhang MD LAB BLOOD ORDERABLES Final Result Performing Organization Address City/[facility]/ZIP Co de Phone Number [facility] [address] [place] [phone] * Hemoglobin A1c (04/11/2025 10:40 AM [...] patient sample. Estimated Average Glucose 120 mg/dL [facility] Comment:eAG = Estimated ave rage glucose which is %A1C expressed asaverage glucose, using the formula of the P0T-KnqnzkyRbqcfav Glucose study (ADAG), Diabetes Care, Vol.31,#8,Jun. 2007 Blood Venous blood specimen / Unknown 04/11/2025 10:40 AM EDT 04/11/2025 2:17 PM EDT us Daniel Zhang MD LAB BLOOD ORDERABLES Final Result Performing Organization Address City/[facility] Co de Phone Number [facility] [address] [place] [phone] from Last 3 Months or Most Recently Relevant to Health Maintenance Insurance [facility] STANDARD [employer]ET[employer] MEDICARE REPLACEMENT Care Teams Pharmacy General Manager Relationship Specialty Start Date End Date Daniel Zhang MD [address] [place] [phone] PCP - General Internal Medicine 05/18/24 Alvina Chacko, ChetnaD [address] [place] [phone] Pharmacist Pharmacy 08/03/25
--- OUTSIDE RECORDS SUMMARY | 2025-10-01 20:08 | XMS_ITS | Encounter Summary ---
Author Organization [employer] Address [address] [place] [address] Care Team Providers Care Case Coordinator Name Role Phone Daniel Zhang MD Primary Care Provider Alvina Chacko PharmD Unavailable [phone] Encounter Details Date Type Department Care Team ([facility] st Contact Info) Description 06/28/2024 Orders Only [facility] MED & PEDS [address] [place] [address] Daniel Zhang MD [address] [place] [address] Vitamin D deficiency (Primary Dx); Mixed hyperlipidemia; [...] Info) Description 11/09/2025 9:00 AM EST Telemedicine [facility] MED [facility] PEDS [address] [place] [address] Alvina Chacko PharmD [address] [place] [address] documented as of this encounter Visit Diagnoses [...] documented as of this encounter Care Teams Case Coordinator Relationship Specialty Start Date End Date Daniel Zhang MD [address] [place] [address] PCP - General Internal Medicine 05/18/24 Alvina Chacko PharmD [address] [place] [address] Pharmacist Pharmacy 08/03/25 documented as of this encounter
--- OUTSIDE RECORDS SUMMARY | 2025-10-01 20:08 | XMS_ITS | Encounter Summary ---
Author Organization [employer] Address [address] [place] [address] [place] [address] Care Team Providers Care Construction Driver Name Role Phone Daniel Zhang MD Primary Care Provider Alivna Chacko PharmD Unavailable [phone] Encounter Details Date Type Department Care Team ([facility] st Contact Info) Description 06/20/2024 Orders Only [facility] MED & PEDS [address] [place] [address] YeagerRaudel Garcia MD [address] [place] [address] Social History Tobacco Use Types Packs/Day Years [...] Info) Description 11/09/2025 9:00 AM EST Telemedicine [facility] MED [facility] P[facility] [address] [place] [address] Alvina Chacko PharmD [address] [place] [address] documented as of this encounter Visit Diagnoses Not on filedocumented in this encounter Additional Health Concerns Assessment Noted Time PHQ-9 Depression Total Score: 0 01/29/20 23 8:49 AM EDT documented as of this encounter Care Teams Construction Driver Relationship Specialty Start Date End Date Daniel Zhang MD [address] [place] [address] PCP - General Internal Medicine 05/18/24 Alvina Chacko, Trina [address] [place] [address] Pharmacist Pharmacy 08/03/25 documented as of this encounter
--- OUTSIDE RECORDS SUMMARY | 2025-10-01 20:08 | XMS_ITS | Encounter Summary ---
Author Organization [employer] Address [address] [facility] 7 [place] [address] Care Team Providers Care Software Quality Engineer Name Role Phone Daniel Zhang MD Primary Care Provider [phone] Alvina Chacko PharmD Unavailable [phone] Encounter Details Date Type Department Care Team ([facility] st Contact Info) Description 07/07/2025 Orders Only [facility] MED [facility] PEDS [address] [place] [address] ProviderKimberly MD Social History Tobacco Use Types [...] Info) Description 11/09/2025 9:00 AM EST Telemedicine [facility] P[facility]S [address] [place] [address] Alvina Chacko, PharmD [address] [place] [address] documented as of this encounter Procedures Procedure [...] Noted Time PHQ-9 Depression Total Score: 12 04/11/ 025 9:40 AM EDT documented as of this encounter Care Teams Software Quality Engineer Relationship Specialty Start Date End Date Daniel Zhang MD [address] [place] [address] PCP - General Internal Medicine 05/18/24 Alvina Chacko PharmD [address] [place] [address] Pharmacist Pharmacy 08/03/25 documented as of this encounter
--- OUTSIDE RECORDS SUMMARY | 2025-10-01 20:08 | XMS_ITS | Encounter Summary ---
Author Organization [employer] Address [address] [place] [address] Care Team Providers Care Form Carpenter Name Role Phone Daniel Zhang MD Primary Care Provider [phone] Alvina Chacko PharmD Unavailable Reason for Visit * Reason Onset Date Comments Med Refill 06/07/2025 Encounter Details Date Type Department Care Team ([facility] st Contact Info) Description 06/07/2025 Refill [facility] MED & PEDS [address] [place] [address] Daniel Zhang MD [address] [place] [address] Other male erectile dysfunction Social History Tobacco [...] Upcoming Encounters Date Type Department Care Team ([facility] st Contact Info) Description 11/09/2025 9:00 AM EST Telemedicine [facility] MED [facility] PEDS [address] [place] [address] Alvina Chacko, PharmD [address] [place] [address] documented as of this encounter Visit Diagnoses Diagnosis Other male erectile dysfunction documented in this encounter Additional Health Concerns Assessment Noted Time PHQ-9 Depression Total Score: 12 025 9:40 AM EDT documented as of this encounter Care Teams Form Carpenter Relationship Specialty Start Date End Date Daniel Zhang MD [address] [place] [address] PCP - General Internal Medicine 05/18/24 Alvina Chacko, PharmD [address] [place] [address] Pharmacist Pharmacy 08/03/25 documented as of this encounter
--- OUTSIDE RECORDS SUMMARY | 2025-10-01 20:08 | XMS_ITS | Encounter Summary ---
Author Organization [employer] Address [address] [place] [place] [address] Care Team Providers Care Regulatory Law Specialist Name Role Phone Raudel Armstrong MD Primary Care Prov ider Daniel Zhang MD Primary Care Provider Alvina Chacko PharmD Unavailable [phone] Reason for Visit * Reason Onset Date Comments Med Refill 11/16/2023 Encounter Details Date Type Department Care Team (Late st Contact Info) Description 11/16/2023 Refill [facility]EDS [address] [place], [place] [phone] Raudel Armstrong MD [address] [place], [place] [phone] Social History Tobacco Use Types Packs/Day Years [...] Info) Description 11/09/2025 9:00 AM EST Telemedicine [facility] MED [facility] PEDS [address] [place] [address] Alvina Chacko PharmD [address] [place] [address] documented as of this encounter Visit Diagnoses Not on filedocumented in this encounter Additional Health Concerns Assessment Noted Time PHQ-9 Depression Total Score: 0 01/29/20 23 8:49 AM EDT documented as of this encounter Care Teams Regulatory Law Specialist Relationship Specialty Start Date End Date Raudel Armstrong MD [address] [place] [address] PCP - General Internal Medicine 03/08/20 05/17/24 Daniel Zhang MD [address] [place] [address] PCP - General Internal Medicine 05/18/24 Alvina Chacko PharmD [address] [place] [address] Pharmacist Pharmacy 08/03/25 documented as of this encounter
--- OUTSIDE RECORDS SUMMARY | 2025-10-01 20:09 | XMS_ITS | Encounter Summary ---
Author Organization [employer] Address [address] [facility] 7t [place] [address] Care Team Providers Care Order Planner Name Role Phone Raudel Armstrong MD Primary Care Prov ider Daniel Zhang MD Primary Care Provider Alvina Chacko PharmD Unavailable [phone] Encounter Details Date Type Department Care Team (Late st Contact Info) Description 04/15/2023 Telephone [facility] MEDICINE [address] [place] [address] Raudel Armstrong MD [address] [place], [place] [phone] Social History Tobacco Use Types Packs/Day Years [...] Info) Description 11/09/2025 9:00 AM EST Telemedicine [facility] MED & PEDS [address] [place] [address] Alvina Chacko PharmD [address] [place] [address] documented as of this encounter Visit Diagnoses Not on filedocumented in this encounter Additional Health Concerns Assessment Noted Time PHQ-9 Depression Total Score: 0 01/29/20 23 8:49 AM EDT documented as of this encounter Care Teams Order Planner Relationship Specialty Start Date End Date Raudel Armstrong MD [address] [place] [address] PCP - General Internal Medicine 03/08/20 05/17/24 Daniel Zhang MD [address] [place] [address] PCP - General Internal Medicine 05/18/24 Alvina Chacko PharmD [address] [place] [address] Pharmacist Pharmacy 08/03/25 documented as of this encounter
--- OUTSIDE RECORDS SUMMARY | 2025-10-01 20:09 | XMS_ITS | Encounter Summary ---
Author Organization [email or web address] Address [address] [place] [address] Care Team Providers Care Snow Fence Erector Name Role Phone Daniel Zhang MD Primary Care Provider Alvina Chacko PharmD Unavailable [phone] Encounter Details Date Type Department Care Team ([facility] st Contact Info) Description 07/20/2025 Orders Only [facility] [address] [place] [address] Daniel Zhang MD [address] [place] [address] Social History Tobacco Use Types Packs/Day Years [...] Upcoming Encounters Date Type Department Care Team ([facility] st Contact Info) Description 11/09/2025 9:00 AM EST Telemedicine [facility] [address] [place] [address] Alvina Chacko PharmD [address] [place] [address] documented as of this encounter Visit Diagnoses Not on filedocumented in this encounter Additional Health Concerns Assessment Noted Time PHQ-9 Depression Total Score: 12 025 9:40 AM EDT documented as of this encounter Care Teams Snow Fence Erector Relationship Specialty Start Date End Date Daniel Zhang MD [address] [place] [address] PCP - General Internal Medicine 05/18/24 Alvina Chacko PharmD [address] [place] [address] Pharmacist Pharmacy 08/03/25 documented as of this encounter
--- OUTSIDE RECORDS SUMMARY | 2025-10-01 20:09 | XMS_ITS | Encounter Summary ---
Author Organization [employer] Address [address] [place] [address] Care Team Providers Care Jig Worker Name Role Phone Daniel Zhang MD Primary Care Provider Alvina Chacko PharmD Unavailable [phone] Encounter Details Date Type Department Care Team ([facility] st Contact Info) Description 04/12/2025 Orders Only [facility] [address] [place] [address] Daniel Zhang MD [address] [place] [address] Mixed hyperlipidemia (Primary Dx) Social History Tobacco [...] Info) Description 11/09/2025 9:00 AM EST Telemedicine [facility] [address] [place] [address] Alvina Chacko, PharmD [address] [place] [address] documented as of this encounter Procedures Procedure Name Priority Date/Time Associated Diagnosis Comments LIPID PANEL, STANDARD Routine 07/20/2025 10:30 AM EDT Mixed hyperlipidemia documented in this encounter Results * (ABNORMAL) Lipid Panel, Standard (07/20/2025 10:30 AM EDT) Triglycerides 177(H) <150 mg/dL [facility] Comment:Desirable Triglyceri de: less than 150 mg/dLBorderline High Triglyceride 150-199 mg/dLHigh Triglyceride: 200-499 mg/dLVery High Triglyceride: greater than or equal to 5OO mg/dL Cholesterol 229(H) <200 mg/dL [facility] Comment:Desirable Cholestero l: less than 200 mg/dLBorderline High Cholesterol: 200-239 mg/dLHigh Cholesterol: greater than 239 mg/dL LDL Cholesterol Calculated 152(H) <100 mg/dL [facility] Comment:Desirable LDL: less than 100 mg/dLNear Optimal/Above Optimal LDL: 110- 129 mg/dLBorderline High LDL: 130-159 mg/dLHigh LDL: 160-189 mg/dLVery High LDL: greater than or equal to 190 mg/dL HDL Cholesterol 42 >40 mg/dL [facility] Comment:Desirable HDL: great er than 40 mg/dL Note: This HDL assay may give artificially low results in patients with liver disease. Blood Venous blood specimen / Unknown 07/20/2025 10:30 AM EDT 07/20/2025 2:20 PM EDT Daniel Zhang MD LAB BLOOD ORDERABLES Final Result [facility] [address] [place] [address] [phone] documented in this encounter Visit Diagnoses Diagnosis Mixed hyperlipidemia- Primary documented in this encounter Additional Health Concerns Assessment Noted Time PHQ-9 Depression Total Score: 12 025 9:40 AM EDT documented as of this encounter Care Teams Jig Worker Relationship Specialty Start Date End Date Daniel Zhang MD [address] [place] [address] PCP - General Internal Medicine 05/18/24 Alvina Chacko PharmD [address] [place] [address] Pharmacist Pharmacy 08/03/25 documented as of this encounter
--- OUTSIDE RECORDS SUMMARY | 2025-10-01 20:09 | XMS_ITS | Clinical Summary ---
Author Organization [facility] Address [address] [place] [address] Phone Care Team Providers Care Rn Lab Name Role Phone Raudel Armstrong Primary Care [...] - 07/07/2025 5:50 PM EDT Hospital Encounter [facility] [address] [place] [phone] Loi Malcolm MD Jones, Christopher, MD Japaridze, Anna, MD Partial small bowel obstruction (CMS/HCC V24, CMS/[facility] V28) (Primary Dx); LLQ pain Discharge Disposition: Home or Self Care from Last 3 Months Surgical History Surgery Date Site/Laterality Comments CARPAL TUNNEL RELEASE 04/11/2022 Right PROCEDURE: UT NEUROPLASTY &/TRANSPOS MEDIAN NRV CARPAL TUNNE; COMMENT: w/ganglion excision, Dr Walker BACK SURGERY PROCEDURE: HISTORICAL BACK SURGERY; COMMENT: Lumbar x2 OTHER SURGICAL HISTORY PROCEDURE: UT COLECTOMY PARTIAL W/ANASTOMOSIS Medical History Medical History [...] care for your loved ones. For example, school childcare attendant or elderly care for an older adult? [...] METABOLIC PANEL Routine 07/07/2025 6:13 AM EDT [id number], RSV, FLU A AND B QUALITATIVE RT-PCR, [...] LAB MICROBIOLOGY METHOD 5 11:14 AM EDT [facility] Plesiomonas shigelloides Detection by PCR Not Detected Not Detected LAB MICROBIOLOGY METHOD 5 11:14 AM EDT [facility] Salmonella Detection by PCR Not Detected Not Detected LAB MICROBIOLOGY METHOD 5 11:14 AM EDT [facility] Vibrio Detection by PCR Not Detected Not Detected LAB MICROBIOLOGY METHOD 5 11:14 AM EDT [facility] Vibrio cholerae Detection by PCR Not Detected Not Detected LAB MICROBIOLOGY METHOD 5 11:14 AM EDT [facility] Yersinia enterocolitica Detection by PCR Not Detected Not Detected LAB MICROBIOLOGY METHOD 5 11:14 AM EDT [facility] Enteroaggregative E coli EAEC Detection by PCR Not Detected Not Detected LAB MICROBIOLOGY METHOD 5 11:14 AM EDT [facility] Enteropathogenic E coli EPEC Detection Not Detected Not Detected LAB MICROBIOLOGY METHOD 5 11:14 AM [facility] Enterotoxigenic E coli ETEC LTST Detection Not Detected Not Detected LAB MICROBIOLOGY METHOD 5 11:14 AM [facility] Shiga-like toxin producing E coli STEC STX1 STX2 Det Not Detected Not Detected LAB MICROBIOLOGY METHOD 5 11:14 AM [facility] Shigella Enteroinvasive E coli EIEC Detection Not Detected Not Detected LAB MICROBIOLOGY METHOD 5 11:14 AM [facility] Cryptosporidium Detection by PCR Not Detected Not Detected LAB MICROBIOLOGY METHOD 5 11:14 AM [facility] Cyclospora cayetanensis Detection by PCR Not Detected Not Detected LAB MICROBIOLOGY METHOD 5 11:14 AM [facility] Entamoeba histolytica Detection by PCR Not Detected Not Detected LAB MICROBIOLOGY METHOD 5 11:14 AM [facility] Giardia lamblia Detection by PCR Not Detected Not Detected LAB MICROBIOLOGY METHOD 5 11:14 AM [facility] Adenovirus F 40 41 Detection by PCR Not Detected Not Detected LAB MICROBIOLOGY METHOD 5 11:14 AM [facility] Astrovirus Detection by PCR Not Detected Not Detected LAB MICROBIOLOGY METHOD 5 11:14 AM [facility] Norovirus GI GII Detection by PCR Not Detected LAB MICROBIOLOGY METHOD 5 11:14 AM [facility] Sapovirus Detection by PCR Not Detected Not Detected LAB MICROBIOLOGY METHOD 5 11:14 AM [facility] Rotavirus A Detection by PCR Not Detected Not Detected LAB MICROBIOLOGY METHOD 5 11:14 AM [facility] Stool Rectum structure / Unknown Non-blood Collection / Unknown 07/07/2025 9:23 AM EDT 07/07/2025 9:44 AM EDT Narrative [facility] - 07/07/2025 11:14 AM EDT [...] Testing Performed by MULTIPLEXED PCR us Loi Malclom MD LAB MICROBIOLOGY - GENERAL ORD ERABLES Final Result [facility] [address] [place] [address], [place] [phone] * (ABNORMAL) CBC auto differential (07/07/2025 6:13 AM EDT) Only the most recent of2 resultswithin the time period is included. WBC 9.1 4.8 - 10.8 K/mcL LAB HEMETOLOGY METHOD 07/07/2025 6:55 AM EDT [facility] RBC 5.40 4.50 - 5.50 M/mcL LAB HEMETOLOGY METHOD 07/07/2025 6:55 AM EDT [facility] Hemoglobin 15.0 13.5 - 17.5 g/dL LAB HEMETOLOGY METHOD 07/07/2025 6:55 AM EDT [facility] Hematocrit 47.4 42.0 - 54.0 % LAB HEMETOLOGY METHOD 07/07/2025 6:55 AM EDT [facility] MCV 88.4 79.0 - 98.0 FL LAB HEMETOLOGY METHOD 07/07/2025 6:55 AM EDT [facility] MCH 28.0 27.0 - 32.0 pcg LAB HEMETOLOGY METHOD 07/07/2025 6:55 AM [facility] MCHC 31.6(L) 32.0 - 37.0 g/dL LAB HEMETOLOGY METHOD 07/07/2025 6:55 AM [facility] RDW 14.1 11.0 - 15.0 % LAB HEMETOLOGY METHOD 07/07/2025 6:55 AM [facility] Platelets 246 130 - 400 K/mcL LAB HEMETOLOGY METHOD 07/07/2025 6:55 AM [facility] MPV 10.9 7.0 - 11.0 FL LAB HEMETOLOGY METHOD 07/07/2025 6:55 AM [facility] NRBC 0.0 <1.0 % LAB HEMETOLOGY METHOD 07/07/2025 6:55 AM [facility] NRBC Absolute 0.00 <0.10 K/mcL LAB HEMETOLOGY METHOD 07/07/2025 6:55 AM [facility] Neutrophils Relative 84.2 % LAB HEMETOLOGY METHOD 07/07/2025 6:55 AM [facility] Lymphocytes Relative 10.8 % LAB HEMETOLOGY METHOD 07/07/2025 6:55 AM [facility] Monocytes Relative 4.2 % LAB HEMETOLOGY METHOD 07/07/2025 6:55 AM [facility] Eosinophils Relative 0.2 % LAB HEMETOLOGY METHOD 07/07/2025 6:55 AM [facility] Basophils Relative 0.4 % LAB HEMETOLOGY METHOD 07/07/2025 6:55 AM [facility] Immature Granulocytes Relative 0.2 % LAB HEMETOLOGY METHOD 07/07/2025 6:55 AM [facility] Neutrophils Absolute 7.66(H) 1.50 - 7.00 K/mcL LAB HEMETOLOGY METHOD 07/07/2025 6:55 AM EDT [facility] Lymphocytes Absolute 0.98(L) 1.00 - 5.00 K/[facility] LAB HEMETOLOGY METHOD 07/07/2025 6:55 AM EDT [facility] Monocytes Absolute 0.38 0.20 - 1.00 K/[facility] LAB HEMETOLOGY METHOD 07/07/2025 6:55 AM EDT [facility] Eosinophils Absolute 0.02 0.00 - 0.50 K/[facility] LAB HEMETOLOGY METHOD 07/07/2025 6:55 AM EDT [facility] Basophils Absolute 0.04 0.00 - 0.20 K/[facility] HEMETOLOGY [facility]07[facility] Immature Granulocytes Absolute 0.02 0.00 - 0.03 K/[facility] HEMETOLOGY METHOD 07/07/2025 6:55 AM T [facility] Blood Venous blood specimen / Unknown Venipuncture / Unknown 07/07/2025 6:13 AM EDT 07/07/2025 6:47 AM EDT us Amarjit German MD LAB BLOOD ORDERABLES Final Result [facility] [address] [place] [address], * (ABNORMAL) Basic metabolic panel (07/07/2025 6:13 AM EDT) Sodium 137 133 - 145 mmol/L LAB CHEMISTRY METHOD 07/07/2025 7:45 AM EDT [facility] Potassium 4.7 3.5 - 5.5 mmol/L LAB CHEMISTRY METHOD 07/07/2025 7:45 AM EDT [facility] Comment:Hemolysis present Chloride 105 96 - 110 mmol/L LAB CHEMISTRY METHOD 07/07/2025 7:45 AM EDT [facility] CO2 26 21 - 32 mmol/L LAB CHEMISTRY METHOD 07/07/2025 7:45 AM [facility] Anion Gap 6 3 - 11 LAB CHEMISTRY METHOD 07/07/2025 7:45 AM [facility] Glucose 114(H) 70 - 100 mg/dL LAB CHEMISTRY METHOD 07/07/2025 7:45 AM [facility] BUN 8 5 - 25 mg/dL LAB CHEMISTRY METHOD 07/07/2025 7:45 AM [facility] Creatinine 0.68(L) 0.70 - 1.30 mg/dL LAB CHEMISTRY METHOD 07/07/2025 7:45 AM [facility] eGFR 117 >=60 mL/min/1. 73m2 LAB CHEMISTRY METHOD 07/07/2025 7:45 AM [facility] Comment:Calculation based on the Chronic Kidney Disease Epidemiology Collaboration (CKD-EPI) equation refit without adjustment for race. BUN/Creatinine Ratio 11.8 LAB CHEMISTRY METHOD 07/07/2025 7:45 AM [facility] Calcium 9.2 8.5 - 10.5 mg/dL LAB CHEMISTRY METHOD 07/07/2025 7:45 AM [facility] Blood Venous blood specimen / Unknown Venipuncture / Unknown 07/07/2025 6:13 AM EDT 07/07/2025 6:47 AM EDT us Amarjit German MD LAB BLOOD ORDERABLES Final Result [facility] [address] [place] [address], * [id number], RSV, Influenza A and B qualitative RT-PCR (07/07/2025 4:24 AM EDT) Influenza A PCR Not Detected Not Detected LAB MICROBIOLOGY METHOD 07/07/2025 5:30 AM EDT [facility] Influenza B PCR Not Detected Not Detected LAB MICROBIOLOGY METHOD 07/07/2025 5:30 AM EDT [facility] RSV PCR Not Detected Not Detected LAB MICROBIOLOGY METHOD 07/07/2025 5:30 AM EDT [facility] SARS COV-2 Not Detected Not Detected LAB MICROBIOLOGY METHOD 07/07/2025 5:30 AM EDT [facility] Swab Nasopharyngeal structure / Unknown Non-blood Collection / Unknown 07/07/2025 4:24 AM EDT 07/07/2025 4:50 AM EDT Narrative [facility] - 07/07/2025 5:30 AM EDT Disclaimer: Testing was performed using the [employer] GeneXpert Xpress SARS-CoV-2 _Flu_RSV PLUS PCR assay. [...] for Healthcare providers can be found at https://www.fda.gov/media/017664/download. Fact sheet for Healthcare patients can be found at https://www.fda.gov/media/999807/download. us Amarjit German MD LAB MICROBIOLOGY - GENERAL ORDERABLES Final Result [facility] [address] [place] [address], [place] [phone] * XR Abdomen 1 View (07/07/2025 2:43 AM EDT) Anatomical Region Laterality Modality Body Radiographic Alesha ging 07/07/2025 9:05 AM EDT Impressions 07/07/2025 9:07 AM EDT A nasogastric tube is present with the lower portion in the abdominal left upper quadrant. However, the tip position cannot be assessed as it is below the lower level of this radiograph. Code 97853 -------- FINAL REPORT -------- Dictated By: Romulo Fagan Dictated Date: 07/07/2025 09:05 ET Assigned Physician: Romulo Fagan Reviewed and Electronically Signed By: Romulo Fagan Signed Date: 07/07/2025 09:07 ET Workstation ID: [id number] Transcribed By: Self Edit Transcribed Date: 07/07/2025 [...] the lower level of this radiograph. Code 69770 -------- FINAL REPORT -------- Dictated By: Romulo Fagan Dictated Date: 07/07/2025 09:05 ET Assigned Physician: Romulo Fagan Reviewed and Electronically Signed By: Romulo Fagan Signed Date: 07/07/2025 09:07 ET Workstation ID: [id number] Transcribed By: Self Edit Transcribed Date: 07/07/2025 [...] and culture (07/06/2025 9:51 PM EDT) Specific [place] Urine 1.014 1.003 - 1.030 LAB URINALYSIS - AUTOMATED METHOD 07/06/2025 10:04 PM [facility] pH, Urine 6.0 5.0 - 8.0 pH LAB URINALYSIS - AUTOMATED METHOD 07/06/2025 10:04 PM [facility] Leukocytes, Urine Negative Negative LAB URINALYSIS - AUTOMATED METHOD 07/06/2025 10:04 PM [facility] Nitrite, Urine Negative Negative LAB URINALYSIS - AUTOMATED METHOD 07/06/2025 10:04 PM [facility] Protein, Urine Negative <=Trace mg/dL LAB URINALYSIS - AUTOMATED METHOD 07/06/2025 10:04 PM [facility] Glucose, Urine Negative Negative mg/dL LAB URINALYSIS - AUTOMATED METHOD 07/06/2025 10:04 PM EDT [facility] Ketones, Urine Negative Negative mg/dL LAB URINALYSIS - AUTOMATED METHOD 07/06/2025 10:04 PM EDT [facility] Urobilinogen, Urine 1.0 0.2 - 1.0 mg/dL LAB URINALYSIS - AUTOMATED METHOD 07/06/2025 10:04 PM EDT [facility] Bilirubin, Urine Negative Negative LAB URINALYSIS - AUTOMATED METHOD 07/06/2025 10:04 PM EDT [facility] Blood, Urine Negative Negative LAB URINALYSIS - AUTOMATED METHOD 07/06/2025 10:04 PM EDT [facility] Urine Urine specimen obtained by clean catch procedure / Unknown Non-blood Collection / Unknown 07/06/2025 9:51 PM EDT 07/06/2025 9:55 PM EDT us Loi Malcolm MD LAB URINE ORDERABLES Final Res ult Performing Organization Address City/[facility]/ZIP Co de Phone Number [facility] [address] [place] [address], [place] [phone] * Manuel urine culture tube (07/06/2025 9:51 PM EDT) Extra Tube Hold for add-ons. 07/06/2025 11:01 PM EDT [facility] Comment:Auto resulted. Urine Urine specimen obtained by clean catch procedure / Unknown Non-blood Collection / Unknown 07/06/2025 9:51 PM EDT 07/06/2025 9:55 PM EDT us Loi Malcolm MD LAB URINE ORDERABLES Final Res ult Performing Organization Address [facility]/State/ZIP Co de Phone Number [facility] [address] [place] [address], [place] [phone] * Lipase (07/06/2025 8:26 PM EDT) Lipase 22 13 - 75 unit/L LAB CHEMISTRY METHOD 07/06/2025 9:06 PM [facility] Blood Venous blood specimen / Unknown Venipuncture / Unknown 07/06/2025 8:26 PM EDT 07/06/2025 8:39 PM EDT us Gal Ruiz MD LAB BLOOD ORDERABLES Final Result [facility] [address] [place] [address], * (ABNORMAL) Comprehensive metabolic panel (07/06/2025 8:26 PM EDT) Pathologist [facility] Sodium 138 133 - 145 mmol/L LAB CHEMISTRY METHOD 07/06/2025 9:06 PM [facility] Potassium 3.5 3.5 - 5.5 mmol/L LAB CHEMISTRY METHOD 07/06/2025 9:06 PM [facility] Chloride 105 96 - 110 mmol/L LAB CHEMISTRY METHOD 07/06/2025 9:06 PM [facility] CO2 26 21 - 32 mmol/L LAB CHEMISTRY METHOD 07/06/2025 9:06 PM [facility] Anion Gap 7 3 - 11 LAB CHEMISTRY METHOD 07/06/2025 9:06 PM [facility] Glucose 109(H) 70 - 100 mg/dL LAB CHEMISTRY METHOD 07/06/2025 9:06 PM [facility] BUN 8 5 - 25 mg/dL LAB CHEMISTRY METHOD 07/06/2025 9:06 PM [facility] Creatinine 0.77 0.70 - 1.30 mg/dL LAB CHEMISTRY METHOD 07/06/2025 9:06 PM [facility] eGFR 113 >=60 mL/min/1. 73m2 LAB CHEMISTRY METHOD 07/06/2025 9:06 PM [facility] Comment:Calculation based on the Chronic Kidney Disease Epidemiology Collaboration (CKD-EPI) equation refit without adjustment for race. BUN/Creatinine Ratio 10.4 LAB CHEMISTRY METHOD 07/06/2025 9:06 PM [facility] Calcium 9.2 8.5 - 10.5 mg/dL LAB CHEMISTRY METHOD 07/06/2025 9:06 PM [facility] AST (SGOT) 18 10 - 42 unit/L LAB CHEMISTRY METHOD 07/06/2025 9:06 PM [facility] ALT (SGPT) 26 10 - 60 unit/L LAB CHEMISTRY METHOD 07/06/2025 9:06 PM [facility] Alkaline Phosphatase 84 42 - 121 unit/L LAB CHEMISTRY METHOD 07/06/2025 9:06 PM [facility] Total Protein 7.1 6.0 - 8.0 g/dL LAB CHEMISTRY METHOD 07/06/2025 9:06 PM [facility] Albumin 3.9 3.2 - 5.0 g/dL LAB CHEMISTRY METHOD 07/06/2025 9:06 PM [facility] Total Bilirubin 0.4 0.0 - 1.4 mg/dL LAB CHEMISTRY METHOD 07/06/2025 9:06 PM [facility] Blood Venous blood specimen / Unknown Venipuncture / Unknown 07/06/2025 8:26 PM EDT 07/06/2025 8:39 PM EDT us Gal Ruiz MD LAB BLOOD ORDERABLES Final Result [facility] [address] [place] [address], [place] [phone] from Last 3 Months Insurance MEDICAID [place] [employer] MED[employer] [employer]VANTAGE Advance Directives Documents on File Type Date Recorded Patient Campaign Marketing Manager Expl 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 Care Teams Rn Lab Relationship Specialty Start Date End Date Raudel Armstrong [address] [place] [address] PCP - General Internal Medicine 11/16/21
--- OUTSIDE RECORDS SUMMARY | 2025-10-01 20:09 | XMS_ITS | Encounter Summary ---
Author Organization [employer] Address [address] [place] [address] Care Team Providers Care Creative Manager Name Role Phone Raudel Armstrong MD Primary Care Prov ider Daniel Zhang MD Primary Care Provider Alvina Chacko PharmD Unavailable [phone] Encounter Details Date Type Department Care Team (Late Contact Info) Description 05/20/2023 Telephone [facility] MED & PEDS [address] [place] [address] Raudel Armstrong MD [address] [place] [address] Social History Tobacco Use Types Packs/Day Years [...] Upcoming Encounters Date Type Department Care Team ([facility] Contact Info) Description 11/09/2025 9:00 AM EST Telemedicine [facility] [address] [place] [address] Alvina Chacko PharmD [address] [place] [address] documented as of this encounter Visit Diagnoses Not on filedocumented in this encounter Additional Health Concerns Assessment Noted Time PHQ-9 Depression Total Score: 0 01/29/20 23 8:49 AM EDT documented as of this encounter Care Teams Creative Manager Relationship Specialty Start Date End Date Raudel Armstrong MD [address] [place] [address] PCP - General Internal Medicine 03/08/20 05/17/24 Daniel Zhang MD [address] [place] [address] PCP - General Internal Medicine 05/18/24 Alvina Chacko PharmD [address] [place] [address] Pharmacist Pharmacy 08/03/25 documented as of this encounter
--- OUTSIDE RECORDS SUMMARY | 2025-10-01 20:09 | XMS_ITS | Encounter Summary ---
Author Organization [employer] Address [address] [place] [id number] Care Team Providers Care Section Housekeeper Name Role Phone Daniel Zhang MD Primary Care Provider Alvina Chacko PharmD Unavailable [phone] Reason for Visit * Reason Comments Med Refill Encounter Details Date Type Department Care Team ([facility] st Contact Info) Description 09/25/2025 Refill [facility] & [facility]EDS [address] [place] [address] Daniel Zhang MD [address] [place] [address] Chronic pain of right knee; Chronic left [...] Info) Description 11/09/2025 9:00 AM EST Telemedicine [facility] MED & PEDS [address] [place] [address] Alvina Chacko, PharmD [address] [place] [address] documented as of this encounter Visit Diagnoses Diagnosis Chronic pain of right knee Chronic left shoulder pain Pain in joint, shoulder region documented in this encounter Additional Health Concerns Assessment Noted Time PHQ-9 Depression Total Score: 12 025 9:40 AM EDT documented as of this encounter Care Teams Section Housekeeper Relationship Specialty Start Date End Date Daniel Zhang MD [address] [place] [address] PCP - General Internal Medicine 05/18/24 Alvina Chacko, ChetnaD [address] [place] [address] Pharmacist Pharmacy 08/03/25 documented as of this encounter
--- OUTSIDE RECORDS SUMMARY | 2025-10-01 20:09 | XMS_ITS | Encounter Summary ---
Author Organization [employer] Address [address] [place] [address] Care Team Providers Care Doughmaker Name Role Phone Raudel Armstrong MD Primary Care Prov ider Daniel Zhang MD Primary Care Provider Alvina Chacko PharmD Unavailable [phone] Encounter Details Date Type Department Care Team (Latest Contact Info) Description 10/31/2021 Abstract [facility] CONVERSIONS Dental, Provider, DDS Social History Tobacco [...] Info) Description 11/09/2025 9:00 AM EST Telemedicine [facility] MED & PEDS [address] [place] [address] Alvina Chacko, PharmD [address] [place] [address] documented as of this encounter Visit Diagnoses Not on filedocumented in this encounter Care Teams Doughmaker Relationship Specialty Start Date End Date Raudel Armstrong MD [address] [place] [address] PCP - General Internal Medicine 03/08/20 05/17/24 Daniel Zhang MD [address] [place] [address] PCP - General Internal Medicine 05/18/24 Alvina Chacko PharmD [address] [place] [address] Pharmacist Pharmacy 08/03/25 documented as of this encounter
--- OUTSIDE RECORDS SUMMARY | 2025-10-01 20:09 | XMS_ITS | Encounter Summary ---
Author Organization [employer] Address [address] [place] [address] Care Team Providers Care Preschool Education Director Name Role Phone Daniel Zhang MD Primary Care Provider Alvina Chacko PharmD Unavailable [phone] Reason for Visit * Reason Comments Med Refill Encounter Details Date Type Department Care Team ([facility] st Contact Info) Description 09/10/2025 Refill [facility] CHC MED & PEDS [address] [place] [address] Daniel Zhang MD [address] [place] [address] Mixed hyperlipidemia Social History Tobacco Use Types [...] Upcoming Encounters Date Type Department Care Team ([facility] st Contact Info) Description 11/09/2025 9:00 AM EST Telemedicine [facility] CHC MED & PEDS [address] [place] [address] Alvina Chacko, PharmD [address] [place] [address] documented as of this encounter Visit Diagnoses Diagnosis Mixed hyperlipidemia documented in this encounter Additional Health Concerns Assessment Noted Time PHQ-9 Depression Total Score: 12 025 9:40 AM EDT documented as of this encounter Care Teams Preschool Education Director Relationship Specialty Start Date End Date Daniel Zhang MD [address] [place] [address] PCP - General Internal Medicine 05/18/24 Alvina Chacko, ChetnaD [address] [place] [address] Pharmacist Pharmacy 08/03/25 documented as of this encounter
--- OUTSIDE RECORDS SUMMARY | 2025-10-01 20:09 | XMS_ITS | Encounter Summary ---
Author Organization [employer] Address [address] [place] [address] Care Team Providers Care Student Ministry Pastor Name Role Phone Daniel Zhang MD Primary Care Provider Alvina Chacko PharmD Unavailable [phone] Reason for Visit * Reason Onset Date Comments Med Refill 07/22/2025 Encounter Details Date Type Department Care Team ([facility] st Contact Info) Description 07/22/2025 Refill [facility] CHC MED & PEDS [address] [place] [address] Daniel Zhang MD [address] [place] [address] Other male erectile dysfunction Social History Tobacco [...] Upcoming Encounters Date Type Department Care Team ([facility] st Contact Info) Description 11/09/2025 9:00 AM EST Telemedicine [facility] CHC MED & PEDS [address] [place] [address] Alvina Chacko, PharmD [address] [place] [address] documented as of this encounter Visit Diagnoses Diagnosis Other male erectile dysfunction documented in this encounter Additional Health Concerns Assessment Noted Time PHQ-9 Depression Total Score: 12 025 9:40 AM EDT documented as of this encounter Care Teams Student Ministry Pastor Relationship Specialty Start Date End Date Daniel Zhang MD [address] [place] [address] PCP - General Internal Medicine 05/18/24 Alvina Chacko, PharmD [address] [place] [address] Pharmacist Pharmacy 08/03/25 documented as of this encounter
--- OUTSIDE RECORDS SUMMARY | 2025-10-01 20:09 | XMS_ITS | Encounter Summary ---
Author Organization [employer] Address [address] [place] [address] Care Team Providers Care Reservoir Engineering Advisor Name Role Phone Daniel Zhang MD Primary Care Provider [phone] Alvina Chacko PharmD Unavailable [phone] Reason for Visit * Reason Comments Med Refill Encounter Details Date Type Department Care Team ([facility] st Contact Info) Description 03/10/2025 Refill [facility] CHC MED & PEDS [address] [place] [address] Daniel Zhang MD [address] [place] [address] Mixed hyperlipidemia Social History Tobacco Use Types [...] with others, in a hotel, in a care home, living outside on the street, on [...] 11/09/2025 9:00 AM EST Telemedicine [facility] MED & PEDS [address] [place] [address] Alvina Chacko PharmD [address] [place] [address] documented as of this encounter Visit Diagnoses Diagnosis Mixed hyperlipidemia documented in this encounter Additional Health Concerns Assessment Noted Time PHQ-9 Depression Total Score: 0 01/29/20 23 8:49 AM EDT documented as of this encounter Care Teams Reservoir Engineering Advisor Relationship Specialty Start Date End Date Daniel Zhang MD [address] [place] [address] PCP - General Internal Medicine 05/18/24 Alvina Chacko PharmD [address] [place] [address] Pharmacist Pharmacy 08/03/25 documented as of this encounter
--- OUTSIDE RECORDS SUMMARY | 2025-10-01 20:09 | XMS_ITS | Encounter Summary ---
Author Organization [employer] Address [address] [place] [address] Care Team Providers Care Associate Director Regulatory Affairs Name Role Phone Raudel Armstrong MD Primary Care Prov ider Daniel Zhang MD Primary Care Provider Alvina Chacko PharmD Unavailable [phone] Encounter Details Date Type Department Care Team ([facility] st Contact Info) Description 02/19/2023 Orders Only [facility] CHC MED & PEDS [address] [place], [place] [phone] Raudel Armstrong MD [address] [place] [address] Social History Tobacco Use Types Packs/Day Years [...] Info) Description 11/09/2025 9:00 AM EST Telemedicine [facility] CHC MED & PEDS [address] [place] [address] Alvina Chacko PharmD [address] [place] [address] documented as of this encounter Visit Diagnoses Not on filedocumented in this encounter Additional Health Concerns Assessment Noted Time PHQ-9 Depression Total Score: 0 01/29/20 23 8:49 AM EDT documented as of this encounter Care Teams Associate Director Regulatory Affairs Relationship Specialty Start Date End Date YeagerRaudel Garcia MD 505 [place] [address] PCP - General Internal Medicine 03/08/20 05/17/24 Daniel Zhang MD [address] [place] [address] PCP - General Internal Medicine 05/18/24 Alvina Chacko PharmD [address] [place] [address] Pharmacist Pharmacy 08/03/25 documented as of this encounter
== END 2025-10-01 20:06 | disposition home or self-care (01) ==
LOC: HO.MRI 20:05
PROVIDERS: PCP Internal Medicine; Visit Provider Orthopaedic Surgery
DX: M25.312 Other instability, left shoulder (principal)
CPT/HCPCS: 70250; 73590

== ENCOUNTER 2025-10-04 19:17 | Outpatient (REF) | payer MEDICARE, MEDICAID, SELFPAY ==
--- NOTE | ~2025-10-04 | MR_ITS ---
EXAMINATION: MR SHOULDER WITHOUT CONTRAST, LEFT CLINICAL INFORMATION: Pain, instability COMPARISON: X-ray 08/25/2025 TECHNIQUE: MRI of the shoulder without contrast was performed on a high-field scanner. FINDINGS: ROTATOR CUFF: Supraspinatus: Mild tendinosis Infraspinatus: Intact Teres minor: Intact Subscapularis: Mild tendinosis. No evidence of full-thickness tear or retraction. No muscle atrophy or fatty infiltration. BICEPS: Intact CORACOACROMIAL ARCH: The undersurface of the acromion is curved with no subacromial spur. Mild acromioclavicular arthritis, with distal clavicular cyst, prominent marrow edema. LABRUM/CAPSULE: No displaced labral tear is seen. Intact inferior capsule GLENOHUMERAL JOINT/MARROW: No fracture or dislocation. No high-grade chondral loss. No suspicious bony lesions. Small joint fluid. No axillary lymphadenopathy. MR/MR shoulder LT wo con IMPRESSION: * Mild supraspinatus and subscapularis tendinosis. No evidence of full-thickness tear or retraction. * Mild acromioclavicular edema. Edema in the distal clavicle and acromion marginating the joint, could be related to the arthritis, contusion/stress injury. Electronically signed by: Toney Holbrook MD 10/05/2025 12:49 PM KEYLA
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
--- OUTSIDE RECORDS SUMMARY | 2025-10-04 19:20 | XMS_ITS | Encounter Summary ---
Author Organization [employer] Address [address] [facility] 7 [place] [address] Care Team Providers Care Pressure Washer Name Role Phone Daniel Zhang MD Primary Care Provider [phone] Alvina Chacko PharmD Unavailable [phone] Encounter Details Date Type Department Care Team ([facility] st Contact Info) Description 07/07/2025 Orders Only [facility] CHC MED & PEDS [address] [place] [address] ProviderKimberly MD Social History Tobacco Use Types [...] Info) Description 11/09/2025 9:00 AM EST Telemedicine [facility] CHC MED & PEDS [address] [place] [address] Alvina Chacko, PharmD [address] [place] [address] documented as of this encounter Procedures Procedure [...] documented as of this encounter Care Teams Pressure Washer Relationship Specialty Start Date End Date Daniel Zhang MD [address] [place] [address] PCP - General Internal Medicine 05/18/24 Alvina Chacko PharmD [address] [place] [address] Pharmacist Pharmacy 08/03/25 documented as of this encounter
--- OUTSIDE RECORDS SUMMARY | 2025-10-04 19:20 | XMS_ITS | Encounter Summary ---
Author Organization [employer] Address [address] [place] [address] Care Team Providers Care Java Consultant Name Role Phone Raudel Armstrong MD Primary Care Prov ider Daniel Zhang MD Primary Care Provider Alvina Chacko PharmD Unavailable [phone] Reason for Visit * Reason Onset Date Comments Med Refill 11/16/2023 Encounter Details Date Type Department Care Team (Late st Contact Info) Description 11/16/2023 Refill [facility] CHC MED & PEDS [address] [place], [place] [phone] Raudel Armstrong MD [address] [place], [place] [phone] Social History Tobacco Use Types Packs/Day Years [...] Info) Description 11/09/2025 9:00 AM EST Telemedicine [facility] MED & PEDS [address] [place] [address] Alvina Chacko PharmD [address] [place] [address] documented as of this encounter Visit Diagnoses Not on filedocumented in this encounter Additional Health Concerns Assessment Noted Time PHQ-9 Depression Total Score: 0 01/29/20 23 8:49 AM EDT documented as of this encounter Care Teams Java Consultant Relationship Specialty Start Date End Date Raudel Armstrnog MD [address] [place] [address] PCP - General Internal Medicine 03/08/20 05/17/24 Daniel Zhang MD [address] [place] [address] PCP - General Internal Medicine 05/18/24 Alvina Chacko PharmD [address] [place] [address] Pharmacist Pharmacy 08/03/25 documented as of this encounter
--- OUTSIDE RECORDS SUMMARY | 2025-10-04 19:20 | XMS_ITS | Encounter Summary ---
Author Organization [employer] Address [address] [place] [address] Care Team Providers Care Silk Screen Operator Name Role Phone Daniel Zhang MD Primary Care Provider Alvina Chacko PharmD Unavailable [phone] Encounter Details Date Type Department Care Team ([facility] st Contact Info) Description 06/28/2024 Orders Only [facility] CHC MED & PEDS [address] [place] [address] Daniel Zhang MD [address] [place] [address] Vitamin D deficiency (Primary Dx); Mixed hyperlipidemia; [...] Info) Description 11/09/2025 9:00 AM EST Telemedicine [facility] CHC MED & PEDS [address] [place] [address] Alvina Chacko PharmD [address] [place] [address] documented as of this encounter Visit Diagnoses [...] documented as of this encounter Care Teams Silk Screen Operator Relationship Specialty Start Date End Date Daniel Zhang MD [address] [place] [address] PCP - General Internal Medicine 05/18/24 Alvina Chacko PharmD [address] [place] [address] Pharmacist Pharmacy 08/03/25 documented as of this encounter
--- OUTSIDE RECORDS SUMMARY | 2025-10-04 19:20 | XMS_ITS | Clinical Summary ---
Author Organization [employer] Address [address] [place] [address] 7 [place] [address] Care Team Providers Care Casino Operations Supervisor Name Role Phone Daniel Zhang MD Primary Care Provider Alvina Chacko PharmD Unavailable [phone] Allergies Active Allergy Reactions Criticality Noted Date [...] Encounters Date Type Department Care Team Description 10/01/2025 Orders Only [facility] External Provider, [facility] 09/25/2025 Refill [facility] P[facility]S [address] [place] [address] Daniel Zhang MD Chronic pain of right knee; Chronic left shoulder pain 09/16/2025 Refill [facility] [address] [place] [address] Daniel Zhang MD Mixed hyperlipidemia 09/10/2025 Refill [facility] [address] [place], [place] [phone] Daniel Zhang MD Mixed hyperlipidemia 08/31/2025 9:00 AM EDT Telemedicine [facility] [address], [place] [phone] Alvina Chacko, PharmD Smoking 1/2 pack a day or less (Primary Dx) 08/31/2025 Travel 08/26/2025 Refill [facility] [address], [place] [phone] Daniel Zhang MD Chronic pain of right knee; Chronic left shoulder pain 08/16/2025 Telephone [facility] [address], [place] [phone] Alvina Chacko PharmD 08/03/2025 9:00 AM EDT Telemedicine [facility] [address], [place] [phone] Alvina Chacko PharmD Smoking 1/2 pack a day or less (Primary Dx) 08/03/2025 Travel 07/28/2025 Refill [facility] [address], [place] [phone] Daniel Zhang MD Other male erectile dysfunction 07/22/2025 Refill [facility] [address], [place] [phone] Daniel Zhang MD Other male erectile dysfunction 07/21/2025 Telephone [facility] [address], [place] [phone] Daniel Zhang MD Patient Education 07/21/2025 Results Follow-Up [facility] [address], [place] [phone] Hilda Hung RN Lipid Panel, Standard 07/21/2025 Refill [facility] [address], [place] [phone] Daniel Zhang MD Chronic pain of right knee; Chronic left shoulder pain 07/20/2025 9:15 AM EDT Office Visit [facility] [address] [place] [address] Daniel Zhang MD Partial small bowel obstruction (CMS/HCC) (Primary Dx) 07/20/2025 Orders Only [facility] [address] [place] [address] Daniel Zhang MD 07/20/2025 Results Follow-Up [facility] [address] [place] [address] Daniel Zhang MD CBC auto differential, Basic Metabolic Panel 07/20/2025 Travel 07/14/2025 Travel 07/13/2025 Telephone [facility] [address] [place] [address] Daniel Zhang MD Medication Question 07/12/2025 Telephone [facility] [address] [place] [address] Daniel Zhang MD Hospital Follow-up 07/07/2025 Orders Only [facility] [address] [place] [address] Provider, MD Kimberly from Last 3 Months Immunizations Immunization Administration [...] Description 11/09/2025 9:00 AM EST Telemedicine [facility] [address] [place] [address] Alvina Chacko, PharmD [address] [place], [place] [phone] Health Maintenance Due Date Last Done Comments [...] VIEWS LEFT Routine 10/01/2025 8:13 PM EST BASIC METABOLIC PANEL Routine 07/20/2025 10:30 AM [...] Recently Relevant to Health Maintenance Results * XR Skull 1-3 Views (10/01/2025 8:23 PM EST) Anatomical Region Laterality Modality Head, Neck Radiographic Alesha ging 10/01/2025 8:23 PM EST Narrative 10/01/2025 8:24 PM EST [place] [address] XRay Report Signed with Neryenda Patient: Gennaro Quinn MR#: [id number] : 1980 Acct:[id number] Age/Sex: 45 / M ADM Date: 10/01/25 Loc: HO.MRI Attending Dr: Kurt Minor MD Ordering Physician: Lopez Ayoub MD Date of Service: 10/01/25 Procedure(s): XR skull <4V Accession Number(s): [id number] cc: Daniel Zhang MD; Lopez Ayoub MD [...] MD on 10/01/2025 20:23:07 Dictated By: Jose Pearosn MD Signed By: <Electronically signed by Jose Pearson MD in OV> 10/01/252023 DD/ 22 TD/TT: 10/01/252022 Gravity Manager: Procedure Note Donotuseinterpreter, Image - 10/04/[address] [address] XRay Report Signed with Addenda Patient: Mariah Quinn#: [id number] : 1980Acct:[id number] Age/Sex: 45 / MADM Date: 10/01/25 Loc: HO.MRI Attending Dr: Kurt Minor MD Ordering Physician: Lopez Ayoub MD Date of Service: 10/01/25 Procedure(s): XR skull <4V Accession Number(s): [id number] cc: Daniel Zhang MD; Lopez Ayoub MD [...] in OV> 10/01/252023 DD/ 22 TD/TT: 10/01/252022 Gravity Manager: [facility] External Provider IMG XR PROCEDURES Edited Result - Final * XR Tibia Fibula 2 Views Left (10/01/2025 8:13 PM EST) Anatomical Region Laterality Modality Lower Extremities, Lower Leg Left Rad iographic Imaging 10/01/2025 8:13 PM EST Narrative 10/01/2025 8:15 PM EST [address] [address] XRay Report Signed with Addenda Patient: Gennaro Quinn MR#: [id number] : 1980 Acct:[id number] Age/Sex: 45 / M ADM Date: 10/01/25 Loc: HO.MRI Attending Dr: Kurt Minor MD Ordering Physician: Lopez Ayoub MD Date of Service: 10/01/25 Procedure(s): XR tibia fibula LT 2V Accession Number(s): [id number] cc: Daniel Zhang MD; Lopez Ayoub MD [...] MD Addendum Signed By: <Electronically signed by oJse Pearson MD in OV> 10/04/25904 Addendum Cosigned [...] in OV> 10/01/252013 DD/ 12 TD/TT: 10/01/252012 Gravity Manager: Procedure Note Anneter, Image - 10/04/2025 [place] [address] XRay Report Signed with Addenda Patient: Mariah Quinn#: [id number] : 1980Acct:[id number] Age/Sex: 45 / MADM Date: 10/01/25 Loc: HO.MRI Attending Dr: Kurt Minor MD Ordering Physician: Lopez Ayoub MD Date of Service: 10/01/25 Procedure(s): XR tibia fibula LT 2V Accession Number(s): [id number] cc: Daniel Zhang MD; Lopez Ayoub MD [...] in OV> 10/01/252013 DD/ 12 TD/TT: 10/01/252012 Gravity Manager: us [facility] External Provider IMG XR PROCEDURES Edited Result - Final * CBC auto differential (07/20/2025 10:30 AM EDT) White Blood Count 7.6 4.8 - 10.8 X10*3/uL [facility] Red Blood Count 5.38 4.60 - 5.80 X10*6/uL [facility] Hemoglobin 15.5 14.0 - 18.0 g/dl [facility] Hematocrit 47.7 42.0 - 52.0 % [facility] Mean Corpuscular Volume 88.7 80.0 - 98.0 fL [facility] Mean Corpuscular Hemoglobin 28.8 27.0 - 33.0 pg [facility] Mean Corpuscular HGB Conc 32.5 31.0 - 36.0 g/dl [facility] Red Cell Distribution Width 13.9 11.0 - 16.0 % [facility] Platelet Count 276 160 - 400 X10*3/uL [facility] Mean Platelet Volume 11.1 9.4 - 12.4 fL [facility] Neutrophils Percent Auto 54.5 45 - 73 % [facility] Imm Gran Pct Auto 0.3 0.0 - 0.4 % [facility] Lymphocytes Percent Auto 37.1 20 - 40 % [facility] Monocytes Percent Auto 6.1 2 - 11 % [facility] Eosinophils Percent Auto 1.2 0 - 4 % [facility] Basophils Percent Auto 0.8 0 - 2 % [facility] NRBC Pct Auto 0.0 0.0 - 0.2 /100WBC [facility] Neutrophils Absolute Auto 4.1 2.0 - 8.3 x10*3/uL [facility] Imm Gran Abs Auto 0.02 0.00 - 0.03 X10*3/uL [facility] Lymphocytes Absolute Auto 2.8 1.2 - 4.9 X10*3/uL [facility] Monocytes Absolute Auto 0.5 0.1 - 1.2 X10*3/uL [facility] Eosinophils Absolute Auto 0.1 0.0 - 0.4 X10*3/uL [facility] Basophils Absolute Auto 0.1 0.0 - 0.2 X10*3/uL [facility] NRBC Abs Auto 0.000 0.0 - 0.012 X10*3/uL [facility] Blood Venous blood specimen / Unknown 07/20/2025 10:30 AM EDT 07/20/2025 2:00 PM EDT us Daniel Zhang MD LAB BLOOD ORDERABLES Final Result [facility] [address] [place], [place] [phone] * (ABNORMAL) Lipid Panel, Standard (07/20/2025 10:30 AM EDT) Triglycerides 177(H) <150 mg/dL [facility] Comment:Desirable Triglyceri de: less than 150 mg/dLBorderline High Triglyceride 150-199 mg/dLHigh Triglyceride: 200-499 mg/dLVery High Triglyceride: greater than or equal to 5OO mg/dL Cholesterol 229(H) <200 mg/dL [facility] Comment:Desirable Cholestero l: less than 200 mg/dLBorderline High Cholesterol: 200-239 mg/dLHigh Cholesterol: greater than 239 mg/dL LDL Cholesterol Calculated 152(H) <100 mg/dL [facility] Comment:Desirable LDL: less than 100 mg/dLNear Optimal/Above Optimal LDL: 110- 129 mg/dLBorderline High LDL: 130-159 mg/dLHigh LDL: 160-189 mg/dLVery High LDL: greater than or equal to 190 mg/dL HDL Cholesterol 42 >40 mg/dL [facility] Comment:Desirable HDL: great er than 40 mg/dL Note: This HDL assay may give artificially low results in patients with liver disease. Blood Venous blood specimen / Unknown 07/20/2025 10:30 AM EDT 07/20/2025 2:20 PM EDT us Daniel Zhang MD LAB BLOOD ORDERABLES Final Result Performing Organization Address [facility] Co de Phone Number [facility] [address] [place] [address] [phone] * (ABNORMAL) Basic Metabolic Panel (07/20/2025 10:30 AM EDT) Sodium 140 135 - 145 mmol/L [facility] Potassium 4.1 3.3 - 5.1 mmol/L [facility] Chloride 106 96 - 108 mmol/L [facility] Carbon Dioxide 27 22 - 29 mmol/L [facility] Anion Gap 11(L) 12 - 20 [facility] Urea Nitrogen (BUN) 8(L) 9 - 16 mg/dL [facility] Creatinine, Serum 0.66 0.5 - 1.4 mg/dL [facility] Estimated Glomerular Filt Rate >60 [facility] Comment:Chronic Kidney Disea se: Estimated GFR < 60 mL/min/1.82x2Dehjbx Kidney Disease: Estimated GFR < 15 mL/min/1.73m2 Glucose 79 60 - 115 mg/dL [facility] Calcium 9.0 8.4 - 10.2 mg/dL [facility] Blood Venous blood specimen / Unknown 07/20/2025 10:30 AM EDT 07/20/2025 2:20 PM EDT Daniel Zhang MD LAB BLOOD ORDERABLES Final Result Performing Organization Address City/[facility] Co de Phone Number [facility] [address] [place] [phone] * CT Abdomen Pelvis w/ Contrast (07/06/2025 9:48 AM EDT) Only the most recent of2 resultswithin the time period is included. Anatomical Region Laterality Modality Body, Pelvis, Abdomen Computed T omography us Historical Provider MD FOLEY CT PROCEDURES Final R esult * Cologuard?? colon cancer screening (05/03/2025 6:50 AM EDT) Cologuard Result Negative Negative 05/09/20 5:49 AM EDT [employer] (CLIA #:[id number]) Comment: The Cologuard (TM) test was performed [...] cancer. Following a negative Cologuard result, the [place] [employer] Society and U.S. Multi-Society Task Force screening guidelines recommend a Cologuard re-screening interval of 3 years. References: [place] [employer] Guideline for Colorectal Cancer Screening: https://www.cancer.org/cancer/gnxmw-wqgopt-mgnrpz/zlbnltdiq-uphqwjehh-gsmnpcp/ac s-rec ommendations.html.; Gene DK, Gordo CR, Catrachita FelicianoK, Colorectal Cancer Screening: Recommendations for Physicians and Patients from the U.S. Multi-Society Task Force on Colorectal Cancer Screening , Am J Gastroenterology 2017; 112:3496-6174. TEST DESCRIPTION: Composite algorithmic analysis of stool [...] Hernandez. et al, N Engl J Med 2014;370(14):8316-2491.) Cologuard may produce a false negative or false positive result (no colorectal cancer or precancerous polyp present at colonoscopy follow up). A negative Cologuard test result does not guarantee the absence of CRC or advanced adenoma (pre-cancer). The current Cologuard screening interval is every 3 years. ([place] [employer] and U.S. Multi-Society Task Force). Cologuard performance data in a 10,000 patient pivotal study using colonoscopy as the reference method can be accessed at the following location: www.GenerationStation.com/results. Additional description of the Cologuard test process, warnings and precautions can be found at www.cologPulserd.com. Stool specimen (specimen) 05/03/2025 6:50 AM EDT 05/04/2025 1:43 PM EDT us Daniel Zhang MD LAB MOLECULAR DIAGNOSTICS O RDERABLES Final Result Performing Organization Address City/[facility]/ZIP Co de Phone Number [employer] (CLIA #:[id number]) [address] [place] [address], * Hepatitis C Antibody with Reflex to HCV, RNA, Quantitative, Real-Time PCR (04/11/2025 10:40 AM EDT) Hepatitis C Antibody Nonreactive Nonreactive [facility] Comment:Antibodies to HCV no t detected; does not exclude early acuteHCV infection. Blood Venous blood specimen / Unknown 04/11/2025 10:40 AM EDT 04/11/2025 2:17 PM EDT Daniel Zhang MD LAB BLOOD ORDERABLES Final Result Performing Organization Address [facility] Co de Phone Number [facility] [address] [place] [phone] * HIV-1/2 Antigen and Antibodies, Fourth Generation, with Reflexes (04/11/2025 10:40 AM EDT) HIV AB/AG Nonreactive Nonreactive [facility] Comment:HIV-1 p24 Ag and/or HIV-1/HIV-2 Ab not detected.A test result that is nonreactive does not exclude thepossibility of exposure to or infection with HIV-1 and/orHIV-2. Nonreactive results in this assay for individualswith prior exposure to HIV-1 and/or HIV-2 may be due toantigen and antibody levels that are below the limit ofdetection of this assay.The [employer] HIV Ag/Ab Combo assay result andsupplemental assay results should be interpreted inconjunction with the patient's clinical presentation,history and other laboratory results. If the results areinconsistent with clinical evidence, additional testing issuggested to confirm the result. Blood Venous blood specimen / Unknown 04/11/2025 10:40 AM EDT 04/11/2025 2:17 PM EDT us Daniel Zhang MD LAB BLOOD ORDERABLES Final Result Performing Organization Address City/[facility]/ZIP Co de Phone Number [facility] [address] [place] [phone] * Hemoglobin A1c (04/11/2025 10:40 AM EDT) Hemoglobin A1c 5.8 <6.0 % [facility] Comment:Hemoglobin A1C Refer ence Range Adults: 4.8 - 6.0 % Non diabetic: < 6.0 % Goal: < 7.0 %Additional Action Suggested: > 8.0 %Note: Hemoglobin A1c results are invalid for patients with abnormal amounts of HbF. Blood transfusions may impact the HbA1c concentration in the patient sample. Estimated Average Glucose 120 mg/dL [facility] Comment:eAG = Estimated ave rage glucose which is %A1C expressed asaverage glucose, using the formula of the L1U-EloyuhyPswdqci Glucose study (ADAG), Diabetes Care, Vol.31,#8,Jun. 2007 Blood Venous blood specimen / Unknown 04/11/2025 10:40 AM EDT 04/11/2025 2:17 PM EDT us Daniel Zhang MD LAB BLOOD ORDERABLES Final Result Performing Organization Address [facility] Co de Phone Number [facility] [address] [place] [phone] from Last 3 Months or Most Recently Relevant to Health Maintenance Insurance [facility] STANDARD [employer]ET[employer] MEDICARE REPLACEMENT Care Teams Casino Operations Supervisor Relationship Specialty Start Date End Date Daniel Zhang MD [address] [place] [phone] PCP - General Internal Medicine 05/18/24 Alvina Chacko, ChetnaD [address] [place] [phone] Pharmacist Pharmacy 08/03/25
--- OUTSIDE RECORDS SUMMARY | 2025-10-04 19:20 | XMS_ITS | Encounter Summary ---
Author Organization [employer] Address [address] [place] [address] Care Team Providers Care Road Engineer Freight Name Role Phone Daniel Zhang MD Primary Care Provider Alvina Chacko PharmD Unavailable Reason for Visit * Reason Onset Date Comments Med Refill 06/07/2025 Encounter Details Date Type Department Care Team ([facility] st Contact Info) Description 06/07/2025 Refill [facility] P[facility] [address] [place] [address] Daniel Zhang MD [address] [place] [address] Other male erectile dysfunction Social History Tobacco [...] Upcoming Encounters Date Type Department Care Team ([facility] st Contact Info) Description 11/09/2025 9:00 AM EST Telemedicine [facility] [address] [place] [address] Alvina Chacko, PharmD [address] [place] [address] documented as of this encounter Visit Diagnoses Diagnosis Other male erectile dysfunction documented in this encounter Additional Health Concerns Assessment Noted Time PHQ-9 Depression Total Score: 12 025 9:40 AM EDT documented as of this encounter Care Teams Road Engineer Freight Relationship Specialty Start Date End Date Daniel Zhang MD [address] [place] [address] PCP - General Internal Medicine 05/18/24 Alvina Chacko, PharmD [address] [place] [address] Pharmacist Pharmacy 08/03/25 documented as of this encounter
--- OUTSIDE RECORDS SUMMARY | 2025-10-04 19:21 | XMS_ITS | Encounter Summary ---
Author Organization [employer] Address [address] [place] [address] Care Team Providers Care Undercutter Name Role Phone Raudel Armstrong MD Primary Care Prov ider Daniel Zhang MD Primary Care Provider Alvina Chacko PharmD Unavailable [phone] Encounter Details Date Type Department Care Team (Late Contact Info) Description 05/20/2023 Telephone [facility] [address] [place] [address] Raudel Armstrong MD [address] [place] [address] Social History Tobacco Use Types Packs/Day Years [...] Upcoming Encounters Date Type Department Care Team ([facility] Contact Info) Description 11/09/2025 9:00 AM EST Telemedicine [facility] [address] [place] [address] Alvina Chacko PharmD [address] [place] [address] documented as of this encounter Visit Diagnoses Not on filedocumented in this encounter Additional Health Concerns Assessment Noted Time PHQ-9 Depression Total Score: 0 01/29/20 23 8:49 AM EDT documented as of this encounter Care Teams Undercutter Relationship Specialty Start Date End Date Raudel Armstrong MD [address] [place] [address] PCP - General Internal Medicine 03/08/20 05/17/24 Daniel Zhang MD [address] [place] [address] PCP - General Internal Medicine 05/18/24 Alvina Chacko PharmD [address] [place] [address] Pharmacist Pharmacy 08/03/25 documented as of this encounter
--- OUTSIDE RECORDS SUMMARY | 2025-10-04 19:21 | XMS_ITS | Encounter Summary ---
Author Organization [employer] Address [address] [place] [address] Care Team Providers Care Maintenance Data Analyst Name Role Phone Daniel Zhang MD Primary Care Provider Alvina Chacko PharmD Unavailable [phone] Encounter Details Date Type Department Care Team ([facility] st Contact Info) Description 06/09/2025 Orders Only [facility] [address] [place] [address] Daniel Zhnag MD [address] [place] [address] Other male erectile dysfunction (Primary Dx) Social [...] Info) Description 11/09/2025 9:00 AM EST Telemedicine [facility] [address] [place], [place] [phone] Alvina Chacko, PharmD [address] [place] [address] documented as of this encounter Visit Diagnoses Diagnosis Other male erectile dysfunction- Primary documented in this encounter Additional Health Concerns Assessment Noted Time PHQ-9 Depression Total Score: 12 025 9:40 AM EDT documented as of this encounter Care Teams Maintenance Data Analyst Relationship Specialty Start Date End Date Daniel Zhang MD [address] [place] [address] PCP - General Internal Medicine 05/18/24 Alvina Chacko, PharmD [address] [place] [address] Pharmacist Pharmacy 08/03/25 documented as of this encounter
--- OUTSIDE RECORDS SUMMARY | 2025-10-04 19:21 | XMS_ITS | Encounter Summary ---
Author Organization [employer] Address [address] [place] [address] Care Team Providers Care Pumping Station Supervisor Name Role Phone Daniel Zhang MD Primary Care Provider Alvina Chacko PharmD Unavailable [phone] Encounter Details Date Type Department Care Team ([facility] st Contact Info) Description 07/20/2025 Orders Only [facility] P[facility]S [address] [place] [address] Daniel Zhang MD [address] [place] [address] Social History Tobacco Use Types Packs/Day Years [...] Upcoming Encounters Date Type Department Care Team ([facility] st Contact Info) Description 11/09/2025 9:00 AM EST Telemedicine [facility] [address] [place] [address] Alvina Chacko PharmD [address] [place] [address] documented as of this encounter Visit Diagnoses Not on filedocumented in this encounter Additional Health Concerns Assessment Noted Time PHQ-9 Depression Total Score: 12 025 9:40 AM EDT documented as of this encounter Care Teams Pumping Station Supervisor Relationship Specialty Start Date End Date Daniel Zhang MD [address] [place] [address] PCP - General Internal Medicine 05/18/24 Alvina Chacko PharmD [address] [place] [address] Pharmacist Pharmacy 08/03/25 documented as of this encounter
--- OUTSIDE RECORDS SUMMARY | 2025-10-04 19:21 | XMS_ITS | Encounter Summary ---
Author Organization [employer] Address [address] [facility] [address] [place] [address] Care Team Providers Care Leveling Machine Operator Name Role Phone Raudel Armstrong MD Primary Care Prov ider Daniel Zhang MD Primary Care Provider Alvina Chacko PharmD Unavailable [phone] Encounter Details Date Type Department Care Team (Late st Contact Info) Description 04/15/2023 Telephone [facility] MEDICINE [address] [place] [address] Raudel Armstrong MD [address] [place], [place] [phone] Social History Tobacco Use Types Packs/Day Years [...] 11/09/2025 9:00 AM EST Telemedicine [facility] CHC MED & PEDS [address] [place] [address] Alvina Chacko PharmD [address] [place] [address] documented as of this encounter Visit Diagnoses Not on filedocumented in this encounter Additional Health Concerns Assessment Noted Time PHQ-9 Depression Total Score: 0 01/29/20 23 8:49 AM EDT documented as of this encounter Care Teams Leveling Machine Operator Relationship Specialty Start Date End Date Raudel Armstrong MD [address] [place] [address] PCP - General Internal Medicine 03/08/20 05/17/24 Daniel Zhang MD [address] [place] [address] PCP - General Internal Medicine 05/18/24 Alvina Chacko PharmD [address] [place] [address] Pharmacist Pharmacy 08/03/25 documented as of this encounter
--- OUTSIDE RECORDS SUMMARY | 2025-10-04 19:21 | XMS_ITS | Encounter Summary ---
Author Organization [employer] Address [address] [place] [address] Care Team Providers Care Treating Machine Operator Name Role Phone Daniel Zhang MD Primary Care Provider Alvina Chacko PharmD Unavailable [phone] Encounter Details Date Type Department Care Team ([facility] st Contact Info) Description 04/12/2025 Orders Only [facility] CHC MED & PEDS [address] [place] [address] Daniel Zhang MD 505 [place] [address] Mixed hyperlipidemia (Primary Dx) Social History Tobacco [...] Info) Description 11/09/2025 9:00 AM EST Telemedicine [facility] MED & PEDS [address] [place] [address] Alvina Chacko, PharmD [address] [place] [address] documented as of this encounter Procedures Procedure Name Priority Date/Time Associated Diagnosis Comments LIPID PANEL, STANDARD Routine 07/20/2025 10:30 AM EDT Mixed hyperlipidemia documented in this encounter Results * (ABNORMAL) Lipid Panel, Standard (07/20/2025 10:30 AM EDT) Triglycerides 177(H) <150 mg/dL [facility] Comment:Desirable Triglyceri de: less than 150 [...] 190 mg/dL HDL Cholesterol 42 >40 mg/dL [facility] Comment:Desirable HDL: great er than 40 mg/dL Note: This HDL assay may give artificially low results in patients with liver disease. Blood Venous blood specimen / Unknown 07/20/2025 10:30 AM EDT 07/20/2025 2:20 PM EDT Daniel Zhang MD LAB BLOOD ORDERABLES Final Result [facility] [address] [place] [address] [phone] documented in this encounter Visit Diagnoses Diagnosis Mixed hyperlipidemia- Primary documented in this encounter Additional Health Concerns Assessment Noted Time PHQ-9 Depression Total Score: 12 025 9:40 AM EDT documented as of this encounter Care Teams Treating Machine Operator Relationship Specialty Start Date End Date Daniel Zhang MD [address] [place] [address] PCP - General Internal Medicine 05/18/24 Alvina Chacko PharmD [address] [place] [address] Pharmacist Pharmacy 08/03/25 documented as of this encounter
--- OUTSIDE RECORDS SUMMARY | 2025-10-04 19:21 | XMS_ITS | Encounter Summary ---
Author Organization [email or web address] Address [address] [place] [address] Care Team Providers Care Criminal Attorney Name Role Phone Daniel Zhang MD Primary Care Provider Alvina Chacko PharmD Unavailable [phone] Reason for Visit * Reason Onset Date Comments Med Refill 07/22/2025 Encounter Details Date Type Department Care Team ([facility] st Contact Info) Description 07/22/2025 Refill [facility] CHC MED & PEDS [address] [place] [address] Daniel Zhang MD [address] [place] [address] Other male erectile dysfunction Social History Tobacco [...] Upcoming Encounters Date Type Department Care Team ([facility] st Contact Info) Description 11/09/2025 9:00 AM EST Telemedicine [facility] CHC MED & PEDS [address] [place] [address] Alvina Chacko, PharmD [address] [place] [address] documented as of this encounter Visit Diagnoses Diagnosis Other male erectile dysfunction documented in this encounter Additional Health Concerns Assessment Noted Time PHQ-9 Depression Total Score: 12 025 9:40 AM EDT documented as of this encounter Care Teams Criminal Attorney Relationship Specialty Start Date End Date Daniel Zhang MD [address] [place] [address] PCP - General Internal Medicine 05/18/24 Alvina Chacko, PharmD [address] [place] [address] Pharmacist Pharmacy 08/03/25 documented as of this encounter
--- OUTSIDE RECORDS SUMMARY | 2025-10-04 19:21 | XMS_ITS | Encounter Summary ---
Author Organization [employer] Address [address] [place] [address] Care Team Providers Care Forensics Team Director Name Role Phone Raudel Armstrong MD Primary Care Prov ider Daniel Zhang MD Primary Care Provider Alvina Chacko PharmD Unavailable [phone] Encounter Details Date Type Department Care Team (Latest Contact Info) Description 10/31/2021 Abstract [facility] CONVERSIONS Dental, Provider, DDS Social History [...] Info) Description 11/09/2025 9:00 AM EST Telemedicine [facility] CHC MED & PEDS [address] [place] [address] Alvina Chacko, PharmD [address] [place] [address] documented as of this encounter Visit Diagnoses Not on filedocumented in this encounter Care Teams Forensics Team Director Relationship Specialty Start Date End Date Raudel Armstrong MD [address] [place] [address] PCP - General Internal Medicine 03/08/20 05/17/24 Daniel Zhang MD [address] [place] [address] PCP - General Internal Medicine 05/18/24 Alvina Chacko PharmD [address] [place] [phone] Pharmacist Pharmacy 08/03/25 documented as of this encounter
--- OUTSIDE RECORDS SUMMARY | 2025-10-04 19:21 | XMS_ITS | Encounter Summary ---
Author Organization [employer] Address [address] [place] [address] Care Team Providers Care Machine Featheredger And Reducer Name Role Phone Daniel Zhang MD Primary Care Provider Alvina Chacko PharmD Unavailable [phone] Reason for Visit * Reason Comments Med Refill Encounter Details Date Type Department Care Team ([facility] st Contact Info) Description 03/10/2025 Refill [facility] CHC MED & PEDS [address] [place] [address] Daniel Zhang MD [address] [place] [address] Mixed hyperlipidemia Social History Tobacco Use Types [...] with others, in a hotel, in a chcf, living outside on the street, on a [...] Info) Description 11/09/2025 9:00 AM EST Telemedicine [facility] MED & PEDS [address] [place] [address] Alvina Chacko PharmD [address] [place] [address] documented as of this encounter Visit Diagnoses Diagnosis Mixed hyperlipidemia documented in this encounter Additional Health Concerns Assessment Noted Time PHQ-9 Depression Total Score: 0 01/29/20 23 8:49 AM EDT documented as of this encounter Care Teams Machine Featheredger And Reducer Relationship Specialty Start Date End Date Daniel Zhang MD [address] [place] [address] PCP - General Internal Medicine 05/18/24 Alvina Chacko PharmD [address] [place] [address] Pharmacist Pharmacy 08/03/25 documented as of this encounter
--- OUTSIDE RECORDS SUMMARY | 2025-10-04 19:21 | XMS_ITS | Clinical Summary ---
Author Organization [facility] Address [address] [place] [address] Phone Care Team Providers Care Hydropress Operator Name Role Phone Raudel Armstrong Primary Care [...] - 07/07/2025 5:50 PM EDT Hospital Encounter [facility] [address] [place] [phone] Lio Malcolm MD Jones, Christopher, MD Japaridze, Anna, MD Partial small bowel obstruction (CMS/HCC V24, CMS/LTAC, [facility]IN [facility] V28) (Primary Dx); LLQ pain Discharge Disposition: Home or Self Care from Last 3 Months Surgical History Surgery Date Site/Laterality Comments CARPAL TUNNEL RELEASE 04/11/2022 Right PROCEDURE: DC NEUROPLASTY &/TRANSPOS MEDIAN NRV CARPAL TUNNE; COMMENT: w/ganglion excision, Dr Walker BACK SURGERY PROCEDURE: HISTORICAL BACK SURGERY; COMMENT: Lumbar x2 OTHER SURGICAL HISTORY PROCEDURE: DC COLECTOMY PARTIAL W/ANASTOMOSIS Medical History Medical History [...] care for your loved ones. For example, early childhood special educator or elderly care for an older adult? [...] METABOLIC PANEL Routine 07/07/2025 6:13 AM EDT [id number], RSV, FLU A AND B QUALITATIVE RT-PCR, [...] MICROBIOLOGY METHOD 5 11:14 AM EDT [facility] Plesiomonas shigelloides Detection by PCR Not Detected Not Detected LAB MICROBIOLOGY METHOD 5 11:14 AM EDT [facility] Salmonella Detection by PCR Not Detected Not Detected LAB MICROBIOLOGY METHOD 5 11:14 AM EDT [facility] Vibrio Detection by PCR Not Detected Not Detected LAB MICROBIOLOGY METHOD 5 11:14 AM EDT [facility] Vibrio cholerae Detection by PCR Not Detected Not Detected LAB MICROBIOLOGY METHOD 5 11:14 AM EDT [facility] Yersinia enterocolitica Detection by PCR Not Detected Not Detected LAB MICROBIOLOGY METHOD 5 11:14 AM EDT [facility] Enteroaggregative E coli EAEC Detection by PCR Not Detected Not Detected LAB MICROBIOLOGY METHOD 5 11:14 AM EDT [facility] Enteropathogenic E coli EPEC Detection Not Detected Not Detected LAB MICROBIOLOGY METHOD 5 11:[address] [facility] Enterotoxigenic E coli ETEC LTST Detection Not Detected Not Detected LAB MICROBIOLOGY METHOD 5 11:[address] [facility] Shiga-like toxin producing E coli STEC STX1 STX2 Det Not Detected Not Detected LAB MICROBIOLOGY METHOD 5 11:[address] [facility] Shigella Enteroinvasive E coli EIEC Detection Not Detected Not Detected LAB MICROBIOLOGY METHOD 5 11:[address] [facility] Cryptosporidium Detection by PCR Not Detected Not Detected LAB MICROBIOLOGY METHOD 5 11:[address] [facility] Cyclospora cayetanensis Detection by PCR Not Detected Not Detected LAB MICROBIOLOGY METHOD 5 11:[address] [facility] Entamoeba histolytica Detection by PCR Not Detected Not Detected LAB MICROBIOLOGY METHOD 5 11:[address] [facility] Giardia lamblia Detection by PCR Not Detected Not Detected LAB MICROBIOLOGY METHOD 5 11:[address] [facility] Adenovirus F 40 41 Detection by PCR Not Detected Not Detected LAB MICROBIOLOGY METHOD 5 11:[address] [facility] Astrovirus Detection by PCR Not Detected Not Detected LAB MICROBIOLOGY METHOD 5 11:[address] [facility] Norovirus GI GII Detection by PCR Not Detected LAB MICROBIOLOGY METHOD 5 11:[address] [facility] Sapovirus Detection by PCR Not Detected Not Detected LAB MICROBIOLOGY METHOD 5 11:[address] [facility] Rotavirus A Detection by PCR Not Detected Not Detected LAB MICROBIOLOGY METHOD 5 11:[address] [facility] Stool Rectum structure / Unknown Non-blood Collection / Unknown 07/07/2025 9:23 AM EDT 07/07/2025 9:44 AM EDT Narrative [facility] - 07/07/2025 11:14 AM EDT [...] - GENERAL ORD ERABLES Final Result [facility] [address] [place] [address], [place] [phone] * (ABNORMAL) CBC auto differential (07/07/2025 6:13 AM EDT) Only the most recent of2 resultswithin the time period is included. WBC 9.1 4.8 - 10.8 K/mcL LAB HEMETOLOGY METHOD 07/07/2025 6:55 AM EDT [facility] RBC 5.40 4.50 - 5.50 M/mcL LAB HEMETOLOGY METHOD 07/07/2025 6:55 AM EDT [facility] Hemoglobin 15.0 13.5 - 17.5 g/dL LAB HEMETOLOGY METHOD 07/07/2025 6:55 AM EDT [facility] Hematocrit 47.4 42.0 - 54.0 % LAB HEMETOLOGY METHOD 07/07/2025 6:55 AM EDT [facility] MCV 88.4 79.0 - 98.0 FL LAB HEMETOLOGY METHOD 07/07/2025 6:55 AM EDT [facility] MCH 28.0 27.0 - 32.0 pcg LAB HEMETOLOGY METHOD 07/07/2025 6:[address] [facility] MCHC 31.6(L) 32.0 - 37.0 g/dL LAB HEMETOLOGY METHOD 07/07/2025 6:[address] [facility] RDW 14.1 11.0 - 15.0 % LAB HEMETOLOGY METHOD 07/07/2025 6:[address] [facility] Platelets 246 130 - 400 K/mcL LAB HEMETOLOGY METHOD 07/07/2025 6:[address] [facility] MPV 10.9 7.0 - 11.0 FL LAB HEMETOLOGY METHOD 07/07/2025 6:[address] [facility] NRBC 0.0 <1.0 % LAB HEMETOLOGY METHOD 07/07/2025 6:[address] [facility] NRBC Absolute 0.00 <0.10 K/mcL LAB HEMETOLOGY METHOD 07/07/2025 6:[address] [facility] Neutrophils Relative 84.2 % LAB HEMETOLOGY METHOD 07/07/2025 6:[address] [facility] Lymphocytes Relative 10.8 % LAB HEMETOLOGY METHOD 07/07/2025 6:[address] [facility] Monocytes Relative 4.2 % LAB HEMETOLOGY METHOD 07/07/2025 6:[address] [facility] Eosinophils Relative 0.2 % LAB HEMETOLOGY METHOD 07/07/2025 6:[address] [facility] Basophils Relative 0.4 % LAB HEMETOLOGY METHOD 07/07/2025 6:[address] [facility] Immature Granulocytes Relative 0.2 % LAB HEMETOLOGY METHOD 07/07/2025 6:[address] [facility] Neutrophils Absolute 7.66(H) 1.50 - 7.00 K/mcL LAB HEMETOLOGY METHOD 07/07/2025 6:55 AM EDT [facility] Lymphocytes Absolute 0.98(L) 1.00 - 5.00 K/[facility] LAB HEMETOLOGY METHOD 07/07/2025 6:55 AM EDT [facility] Monocytes Absolute 0.38 0.20 - 1.00 K/[facility] LAB HEMETOLOGY METHOD 07/07/2025 6:55 AM EDT [facility] Eosinophils Absolute 0.02 0.00 - 0.50 K/[facility] HEMETOLOGY METHOD 07/07/2025 6:55 AM EDT [facility] Basophils Absolute 0.04 0.00 - 0.20 K/[facility] HEMETOLOGY METHOD [facility] Immature Granulocytes Absolute 0.02 0.00 - 0.03 K/[facility] LAB HEMETOLOGY METHOD 07/07/2025 6:55 AM T [facility] Blood Venous blood specimen / Unknown Venipuncture / Unknown 07/07/2025 6:13 AM EDT 07/07/2025 6:47 AM EDT us Amarjit German MD LAB BLOOD ORDERABLES Final Result [facility] [address] [place] [address], * (ABNORMAL) Basic metabolic panel (07/07/2025 6:13 AM EDT) Sodium 137 133 - 145 mmol/L LAB CHEMISTRY METHOD 07/07/2025 7:45 AM EDT [facility] Potassium 4.7 3.5 - 5.5 mmol/L LAB CHEMISTRY METHOD 07/07/2025 7:45 AM EDT [facility] Comment:Hemolysis present Chloride 105 96 - 110 mmol/L LAB CHEMISTRY METHOD 07/07/2025 7:45 AM EDT [facility] CO2 26 21 - 32 mmol/L LAB CHEMISTRY METHOD 07/07/2025 7:[address] [facility] Anion Gap 6 3 - 11 LAB CHEMISTRY METHOD 07/07/2025 7:[address] [facility] Glucose 114(H) 70 - 100 mg/dL LAB CHEMISTRY METHOD 07/07/2025 7:[address] [facility] BUN 8 5 - 25 mg/dL LAB CHEMISTRY METHOD 07/07/2025 7:[address] [facility] Creatinine 0.68(L) 0.70 - 1.30 mg/dL LAB CHEMISTRY METHOD 07/07/2025 7:[address] [facility] eGFR 117 >=60 mL/min/1. 73m2 LAB CHEMISTRY METHOD 07/07/2025 7:[address] [facility] Comment:Calculation based on the Chronic Kidney Disease Epidemiology Collaboration (CKD-EPI) equation refit without adjustment for race. BUN/Creatinine Ratio 11.8 LAB CHEMISTRY METHOD 07/07/2025 7:[address] [facility] Calcium 9.2 8.5 - 10.5 mg/dL LAB CHEMISTRY METHOD 07/07/2025 7:[address] [facility] Blood Venous blood specimen / Unknown Venipuncture / Unknown 07/07/2025 6:13 AM EDT 07/07/2025 6:47 AM EDT us Amarjit German MD LAB BLOOD ORDERABLES Final Result [facility] [address] [place] [address], * [id number], RSV, Influenza A and B qualitative RT-PCR (07/07/2025 4:24 AM EDT) Influenza A PCR Not Detected Not Detected LAB MICROBIOLOGY METHOD 07/07/2025 5:30 AM EDT [facility] Influenza B PCR Not Detected Not Detected LAB MICROBIOLOGY METHOD 07/07/2025 5:30 AM EDT [facility] RSV PCR Not Detected Not Detected LAB MICROBIOLOGY METHOD 07/07/2025 5:30 AM EDT [facility] SARS COV-2 Not Detected Not Detected LAB MICROBIOLOGY METHOD 07/07/2025 5:30 AM EDT [facility] Swab Nasopharyngeal structure / Unknown Non-blood Collection / Unknown 07/07/2025 4:24 AM EDT 07/07/2025 4:50 AM EDT Narrative [facility] - 07/07/2025 5:30 AM EDT Disclaimer: Testing was performed using the [employer] GeneXpert Xpress SARS-CoV-2 _Flu_RSV PLUS PCR assay. [...] for Healthcare providers can be found at https://www.fda.gov/media/361807/download. Fact sheet for Healthcare patients can be found at https://www.fda.gov/media/133510/download. us Amarjit German MD LAB MICROBIOLOGY - GENERAL ORDERABLES Final Result [facility] [address] [place] [address], [place] [phone] * XR Abdomen 1 View (07/07/2025 2:43 AM EDT) Anatomical Region Laterality Modality Body Radiographic Alesha ging 07/07/2025 9:05 AM EDT Impressions 07/07/2025 9:07 AM EDT A nasogastric tube is present with the lower portion in the abdominal left upper quadrant. However, the tip position cannot be assessed as it is below the lower level of this radiograph. Code 36431 -------- FINAL REPORT -------- Dictated By: Romulo Fagan Dictated Date: 07/07/2025 09:05 ET Assigned Physician: Romulo Fagan Reviewed and Electronically Signed By: Romulo Fagan Signed Date: 07/07/2025 09:07 ET Workstation ID: [id number] Transcribed By: Self Edit Transcribed Date: 07/07/2025 [...] the lower level of this radiograph. Code 72437 -------- FINAL REPORT -------- Dictated By: Romulo Fagan Dictated Date: 07/07/2025 09:05 ET Assigned Physician: Romulo Fagan Reviewed and Electronically Signed By: Romulo Fagan Signed Date: 07/07/2025 09:07 ET Workstation ID: [id number] Transcribed By: Self Edit Transcribed Date: 07/07/2025 [...] and culture (07/06/2025 9:51 PM EDT) Specific [place] Urine 1.014 1.003 - 1.030 LAB URINALYSIS - AUTOMATED METHOD 07/06/2025 10:[address] [facility] pH, Urine 6.0 5.0 - 8.0 pH LAB URINALYSIS - AUTOMATED METHOD 07/06/2025 10:[address] [facility] Leukocytes, Urine Negative Negative LAB URINALYSIS - AUTOMATED METHOD 07/06/2025 10:[address] [facility] Nitrite, Urine Negative Negative LAB URINALYSIS - AUTOMATED METHOD 07/06/2025 10:[address] [facility] Protein, Urine Negative <=Trace mg/dL LAB URINALYSIS - AUTOMATED METHOD 07/06/2025 10:[address] [facility] Glucose, Urine Negative Negative mg/dL LAB URINALYSIS - AUTOMATED METHOD 07/06/2025 10:04 PM EDT [facility] Ketones, Urine Negative Negative mg/dL LAB URINALYSIS - AUTOMATED METHOD 07/06/2025 10:04 PM EDT [facility] Urobilinogen, Urine 1.0 0.2 - 1.0 mg/dL LAB URINALYSIS - AUTOMATED METHOD 07/06/2025 10:04 PM EDT [facility] Bilirubin, Urine Negative Negative LAB URINALYSIS - AUTOMATED METHOD 07/06/2025 10:04 PM EDT [facility] Blood, Urine Negative Negative LAB URINALYSIS - AUTOMATED METHOD 07/06/2025 10:04 PM EDT [facility] Urine Urine specimen obtained by clean catch procedure / Unknown Non-blood Collection / Unknown 07/06/2025 9:51 PM EDT 07/06/2025 9:55 PM EDT us Loi Malcolm MD LAB URINE ORDERABLES Final Res ult Performing Organization Address City/[facility]/ZIP Co de Phone Number [facility] [address] [place] [address], [place] [phone] * Manuel urine culture tube (07/06/2025 9:51 PM EDT) Extra Tube Hold for add-ons. 07/06/2025 11:01 PM EDT [facility] Comment:Auto resulted. Urine Urine specimen obtained by clean catch procedure / Unknown Non-blood Collection / Unknown 07/06/2025 9:51 PM EDT 07/06/2025 9:55 PM EDT us Loi Malcolm MD LAB URINE ORDERABLES Final Res ult Performing Organization Address [facility]/State/ZIP Co de Phone Number [facility] [address] [place] [address], [place] [phone] * Lipase (07/06/2025 8:26 PM EDT) Lipase 22 13 - 75 unit/L LAB CHEMISTRY METHOD 07/06/2025 9:[address] [facility] Blood Venous blood specimen / Unknown Venipuncture / Unknown 07/06/2025 8:26 PM EDT 07/06/2025 8:39 PM EDT us Gal Ruiz MD LAB BLOOD ORDERABLES Final Result [facility] [address] [place] [address], * (ABNORMAL) Comprehensive metabolic panel (07/06/2025 8:26 PM EDT) Pathologist [facility] Sodium 138 133 - 145 mmol/L LAB CHEMISTRY METHOD 07/06/2025 9:[address] [facility] Potassium 3.5 3.5 - 5.5 mmol/L LAB CHEMISTRY METHOD 07/06/2025 9:[address] [facility] Chloride 105 96 - 110 mmol/L LAB CHEMISTRY METHOD 07/06/2025 9:[address] [facility] CO2 26 21 - 32 mmol/L LAB CHEMISTRY METHOD 07/06/2025 9:[address] [facility] Anion Gap 7 3 - 11 LAB CHEMISTRY METHOD 07/06/2025 9:[address] [facility] Glucose 109(H) 70 - 100 mg/dL LAB CHEMISTRY METHOD 07/06/2025 9:[address] [facility] BUN 8 5 - 25 mg/dL LAB CHEMISTRY METHOD 07/06/2025 9:[address] [facility] Creatinine 0.77 0.70 - 1.30 mg/dL LAB CHEMISTRY METHOD 07/06/2025 9:[address] [facility] eGFR 113 >=60 mL/min/1. 73m2 LAB CHEMISTRY METHOD 07/06/2025 9:[address] [facility] Comment:Calculation based on the Chronic Kidney Disease Epidemiology Collaboration (CKD-EPI) equation refit without adjustment for race. BUN/Creatinine Ratio 10.4 LAB CHEMISTRY METHOD 07/06/2025 9:[address] [facility] Calcium 9.2 8.5 - 10.5 mg/dL LAB CHEMISTRY METHOD 07/06/2025 9:[address] [facility] AST (SGOT) 18 10 - 42 unit/L LAB CHEMISTRY METHOD 07/06/2025 9:[address] [facility] ALT (SGPT) 26 10 - 60 unit/L LAB CHEMISTRY METHOD 07/06/2025 9:[address] [facility] Alkaline Phosphatase 84 42 - 121 unit/L LAB CHEMISTRY METHOD 07/06/2025 9:[address] [facility] Total Protein 7.1 6.0 - 8.0 g/dL LAB CHEMISTRY METHOD 07/06/2025 9:[address] [facility] Albumin 3.9 3.2 - 5.0 g/dL LAB CHEMISTRY METHOD 07/06/2025 9:[address] [facility] Total Bilirubin 0.4 0.0 - 1.4 mg/dL LAB CHEMISTRY METHOD 07/06/2025 9:[address] [facility] Blood Venous blood specimen / Unknown Venipuncture / Unknown 07/06/2025 8:26 PM EDT 07/06/2025 8:39 PM EDT us Gal Ruiz MD LAB BLOOD ORDERABLES Final Result [facility] [address] [place] [address], [place] [phone] from Last 3 Months Insurance [place]ICA[place] - [place] [employer] MEDIC[place]VANTAGE Advance Directives Documents on File Type Date Recorded Patient Deployment Specialist Expl 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 Care Teams Hydropress Operator Relationship Specialty Start Date End Date Raudel Armstrong [address] [place] [address] PCP - General Internal Medicine 11/16/21
--- OUTSIDE RECORDS SUMMARY | 2025-10-04 19:21 | XMS_ITS | Encounter Summary ---
Author Organization [employer] Address [address] [facility] [address] [address] Care Team Providers Care Medical Transcription Editor Name Role Phone Raudel Armstrong MD Primary Care Prov ider Daniel Zhang MD Primary Care Provider Alvina Chacko PharmD Unavailable [phone] Reason for Visit * Reason Onset Date Comments Medication Question 05/10/2024 Encounter Details Date Type Department Care Team (Late st Contact Info) Description 05/10/2024 Telephone [facility] [address] [place] [address] Raudel Armstrong MD [address] [place], [place] [phone] Medication Question Social History Tobacco Use Types [...] to stop smoking. Please contact pt @ [phone] Medication qued to PCP * Telephone Encounter - Mando Upton - 05/10/2024 8:56 AM EDT Tc from pt requesting a Script to Nicotine Gum to stop smoking. Please contact pt @ [phone] documented in this encounter Plan of Treatment Upcoming Encounters Date Type Department Care Team (Late st Contact Info) Description 11/09/2025 9:00 AM EST Telemedicine [facility] MED & PEDS [address] [place], [place] [phone] Alvina Chacko, PharmD [address] [place] [address] documented as of this encounter Visit Diagnoses Not on filedocumented in this encounter Additional Health Concerns Assessment Noted Time PHQ-9 Depression Total Score: 0 01/29/20 23 8:49 AM EDT documented as of this encounter Care Teams Medical Transcription Editor Relationship Specialty Start Date End Date Raudel Armstrong MD [address] [place] [address] PCP - General Internal Medicine 03/08/20 05/17/24 Daniel Zhang MD [address] [place] [address] PCP - General Internal Medicine 05/18/24 Alvina Chacko PharmD [address] [place] [address] Pharmacist Pharmacy 08/03/25 documented as of this encounter
--- OUTSIDE RECORDS SUMMARY | 2025-10-04 19:21 | XMS_ITS | Encounter Summary ---
Author Organization [employer] Address [address] [place] [address] [place] [address] Care Team Providers Care Administrative Professional Name Role Phone Daniel Zhang MD Primary Care Provider Alvina Chacko PharmD Unavailable [phone] Encounter Details Date Type Department Care Team ([facility] st Contact Info) Description 06/20/2024 Orders Only [facility] MED & PEDS [address] [place] [address] YeagerRaudel Garcia MD [address] [place] [address] Social History Tobacco Use Types Packs/Day Years [...] 11/09/2025 9:00 AM EST Telemedicine [facility] MED & PEDS [address] [place] [address] Alvina Chacko PharmD [address] [place] [address] documented as of this encounter Visit Diagnoses Not on filedocumented in this encounter Additional Health Concerns Assessment Noted Time PHQ-9 Depression Total Score: 0 01/29/20 23 8:49 AM EDT documented as of this encounter Care Teams Administrative Professional Relationship Specialty Start Date End Date Daniel Zhang MD 505 [place] [address] PCP - General Internal Medicine 05/18/24 Alvina Chacko, Trina [address] [place] [address] Pharmacist Pharmacy 08/03/25 documented as of this encounter
--- OUTSIDE RECORDS SUMMARY | 2025-10-04 19:21 | XMS_ITS | Encounter Summary ---
Author Organization [employer] Address [address] [place] [address] Care Team Providers Care Inside Sales Associate Name Role Phone Raudel Armstrong MD Primary Care Prov ider Daniel Zhang MD Primary Care Provider Alvina Chacko PharmD Unavailable [phone] Encounter Details Date Type Department Care Team ([facility] st Contact Info) Description 02/19/2023 Orders Only [facility] CH[facility] MED & PEDS [address] [place], [place] [phone] Raudel Armstorng MD [address] [place] [address] Social History Tobacco Use Types Packs/Day Years [...] Info) Description 11/09/2025 9:00 AM EST Telemedicine [facility] MED & PEDS [address] [place] [address] Alvina Chacko PharmD 230 [place] [address] documented as of this encounter Visit Diagnoses Not on filedocumented in this encounter Additional Health Concerns Assessment Noted Time PHQ-9 Depression Total Score: 0 01/29/20 23 8:49 AM EDT documented as of this encounter Care Teams Inside Sales Associate Relationship Specialty Start Date End Date YeagerRaudel Garcia MD [address] [place] [address] PCP - General Internal Medicine 03/08/20 05/17/24 Daniel Zhang MD [address] [place] [address] PCP - General Internal Medicine 05/18/24 Alvina Chacko PharmD [address] [place] [address] Pharmacist Pharmacy 08/03/25 documented as of this encounter
--- OUTSIDE RECORDS SUMMARY | 2025-10-04 19:21 | XMS_ITS | Encounter Summary ---
Author Organization [employer] Address [address] [place] [address] Care Team Providers Care Dinkey Engine Operator Name Role Phone Daniel Zhang MD Primary Care Provider [phone] Alvina Chacko PharmD Unavailable [phone] Reason for Visit * Reason Comments Med Refill Encounter Details Date Type Department Care Team ([facility] st Contact Info) Description 09/10/2025 Refill [facility] CH[facility] MED & PEDS [address] [place] [address] Daniel Zhang MD [address] [place] [address] Mixed hyperlipidemia Social History Tobacco Use Types [...] Info) Description 11/09/2025 9:00 AM EST Telemedicine [facility] CHC MED & PEDS [address] [place] [address] Alvina Chacko, PharmD [address] [place] [address] documented as of this encounter Visit Diagnoses Diagnosis Mixed hyperlipidemia documented in this encounter Additional Health Concerns Assessment Noted Time PHQ-9 Depression Total Score: 12 025 9:40 AM EDT documented as of this encounter Care Teams Dinkey Engine Operator Relationship Specialty Start Date End Date Daniel Zhang MD [address] [place] [address] PCP - General Internal Medicine 05/18/24 Alvina Chacko, ChetnaD [address] [place] [address] Pharmacist Pharmacy 08/03/25 documented as of this encounter
== END 2025-10-04 19:18 | disposition home or self-care (01) ==
LOC: HO.MRI 19:17
PROVIDERS: PCP Internal Medicine; Visit Provider Orthopaedic Surgery
DX: M25.312 Other instability, left shoulder (principal)
CPT/HCPCS: 73221

== ENCOUNTER → 2025-10-04 19:25 | Outpatient (BNV) | payer MEDICARE, MEDICAID, SELFPAY | PROVIDERS: PCP Internal Medicine; Visit Provider Radiology Diagnostic Ultrasound | DX: M75.32 Calcific tendinitis of left shoulder (principal) | CPT/HCPCS: 73221 ==

== ENCOUNTER 2025-10-21 12:40 | Outpatient (AMB) | payer MEDICARE, MEDICAID, SELFPAY ==
--- NOTE | 2025-10-21 12:52 | MHC.OFFVIS ---
Vital Signs 10/21/25 12:53 Height 5 ft 11 in Weight 255 lb BMI 35.6 BP 119/60 Blood Pressure Location Lt brachial Position Sitting Pulse 82 Intake Visit Reasons: diarrhea/constipation Intake Note: Patient new consult for diarrhea and constipation. Patient cc: diarrhea/constipation on and off, he is much better after his last hospital visit. Diversional Therapist'S Assistant Required: No Accompanied by: Self / Same As Patient Allergies ampicillin (AMPICILLIN) Allergy (Severe, Verified 10/21/25 12:52) SWELLING/HIVES Cephalosporins (CEPHALOSPORINS) Allergy (Severe, Verified 10/21/25 12:52) SWELLING/HIVES Penicillins (PENICILLINS) Allergy (Severe, Verified 10/21/25 12:52) SWELLING/HIVES HPI HPI diarrhea/constipation: Details: Patient is a 45-year-old male with PMH of obesity,paroxysmal AFib not on anticoagulatio, hyperlipidemia, hypertension, diverticulitis with partial colectomy. He reports a lifelong pattern of constipation, characterized by small, nugget-like stools, and does not actively manage it. He also experiences episodes of diarrhea about once or twice a month, which he believes started after his diverticulitis surgery. In July 2025, the patient visited the ER for diarrhea and was found to have a suspected small bowel obstruction on CT imaging. He was admitted, managed medically with an NG tube and IV fluids, and was discharged home after his symptoms resolved within 24 hours. He reports the pain that sent him to the hospital has resolved. Past surgical history includes a partial colectomy for diverticulitis in 2018 at [facility], without a colostomy bag. He also had hemorrhoids removed here in 2020. A colonoscopy on May 09, 2017, revealed sigmoid diverticulosis and a precancerous polyp in the cecum, which was removed. He denies blood in his stool but has noted bright red blood on wiping. His appetite is good, and his weight has been stable. The patient reports symptoms of reflux, for which he takes pantoprazole at night. He has a history of atrial fibrillation, for which he takes diltiazem, and denies being on any anticoagulants. Patient denies: fever/chills, n/v, appetite changes, regurgitation,dysphasia, unintentional wt loss, ab pain or melena/hematochezia. Social hx: -denies ETOH use -denies recreational drug use -current 1/2 ppd - family hx as below -denies personal hx of CA -denies significant cardiopulmonary history -tolerated anesthesia in the past without difficulty. [facility] Medical History (Updated 10/21/25 @ 13:51 by Shanika Gordon CNP) Constipation Acid reflux Colon cancer screening COVID-19 vaccination not done Hemorrhoids with complication Morbid obesity COVID-19 HLD (hyperlipidemia) Afib Chest pain Surgical History History of carpal tunnel surgery of right wrist History of bowel resection History of back surgery Family History Brother No problems noted. Social History Alcohol intake: never Patient Tobacco Use Status: Current everyday Tobacco user Tobacco use type: Cigarette Cigarettes Per Day: 10 Years Smoked: 30 +/- Current occupational status: unemployed Review of Systems Const Reports as per HPI ENT Reports as per HPI Card Reports as per HPI Resp Reports as per HPI GI Reports as per HPI Reports as per HPI Physical Exam Vital Signs: Last Vital Signs Pulse 82 10/21/25 12:53 BP 119/60 10/21/25 12:53 BMI result Body Mass Index 35.6 Const General: healthy appearing, no acute distress and well developed Nutritional Appearance: average body habitus Orientation/consciousness: patient oriented x3 HEENT Head: Yes normal to inspection, Yes normocephalic and Yes atraumatic Face and sinus: Yes normal facial exam Eyes General: appearance normal, both eyes and all related structures Neck Neck: Yes normal visual inspection Resp Effort & Inspection: normal respiratory effort, able to speak in complete sentences, no tracheal deviation and symmetric chest movement Cardio Jugular venous distension: no JVD GI Inspection: Yes normal to inspection, No distended, Yes obesity and Yes striae Palpation (GI): Soft to palpation, not firm, nontender and No hepatosplenomegaly present Auscultation: normal bowel sounds Neuro General: patient oriented x3 Gait exam (Neuro): Normal gait present Psych Appearance: grossly normal Mental Status: mental status grossly normal Speech and movement: Normal speech and movement present Affect: normal affect Attitude: cooperative Thought process: Normal thought process present Thought content: Normal thought content present Insight: Good insight present (Psych) Judgement: Good judgement present (Psych) Assessment & Plan Assessment & Plan (1) Colon cancer screening: Comment: 05/19/2017 colonoscopy (Dr. Araya) complete with adequate prep- 5 mm TA (cecum), diverticulosis (sigmoid) , external and internal hemorrhoids. Code(s): Z12.11 - Encounter for screening for malignant neoplasm of colon Category: Medical Plan: The patient is 45 years old and due for a screening colonoscopy, based on standard screening age of 45. - A surveillance colonoscopy is strongly encouraged due to his history of a precancerous polyp removed in 2017. - An order for an EGD and colonoscopy will be placed. - The scheduling team will contact the patient to arrange the procedure date, which will likely be in the new year. - A follow-up visit will be scheduled after the procedures are completed. (2) Acid reflux: Code(s): K21.9 - Gastro-esophageal reflux disease without esophagitis Category: Medical Qualifiers: Esophagitis presence: esophagitis presence not specified Qualified Code(s): K21.9 - Gastro-esophageal reflux disease without esophagitis Plan: The patient is experiencing breakthrough reflux symptoms at night. - The medication regimen will be adjusted: pantoprazole 40 mg to be taken in the morning, with the addition of famotidine 40 mg at bedtime. - Counseled the patient on lifestyle modifications, including avoiding spicy foods, overeating, lying down after meals, and carbonated/caffeinated beverages. - An upper endoscopy (EGD) will be performed concurrently with the colonoscopy to evaluate his GERD symptoms. (3) Constipation: Code(s): K59.00 - Constipation, unspecified Category: Medical Qualifiers: Constipation type: unspecified constipation type Qualified Code(s): K59.00 - Constipation, unspecified Plan: The patient's bowel pattern with constipation and overflow diarrhea is not consistent with IBS due to lack of pain. Normal TSH 04/11/25. Normal LFTs 07/20/25. - Recommended lifestyle changes, including increasing water and fiber intake through fruits and vegetables, to improve bowel regularity. - A colonoscopy is recommended for to further evaluate his symptoms and rule out inflammation or other pathology. - Due to his history of constipation, an extended bowel prep is planned, as above Plan Follow-up after colonoscopy or sooner as needed Time: I spent a total of 32 minutes on the date of encounter which includes: Preparing to see the patient (reviewed previous documentation, test results and medical history) Performing a medically appropriate exam and/or evaluation Ordering medications, tests, and procedures Documenting clinical information in the health record Orders: Referrals GI Procedure Notification K21.9 - Gastro-esophageal reflux disease without esophagitis, Z12.11 - Encounter for screening for malignant neoplasm of colon Medications: New bisacodyl Take two tablets at bedtime, starting five nights before colonoscopy 10 mg (2 x 5 mg) PO BEDTIME 10 tabs 0RF bisacodyl take four tablets once day of colonoscopy prep 20 mg (4 x 5 mg) PO ONCE 4 tabs 0RF polyethylene glycol 3350 (Miralax) per colonoscopy prep instructions 238 grams PO ONCE 238 grams 0RF famotidine Take one tablet at bedtime. 40 mg PO BEDTIME 90 tabs 1RF Changed From pantoprazole 40 mg PO DAILY To pantoprazole Take one tablet in the AM, on an empty stomach. Delay eating 30 minutes 40 mg PO DAILY 90 tabs 1RF Coding Level of Care Code New Pt New Pt Level 3 (21784) Patient Type New Diagnoses Colon cancer screening Z12.11 Gastroesophageal reflux disease, unspecified whether esophagitis present K21.9 Esophagitis presence: esophagitis presence not specified Constipation, unspecified constipation type K59.00 Constipation type: unspecified constipation type
[2025-10-21 12:53] VITALS: BP 119/60; PULSE 82; BMI 35.6
--- OUTSIDE RECORDS SUMMARY | 2025-10-21 14:30 | XMS_ITS | Encounter Summary ---
Author Organization [employer] Address [address] [place] [address] Care Team Providers Care Head Of Academic Technology Name Role Phone Raudel Armstrong MD Primary Care Prov ider Daniel Zhang MD Primary Care Provider Alvina Chacko PharmD Unavailable [phone] Reason for Visit * Reason Onset Date Comments Med Refill 11/16/2023 Encounter Details Date Type Department Care Team (Late st Contact Info) Description 11/16/2023 Refill [facility] MED & PEDS [address] [place], [place] [phone] Raudel Armstrong MD [address] [place], [place] [phone] Social History Tobacco Use Types Packs/Day Years [...] Info) Description 11/09/2025 9:00 AM EST Telemedicine [facility] MED & PEDS [address] [place] [address] Alvina Chacko PharmD [address] [place] [address] documented as of this encounter Visit Diagnoses Not on filedocumented in this encounter Additional Health Concerns Assessment Noted Time PHQ-9 Depression Total Score: 0 01/29/20 23 8:49 AM EDT documented as of this encounter Care Teams Head Of Academic Technology Relationship Specialty Start Date End Date Raudel Armstrong MD [address] [place] [address] PCP - General Internal Medicine 03/08/20 05/17/24 Daniel Zhang MD [address] [place] [address] PCP - General Internal Medicine 05/18/24 Alvina Chacko PharmD [address] [place] [address] Pharmacist Pharmacy 08/03/25 documented as of this encounter
--- OUTSIDE RECORDS SUMMARY | 2025-10-21 14:30 | XMS_ITS | Encounter Summary ---
Author Organization [employer] Address [address] [place] [address] Care Team Providers Care Cigarette Carton Sealer Name Role Phone Daniel Zhang MD Primary Care Provider Alvina Chacko PharmD Unavailable [phone] Encounter Details Date Type Department Care Team ([facility] st Contact Info) Description 06/28/2024 Orders Only [facility] CH[facility] MED & PEDS [address] [place] [address] Daniel Zhang MD [address] [place] [address] Vitamin D deficiency (Primary Dx); Mixed hyperlipidemia; [...] Info) Description 11/09/2025 9:00 AM EST Telemedicine [facility] MED & PEDS [address] [place] [address] Alvina Chacko PharmD [address] [place] [address] documented as of this encounter Visit Diagnoses [...] documented as of this encounter Care Teams Cigarette Carton Sealer Relationship Specialty Start Date End Date Daniel Zhang MD [address] [place] [address] PCP - General Internal Medicine 05/18/24 Alvina Chacko PharmD [address] [place] [address] Pharmacist Pharmacy 08/03/25 documented as of this encounter
--- OUTSIDE RECORDS SUMMARY | 2025-10-21 14:30 | XMS_ITS | Clinical Summary ---
Author Organization [employer] Address [address] [place] [address] 7 [place] [address] Care Team Providers Care Furnace Packer Name Role Phone Daniel Zhang MD Primary Care Provider Alvina Chacko PharmD Unavailable [phone] Allergies Active Allergy Reactions Criticality Noted Date [...] DAILY AT 9 AM 90 tablet 1 5 6:42 PM EST 06/07/20 25 Active tiZANidine (Zanaflex) 2 MG tabletIndications :Chronic left shoulder pain Take 1 tablet (2 mg) by mouth every 6 (six) hours if needed for muscle spasms for up to 10 days. 30 tablet 2 06/24/20 25 Active losartan (Cozaar) 50 MG tabletIndications :Primary hypertension TAKE ONE TABLET (50 MG) BY MOUTH ONCE DAILY AT 9 AM 90 tablet 3 5 6:42 PM EST 06/29/20 25 Active pantoprazole (ProtoNix) 40 MG EC tabletIndications :Gastroesophageal reflux disease without esophagitis TAKE ONE TABLET (40 MG) BY MOUTH DAILY AT 9 AM BEFORE BREAKFAST 90 tablet 3 5 6:41 PM EST 06/29/20 25 Active dilTIAZem CD (Cardizem CD) 120 MG 24 hr capsule Take 1 capsule by mouth Once per day. At 9 am 07/01/20 Active nicotine (Nicoderm CQ) 21 MG/24HR patchIndications: [...] AM IN THE MORNING 90 tablet 1 6:42 PM EST 09/16/20 25 Active ibuprofen 800 MG tabletIndications :Chronic pain of right knee,Chronic left shoulder pain TAKE 1 TABLET BY MOUTH 3 TIMES DAILY. 90 tablet 09/26/20 25 Active tadalafil (Cialis) 10 MG tabletIndications :Other male erectile dysfunction Take 1 tablet (10 mg) by mouth if needed each day for erectile dysfunction. 20 tablet 2 10/20/20 25 2025 Active tadalafil (Cialis) 10 MG tabletIndications :Other male erectile dysfunction Take 1 tablet (10 mg) by mouth if needed each day for erectile dysfunction. 20 tablet 2 07/28/20 25 2024 Discontinued(R eorder (will not trigger [...] Encounters Date Type Department Care Team Description 10/19/2025 Refill [facility] [address] [place] [address] Daniel Zhang MD Other male erectile dysfunction 10/01/2025 Orders Only [facility] External Provider, [facility] 09/25/2025 Refill [facility] MED & PEDS [address] [place] [address] Daniel Zhang MD Chronic pain of right knee; Chronic left shoulder pain 09/16/2025 Refill [facility] MEDICINE [address] [place] [address] Daniel Zhang MD Mixed hyperlipidemia 09/10/2025 Refill [facility] MED & PEDS [address] [place] [address] Daniel Zhang MD Mixed hyperlipidemia 08/31/2025 9:00 AM EDT Telemedicine [facility]S [address] [place] [address] Alvina Chacko, PharmD Smoking 1/2 pack a day or less (Primary Dx) 08/31/2025 Travel 08/26/2025 Refill [facility] MED & PEDS [address] [place] [address] Daniel Zhang MD Chronic pain of right knee; Chronic left shoulder pain 08/16/2025 Telephone [facility] PEDS [address] [place] [address] Alvina Chacko, PharmD 08/03/2025 9:00 AM EDT Telemedicine [facility] [address] [place] [address] Alvina Chacko, PharmD Smoking 1/2 pack a day or less (Primary Dx) 08/03/2025 Travel 07/28/2025 Refill [facility] MED & PEDS [address] [place] [address] Daniel Zhang MD Other male erectile dysfunction 07/22/2025 Refill [facility] [address] [place] [address] Daniel Zhang MD Other male erectile dysfunction from Last 3 Months Immunizations Immunization Administration [...] AM EST Telemedicine [facility] [address] [place] [address] Alvina Chacko, PharmD [address] [place] [address] Health Maintenance Due Date Last Done Comments [...] Procedure Name Priority Date/Time Associated Diagnosis Comments MR SHOULDER WO CONTRAST LEFT Routine 10/04/2025 7:25 PM EST XR SKULL 1-3 VIEWS Routine 10/01/2025 8: 23 PM EST XR TIBIA FIBULA 2 VIEWS LEFT Routine 10/01/2025 8:13 PM EST LIPID PANEL, STANDARD Routine 07/20/2025 10:30 AM EDT Mixed hyperlipidemia LAB COLOGUARD COLON CANCER SCREEN Routine 05/03/2025 [...] Recently Relevant to Health Maintenance Results * MR Shoulder w/o Contrast Left (10/04/2025 7:25 PM EST) Anatomical Region Laterality Modality Upper Extremities, Shoulder Left Magn etic Resonance 10/04/2025 7:25 PM EST Narrative 10/05/2025 12:52 PM EST [address] [address] Magnetic Resonance Report Signed Patient: Gennaro Quinn MR#: [id number] : 1980 Acct:[id number] Age/Sex: 45 / M ADM Date: 10/04/25 Loc: HO.MRI Attending Dr: Kurt Minor MD Ordering Physician: Kurt Minor MD Date of Service: 10/04/25 Procedure(s): MR shoulder LT wo con Accession Number(s): [id number] cc: Daniel Zhang MD; Kurt Minor MD Reason for Exam: M25.312 - Other instability, left shoulder EXAMINATION: MR SHOULDER WITHOUT CONTRAST, LEFT CLINICAL INFORMATION: Pain, instability COMPARISON: X-ray 08/25/2025 TECHNIQUE: MRI of the shoulder without contrast was performed on a high-field scanner. FINDINGS: ROTATOR CUFF: Supraspinatus: Mild tendinosis Infraspinatus: Intact Teres minor: Intact Subscapularis: Mild tendinosis. No evidence of full-thickness tear or retraction. No muscle atrophy or fatty infiltration. BICEPS: Intact CORACOACROMIAL ARCH: The undersurface of the acromion is curved with no subacromial spur. Mild acromioclavicular arthritis, with distal clavicular cyst, prominent marrow edema. LABRUM/CAPSULE: No displaced labral tear is seen. Intact inferior capsule GLENOHUMERAL JOINT/MARROW: No fracture or dislocation. No high-grade chondral loss. No suspicious bony lesions. Small joint fluid. No axillary lymphadenopathy. MR/MR shoulder wo con IMPRESSION: * Mild supraspinatus and subscapularis tendinosis. No evidence of full-thickness tear or retraction. * Mild acromioclavicular edema. Edema in the distal clavicle and acromion marginating the joint, could be related to the arthritis, contusion/stress injury. Electronically signed by: Toney Holbrook MD 10/05/2025 12:49 PM [facility] Dictated By: Toney Holbrook MD Signed By: <Electronically signed by Toney Holbrook MD in OV> 10/05/25 1249 DD/ 24 TD/TT: 10/04/25 194 Flight Data Technician: SARI Procedure Note Donotuseinterpreter, Image - 10/05/2025 [place] [address] Magnetic Resonance Report Signed Patient: Mariah Quinn#: [id number] : 1980Acct:[id number] Age/Sex: 45 / MADM Date: 10/04/25 Loc: HO.MRI Attending Dr: Kurt Minor MD Ordering Physician: Kurt Minor MD Date of Service: 10/04/25 Procedure(s): MR shoulder LT wo con Accession Number(s): [id number] cc: Daniel Zhang MD; Kurt Minor MD Reason for Exam: M25.312 - Other instability, left shoulder EXAMINATION: MR SHOULDER WITHOUT CONTRAST, LEFT CLINICAL INFORMATION: Pain, instability COMPARISON: X-ray 08/25/2025 TECHNIQUE: MRI of the shoulder without contrast was performed on a high-field scanner. FINDINGS: ROTATOR CUFF: Supraspinatus: Mild tendinosis Infraspinatus: Intact Teres minor: Intact Subscapularis: Mild tendinosis. No evidence of full-thickness tear or retraction. No muscle atrophy or fatty infiltration. BICEPS: Intact CORACOACROMIAL ARCH: The undersurface of the acromion is curved with no subacromial spur. Mild acromioclavicular arthritis, with distal clavicular cyst, prominent marrow edema. LABRUM/CAPSULE: No displaced labral tear is seen. Intact inferior capsule GLENOHUMERAL JOINT/MARROW: No fracture or dislocation. No high-grade chondral loss. No suspicious bony lesions. Small joint fluid. No axillary lymphadenopathy. MR/MR shoulder LT wo con IMPRESSION: * Mild supraspinatus and subscapularis tendinosis. No evidence of full-thickness tear or retraction. * Mild acromioclavicular edema. Edema in the distal clavicle and acromion marginating the joint, could be related to the arthritis, contusion/stress injury. Electronically signed by: Toney Holbrook MD 10/05/2025 12:49 PM [facility] Dictated By: Toney Holbrook MD Signed By: <Electronically signed by Toney Holbrook MD in OV> 10/05/25 1249 DD/ 24 TD/TT: 10/04/251940 Flight Data Technician: SARI [facility] External Provider IMG MRI PROCEDURES Final Result * XR Skull 1-3 Views (10/01/2025 8:23 PM EST) Anatomical Region Laterality Modality Head, Neck Radiographic Alesha ging 10/01/2025 8:23 PM EST Narrative 10/01/2025 8:24 PM EST [address] [address] XRay Report Signed with Addenda Patient: Gennaro Quinn MR#: [id number] : 1980 Acct:[id number] Age/Sex: 45 / M ADM Date: 10/01/25 Loc: HO.MRI Attending Dr: Kurt Minor MD Ordering Physician: Lopez Ayoub MD Date of Service: 10/01/25 Procedure(s): XR skull <4V Accession Number(s): [id number] cc: Daniel Zhang MD; Lopez Ayoub MD [...] in OV> 10/01/252023 DD/ 22 TD/TT: 10/01/252022 Flight Data Technician: Procedure Note Donotuseinterpreter, Image - 10/04/2025 [place] [address] XRay Report Signed with Addenda Patient: Mariah Quinn#: [id number] : 1980Acct:[id number] Age/Sex: 45 / MADM Date: 10/01/25 Loc: HO.MRI Attending Dr: Kurt Minor MD Ordering Physician: Lopez Ayoub MD Date of Service: 10/01/25 Procedure(s): XR skull <4V Accession Number(s): [id number] cc: Daniel Zhang MD; Lopez Ayoub MD [...] in OV> 10/01/252023 DD/ 22 TD/TT: 10/01/252022 Flight Data Technician: [facility] External Provider IMG XR PROCEDURES Edited Result - Final * XR Tibia Fibula 2 Views Left (10/01/2025 8:13 PM EST) Anatomical Region Laterality Modality Lower Extremities, Lower Leg Left Rad iographic Imaging 10/01/2025 8:13 PM EST Narrative 10/01/2025 8:15 PM EST [place] [address] XRay Report Signed with Addenda Patient: Gennaro Quinn MR#: [id number] : 1980 Acct:[id number] Age/Sex: 45 / M ADM Date: 10/01/25 Loc: HO.MRI Attending Dr: Kurt Minor MD Ordering Physician: Lopez Ayoub MD Date of Service: 10/01/25 Procedure(s): XR tibia fibula LT 2V Accession Number(s): [id number] cc: Daniel Zhang MD; Lopez Ayoub MD [...] in OV> 10/01/252013 DD/ 12 TD/TT: 10/01/252012 Flight Data Technician: Procedure Note Donotuseinterpreter, Image - 10/04/[address] [address] XRay Report Signed with Addenda Patient: Mariah Quinn#: [id number] : 1980Acct:[id number] Age/Sex: 45 / MADM Date: 10/01/25 Loc: HO.MRI Attending Dr: Kurt Minor MD Ordering Physician: Lopez Ayoub MD Date of Service: 10/01/25 Procedure(s): XR tibia fibula LT 2V Accession Number(s): [id number] cc: Daniel Zhang MD; Lopez Ayoub MD [...] in OV> 10/01/252013 DD/ 12 TD/TT: 10/01/252012 Flight Data Technician: us [facility] External Provider IMG XR PROCEDURES Edited Result - Final * (ABNORMAL) Lipid Panel, Standard (07/20/2025 10:30 AM EDT) Triglycerides 177(H) <150 mg/dL [facility] Comment:Desirable Triglyceri de: less than 150 mg/dLBorderline High Triglyceride 150-199 mg/dLHigh Triglyceride: 200-499 mg/dLVery High Triglyceride: greater than or equal to 5OO mg/dL Cholesterol 229(H) <200 mg/dL [facility] Comment:Desirable Cholestero l: less than 200 mg/dLBorderline High Cholesterol: 200-239 mg/dLHigh Cholesterol: greater than 239 mg/dL LDL Cholesterol Calculated 152(H) <100 mg/dL [facility] Comment:Desirable LDL: less than 100 mg/dLNear Optimal/Above Optimal LDL: 110- 129 mg/dLBorderline High LDL: 130-159 mg/dLHigh LDL: 160-189 mg/dLVery High LDL: greater than or equal to 190 mg/dL HDL Cholesterol 42 >40 mg/dL [facility] Comment:Desirable HDL: great er than 40 mg/dL Note: This HDL assay may give artificially low results in patients with liver disease. Blood Venous blood specimen / Unknown 07/20/2025 10:30 AM EDT 07/20/2025 2:20 PM EDT Daniel Zhang MD LAB BLOOD ORDERABLES Final Result [facility] [address] [place] [phone] * Cologuard?? colon cancer screening (05/03/2025 6:50 AM EDT) Cologuard Result Negative Negative 05/09/20 5:49 AM EDT [email or web address] (CLIA #:[id number]) Comment: The Cologuard (TM) test was performed [...] cancer. Following a negative Cologuard result, the [place] [employer] Society and U.S. Multi-Society Task Force screening guidelines recommend a Cologuard re-screening interval of 3 years. References: [place] [employer] Guideline for Colorectal Cancer Screening: https://www.cancer.org/cancer/esbih-tszrbe-unzwzm/hzuwkxjbo-iitwkzmmw-rdzynii/ac s-rec ommendations.html.; Gene DK, Gordo SAENZ, Catrachita FelicianoK, Colorectal Cancer Screening: Recommendations for Physicians and Patients from the U.S. Multi-Society Task Force on Colorectal Cancer Screening , Am J Gastroenterology 2017; 112:3373-4658. TEST DESCRIPTION: Composite algorithmic analysis of stool [...] screened with both Cologuard and colonoscopy. (Fahad Dukes, N Engl J Med 2014;370(14):4352-6314.) Cologuard may produce a false negative or false positive result (no colorectal cancer or precancerous polyp present at colonoscopy follow up). A negative Cologuard test result does not guarantee the absence of CRC or advanced adenoma (pre-cancer). The current Cologuard screening interval is every 3 years. ([place] [employer] Society and U.S. Multi-Society Task Force). Cologuard performance data in a 10,000 patient pivotal study using colonoscopy as the reference method can be accessed at the following location: www.snapp.me.SoThree/results. Additional description of the Cologuard test process, warnings and precautions can be found at www.cologuard.com. Stool specimen (specimen) 05/03/2025 6:50 AM EDT 05/04/2025 1:43 PM EDT us Daniel Zhang MD LAB MOLECULAR DIAGNOSTICS O RDERABLES Final Result Performing Organization Address City/[facility]/ZIP Co de Phone Number [email or web address] (CLIA #:[id number]) [address] [place] [address], * Hepatitis C Antibody with Reflex to HCV, RNA, Quantitative, Real-Time PCR (04/11/2025 10:40 AM EDT) Hepatitis C Antibody Nonreactive Nonreactive [facility] Comment:Antibodies to HCV no t detected; does not exclude early acuteHCV infection. Blood Venous blood specimen / Unknown 04/11/2025 10:40 AM EDT 04/11/2025 2:17 PM EDT us Daniel Zhang MD LAB BLOOD ORDERABLES Final Result [facility] [address] [place] [phone] * HIV-1/2 Antigen and Antibodies, Fourth Generation, with Reflexes (04/11/2025 10:40 AM EDT) HIV AB/AG Nonreactive Nonreactive [facility] Comment:HIV-1 p24 Ag and/or HIV-1/HIV-2 Ab not detected.A test result that is nonreactive does not exclude thepossibility of exposure to or infection with HIV-1 and/orHIV-2. Nonreactive results in this assay for individualswith prior exposure to HIV-1 and/or HIV-2 may be due toantigen and antibody levels that are below the limit ofdetection of this assay.The [employer]era[employer] ([employer]) HIV Ag/Ab Combo assay result andsupplemental assay results should be interpreted inconjunction with the patient's clinical presentation,history and other laboratory results. If the results areinconsistent with clinical evidence, additional testing issuggested to confirm the result. Blood Venous blood specimen / Unknown 04/11/2025 10:40 AM EDT 04/11/2025 2:17 PM EDT us Daniel Zhang MD LAB BLOOD ORDERABLES Final Result Performing Organization Address City/[facility] Co de Phone Number [facility] [address] [place] [phone] * Hemoglobin A1c (04/11/2025 10:40 AM EDT) Hemoglobin A1c 5.8 <6.0 % [facility] Comment:Hemoglobin A1C Refer ence Range Adults: 4.8 - 6.0 % Non diabetic: < 6.0 % Goal: < 7.0 %Additional Action Suggested: > 8.0 %Note: Hemoglobin A1c results are invalid for patients with abnormal amounts of HbF. Blood transfusions may impact the HbA1c concentration in the patient sample. Estimated Average Glucose 120 mg/dL [facility] Comment:eAG = Estimated ave rage glucose which is %A1C expressed asaverage glucose, using the formula of the V6M-XjwwmtyRtowpue Glucose study (ADAG), Diabetes Care, Vol.31,#8,Jun. 2007 Blood Venous blood specimen / Unknown 04/11/2025 10:40 AM EDT 04/11/2025 2:17 PM EDT Daniel Zhang MD LAB BLOOD ORDERABLES Final Result [facility] [address] [place] [phone] [phone] from Last 3 Months or Most Recently Relevant to Health Maintenance [place] [address] [place] [address] STANDARD [employer] MEDICARE REPLACEMENT Care Teams Furnace Packer Relationship Specialty Start Date End Date Daniel Zhang MD [address] [place] [phone] PCP - General Internal Medicine 05/18/24 Alvina Chacko, ChetnaD [address] [place] [phone] Pharmacist Pharmacy 08/03/25
--- OUTSIDE RECORDS SUMMARY | 2025-10-21 14:30 | XMS_ITS | Encounter Summary ---
Author Organization [employer] Address [address] [facility] 7 [place] [address] Care Team Providers Care Deputy County Counsel Name Role Phone Daniel Zhang MD Primary Care Provider [phone] Alvina Chacko PharmD Unavailable [phone] Encounter Details Date Type Department Care Team ([facility] st Contact Info) Description 07/07/2025 Orders Only [facility] CH[facility] MED & PEDS [address] [place] [address] ProviderKimberly MD Social History Tobacco Use Types [...] Info) Description 11/09/2025 9:00 AM EST Telemedicine [facility] MED & PEDS [address] [place] [address] Alvina Chacko, PharmD [address] [place] [address] documented as of this encounter Procedures Procedure [...] documented as of this encounter Care Teams Deputy County Counsel Relationship Specialty Start Date End Date Daniel Zhang MD [address] [place] [address] PCP - General Internal Medicine 05/18/24 Alvina Chacko PharmD [address] [place] [address] Pharmacist Pharmacy 08/03/25 documented as of this encounter
--- OUTSIDE RECORDS SUMMARY | 2025-10-21 14:30 | XMS_ITS | Encounter Summary ---
Author Organization [employer] Address [address] [place] [address] Care Team Providers Care Maintenance Of Way Foreman Name Role Phone Daniel Zhang MD Primary Care Provider Alvina Chacko PharmD Unavailable [phone] Reason for Visit * Reason Onset Date Comments Med Refill 06/07/2025 Encounter Details Date Type Department Care Team ([facility] st Contact Info) Description 06/07/2025 Refill [facility] MED & PEDS [address] [place] [address] Daniel Zhang MD [address] [place] [address] Other male erectile dysfunction Social History Tobacco [...] Upcoming Encounters Date Type Department Care Team ([facility] st Contact Info) Description 11/09/2025 9:00 AM EST Telemedicine [facility] MED & PEDS [address] [place] [address] Alvina Chacko, PharmD [address] [place] [address] documented as of this encounter Visit Diagnoses Diagnosis Other male erectile dysfunction documented in this encounter Additional Health Concerns Assessment Noted Time PHQ-9 Depression Total Score: 12 025 9:40 AM EDT documented as of this encounter Care Teams Maintenance Of Way Foreman Relationship Specialty Start Date End Date Daniel Zhang MD [address] [place] [address] PCP - General Internal Medicine 05/18/24 Alvina Chacko, PharmD [address] [place] [address] Pharmacist Pharmacy 08/03/25 documented as of this encounter
--- OUTSIDE RECORDS SUMMARY | 2025-10-21 14:30 | XMS_ITS | Encounter Summary ---
Author Organization [employer] Address [address] [facility] [address] [address] Care Team Providers Care Cda Teacher Name Role Phone Raudel Armstrong MD Primary Care Prov ider Daniel Zhang MD Primary Care Provider Alvina Chacko PharmD Unavailable [phone] Reason for Visit * Reason Onset Date Comments Medication Question 05/10/2024 Encounter Details Date Type Department Care Team (Late st Contact Info) Description 05/10/2024 Telephone [facility] MEDICINE [address] [place] [address] Raudel Armstrong MD [address] [place], [place] [phone] Medication Question Social History Tobacco Use Types [...] to stop smoking. Please contact pt @ [phone] Medication qued to PCP * Telephone Encounter - Mando Upton - 05/10/2024 8:56 AM EDT Tc from pt requesting a Script to Nicotine Gum to stop smoking. Please contact pt @ [phone] documented in this encounter Plan of Treatment Upcoming Encounters Date Type Department Care Team (Late st Contact Info) Description 11/09/2025 9:00 AM EST Telemedicine [facility] CHC MED & PEDS [address] [place], [place] [phone] Alvina Chacko, PharmD [address] [place] [address] documented as of this encounter Visit Diagnoses Not on filedocumented in this encounter Additional Health Concerns Assessment Noted Time PHQ-9 Depression Total Score: 0 01/29/20 23 8:49 AM EDT documented as of this encounter Care Teams Cda Teacher Relationship Specialty Start Date End Date Raudel Armstrong MD [address] [place] [address] PCP - General Internal Medicine 03/08/20 05/17/24 Daniel Zhang MD [address] [place] [address] PCP - General Internal Medicine 05/18/24 Alvina Chacko PharmD [address] [place] [phone] Pharmacist Pharmacy 08/03/25 documented as of this encounter
--- OUTSIDE RECORDS SUMMARY | 2025-10-21 14:30 | XMS_ITS | Encounter Summary ---
Author Organization [employer] Address [address] [place] [address] Care Team Providers Care Delivery Man Name Role Phone Daniel Zhang MD Primary Care Provider [phone] Alvina Chacko PharmD Unavailable [phone] Encounter Details Date Type Department Care Team ([facility] st Contact Info) Description 06/09/2025 Orders Only [facility] CH[facility] MED & PEDS [address] [place] [address] Daniel Zhang MD [address] [place] [address] Other male erectile dysfunction (Primary Dx) Social [...] Info) Description 11/09/2025 9:00 AM EST Telemedicine [facility] CHC MED & PEDS [address] [place], [place] [phone] Alvina Chacko, PharmD [address] [place] [address] documented as of this encounter Visit Diagnoses Diagnosis Other male erectile dysfunction- Primary documented in this encounter Additional Health Concerns Assessment Noted Time PHQ-9 Depression Total Score: 12 025 9:40 AM EDT documented as of this encounter Care Teams Delivery Man Relationship Specialty Start Date End Date Daniel Zhang MD [address] [place] [address] PCP - General Internal Medicine 05/18/24 Alvina Chacko, PharmD [address] [place] [address] Pharmacist Pharmacy 08/03/25 documented as of this encounter
--- OUTSIDE RECORDS SUMMARY | 2025-10-21 14:31 | XMS_ITS | Encounter Summary ---
Author Organization [employer] Address [address] [place] [address] Care Team Providers Care Jewelry Finisher Name Role Phone Daniel Zhang MD Primary Care Provider Alvina Chacko PharmD Unavailable [phone] Reason for Visit * Reason Comments Med Refill Encounter Details Date Type Department Care Team ([facility] st Contact Info) Description 09/10/2025 Refill [facility] CHC MED & PEDS [address] [place] [address] Daniel Zhang MD [address] [place] [address] Mixed hyperlipidemia Social History Tobacco Use Types [...] Upcoming Encounters Date Type Department Care Team ([facility] st Contact Info) Description 11/09/2025 9:00 AM EST Telemedicine [facility] CHC MED & PEDS [address] [place] [address] Alvina Chacko, PharmD [address] [place] [address] documented as of this encounter Visit Diagnoses Diagnosis Mixed hyperlipidemia documented in this encounter Additional Health Concerns Assessment Noted Time PHQ-9 Depression Total Score: 12 025 9:40 AM EDT documented as of this encounter Care Teams Jewelry Finisher Relationship Specialty Start Date End Date Daniel Zhang MD [address] [place] [address] PCP - General Internal Medicine 05/18/24 Alvina Chacko, ChetnaD [address] [place] [address] Pharmacist Pharmacy 08/03/25 documented as of this encounter
--- OUTSIDE RECORDS SUMMARY | 2025-10-21 14:31 | XMS_ITS | Encounter Summary ---
Author Organization [employer] Address [address] [place] [address] Care Team Providers Care Central Lab Technician Name Role Phone Daniel Zhang MD Primary Care Provider Alvina Chacko PharmD Unavailable [phone] Reason for Visit * Reason Onset Date Comments Med Refill 07/22/2025 Encounter Details Date Type Department Care Team ([facility] st Contact Info) Description 07/22/2025 Refill [facility] CHC MED & PEDS [address] [place] [address] Daniel Zhang MD [address] [place] [address] Other male erectile dysfunction Social History Tobacco [...] Upcoming Encounters Date Type Department Care Team ([facility] st Contact Info) Description 11/09/2025 9:00 AM EST Telemedicine [facility] CHC MED & PEDS [address] [place] [address] Alvina Chacko, PharmD [address] [place] [address] documented as of this encounter Visit Diagnoses Diagnosis Other male erectile dysfunction documented in this encounter Additional Health Concerns Assessment Noted Time PHQ-9 Depression Total Score: 12 025 9:40 AM EDT documented as of this encounter Care Teams Central Lab Technician Relationship Specialty Start Date End Date Daniel Zhang MD [address] [place] [address] PCP - General Internal Medicine 05/18/24 Alvina Chacko, PharmD [address] [place] [address] Pharmacist Pharmacy 08/03/25 documented as of this encounter
--- OUTSIDE RECORDS SUMMARY | 2025-10-21 14:31 | XMS_ITS | Encounter Summary ---
Author Organization [employer] Address [address] [place] [address] Care Team Providers Care Friction Welding Machine Operator Name Role Phone Daniel Zhang MD Primary Care Provider Alvina Chacko PharmD Unavailable [phone] Reason for Visit * Reason Onset Date Comments Med Refill 10/19/2025 Encounter Details Date Type Department Care Team ([facility] st Contact Info) Description 10/19/2025 Refill [facility] CHC MED & PEDS [address] [place] [address] Daniel Zhang MD [address] [place] [address] Other male erectile dysfunction Social History Tobacco [...] 11/09/2025 9:00 AM EST Telemedicine [facility] CHC MED & PEDS [address] [place] [address] Alvina Chacko, PharmD [address] [place] [address] documented as of this encounter Visit Diagnoses Diagnosis Other male erectile dysfunction documented in this encounter Additional Health Concerns Assessment Noted Time PHQ-9 Depression Total Score: 12 025 9:40 AM EDT documented as of this encounter Care Teams Friction Welding Machine Operator Relationship Specialty Start Date End Date Daniel Zhang MD [address] [place] [address] PCP - General Internal Medicine 05/18/24 Alvina Chacko, ChetnaD [address] [place] [address] Pharmacist Pharmacy 08/03/25 documented as of this encounter
--- OUTSIDE RECORDS SUMMARY | 2025-10-21 14:31 | XMS_ITS | Encounter Summary ---
Author Organization [employer] Address [address] [place] [address] Care Team Providers Care Client Project Coordinator Name Role Phone Raudel Armstrong MD Primary Care Prov ider Daniel Zhang MD Primary Care Provider Alvina Chacko PharmD Unavailable [phone] Encounter Details Date Type Department Care Team ([facility] st Contact Info) Description 02/19/2023 Orders Only [facility] CHC MED & PEDS [address] [place], [place] [phone] Raudel Armstrong MD [address] [place] [address] Social History Tobacco Use Types Packs/Day Years [...] Description 11/09/2025 9:00 AM EST Telemedicine [facility] CHC MED & PEDS [address] [place] [address] Alvina Chacko PharmD [address] [place] [address] documented as of this encounter Visit Diagnoses Not on filedocumented in this encounter Additional Health Concerns Assessment Noted Time PHQ-9 Depression Total Score: 0 01/29/20 23 8:49 AM EDT documented as of this encounter Care Teams Client Project Coordinator Relationship Specialty Start Date End Date YeagerRaudel Garcia MD [address] [place] [address] PCP - General Internal Medicine 03/08/20 05/17/24 Daniel Zhang MD [address] [place] [address] PCP - General Internal Medicine 05/18/24 Alvina Chacko PharmD [address] [place] [address] Pharmacist Pharmacy 08/03/25 documented as of this encounter
--- OUTSIDE RECORDS SUMMARY | 2025-10-21 14:31 | XMS_ITS | Encounter Summary ---
Author Organization [employer] Address [address] [place] [address] Care Team Providers Care Repairer Sash And Door Name Role Phone Daniel Zhang MD Primary Care Provider Alvina Chacko PharmD Unavailable [phone] Encounter Details Date Type Department Care Team ([facility] st Contact Info) Description 04/12/2025 Orders Only [facility] CHC MED & PEDS [address] [place] [address] Daniel Zhang MD [address] [place] [address] Mixed hyperlipidemia (Primary Dx) Social History Tobacco [...] [facility] MED & PEDS [address] [place] [address] Alvina Chacko, PharmD [address] [place] [address] documented as of this encounter Procedures Procedure Name Priority Date/Time Associated Diagnosis Comments LIPID PANEL, STANDARD Routine 07/20/2025 10:30 AM EDT Mixed hyperlipidemia documented in this encounter Results * (ABNORMAL) Lipid Panel, Standard (07/20/2025 10:30 AM EDT) Triglycerides 177(H) <150 mg/dL [facility] Comment:Desirable Triglyceri de: less than 150 mg/dLBorderline High Triglyceride 150-199 mg/dLHigh Triglyceride: 200-499 mg/dLVery High Triglyceride: greater than or equal to 5OO mg/dL Cholesterol 229(H) <200 mg/dL [facility] Comment:Desirable Cholestero l: less than 200 mg/dLBorderline High Cholesterol: 200-239 mg/dLHigh Cholesterol: greater than 239 mg/dL LDL Cholesterol Calculated 152(H) <100 mg/dL [facility] Comment:Desirable LDL: less than 100 mg/dLNear Optimal/Above Optimal LDL: 110- 129 mg/dLBorderline High LDL: 130-159 mg/dLHigh LDL: 160-189 mg/dLVery High LDL: greater than or equal to 190 mg/dL HDL Cholesterol 42 >40 mg/dL [facility] Comment:Desirable HDL: great er than 40 mg/dL Note: This HDL assay may give artificially low results in patients with liver disease. Blood Venous blood specimen / Unknown 07/20/2025 10:30 AM EDT 07/20/2025 2:20 PM EDT Daniel Zhang MD LAB BLOOD ORDERABLES Final Result [facility] [address] [place] [address] [phone] documented in this encounter Visit Diagnoses Diagnosis Mixed hyperlipidemia- Primary documented in this encounter Additional Health Concerns Assessment Noted Time PHQ-9 Depression Total Score: 12 025 9:40 AM EDT documented as of this encounter Care Teams Repairer Sash And Door Relationship Specialty Start Date End Date Daniel Zhang MD [address] [place] [address] PCP - General Internal Medicine 05/18/24 Alvina Chacko PharmD [address] [place] [address] Pharmacist Pharmacy 08/03/25 documented as of this encounter
--- OUTSIDE RECORDS SUMMARY | 2025-10-21 14:31 | XMS_ITS | Encounter Summary ---
Author Organization [employer] Address [address] [place] [address] Care Team Providers Care Coding File Clerk Name Role Phone Daniel Zhang MD Primary Care Provider [phone] Alvina Chacko PharmD Unavailable [phone] Reason for Visit * Reason Comments Med Refill Encounter Details Date Type Department Care Team ([facility] st Contact Info) Description 03/10/2025 Refill [facility] CHC MED & PEDS [address] [place] [address] Daniel Zhang MD [address] [place] [address] Mixed hyperlipidemia Social History Tobacco Use Types [...] with others, in a hotel, in a alf, living outside on the street, on a [...] Description 11/09/2025 9:00 AM EST Telemedicine [facility] MED & PEDS [address] [place] [address] Alvina Chacko PharmD [address] [place] [address] documented as of this encounter Visit Diagnoses Diagnosis Mixed hyperlipidemia documented in this encounter Additional Health Concerns Assessment Noted Time PHQ-9 Depression Total Score: 0 01/29/20 23 8:49 AM EDT documented as of this encounter Care Teams Coding File Clerk Relationship Specialty Start Date End Date Daniel Zhang MD [address] [place] [address] PCP - General Internal Medicine 05/18/24 Alvina Chacko PharmD [address] [place] [address] Pharmacist Pharmacy 08/03/25 documented as of this encounter
--- OUTSIDE RECORDS SUMMARY | 2025-10-21 14:31 | XMS_ITS | Encounter Summary ---
Author Organization [employer] Address [address] [place] [address] Care Team Providers Care Old Coin Dealer Name Role Phone Raudel Armstrong MD Primary Care Prov ider Daniel Zhang MD Primary Care Provider [phone] Alvina Chacko PharmD Unavailable [phone] Encounter Details Date Type Department Care Team (Late Contact Info) Description 05/20/2023 Telephone [facility] MED & PEDS [address] [place] [address] Raudel Armstrong MD [address] [place] [address] Social History Tobacco Use Types Packs/Day Years [...] Upcoming Encounters Date Type Department Care Team ([facility] Contact Info) Description 11/09/2025 9:00 AM EST Telemedicine [facility] CHC MED & PEDS [address] [place] [address] Alvina Chacko PharmD [address] [place] [address] documented as of this encounter Visit Diagnoses Not on filedocumented in this encounter Additional Health Concerns Assessment Noted Time PHQ-9 Depression Total Score: 0 01/29/20 23 8:49 AM EDT documented as of this encounter Care Teams Old Coin Dealer Relationship Specialty Start Date End Date Raudel Armstrong MD [address] [place] [address] PCP - General Internal Medicine 03/08/20 05/17/24 Daniel Zhang MD [address] [place] [address] PCP - General Internal Medicine 05/18/24 Alvina Chacko PharmD [address] [place] [address] Pharmacist Pharmacy 08/03/25 documented as of this encounter
--- OUTSIDE RECORDS SUMMARY | 2025-10-21 14:31 | XMS_ITS | Encounter Summary ---
Author Organization [employer] Address [address] [place] [address] Care Team Providers Care Fire Prevention Captain Name Role Phone Raudel Armstrong MD Primary Care Prov ider Daniel Zhang MD Primary Care Provider Alvina Chacko PharmD Unavailable [phone] Encounter Details Date Type Department Care Team (Latest Contact Info) Description 10/31/2021 Abstract [facility] Dental, Provider, DDS Social History [...] Info) Description 11/09/2025 9:00 AM EST Telemedicine [facility] CHC MED & PEDS [address] [place] [address] Alvina Chacko, PharmD [address] [place] [address] documented as of this encounter Visit Diagnoses Not on filedocumented in this encounter Care Teams Fire Prevention Captain Relationship Specialty Start Date End Date Raudel Armstrong MD [address] [place] [address] PCP - General Internal Medicine 03/08/20 05/17/24 Daniel Zhang MD [address] [place] [address] PCP - General Internal Medicine 05/18/24 Alvina Chacko PharmD [address] [place] [address] Pharmacist Pharmacy 08/03/25 documented as of this encounter
--- OUTSIDE RECORDS SUMMARY | 2025-10-21 14:31 | XMS_ITS | Encounter Summary ---
Author Organization [employer] Address [address] [facility] [address] [place] [address] Care Team Providers Care School Lunch Manager Name Role Phone Raudel Armstrong MD Primary Care Prov ider Daniel Zhang MD Primary Care Provider Alvina Chacko PharmD Unavailable [phone] Encounter Details Date Type Department Care Team (Late st Contact Info) Description 04/15/2023 Telephone [facility] [address] [place] [address] Raudel Armstrong MD [address] [place], [place] [phone] Social History Tobacco Use Types Packs/Day Years [...] Info) Description 11/09/2025 9:00 AM EST Telemedicine [facility] CHC MED & PEDS [address] [place] [address] Alvina Chacko PharmD [address] [place] [address] documented as of this encounter Visit Diagnoses Not on filedocumented in this encounter Additional Health Concerns Assessment Noted Time PHQ-9 Depression Total Score: 0 01/29/20 23 8:49 AM EDT documented as of this encounter Care Teams School Lunch Manager Relationship Specialty Start Date End Date Raudel Armstrong MD [address] [place] [address] PCP - General Internal Medicine 03/08/20 05/17/24 Daniel Zhang MD [address] [place] [address] PCP - General Internal Medicine 05/18/24 Alvina Chacko PharmD [address] [place] [address] Pharmacist Pharmacy 08/03/25 documented as of this encounter
--- OUTSIDE RECORDS SUMMARY | 2025-10-21 14:31 | XMS_ITS | Encounter Summary ---
Author Organization [employer] Address [address] [place] [address] [place] [address] Care Team Providers Care Catcher Plug Name Role Phone Daniel Zhang MD Primary Care Provider Alvina Chacko PharmD Unavailable [phone] Encounter Details Date Type Department Care Team ([facility] st Contact Info) Description 06/20/2024 Orders Only [facility] CHC MED & PEDS [address] [place] [address] YeagerRaudel Garcia MD [address] [place] [address] Social History Tobacco Use Types Packs/Day Years [...] Info) Description 11/09/2025 9:00 AM EST Telemedicine [facility] MED & PEDS [address] [place] [address] Alvina Chacko PharmD [address] [place] [address] documented as of this encounter Visit Diagnoses Not on filedocumented in this encounter Additional Health Concerns Assessment Noted Time PHQ-9 Depression Total Score: 0 01/29/20 23 8:49 AM EDT documented as of this encounter Care Teams Catcher Plug Relationship Specialty Start Date End Date Daniel Zhang MD [address] [place] [address] PCP - General Internal Medicine 05/18/24 Alvina Chacko, Trina [address] [place] [address] Pharmacist Pharmacy 08/03/25 documented as of this encounter
--- OUTSIDE RECORDS SUMMARY | 2025-10-21 14:31 | XMS_ITS | Encounter Summary ---
Author Organization [employer] Address [address] [place] [address] Care Team Providers Care Briquetter Operator Name Role Phone Daniel Zhang MD Primary Care Provider Alvina Chacko PharmD Unavailable [phone] Encounter Details Date Type Department Care Team ([facility] st Contact Info) Description 07/20/2025 Orders Only [facility] CHC MED & PEDS [address] [place] [address] Daniel Zhang MD [address] [place] [address] Social History Tobacco Use Types Packs/Day Years [...] Upcoming Encounters Date Type Department Care Team ([facility] st Contact Info) Description 11/09/2025 9:00 AM EST Telemedicine [facility] CHC MED & PEDS [address] [place] [address] Alvina Chacko PharmD [address] [place] [address] documented as of this encounter Visit Diagnoses Not on filedocumented in this encounter Additional Health Concerns Assessment Noted Time PHQ-9 Depression Total Score: 12 025 9:40 AM EDT documented as of this encounter Care Teams Briquetter Operator Relationship Specialty Start Date End Date Daniel Zhang MD [address] [place] [address] PCP - General Internal Medicine 05/18/24 Alvina Chacko PharmD [address] [place] [address] Pharmacist Pharmacy 08/03/25 documented as of this encounter
--- OUTSIDE RECORDS SUMMARY | 2025-10-21 14:31 | XMS_ITS | Clinical Summary ---
Author Organization [facility] Address [address] [place] [address] Phone Care Team Providers Care Furnishings Conservator Name Role Phone Raudel Armstrong Primary Care [...] Primary hypertension 07/07/2025 GERD (gastroesophageal reflux disease) 5 Hyperlipidemia 07/07/2025 Chronic lower back pain 07/07/2025 Resolved Problems Problem Noted Date Diagnosed Date Resolved Date Partial small bowel obstruction 07/07/2025 07/07/2025 Surgical History Surgery Date Site/Laterality Comments CARPAL TUNNEL RELEASE 04/11/2022 Right PROCEDURE: MS NEUROPLASTY &/TRANSPOS MEDIAN NRV CARPAL TUNNE; COMMENT: w/ganglion excision, Dr Walker BACK SURGERY PROCEDURE: HISTORICAL BACK SURGERY; COMMENT: Lumbar x2 OTHER SURGICAL HISTORY PROCEDURE: MS COLECTOMY PARTIAL W/ANASTOMOSIS Medical History Medical History [...] for your loved ones. For example, child development director or elderly care for an older [...] on file Sexual Orientation Not on file Last Filed Vital Signs Vital Sign Reading [...] Associated Diagnosis Comments BASIC METABOLIC PANEL Routine 07/07/2025 6:13 AM EDT from Last 3 Months or Most Recently Relevant to Health Maintenance Results * (ABNORMAL) Basic metabolic panel (07/07/2025 6:13 AM EDT) Sodium 137 133 - 145 mmol/L LAB CHEMISTRY METHOD 07/07/2025 7:45 AM [facility] Potassium 4.7 3.5 - 5.5 mmol/L LAB CHEMISTRY METHOD 07/07/2025 7:45 AM [facility] Comment:Hemolysis present Chloride 105 96 - 110 mmol/L LAB CHEMISTRY METHOD 07/07/2025 7:45 AM [facility] CO2 26 21 - 32 mmol/L LAB CHEMISTRY METHOD 07/07/2025 7:45 AM [facility] Anion Gap 6 3 - 11 LAB CHEMISTRY METHOD 07/07/2025 7:45 AM [facility] Glucose 114(H) 70 - 100 mg/dL LAB CHEMISTRY METHOD 07/07/2025 7:45 AM [facility] BUN 8 5 - 25 mg/dL LAB CHEMISTRY METHOD 07/07/2025 7:45 AM [facility] Creatinine 0.68(L) 0.70 - 1.30 mg/dL LAB CHEMISTRY METHOD 07/07/2025 7:45 AM EDT [facility] eGFR 117 >=60 mL/min/1. 73m2 LAB CHEMISTRY METHOD 07/07/2025 7:45 AM EDT [facility] Comment:Calculation based on the Chronic Kidney Disease Epidemiology Collaboration (CKD-EPI) equation refit without adjustment for race. BUN/Creatinine Ratio 11.8 LAB CHEMISTRY METHOD 07/07/2025 7:45 AM EDT [facility] Calcium 9.2 8.5 - 10.5 mg/dL LAB CHEMISTRY METHOD 07/07/2025 7:45 AM EDT [facility] Blood Venous blood specimen / Unknown Venipuncture / Unknown 07/07/2025 6:13 AM EDT 07/07/2025 6:47 AM EDT us Amarjit German MD LAB BLOOD ORDERABLES Final Result [facility] [address] [place] [address], from Last 3 Months or Most Recently Relevant to Health Maintenance Insurance MEDICAID - [place] [employer] MEDICARE ADVANTAGE Advance Directives Documents on File Type Date Recorded Patient [employer] Expl 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 Care Teams Furnishings Conservator Relationship Specialty Start Date End Date Raudel Armstrong [address] [place], [place] PCP - General Internal Medicine 11/16/21
== END 2025-10-21 13:33 | disposition home or self-care (01) ==
LOC: HO.HGI 12:41
PROVIDERS: PCP Internal Medicine; Visit Provider Nurse Practitioner Family
DX: Z01.818 Encounter for other preprocedural examination (principal); Z12.11 Encounter for screening for malignant neoplasm of colon; Z86.0101 Personal history of adenomatous and serrated colon polyps; K59.00 Constipation, unspecified; K21.9 Gastro-esophageal reflux disease without esophagitis
CPT/HCPCS: 99203

== ENCOUNTER → 2025-10-21 12:40 | Outpatient (BNVA) | payer MEDICARE, MEDICAID, SELFPAY | PROVIDERS: PCP Internal Medicine; Visit Provider Nurse Practitioner Family | DX: Z12.11 Encounter for screening for malignant neoplasm of colon (principal); K21.9 Gastro-esophageal reflux disease without esophagitis; K59.00 Constipation, unspecified; F17.210 Nicotine dependence, cigarettes, uncomplicated | CPT/HCPCS: 99202 ==